=== PATIENT | female | born 1935 | race Caucasian/White ===

== ENCOUNTER 2016-10-30 06:51 | Inpatient (IN) | payer OTHER ==
[~2016-10-30] VITALS: Ht 154.9 cm; Wt 85.0 kg
[~2016-10-30 06:51] MED LIST: ALBU1AER9 INH; ASPCH81X PO; CPR250 PO; FLNIN NAE; LSN/10125 PO; TPM25 PO; ULT50X PO
[2016-10-30] MEDS ORDERED: SODIUM CHLORIDE 0.9% 1000ML 1,000 ML IV STA (07:01)
[2016-10-30] MEDS ORDERED: SODIUM CHLORIDE 0.9% 1000ML 500 ML IV STA (07:01)
--- NOTE | 2016-10-30 07:27 | EMERGENCY ROOM VISIT NOTE ---
History Report prepared by Sultana: Digna Corrales Under the Supervision of: Dr. Almas Dubon M.D. First contact with patient: 06:54 Stated Complaint: ABD PAIN History of Present Illness The patient is an 81 year old female who presents to the Emergency Room with complaints of intermittent lower abdominal pain that started yesterday afternoon. The patient came to the ED via ambulance from home where she resides with her who has Alzheimer's. The pain is worst right before she has a bowel movement. She rates her discomfort as a 10/10 in severity when the pain is at its worst. She states that the pain started yesterday afternoon after she ate lunch. The patient states that she ate lunch around 1300 and the pain started around 1400. After the pain started, she experienced an increased frequency in bowel movements. She states that after her first bowel movement she experienced generalized weakness, lightheadedness, and diaphoresis. She denies LOC, chest pain, and nausea. She experienced a few more bowel movements that didn't have any blood associated with them but last night she experienced rectal bleeding with her bowel movements. The patient has been experiencing rectal bleeding with bowel movements since then. She called her daughter this morning and told her about her symptoms which is what prompted the patient come into the ED today. The patient is not on any blood thinners. The patient has chronic kidney disease and follows with Dr. Valdovinos - Nephrology. The patient states that she experiences hyperkalemia but Dr. Valdovinos does not feel that she is close to dialysis yet. Source of History: patient Onset: yesterday afternoon Position: abdomen (lower) Symptom Intensity: 10/10 Quality: other (lower abdominal pain) Timing: intermittent Associated Symptoms: + diaphoresis, + weakness, No LOC, No chest pain, No nausea Note: lightheadedness, rectal bleeding Review of Systems See HPI for pertinent positives & negatives. A total of 10 systems reviewed and were otherwise negative. Past Medical & Surgical Medical Problems: (1) Back pain (2) Breast cancer (3) Chronic renal failure, stage 4 (severe) (4) CKD (chronic kidney disease), stage IV (5) DVT (deep venous thrombosis) (6) Dyslipidemia (7) GERD (gastroesophageal reflux disease) (8) GI bleed (9) History of DVT (deep vein thrombosis) (10) HTN (hypertension) (11) Lumbago (12) Osteoporosis (13) Stroke Surgical Problems: (1) H/O bladder repair surgery (2) H/O colonoscopy (3) H/O mastectomy (4) H/O right knee surgery (5) History of hip surgery (6) History of right-sided carotid endarterectomy (7) History of total hip replacement (8) S/P mastectomy (9) S/P tonsillectomy and adenoidectomy (10) S/P total hysterectomy Family History Patient reports no known family medical history. Social History Smoking Status: Never Smoker Alcohol Use: none Drug Use: none Marital Status: single Housing Status: other Current/Historical Medications Scheduled Ascorbic Acid (Vitamin C), 1,000 MG PO BID Aspirin (Aspirin Chewable), 81 MG PO DAILY Cholecalciferol (Vitamin D), 2,000 UNIT PO DAILY Duloxetine HCl (Duloxetine HCl), 60 MG PO DAILY Gabapentin (Neurontin), 300 MG PO HS Gabapentin (Neurontin), 100 MG PO BID Hctz/Lisinopril (Lisinopril/Hctz 10/12.5 Mg), 1 TAB PO DAILY Mometasone Furoate-Formoterol (Dulera 100/5 Mcg), 2 PUFFS INH BID Omeprazole (Prilosec), 40 MG PO DAILY Scheduled PRN Acetaminophen (Tylenol), 1,000 MG PO Q6 PRN for Pain Miscellaneous Medications Fluticasone Propionate (Nasal) (Flonase Allergy Relief) Allergies Coded Allergies: Codeine (Verified Allergy, Unknown, unknown, 03/28/16) Oxycodone (Verified Allergy, Unknown, 03/28/16) Sulfa Antibiotics (Verified Adverse Reaction, Intermediate, KIDNEY PROBLEMS, 03/29/16) Physical Exam Vital Signs Date Time Temp Pulse Resp B/P (MAP) Pulse Ox O2 Delivery O2 Flow Rate FiO2 10/30/16 08:59 96 Room Air 10/30/16 08:51 85 16 161/63 96 Room Air 10/30/16 08:00 83 16 145/72 98 Room Air 10/30/16 07:03 82 10/30/16 07:02 36.9 87 16 164/80 94 Room Air Physical Exam GENERAL: Patient is in no acute distress. HEENT: No acute trauma, normocephalic atraumatic, mucous membranes moist, no nasal congestion, no scleral icterus. NECK: No stridor, no adenopathy, no meningismus, trachea is midline. LUNGS: Clear to auscultation bilaterally, no wheeze, no rhonchi, breath sounds equal. HEART: Without murmurs gallops or rubs, regular rate and rhythm. ABDOMEN: Soft, nontender, bowel sounds positive, no hernias, no peritonitis. EXTREMITIES: No cyanosis or edema, full range of motion of all the joints without pain or difficulty, no signs for acute trauma. NEUROLOGIC: Oriented x 3, no acute motor or sensory deficits, no focal weakness. SKIN: No rash, no jaundice, no diaphoresis. Medical Decision & Procedures ER Provider Diagnostic Interpretation: Radiology results as stated below per my review and radiologist interpretation: CHEST ONE VIEW PORTABLE FINDINGS: Cardiac silhouette is upper limits of normal and unchanged. Mild pleural parenchymal scarring of left lung apex is redemonstrated. There is a faint retrocardiac opacity again seen which likely correlates with prominence of the epicardial fat pad with small hiatal hernia as seen on comparison CT dated 03/28/2016. There is no pneumothorax, pleural effusion or new focal airspace consolidation. There are surgical clips within the right axilla. IMPRESSION: No acute cardiopulmonary process. Electronically signed by: Leno Cartwright 10/30/2016 8:13 AM Dictated Date/Time: 10/30/2016 8:[address] SCAN OF THE ABDOMEN AND PELVIS WITHOUT CONTRAST FINDINGS: Lower chest: There is a hiatal hernia. There are mild dependent atelectatic changes. Liver: The unenhanced liver is normal in size, contour, and attenuation. There is no intrahepatic biliary ductal dilatation. Gallbladder: Unremarkable. Spleen: Normal in size and attenuation. Pancreas: Unremarkable. Adrenal glands: Unremarkable. Kidneys: No renal, ureteral, or bladder calculi are visualized. Bowel: There are no transition zones to indicate bowel obstruction. There are no findings to indicate acute appendicitis. There is bowel wall thickening involving the transverse and descending colon. There is mild infiltration the pericolonic fat. There are scattered colonic diverticula present. Peritoneum: There is no intraperitoneal free air or abdominal ascites. Vasculature: The abdominal aorta is normal in course and caliber. Adenopathy: None. Pelvic viscera: The uterus appears surgically absent Skeletal structures: There are postsurgical changes of a total right hip arthroplasty. There are multilevel degenerative changes within the spine. There is an old superior endplate L4 compression deformity. There is a moderate T11 compression fracture which is progressive when compared the preceding March 28 study. IMPRESSION: 1. Moderate colonic wall thickening and infiltration of the pericolonic fat involving the transverse and descending colon. The findings are consistent with a colitis (ischemic versus infectious) 2. No evidence of bowel obstruction. No evidence of free air 3. Progressive moderate T11 vertebral body compression fracture Electronically signed by: Fidel Bermeo M.D. 10/30/2016 7:55 AM Dictated Date/Time: 10/30/2016 7:48 AM Laboratory Results 10/30/16 07:35 Test 10/30/16 07:35 10/30/16 09:00 Immature Granulocyte % (Auto) 0.3 % White Blood Count 15.47 K/uL (4.8-10.8) Red Blood Count 3.76 M/uL (4.2-5.4) Hemoglobin 11.4 g/dL (12.0-16.0) Hematocrit 35.2 % (37-47) Mean Corpuscular Volume 93.6 fL (80-100) Mean Corpuscular Hemoglobin 30.3 pg (25-34) Mean Corpuscular Hemoglobin Concent 32.4 g/dl (32-36) Platelet Count 287 K/uL (130-400) Mean Platelet Volume 9.7 fL (7.4-10.4) Neutrophils (%) (Auto) 78.9 % Lymphocytes (%) (Auto) 9.8 % Monocytes (%) (Auto) 9.4 % Eosinophils (%) (Auto) 1.3 % Basophils (%) (Auto) 0.3 % Neutrophils # (Auto) 12.22 K/uL (1.4-6.5) Lymphocytes # (Auto) 1.51 K/uL (1.2-3.4) Monocytes # (Auto) 1.46 K/uL (0.11-0.59) Eosinophils # (Auto) 0.20 K/uL (0-0.5) Basophils # (Auto) 0.04 K/uL (0-0.2) Immature Granulocyte # (Auto) 0.04 K/uL (0.00-0.02) Platelet Estimate NORMAL Prothrombin Time 10.6 SECONDS (9.0-12.0) Prothromb Time International Ratio 1.0 (0.9-1.1) Activated Partial Thromboplast Time 26.4 SECONDS (21.0-31.0) Partial Thromboplastin Ratio 1.0 Anion Gap 9.0 mmol/L (3-11) Est Creatinine Clear Calc Drug Dose 19.2 ml/min Estimated GFR () 23.3 Estimated GFR (Non- 20.1 BUN/Creatinine Ratio 14.2 (10-20) Calcium Level 8.9 mg/dl (8.5-10.1) Total Bilirubin 0.3 mg/dl (0.2-1) Direct Bilirubin < 0.1 mg/dl (0-0.2) Aspartate Amino Transf (AST/SGOT) 17 U/L (15-37) Alanine Aminotransferase (ALT/SGPT) 16 U/L (12-78) Alkaline Phosphatase 103 U/L (45-117) Troponin I < 0.015 ng/ml (0-0.045) Total Protein 6.8 gm/dl (6.4-8.2) Albumin 3.5 gm/dl (3.4-5.0) Lipase 94 U/L (73-393) Lactic Acid Level 1.4 mmol/L (0.4-2.0) Laboratory results reviewed by me. Medications Administered Medications (Trade) Dose Ordered Sig/Dolly Route Start Time Stop Time Status Last Admin Dose Admin Sodium Chloride 500 ml @ 999 mls/hr Q31M STAT IV 10/30/16 07:01 10/30/16 07:31 DC 10/30/16 08:02 999 MLS/HR Sodium Chloride 1,000 ml @ 125 mls/hr Q8H STAT IV 10/30/16 07:01 10/30/16 10:31 DC 10/30/16 08:02 125 MLS/HR Sodium Chloride 1,000 ml @ 100 mls/hr Q10H IV 10/30/16 09:30 11/29/16 09:29 10/30/16 11:26 100 MLS/HR ECG Indication: weakness Rate (beats per minute): 82 Rhythm: sinus rhythm Findings: 1st degree AV block, PAC, RBBB, no acute ischemic change ED Course 0655: The patient was evaluated in room A10. A complete history and physical exam was performed. 0701: Ordered Sodium Chloride 1000 ml @ 125 mls/hr IV, Sodium Chloride 500 ml @ 999 mls/hr IV 0845: Discussed the patient's case with Dr. Wilkerson of the [facility]. The patient will be evaluated for further management. 0846: Upon reexamination the patient is resting comfortably. I discussed results and treatment plan with the patient and her family. She verbalizes agreement and understanding. The patient will be evaluated for further management. Medical Decision Differential diagnoses considered include upper or lower GI bleeding, hemorrhoidal bleeding, anemia, electrolyte imbalance, dehydration, bacterial intestinal infection, C. diff, food borne illness. Medication Reconciliation: I attest that I have personally reviewed the patient' s current medication list. Blood pressure screening: Patient was found to have a slightly elevated blood pressure due to circumstances. I do not believe that the patient requires hypertension monitoring. There is a moderate leukocytosis which could be consistent with infection. No concerning anemia. Renal panel testing shows renal insufficiency which is slightly worse than baseline. No significant electrolyte abnormality requiring correction. There is no hepatitis or pancreatitis. There was no coagulopathy. Abdominal and pelvis CT shows colitis. Lactic acid level is not elevated making bowel ischemia less likely. Stool sample testing is presently pending. EKG shows a sinus rhythm with a first-degree AV block. Cardiac enzyme testing 1 is not elevated making cardiac ischemia less likely. The patient received IV saline, she did not require anything for pain. She has done well. The patient presents with bloody diarrhea. She appears to have colitis by workup, she has a leukocytosis. I do think a hospital stay is warranted. I spoke to the patient and case management. The on-call hospitalist was consulted. The cause for the colitis at this point is still unclear. Consults Time Called: 08 Consulting Physician: Dr. Rock Yanes Returned Call: 0845 Discussed the patient's case with Dr. Wilkerson of the [facility]. The patient will be evaluated for further management. Impression Primary Impression: Rectal bleeding Additional Impressions: Colitis Leukocytosis Scribe Attestation The scribe's documentation has been prepared under my direction and personally reviewed by me in its entirety. I confirm that the note above accurately reflects all work, treatment, procedures, and medical decision making performed by me. Departure Information Dispostion Being Evaluated By Hospitalist Referrals [facility]rest[facility]carlos (PCP) Problem Qualifiers Additional Impressions: Leukocytosis Leukocytosis type: unspecified Qualified Codes: D72.829 - Elevated white blood cell count, unspecified
--- NOTE | 2016-10-30 07:56 | DIAGNOSTIC IMAGING REPORT ---
CT SCAN OF THE ABDOMEN AND PELVIS WITHOUT CONTRAST CLINICAL HISTORY: Lower abdominal pain. GI bleed. COMPARISON STUDY: 03/28/2016 TECHNIQUE: CT scan of the abdomen and pelvis was performed from the lung bases to the proximal femurs. Images are reviewed in the axial, sagittal, and coronal planes. IV contrast was not administered for this examination. CT DOSE: 608.10 mGy.cm FINDINGS: Lower chest: There is a hiatal hernia. There are mild dependent atelectatic changes. Liver: The unenhanced liver is normal in size, contour, and attenuation. There is no intrahepatic biliary ductal dilatation. Gallbladder: Unremarkable. Spleen: Normal in size and attenuation. Pancreas: Unremarkable. Adrenal glands: Unremarkable. Kidneys: No renal, ureteral, or bladder calculi are visualized. Bowel: There are no transition zones to indicate bowel obstruction. There are no findings to indicate acute appendicitis. There is bowel wall thickening involving the transverse and descending colon. There is mild infiltration the pericolonic fat. There are scattered colonic diverticula present. Peritoneum: There is no intraperitoneal free air or abdominal ascites. Vasculature: The abdominal aorta is normal in course and caliber. Adenopathy: None. Pelvic viscera: The uterus appears surgically absent Skeletal structures: There are postsurgical changes of a total right hip arthroplasty. There are multilevel degenerative changes within the spine. There is an old superior endplate L4 compression deformity. There is a moderate T11 compression fracture which is progressive when compared the preceding March 28 study. IMPRESSION: 1. Moderate colonic wall thickening and infiltration of the pericolonic fat involving the transverse and descending colon. The findings are consistent with a colitis (ischemic versus infectious) 2. No evidence of bowel obstruction. No evidence of free air 3. Progressive moderate T11 vertebral body compression fracture Electronically signed by: Fidel Bermeo M.D. 10/30/2016 7:55 AM Dictated Date/Time: 10/30/2016 7:48 AM
[2016-10-30 07:57] LABS: PROTHROMBIN TIME (PATIENT) 10.6 SECONDS (9.0-12.0)
[2016-10-30 08:04] LABS: ALT/SGPT 16 U/L (12-78); BLOOD UREA NITROGEN 31 mg/dl (7-18); BUN/CREATININE RATIO 14.2 (10-20); CALCIUM 8.9 mg/dl (8.5-10.1); CARBON DIOXIDE 24 mmol/L (21-32); CHLORIDE 105 mmol/L (98-107); GLUCOSE 118 mg/dl (70-99); POTASSIUM 4.4 mmol/L (3.5-5.1); SODIUM 138 mmol/L (136-145)
[2016-10-30 08:09] LABS: ALKALINE PHOSPHATASE 103 U/L (45-117); AST/SGOT 17 U/L (15-37)
--- NOTE | 2016-10-30 08:15 | DIAGNOSTIC IMAGING REPORT ---
CHEST ONE VIEW PORTABLE HISTORY: 81-year-old female presents with gastrointestinal bleeding. COMPARISON: Chest CT 03/28/2016, portable chest radiograph 02/16/2016. TECHNIQUE: Portable upright AP view of the chest. FINDINGS: Cardiac silhouette is upper limits of normal and unchanged. Mild pleural parenchymal scarring of left lung apex is redemonstrated. There is a faint retrocardiac opacity again seen which likely correlates with prominence of the epicardial fat pad with small hiatal hernia as seen on comparison CT dated 03/28/2016. There is no pneumothorax, pleural effusion or new focal airspace consolidation. There are surgical clips within the right axilla. IMPRESSION: No acute cardiopulmonary process. Electronically signed by: Leno Cartwright 10/30/2016 8:13 AM Dictated Date/Time: 10/30/2016 8:09 AM
[2016-10-30] MEDS ORDERED: FLUT0.15 (08:31)
[2016-10-30 08:34] LABS: HEMATOCRIT 35.2 % (37-47); MEAN CELL VOLUME 93.6 fL (80-100); MEAN CORPUSCULAR HEMOGLOBIN 30.3 pg (25-34); MEAN CORPUSCULAR HGB CONC 32.4 g/dl (32-36); MEAN PLATELET VOLUME 9.7 fL (7.4-10.4); PLATELET COUNT 287 K/uL (130-400); RED BLOOD COUNT 3.76 M/uL (4.2-5.4); WHITE BLOOD COUNT 15.47 K/uL (4.8-10.8)
[2016-10-30 08:35] LABS: BASO % 0.3 %; BASO ABS # 0.04 K/uL (0-0.2); COMPLETE YES; EOS % 1.3 %; IG% 0.3 %; LYMPH % 9.8 %; LYMPH ABS # 1.51 K/uL (1.2-3.4); MONO % 9.4 %; NEUT % 78.9 %; PLT ESTIMATE NORMAL
[2016-10-30 08:59] VITALS: O2SAT 96; Ht 154.9 cm; Wt 85.0 kg
[2016-10-30] MEDS ORDERED: ONDANSETRON INJ 2 MG/ML 2 ML VIAL IV PRN (09:30)
[2016-10-30] MEDS ORDERED: POLYETHYLENE (MIRALAX) 17 GM PACK PO PRN (09:30)
[2016-10-30] MEDS ORDERED: SODIUM CHLORIDE 0.9% 1000ML 1,000 ML IV SCH (09:30)
--- NOTE | 2016-10-30 09:56 | History and Physical ---
History & Physical Date & Time of Service: Oct 30, 2016 at 09:45 Chief Complaint: Abd Pain Primary Care Physician: Soheila Godfrey M.D. (MEDICAL) History of Present Illness Source: patient, family Patient is an 81 yo female who presented to the ER for complaints of bleeding per rectum that began yesterday around 4-5 PM. The patient reports her symptoms began immediately after eating at a gathering yesterday afternoon; she began to have sharp abdominal pain, went to the bathroom to have a BM and felt very lightheaded and began having excessive diaphoresis. She then had a BM which was bloody and thus left the democrat to go home. En route to her home she had fecal incontinence and stopped at a gas station bathroom to clean up. She reports having bloody bowel movements about every 1 hour from 7 PM last night until she went to bed. Since this morning she has had about 4 additional movements. The pain is partly improved with defecation. The bowel movements are bright red blood with some blood clots and some mucus. She reports having dizziness and lightheadedness yesterday but none so far today. She denies any prior history of bleeding per rectum. She has been on aspirin but no other medication changes. She has not eaten anything unusual or undercooked to her knowledge. She denies any NSAID use. No recent fever/infection. She did have a dental procedure to remove teeth and has been on a soft diet since then. Past Medical/Surgical History Medical Problems: (1) Breast cancer Status: Chronic (2) CKD (chronic kidney disease), stage IV Status: Chronic (3) Dyslipidemia Status: Chronic (4) GERD (gastroesophageal reflux disease) Status: Chronic (5) History of DVT (deep vein thrombosis) Status: Chronic (6) HTN (hypertension) Status: Chronic (7) Lumbago Status: Chronic (8) Osteoporosis Status: Chronic (9) Stroke Status: Resolved Surgical Problems: (1) H/O bladder repair surgery Status: Chronic (2) H/O colonoscopy Status: Chronic (3) H/O right knee surgery Status: Chronic (4) History of right-sided carotid endarterectomy Status: Chronic (5) History of total hip replacement Status: Chronic (6) S/P mastectomy Status: Chronic (7) S/P tonsillectomy and adenoidectomy Status: Chronic (8) S/P total hysterectomy Status: Chronic Family History Patient reports no known family medical history. Social History Smoking Status: Never Smoker Alcohol Use: none Drug Use: none Marital Status: single Multi-Drug Resistant Organisms History of MDRO: No Allergies Coded Allergies: Codeine (Verified Allergy, Unknown, unknown, 03/28/16) Oxycodone (Verified Allergy, Unknown, 03/28/16) Sulfa Antibiotics (Verified Adverse Reaction, Intermediate, KIDNEY PROBLEMS, 03/29/16) Home Medications Scheduled Ascorbic Acid (Vitamin C), 1,000 MG PO BID Aspirin (Aspirin Chewable), 81 MG PO DAILY Cholecalciferol (Vitamin D), 2,000 UNIT PO DAILY Duloxetine HCl (Duloxetine HCl), 60 MG PO DAILY Gabapentin (Neurontin), 300 MG PO HS Gabapentin (Neurontin), 100 MG PO BID Hctz/Lisinopril (Lisinopril/Hctz 10/12.5 Mg), 1 TAB PO DAILY Mometasone Furoate-Formoterol (Dulera 100/5 Mcg), 2 PUFFS INH BID Omeprazole (Prilosec), 40 MG PO DAILY Scheduled PRN Acetaminophen (Tylenol), 1,000 MG PO Q6 PRN for Pain Miscellaneous Medications Fluticasone Propionate (Nasal) (Flonase Allergy Relief) Review of Systems Constitutional: + sweats, + weakness, No fever, No chills Eyes: No worsening of vision, No diplopia, No problem reported ENT: No hearing loss, No nasal symptoms, No sore throat, No problem reported Respiratory: No cough, No wheezing, No shortness of breath, No problem reported Cardiovascular: No chest pain, No edema, No claudication, No palpitations Abdomen: + pain, + GI bleeding Musculoskeletal: + joint pain, No swelling, No calf pain Genitourinary - Female: No problem reported Neurologic: + weakness, + numbness/tingling, No problem reported Psychiatric: No depression symptoms, No anxiety, No substance abuse Endocrine: No problem reported Hematologic / Lymphatic: No problem reported Integumentary: No problem reported Physical Exam Vital Signs Date Time Temp Pulse Resp B/P (MAP) Pulse Ox O2 Delivery O2 Flow Rate FiO2 10/30/16 09:42 84 10/30/16 08:59 96 Room Air 10/30/16 08:51 85 16 161/63 96 Room Air 10/30/16 08:00 83 16 145/72 98 Room Air 10/30/16 07:03 82 10/30/16 07:02 36.9 87 16 164/80 94 Room Air General Appearance: WD/WN, no apparent distress Head: normocephalic, atraumatic Eyes: PERRL, EOMI ENT: hearing grossly normal Neck: supple, no adenopathy, no JVD, no carotid bruits, trachea midline Respiratory/Chest: lungs clear, normal breath sounds, no respiratory distress, no accessory muscle use Cardiovascular: regular rate, rhythm, no edema, no gallop, no JVD Abdomen/GI: normal bowel sounds, soft, no organomegaly, + tenderness (to light palpation, worst on the left side but tender diffusely), + fecal occult blood Extremities/Musculoskelatal: no calf tenderness, normal capillary refill, no pedal edema Neurologic/Psych: no motor/sensory deficits, alert, normal mood/affect, oriented x 3 Skin: normal color, warm/dry, no rash Diagnostics Laboratory Results Results Past 24 Hours Test 10/30/16 07:35 10/30/16 09:00 Range/Units White Blood Count 15.47 4.8-10.8 K/uL Red Blood Count 3.76 4.2-5.4 M/uL Hemoglobin 11.4 12.0-16.0 g/dL Hematocrit 35.2 37-47 % Mean Corpuscular Volume 93.6 80-100 fL Mean Corpuscular Hemoglobin 30.3 25-34 pg Mean Corpuscular Hemoglobin Concent 32.4 32-36 g/dl Platelet Count 287 130-400 K/uL Mean Platelet Volume 9.7 7.4-10.4 fL Neutrophils (%) (Auto) 78.9 % Lymphocytes (%) (Auto) 9.8 % Monocytes (%) (Auto) 9.4 % Eosinophils (%) (Auto) 1.3 % Basophils (%) (Auto) 0.3 % Neutrophils # (Auto) 12.22 1.4-6.5 K/uL Lymphocytes # (Auto) 1.51 1.2-3.4 K/uL Monocytes # (Auto) 1.46 0.11-0.59 K/uL Eosinophils # (Auto) 0.20 0-0.5 K/uL Basophils # (Auto) 0.04 0-0.2 K/uL RDW Standard Deviation 45.3 36.4-46.3 fL RDW Coefficient of Variation 13.1 11.5-14.5 % Immature Granulocyte % (Auto) 0.3 % Immature Granulocyte # (Auto) 0.04 0.00-0.02 K/uL Platelet Estimate NORMAL Prothrombin Time 10.6 9.0-12.0 SECONDS Prothromb Time International Ratio 1.0 0.9-1.1 Activated Partial Thromboplast Time 26.4 21.0-31.0 SECONDS Partial Thromboplastin Ratio 1.0 Sodium Level 138 136-145 mmol/L Potassium Level 4.4 3.5-5.1 mmol/L Chloride Level 105 98-107 mmol/L Carbon Dioxide Level 24 21-32 mmol/L Anion Gap 9.0 3-11 mmol/L Blood Urea Nitrogen 31 7-18 mg/dl Creatinine 2.20 0.60-1.20 mg/dl Est Creatinine Clear Calc Drug Dose 19.2 ml/min Estimated GFR () 23.3 Estimated GFR (Non- 20.1 BUN/Creatinine Ratio 14.2 10-20 Random Glucose 118 70-99 mg/dl Calcium Level 8.9 8.5-10.1 mg/dl Total Bilirubin 0.3 0.2-1 mg/dl Direct Bilirubin < 0.1 0-0.2 mg/dl Aspartate Amino Transf (AST/SGOT) 17 15-37 U/L Alanine Aminotransferase (ALT/SGPT) 16 12-78 U/L Alkaline Phosphatase 103 45-117 U/L Troponin I < 0.015 0-0.045 ng/ml Total Protein 6.8 6.4-8.2 gm/dl Albumin 3.5 3.4-5.0 gm/dl Lipase 94 73-393 U/L Lactic Acid Level 1.4 0.4-2.0 mmol/L Impression Assessment and Plan GI BLEED: -per symptoms and radiographic findings most likely ischemic colitis; however will obtain stool cultures and c diff to rule out other infectious etiology -IV fluids -NPO except meds for now -GI consulted -IV protonix -cipro + flagyl for both uti and GI source coverage -type and screen, blood consent signed in the chart -check H&H q 8 hours -telemetry for now LUZ ELENA ON CKD STAGE IV: -Cr. 2.2, above baseline of 1.6-1.8 -monitor after IV fluids -likely related to above PVD: -continue statin -hold ASA for now due to GI bleed HTN: -hold BP meds for now DEPRESSION: -continue duloxetine CHRONIC PAIN: -PRN analgesia POSSIBLE UTI: -check urine culture -patient was already started on cipro + flagyl for colitis, await culture results for further changes PRIOR BREAST CANCER: -had previous mastectomy and per family negative nodes -was hormone positive and was on SERM but stopped due to DVT and CEA and TIA -has routine mammograms DVT PROPHYLAXIS: -patient had a prior DVT, will place SCD cuffs for now due to acute bleed Advanced Directives Existing Living Will: Yes Existing Power of Company Marker: Yes (ALEXANDRA STARK ) VTE Prophylaxis VTE Risk Assessment Done? Y/N: Yes Risk Level: Moderate
[2016-10-30 10:48] VITALS: BP 149/66; PULSE 89; TEMP 37.3; O2SAT 97
[2016-10-30] MEDS: CIPROFLOXACIN / D5W 200 MG in PREMIXED IN D5W 100 ML IV SCH ×2 (11:26→22:25)
[2016-10-30] MEDS: METRONIDAZOLE / NSS 500 MG in PREMIXED NSS 100 ML IV SCH ×2 (11:27→19:40)
[2016-10-30] MEDS: PANTOprazole INJ 40 MG in SYRINGE 0 ML IV SCH (11:27)
[2016-10-30 12:47] LABS: HEMATOCRIT 34.3 % (37-47); MEAN CORPUSCULAR HEMOGLOBIN 30.9 pg (25-34); MEAN CORPUSCULAR HGB CONC 33.2 g/dl (32-36); MEAN PLATELET VOLUME 8.7 fL (7.4-10.4); PLATELET COUNT 271 K/uL (130-400); RED BLOOD COUNT 3.69 M/uL (4.2-5.4); WHITE BLOOD COUNT 17.07 K/uL (4.8-10.8)
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
[2016-10-30] MEDS: GABAPENTIN 100 MG CAP PO SCH (13:12)
[2016-10-30 15:13] VITALS: BP 140/81; PULSE 84; TEMP 37.4; O2SAT 94
[2016-10-30] MEDS ORDERED: NURSING VERBAL MED ORDER ONE ×2 (15:15→17:00)
[2016-10-30] MEDS: ACETAMINOPHEN 325 MG TAB PO PRN ×2 (15:38→20:15)
[2016-10-30 16:28] LABS: HEMATOCRIT 34.1 % (37-47); MEAN CELL VOLUME 92.2 fL (80-100); MEAN CORPUSCULAR HEMOGLOBIN 30.3 pg (25-34); MEAN CORPUSCULAR HGB CONC 32.8 g/dl (32-36); PLATELET COUNT 284 K/uL (130-400); WHITE BLOOD COUNT 18.29 K/uL (4.8-10.8)
[2016-10-30 19:40] VITALS: BP 148/79; PULSE 81; TEMP 37.1; O2SAT 94
[2016-10-30] MEDS: GABAPENTIN 300 MG CAP PO SCH (20:15)
[2016-10-30] MEDS: ASCORBIC ACID 500 MG TAB PO SCH (20:15)
[2016-10-30 20:38] LABS: MEAN CELL VOLUME 92.3 fL (80-100); MEAN CORPUSCULAR HEMOGLOBIN 29.2 pg (25-34); MEAN CORPUSCULAR HGB CONC 31.7 g/dl (32-36); MEAN PLATELET VOLUME 8.9 fL (7.4-10.4); PLATELET COUNT 292 K/uL (130-400)
[2016-10-30 23:17] VITALS: BP 114/68; PULSE 80; TEMP 37.1; O2SAT 94
[2016-10-31] VITALS (7 sets, daily range): BP systolic 104–126; BP diastolic 62–71; PULSE 77–86; TEMP 37–37.6; O2SAT 90–94
[2016-10-31] MEDS: METRONIDAZOLE / NSS 500 MG in PREMIXED NSS 100 ML IV SCH ×3 (04:18→20:34)
[2016-10-31 06:25] LABS: HEMATOCRIT 32.1 % (37-47); MEAN CELL VOLUME 93.6 fL (80-100); MEAN CORPUSCULAR HGB CONC 32.1 g/dl (32-36); MEAN PLATELET VOLUME 9.4 fL (7.4-10.4); PLATELET COUNT 262 K/uL (130-400); RED BLOOD COUNT 3.43 M/uL (4.2-5.4); WHITE BLOOD COUNT 19.94 K/uL (4.8-10.8)
[2016-10-31 06:43] LABS: BUN/CREATININE RATIO 11.1 (10-20); CALCIUM 8.6 mg/dl (8.5-10.1); CREATININE 1.9 mg/dl (0.60-1.20); POTASSIUM 3.8 mmol/L (3.5-5.1)
[2016-10-31] MEDS: ACETAMINOPHEN 325 MG TAB PO PRN (08:28)
[2016-10-31] MEDS: FLUTICASONE PROPIONATE NA SPR 16 GM BTL NAE SCH (08:29)
[2016-10-31] MEDS: DULOXETINE HCL 60 MG CAP PO SCH (08:30)
[2016-10-31] MEDS: CHOLECALCIFEROL 1000 INTER.UNIT TAB PO SCH (08:30)
[2016-10-31] MEDS: GABAPENTIN 100 MG CAP PO SCH ×2 (08:30→13:10)
[2016-10-31] MEDS: ASCORBIC ACID 500 MG TAB PO SCH ×2 (08:31→20:36)
[2016-10-31] MEDS: CIPROFLOXACIN / D5W 200 MG in PREMIXED IN D5W 100 ML IV SCH ×2 (11:14→21:57)
[2016-10-31] MEDS: PANTOprazole INJ 40 MG in SYRINGE 0 ML IV SCH (11:15)
--- NOTE | 2016-10-31 11:26 | Gastroenterology Progress Note ---
Progress Note Date of Service: Oct 31, 2016 Subjective Pt evaluation today including: conversation w/ patient, conversation w/ family , physical exam, chart review, lab review, review of studies, review of inpatient medication list Pt reports lower abd cramping improving, passing stools but not as much blood. Tolerated CL diet, w/o n/v. Review of Systems Constitutional: No fever, No chills Respiratory: No cough, No shortness of breath Cardiac: No chest pain Abdomen: + pain (improving), + GI bleeding, No nausea, No vomiting Medications Current Inpatient Medications Medications (Trade) Dose Ordered Sig/Dolly Route Start Time Stop Time Status Last Admin Dose Admin Acetaminophen (Tylenol Tab) 650 mg Q4H PRN PO 10/30/16 09:30 11/29/16 09:29 10/31/16 08:28 650 MG Ondansetron HCl (Zofran Inj) 4 mg Q6H PRN IV 10/30/16 09:30 11/29/16 09:29 Polyethylene (Miralax Powder Packet) 17 gm DAILY PRN PO 10/30/16 09:30 11/29/16 09:29 Pantoprazole Sodium 40 mg/ Syringe 10 ml @ 5 mls/min DAILY@11 IV 10/30/16 11:00 11/29/16 10:59 10/31/16 11:15 5 MLS/MIN Ciprofloxacin/ Dextrose 200 mg/ Prmx 100 ml @ 100 mls/hr Q12H IV 10/30/16 11:00 11/09/16 10:59 10/31/16 11:14 100 MLS/HR Metronidazole 500 mg/Prmx 100 ml @ 100 mls/hr Q8H IV 10/30/16 12:00 11/09/16 09:44 10/31/16 04:18 100 MLS/HR Duloxetine HCl (Cymbalta Cap) 60 mg DAILY PO 10/31/16 09:00 11/30/16 08:59 10/31/16 08:30 60 MG Fluticasone Propionate (Flonase Nasal [place]) 2 sprays DAILY VICKI 10/31/16 09:00 11/30/16 08:59 10/31/16 08:29 2 SPRAYS Gabapentin (Neurontin Cap) 100 mg BID@0900,1400 PO 10/30/16 14:00 11/29/16 13:59 10/31/16 08:30 100 MG Gabapentin (Neurontin Cap) 300 mg HS PO 10/30/16 21:00 11/29/16 20:59 10/30/16 20:15 300 MG Ascorbic Acid (Vitamin C Tab) 1,000 mg BID PO 10/30/16 21:00 11/29/16 20:59 10/31/16 08:31 1,000 MG Miscellaneous Information (Order Awaiting Action) 1 ea QS N/A 10/30/16 11:00 11/29/16 10:59 Cholecalciferol (Vitamin D Tab) 2,000 inter.unit QAM PO 10/31/16 09:00 11/30/16 08:59 10/31/16 08:30 2,000 INTER.UNIT Objective Vital Signs Date Time Temp Pulse Resp B/P (MAP) Pulse Ox O2 Delivery O2 Flow Rate FiO2 10/31/16 08:00 93 Room Air 10/31/16 07:48 37.0 86 22 126/69 (88) 93 Room Air 10/31/16 04:00 Room Air 10/31/16 03:57 37.5 86 19 122/69 (86) 92 Room Air 10/30/16 23:59 Room Air 10/30/16 23:17 37.1 80 19 114/68 (83) 94 Room Air 10/30/16 19:40 37.1 81 16 148/79 (102) 94 Room Air 10/30/16 19:30 Room Air 10/30/16 15:13 37.4 84 16 140/81 (100) 94 Room Air Physical Exam General Appearance: WD/WN, no apparent distress Eyes: normal inspection, PERRL, EOMI Neck: supple, no JVD, trachea midline Respiratory/Chest: normal breath sounds, no respiratory distress, no accessory muscle use Cardiovascular: regular rate, rhythm, no gallop, no murmur Abdomen: normal bowel sounds, non tender, soft Extremities: normal inspection, no pedal edema, no calf tenderness Neurologic/Psych: alert, normal mood/affect, oriented x 3 Skin: normal color, no jaundice, no rash Laboratory Results Last 24 Hours Test 10/30/16 12:26 10/30/16 16:18 10/30/16 20:20 10/31/16 05:40 White Blood Count 17.07 K/uL 18.29 K/uL 20.70 K/uL 19.94 K/uL Red Blood Count 3.69 M/uL 3.70 M/uL 3.90 M/uL 3.43 M/uL Hemoglobin 11.4 g/dL 11.2 g/dL 11.4 g/dL 10.3 g/dL Hematocrit 34.3 % 34.1 % 36.0 % 32.1 % Mean Corpuscular Volume 93.0 fL 92.2 fL 92.3 fL 93.6 fL Mean Corpuscular Hemoglobin 30.9 pg 30.3 pg 29.2 pg 30.0 pg Mean Corpuscular Hemoglobin Concent 33.2 g/dl 32.8 g/dl 31.7 g/dl 32.1 g/dl RDW Standard Deviation 43.9 fL 44.0 fL 43.8 fL 45.6 fL RDW Coefficient of Variation 13.0 % 13.0 % 13.0 % 13.2 % Platelet Count 271 K/uL 284 K/uL 292 K/uL 262 K/uL Mean Platelet Volume 8.7 fL 9.0 fL 8.9 fL 9.4 fL Sodium Level 140 mmol/L Potassium Level 3.8 mmol/L Chloride Level 107 mmol/L Carbon Dioxide Level 23 mmol/L Anion Gap 10.0 mmol/L Blood Urea Nitrogen 21 mg/dl Creatinine 1.90 mg/dl Est Creatinine Clear Calc Drug Dose 22.1 ml/min Estimated GFR () 27.8 Estimated GFR (Non- 24.0 BUN/Creatinine Ratio 11.1 Random Glucose 123 mg/dl Calcium Level 8.6 mg/dl Assessment and Plan Impression Patient is a 81 year old female with lower abd cramping and bloody stools. Prior to admission had presyncopal episode w light headedness, diaphoresis. Recent Cipro use fo UTI also. CT abd/pelvis showed colitis (ischemic vs infectious). CBC stable, Cr improving from 2.2 to 1.9. Cdiff negative, stool & urine cx pending. She is having improvement of her abd pain, also less blood in stools. Plan - F/U stool cx - IVF hydration, monitor Cr. - CL diet; advance as tolerated - Cipro/Flagyl antibx coverage - Will discuss when pt is improving about colonoscopy eval in 4-6 week's time. ATTESTATION: I have performed a history and physical examination of this patient and reviewed the electronic record. Specifically, on physical examination there is mild abdominal tenderness. I have discussed the case with MIGUELANGEL Hollins. The above note reflects my findings, conclusions, and recommendations. Steven Johnson MD
[2016-10-31 12:27] LABS: HEMATOCRIT 34.5 % (37-47); MEAN CELL VOLUME 94.3 fL (80-100); MEAN CORPUSCULAR HEMOGLOBIN 31.1 pg (25-34); MEAN PLATELET VOLUME 9.2 fL (7.4-10.4); PLATELET COUNT 273 K/uL (130-400); RED BLOOD COUNT 3.66 M/uL (4.2-5.4); WHITE BLOOD COUNT 22.73 K/uL (4.8-10.8)
[2016-10-31 16:19] LABS: HEMATOCRIT 32.2 % (37-47); MEAN CELL VOLUME 92.5 fL (80-100); MEAN CORPUSCULAR HEMOGLOBIN 29.6 pg (25-34); PLATELET COUNT 255 K/uL (130-400); RED BLOOD COUNT 3.48 M/uL (4.2-5.4); WHITE BLOOD COUNT 20.51 K/uL (4.8-10.8)
--- NOTE | 2016-10-31 18:30 | Progress Note ---
Medicine Progress Note Date & Time of Visit: Oct 31, 2016 at 18:25. Subjective Patient reports ongoing abdominal pain and rectal bleeding, but feels it is overall less frequent today than yesterday. Daughter at the bedside and was updated. Patient denies any symptoms of CP, SOB, palpitations, N/V, dizziness or lightheadedness. No overnight events noted. Objective Last 8 Hrs Date Time Temp Pulse Resp B/P (MAP) Pulse Ox O2 Delivery O2 Flow Rate FiO2 10/31/16 16:00 Room Air 10/31/16 15:18 37.6 84 20 107/65 (79) 93 Room Air 10/31/16 12:07 37.0 77 20 111/71 (84) 94 Room Air 10/31/16 12:00 Room Air Physical Exam: GENERAL: Patient is in no acute distress. HEENT: No acute trauma, normocephalic atraumatic, mucous membranes moist, no nasal congestion, no scleral icterus. NECK: No stridor, trachea is midline. LUNGS: Diminished bases bilaterally, no wheeze, no rhonchi, breath sounds equal. HEART: Without murmurs gallops or rubs, regular rate and rhythm. ABDOMEN: Soft, tenderness on left and slightly diffusely tender, bowel sounds positive, ND EXTREMITIES: No cyanosis or edema NEUROLOGIC: Oriented x 3, no acute motor or sensory deficits, no focal weakness. SKIN: No rash, no jaundice, no diaphoresis. Laboratory Results: Last 24 Hours Test 10/30/16 20:20 10/31/16 05:40 10/31/16 11:56 10/31/16 16:03 White Blood Count 20.70 K/uL 19.94 K/uL 22.73 K/uL 20.51 K/uL Red Blood Count 3.90 M/uL 3.43 M/uL 3.66 M/uL 3.48 M/uL Hemoglobin 11.4 g/dL 10.3 g/dL 11.4 g/dL 10.3 g/dL Hematocrit 36.0 % 32.1 % 34.5 % 32.2 % Mean Corpuscular Volume 92.3 fL 93.6 fL 94.3 fL 92.5 fL Mean Corpuscular Hemoglobin 29.2 pg 30.0 pg 31.1 pg 29.6 pg Mean Corpuscular Hemoglobin Concent 31.7 g/dl 32.1 g/dl 33.0 g/dl 32.0 g/dl RDW Standard Deviation 43.8 fL 45.6 fL 45.7 fL 44.2 fL RDW Coefficient of Variation 13.0 % 13.2 % 13.1 % 13.1 % Platelet Count 292 K/uL 262 K/uL 273 K/uL 255 K/uL Mean Platelet Volume 8.9 fL 9.4 fL 9.2 fL 9.0 fL Sodium Level 140 mmol/L Potassium Level 3.8 mmol/L Chloride Level 107 mmol/L Carbon Dioxide Level 23 mmol/L Anion Gap 10.0 mmol/L Blood Urea Nitrogen 21 mg/dl Creatinine 1.90 mg/dl Est Creatinine Clear Calc Drug Dose 22.1 ml/min Estimated GFR () 27.8 Estimated GFR (Non- 24.0 BUN/Creatinine Ratio 11.1 Random Glucose 123 mg/dl Calcium Level 8.6 mg/dl Test 10/31/16 16:31 Bedside Glucose 111 mg/dl Date/Time Source Procedure Growth Status 10/31/16 00:00 Stool Shiga Toxin Test Pending Received 10/31/16 00:00 Stool Stool Culture Pending Received 10/31/16 00:00 Stool C.difficile Toxin B Gene (PCR) - Final No C. difficile toxin B gene detected Complete Assessment & Plan GI BLEED: -per symptoms and radiographic findings most likely ischemic colitis -stool cultures pending and c diff negative -IV fluids stopped due to worsening edema -on clear liquid diet -GI consulted, appreciate recs; probable endoscopic eval in 4-6 weeks time -IV protonix, can switch to PO -on cipro + flagyl day #2 -type and screen, blood consent signed in the chart -check H&H q 8 hours -telemetry for now LUZ ELENA ON CKD STAGE IV: -Cr. 2.2-->1.9 above baseline of 1.6-1.8 -monitor after IV fluids -likely related to above PVD: -continue statin -hold ASA for now due to GI bleed HTN: -hold BP meds for now DEPRESSION: -continue duloxetine CHRONIC PAIN: -PRN analgesia POSSIBLE UTI: -urine culture growing multiple organisms, suspected contaminants -patient was already started on cipro + flagyl for colitis, await culture results for further changes PRIOR BREAST CANCER: -had previous mastectomy and per family negative nodes -was hormone positive and was on treatment but stopped due to DVT and CEA and TIA -has routine mammograms thru her PCP DVT PROPHYLAXIS: -patient had a prior DVT, will place SCD cuffs for now due to acute bleed Current Inpatient Medications: Current Inpatient Medications Medications (Trade) Dose Ordered Sig/Dolly Route Start Time Stop Time Status Last Admin Dose Admin Acetaminophen (Tylenol Tab) 650 mg Q4H PRN PO 10/30/16 09:30 11/29/16 09:29 10/31/16 08:28 650 MG Ondansetron HCl (Zofran Inj) 4 mg Q6H PRN IV 10/30/16 09:30 11/29/16 09:29 Polyethylene (Miralax Powder Packet) 17 gm DAILY PRN PO 10/30/16 09:30 11/29/16 09:29 Pantoprazole Sodium 40 mg/ Syringe 10 ml @ 5 mls/min DAILY@11 IV 10/30/16 11:00 11/29/16 10:59 10/31/16 11:15 5 MLS/MIN Ciprofloxacin/ Dextrose 200 mg/ Prmx 100 ml @ 100 mls/hr Q12H IV 10/30/16 11:00 11/09/16 10:59 10/31/16 11:14 100 MLS/HR Metronidazole 500 mg/Prmx 100 ml @ 100 mls/hr Q8H IV 10/30/16 12:00 11/09/16 09:44 10/31/16 13:09 100 MLS/HR Duloxetine HCl (Cymbalta Cap) 60 mg DAILY PO 10/31/16 09:00 11/30/16 08:59 10/31/16 08:30 60 MG Fluticasone Propionate (Flonase Nasal [place]) 2 sprays DAILY VICKI 10/31/16 09:00 11/30/16 08:59 10/31/16 08:29 2 SPRAYS Gabapentin (Neurontin Cap) 100 mg BID@0900,1400 PO 10/30/16 14:00 11/29/16 13:59 10/31/16 13:10 100 MG Gabapentin (Neurontin Cap) 300 mg HS PO 10/30/16 21:00 11/29/16 20:59 10/30/16 20:15 300 MG Ascorbic Acid (Vitamin C Tab) 1,000 mg BID PO 10/30/16 21:00 8/4/17 20:59 10/31/16 08:31 1,000 MG Miscellaneous Information (Order Awaiting Action) 1 ea QS N/A 10/30/16 11:00 11/29/16 10:59 Cholecalciferol (Vitamin D Tab) 2,000 inter.unit QAM PO 10/31/16 09:00 11/30/16 08:59 10/31/16 08:30 2,000 INTER.UNIT
[2016-10-31 20:17] LABS: HEMATOCRIT 31.7 % (37-47); MEAN CELL VOLUME 92.2 fL (80-100); MEAN CORPUSCULAR HEMOGLOBIN 30.5 pg (25-34); MEAN CORPUSCULAR HGB CONC 33.1 g/dl (32-36); MEAN PLATELET VOLUME 9.1 fL (7.4-10.4); PLATELET COUNT 264 K/uL (130-400); RED BLOOD COUNT 3.44 M/uL (4.2-5.4); WHITE BLOOD COUNT 18.98 K/uL (4.8-10.8)
[2016-10-31] MEDS: GABAPENTIN 300 MG CAP PO SCH (20:36)
[2016-10-31] MEDS ORDERED: ACETAMINOPHEN/CODEINE 300/30MG TAB PO ONE ×2 (21:45→21:53)
[2016-11-01] VITALS (7 sets, daily range): BP systolic 101–155; BP diastolic 59–75; PULSE 73–80; TEMP 36.4–37; O2SAT 91–94
[2016-11-01] MEDS: METRONIDAZOLE / NSS 500 MG in PREMIXED NSS 100 ML IV SCH ×3 (03:34→20:08)
[2016-11-01 06:11] LABS: MEAN CELL VOLUME 93.1 fL (80-100); MEAN CORPUSCULAR HEMOGLOBIN 29.7 pg (25-34); MEAN CORPUSCULAR HGB CONC 31.9 g/dl (32-36); MEAN PLATELET VOLUME 9.2 fL (7.4-10.4); PLATELET COUNT 261 K/uL (130-400); RED BLOOD COUNT 3.33 M/uL (4.2-5.4)
[2016-11-01 06:41] LABS: BUN/CREATININE RATIO 10.6 (10-20); CALCIUM 8.1 mg/dl (8.5-10.1); CREATININE 1.7 mg/dl (0.60-1.20); POTASSIUM 3.7 mmol/L (3.5-5.1)
[2016-11-01] MEDS ORDERED: NURSING VERBAL MED ORDER ONE (07:30)
[2016-11-01] MEDS: DULOXETINE HCL 60 MG CAP PO SCH (07:43)
[2016-11-01] MEDS: FLUTICASONE PROPIONATE NA SPR 16 GM BTL NAE SCH (07:43)
[2016-11-01] MEDS: GABAPENTIN 100 MG CAP PO SCH ×2 (07:43→12:53)
[2016-11-01] MEDS: ASCORBIC ACID 500 MG TAB PO SCH ×2 (07:44→20:12)
[2016-11-01] MEDS: CHOLECALCIFEROL 1000 INTER.UNIT TAB PO SCH (07:44)
[2016-11-01] MEDS ORDERED: POTASSIUM CHLR 10 MEQ / WTR 10 MEQ in PREMIXED WATER 100 ML IV SCH (08:00)
[2016-11-01] MEDS: ACETAMINOPHEN/CODEINE 300/30MG TAB PO PRN ×2 (08:37→12:59)
[2016-11-01] MEDS: CIPROFLOXACIN / D5W 200 MG in PREMIXED IN D5W 100 ML IV SCH (10:22)
[2016-11-01] MEDS: PANTOprazole SOD 40 MG TAB PO SCH (12:52)
--- NOTE | 2016-11-01 14:04 | Gastroenterology Progress Note ---
Progress Note Date of Service: Nov 01, 2016 Subjective Pt evaluation today including: conversation w/ patient, physical exam, chart review, lab review, review of inpatient medication list Pt had BM last night w/o blood. Having LLQ abd pain after she ate breakfast. Denies n/v. Review of Systems Constitutional: No fever, No chills Respiratory: No cough Cardiac: No chest pain, No edema Abdomen: + see HPI, + pain, No nausea, No vomiting, No GI bleeding Medications Current Inpatient Medications Medications (Trade) Dose Ordered Sig/Dolly Route Start Time Stop Time Status Last Admin Dose Admin Acetaminophen (Tylenol Tab) 650 mg Q4H PRN PO 10/30/16 09:30 11/29/16 09:29 10/31/16 08:28 650 MG Ondansetron HCl (Zofran Inj) 4 mg Q6H PRN IV 10/30/16 09:30 11/29/16 09:29 Polyethylene (Miralax Powder Packet) 17 gm DAILY PRN PO 10/30/16 09:30 11/29/16 09:29 Ciprofloxacin/ Dextrose 200 mg/ Prmx 100 ml @ 100 mls/hr Q12H IV 10/30/16 11:00 11/09/16 10:59 11/01/16 10:22 100 MLS/HR Metronidazole 500 mg/Prmx 100 ml @ 100 mls/hr Q8H IV 10/30/16 12:00 11/09/16 09:44 11/01/16 12:52 100 MLS/HR Duloxetine HCl (Cymbalta Cap) 60 mg DAILY PO 10/31/16 09:00 11/30/16 08:59 11/01/16 07:43 60 MG Fluticasone Propionate (Flonase Nasal [place]) 2 sprays DAILY VICKI 10/31/16 09:00 11/30/16 08:59 11/01/16 07:43 2 SPRAYS Gabapentin (Neurontin Cap) 100 mg BID@0900,1400 PO 10/30/16 14:00 11/29/16 13:59 11/01/16 12:53 100 MG Gabapentin (Neurontin Cap) 300 mg HS PO 10/30/16 21:00 11/29/16 20:59 10/31/16 20:36 300 MG Ascorbic Acid (Vitamin C Tab) 1,000 mg BID PO 10/30/16 21:00 11/29/16 20:59 11/01/16 07:44 1,000 MG Miscellaneous Information (Order Awaiting Action) 1 ea QS N/A 10/30/16 11:00 11/29/16 10:59 Cholecalciferol (Vitamin D Tab) 2,000 inter.unit QAM PO 10/31/16 09:00 11/30/16 08:59 11/01/16 07:44 2,000 INTER.UNIT Acetaminophen/ Codeine Phosphate (Tylenol w/ Codeine #3 Tab) 1 tab Q6 PRN PO 11/01/16 08:00 12/01/16 07:59 11/01/16 12:59 1 TAB Pantoprazole Sodium (Protonix Tab) 40 mg QAM PO 11/01/16 09:00 12/01/16 08:59 11/01/16 12:52 40 MG Objective Vital Signs Date Time Temp Pulse Resp B/P (MAP) Pulse Ox O2 Delivery O2 Flow Rate FiO2 11/01/16 12:00 Room Air 11/01/16 11:37 36.8 73 19 107/59 (75) 92 Room Air 11/01/16 08:00 Room Air 11/01/16 07:30 37.0 74 17 101/62 (75) 92 Room Air 11/01/16 04:00 Room Air 11/01/16 03:35 36.9 78 19 128/74 (92) 91 Room Air 10/31/16 23:59 Room Air 10/31/16 22:54 37.2 83 19 104/62 (76) 90 Room Air 10/31/16 20:00 Room Air 10/31/16 19:35 37.3 85 18 114/69 (84) 93 Room Air 10/31/16 16:00 Room Air 10/31/16 15:18 37.6 84 20 107/65 (79) 93 Room Air Physical Exam General Appearance: WD/WN, no apparent distress Eyes: normal inspection, PERRL, EOMI Neck: supple, no JVD, trachea midline Respiratory/Chest: normal breath sounds, no respiratory distress, no accessory muscle use Cardiovascular: regular rate, rhythm, no gallop, no murmur Abdomen: normal bowel sounds, soft, + tenderness (LLQ) Extremities: normal inspection, no pedal edema, no calf tenderness Neurologic/Psych: alert, normal mood/affect, oriented x 3 Skin: normal color, no jaundice, no rash Laboratory Results Last 24 Hours Test 10/31/16 16:03 10/31/16 16:31 10/31/16 19:44 11/01/16 05:27 White Blood Count 20.51 K/uL 18.98 K/uL 14.00 K/uL Red Blood Count 3.48 M/uL 3.44 M/uL 3.33 M/uL Hemoglobin 10.3 g/dL 10.5 g/dL 9.9 g/dL Hematocrit 32.2 % 31.7 % 31.0 % Mean Corpuscular Volume 92.5 fL 92.2 fL 93.1 fL Mean Corpuscular Hemoglobin 29.6 pg 30.5 pg 29.7 pg Mean Corpuscular Hemoglobin Concent 32.0 g/dl 33.1 g/dl 31.9 g/dl RDW Standard Deviation 44.2 fL 44.2 fL 44.3 fL RDW Coefficient of Variation 13.1 % 12.9 % 13.0 % Platelet Count 255 K/uL 264 K/uL 261 K/uL Mean Platelet Volume 9.0 fL 9.1 fL 9.2 fL Bedside Glucose 111 mg/dl Sodium Level 139 mmol/L Potassium Level 3.7 mmol/L Chloride Level 107 mmol/L Carbon Dioxide Level 25 mmol/L Anion Gap 7.0 mmol/L Blood Urea Nitrogen 18 mg/dl Creatinine 1.70 mg/dl Est Creatinine Clear Calc Drug Dose 24.8 ml/min Estimated GFR () 31.8 Estimated GFR (Non- 27.4 BUN/Creatinine Ratio 10.6 Random Glucose 107 mg/dl Calcium Level 8.1 mg/dl Assessment and Plan Impression Patient is a 81 year old female with lower abd cramping and bloody stools. Prior to admission had presyncopal episode w light headedness, diaphoresis. Recent Cipro use fo UTI also. CT abd/pelvis showed colitis (ischemic vs infectious). CBC stable, Cr improving from 2.2 to 1.9. Cdiff, stool cx negative. She is having improvement of her abd pain, also less blood in stools. Likely has ischemic colitis Plan - IVF hydration, monitor Cr (improving) - [place] diet, may advance if abd not tender after eating - Cipro/Flagyl antibx coverage x 7-10 days total - Will arrange for outpt colonoscopy in 4-6 week's time. - Call if new questions/concerns arise. ATTESTATION: I have performed a history and physical examination of this patient and reviewed the electronic record. Specifically, on physical examination there is mild LLQ tenderness. I have discussed the case with MIGUELANGEL Hollins. The above note reflects my findings, conclusions, and recommendations. Steven Johnson MD
--- NOTE | 2016-11-01 18:09 | Progress Note ---
Medicine Progress Note Date & Time of Visit: Nov 01, 2016 at 18:08. Subjective Patient doing better, noted less blood in her stools. Still has sharp abdominal pain after eating and before defecation. No overnight events noted. Denies any CP, SOB, N/V, SPRINGER, dizziness, or lightheadedness. Objective Last 8 Hrs Date Time Temp Pulse Resp B/P (MAP) Pulse Ox O2 Delivery O2 Flow Rate FiO2 11/01/16 16:00 Room Air 11/01/16 15:31 36.9 76 18 116/69 (85) 94 Room Air 11/01/16 12:00 Room Air 11/01/16 11:37 36.8 73 19 107/59 (75) 92 Room Air Physical Exam: GENERAL: Patient is in no acute distress. HEENT: No acute trauma, normocephalic atraumatic, mucous membranes moist, no nasal congestion, no scleral icterus. NECK: No stridor, trachea is midline. LUNGS: Diminished bases bilaterally, no wheeze, no rhonchi, breath sounds equal. HEART: Without murmurs gallops or rubs, regular rate and rhythm. ABDOMEN: Soft, tenderness on left and slightly diffusely tender, bowel sounds positive, ND EXTREMITIES: No cyanosis or edema NEUROLOGIC: Oriented x 3, no acute motor or sensory deficits, no focal weakness. SKIN: No rash, no jaundice, no diaphoresis. Laboratory Results: Last 24 Hours Test 10/31/16 19:44 11/01/16 05:27 White Blood Count 18.98 K/uL 14.00 K/uL Red Blood Count 3.44 M/uL 3.33 M/uL Hemoglobin 10.5 g/dL 9.9 g/dL Hematocrit 31.7 % 31.0 % Mean Corpuscular Volume 92.2 fL 93.1 fL Mean Corpuscular Hemoglobin 30.5 pg 29.7 pg Mean Corpuscular Hemoglobin Concent 33.1 g/dl 31.9 g/dl RDW Standard Deviation 44.2 fL 44.3 fL RDW Coefficient of Variation 12.9 % 13.0 % Platelet Count 264 K/uL 261 K/uL Mean Platelet Volume 9.1 fL 9.2 fL Sodium Level 139 mmol/L Potassium Level 3.7 mmol/L Chloride Level 107 mmol/L Carbon Dioxide Level 25 mmol/L Anion Gap 7.0 mmol/L Blood Urea Nitrogen 18 mg/dl Creatinine 1.70 mg/dl Est Creatinine Clear Calc Drug Dose 24.8 ml/min Estimated GFR () 31.8 Estimated GFR (Non- 27.4 BUN/Creatinine Ratio 10.6 Random Glucose 107 mg/dl Calcium Level 8.1 mg/dl Assessment & Plan GI BLEED: -per symptoms and radiographic findings most likely ischemic colitis -stool cultures pending and c diff negative -IV fluids stopped due to worsening edema -diet advanced to full liquid diet -GI consulted, appreciate recs; probable endoscopic eval in 4-6 weeks time -IV protonix, can switch to PO -on cipro + flagyl day #3 -type and screen, blood consent signed in the chart in case -check H&H q 8 hours -now off telemetry LUZ ELENA ON CKD STAGE IV: -Cr. 2.2-->1.9-->1.7 above baseline of 1.6-1.8 -monitor after IV fluids -likely related to above PVD: -continue statin -hold ASA for now due to GI bleed HTN: -hold BP meds for now DEPRESSION: -continue duloxetine CHRONIC PAIN: -PRN analgesia POSSIBLE UTI: -urine culture growing multiple organisms, suspected contaminants PRIOR BREAST CANCER: -had previous mastectomy and per family negative nodes -was hormone positive and was on treatment but stopped due to DVT and CEA and TIA -has routine mammograms thru her PCP DVT PROPHYLAXIS: -patient had a prior DVT, SCD cuffs due to bleed Current Inpatient Medications: Current Inpatient Medications Medications (Trade) Dose Ordered Sig/Dolly Route Start Time Stop Time Status Last Admin Dose Admin Acetaminophen (Tylenol Tab) 650 mg Q4H PRN PO 10/30/16 09:30 11/29/16 09:29 10/31/16 08:28 650 MG Ondansetron HCl (Zofran Inj) 4 mg Q6H PRN IV 10/30/16 09:30 11/29/16 09:29 Polyethylene (Miralax Powder Packet) 17 gm DAILY PRN PO 10/30/16 09:30 11/29/16 09:29 Metronidazole 500 mg/Prmx 100 ml @ 100 mls/hr Q8H IV 10/30/16 12:00 11/09/16 09:44 11/01/16 12:52 100 MLS/HR Duloxetine HCl (Cymbalta Cap) 60 mg DAILY PO 10/31/16 09:00 11/30/16 08:59 11/01/16 07:43 60 MG Fluticasone Propionate (Flonase Nasal [place]) 2 sprays DAILY VICKI 10/31/16 09:00 11/30/16 08:59 11/01/16 07:43 2 SPRAYS Gabapentin (Neurontin Cap) 100 mg BID@0900,1400 PO 10/30/16 14:00 11/29/16 13:59 11/01/16 12:53 100 MG Gabapentin (Neurontin Cap) 300 mg HS PO 10/30/16 21:00 11/29/16 20:59 10/31/16 20:36 300 MG Ascorbic Acid (Vitamin C Tab) 1,000 mg BID PO 10/30/16 21:00 11/29/16 20:59 11/01/16 07:44 1,000 MG Miscellaneous Information (Order Awaiting Action) 1 ea QS N/A 10/30/16 11:00 11/29/16 10:59 Cholecalciferol (Vitamin D Tab) 2,000 inter.unit QAM PO 10/31/16 09:00 11/30/16 08:59 11/01/16 07:44 2,000 INTER.UNIT Acetaminophen/ Codeine Phosphate (Tylenol w/ Codeine #3 Tab) 1 tab Q6 PRN PO 11/01/16 08:00 12/01/16 07:59 11/01/16 12:59 1 TAB Pantoprazole Sodium (Protonix Tab) 40 mg QAM PO 11/01/16 09:00 12/01/16 08:59 11/01/16 12:52 40 MG Ciprofloxacin/ Dextrose 400 mg/ Prmx 200 ml @ 100 mls/hr DAILY@1000 IV 11/02/16 10:00 11/12/16 09:59
[2016-11-01] MEDS: GABAPENTIN 300 MG CAP PO SCH ×2 (20:12→22:40)
[2016-11-02 00:34] VITALS: BP 119/68; PULSE 72; TEMP 36.7; O2SAT 91
[2016-11-02] MEDS: METRONIDAZOLE / NSS 500 MG in PREMIXED NSS 100 ML IV SCH ×3 (04:23→20:16)
[2016-11-02 07:41] VITALS: BP 113/69; PULSE 69; TEMP 36.6; O2SAT 93
[2016-11-02 07:52] LABS: BUN/CREATININE RATIO 9.7 (10-20); CALCIUM 8.2 mg/dl (8.5-10.1); CREATININE 1.6 mg/dl (0.60-1.20); POTASSIUM 3.9 mmol/L (3.5-5.1)
[2016-11-02] MEDS: FLUTICASONE PROPIONATE NA SPR 16 GM BTL NAE SCH (08:17)
[2016-11-02] MEDS: DULOXETINE HCL 60 MG CAP PO SCH (08:18)
[2016-11-02] MEDS: CHOLECALCIFEROL 1000 INTER.UNIT TAB PO SCH (08:18)
[2016-11-02] MEDS: PANTOprazole SOD 40 MG TAB PO SCH (08:18)
[2016-11-02] MEDS: ASCORBIC ACID 500 MG TAB PO SCH ×2 (08:18→20:16)
[2016-11-02] MEDS: GABAPENTIN 100 MG CAP PO SCH ×2 (08:19→13:42)
[2016-11-02] MEDS: CIPROFLOXACIN 400MG / D5W IV SCH (09:56)
[2016-11-02 15:02] VITALS: BP 129/73; PULSE 77; TEMP 36.5; O2SAT 92
--- NOTE | 2016-11-02 18:30 | Progress Note ---
Medicine Progress Note Date & Time of Visit: Nov 02, 2016 at 18:30. Subjective Patient is doing better overall, no blood in stools, no symptoms of dizziness/ lightheadedness. She does still have abdominal pain and cramping after eating/ before defecation. No overnight events noted. No other complaints at this time. Tolerating full liquids. Objective Last 8 Hrs Date Time Temp Pulse Resp B/P (MAP) Pulse Ox O2 Delivery O2 Flow Rate FiO2 11/02/16 16:00 Room Air 11/02/16 15:02 36.5 77 20 129/73 (91) 92 Physical Exam: GENERAL: Patient is in no acute distress. HEENT: No acute trauma, normocephalic atraumatic, mucous membranes moist, no nasal congestion, no scleral icterus. NECK: No stridor, trachea is midline. LUNGS: Diminished bases bilaterally, no wheeze, no rhonchi, breath sounds equal. HEART: Without murmurs gallops or rubs, regular rate and rhythm. ABDOMEN: Soft, tender to palpation on left and slightly diffusely tender, bowel sounds positive EXTREMITIES: No cyanosis or edema NEUROLOGIC: Oriented x 3, no acute motor or sensory deficits, no focal weakness. SKIN: No rash, no jaundice, no diaphoresis. Laboratory Results: Last 24 Hours Test 11/02/16 07:03 Sodium Level 135 mmol/L Potassium Level 3.9 mmol/L Chloride Level 103 mmol/L Carbon Dioxide Level 25 mmol/L Anion Gap 7.0 mmol/L Blood Urea Nitrogen 16 mg/dl Creatinine 1.60 mg/dl Est Creatinine Clear Calc Drug Dose 26.4 ml/min Estimated GFR () 34.2 Estimated GFR (Non- 29.5 BUN/Creatinine Ratio 9.7 Random Glucose 127 mg/dl Calcium Level 8.2 mg/dl Assessment & Plan GI BLEED: -per symptoms and radiographic findings most likely ischemic colitis -stool cultures pending and c diff negative -IV fluids stopped due to worsening edema -diet advanced to soft -GI consulted, appreciate recs; probable endoscopic eval in 4-6 weeks time -IV protonix, can switch to PO -on cipro + flagyl day #4 -type and screen, blood consent signed in the chart -check H&H q 8 hours -now off telemetry LUZ ELENA ON CKD STAGE IV: -Cr. 2.2-->1.9-->1.7 above baseline of 1.6-1.8 -monitor after IV fluids -likely related to above PVD: -continue statin -hold ASA for now due to GI bleed HTN: -hold BP meds for now DEPRESSION: -continue duloxetine CHRONIC PAIN: -PRN analgesia POSSIBLE UTI: -urine culture growing multiple organisms, suspected contaminants PRIOR BREAST CANCER: -had previous mastectomy and per family negative nodes -was hormone positive and was on treatment but stopped due to DVT and CEA and TIA -has routine mammograms thru her PCP DVT PROPHYLAXIS: -patient had a prior DVT, SCD cuffs due to bleed Current Inpatient Medications: Current Inpatient Medications Medications (Trade) Dose Ordered Sig/Dolly Route Start Time Stop Time Status Last Admin Dose Admin Acetaminophen (Tylenol Tab) 650 mg Q4H PRN PO 10/30/16 09:30 11/29/16 09:29 10/31/16 08:28 650 MG Ondansetron HCl (Zofran Inj) 4 mg Q6H PRN IV 10/30/16 09:30 11/29/16 09:29 Polyethylene (Miralax Powder Packet) 17 gm DAILY PRN PO 10/30/16 09:30 11/29/16 09:29 11/02/16 10:06 17 GM Metronidazole 500 mg/Prmx 100 ml @ 100 mls/hr Q8H IV 10/30/16 12:00 11/09/16 09:44 11/02/16 12:40 100 MLS/HR Duloxetine HCl (Cymbalta Cap) 60 mg DAILY PO 10/31/16 09:00 11/30/16 08:59 11/02/16 08:18 60 MG Fluticasone Propionate (Flonase Nasal [place]) 2 sprays DAILY VICKI 10/31/16 09:00 11/30/16 08:59 11/02/16 08:17 2 SPRAYS Gabapentin (Neurontin Cap) 100 mg BID@0900,1400 PO 10/30/16 14:00 11/29/16 13:59 11/02/16 13:42 100 MG Gabapentin (Neurontin Cap) 300 mg HS PO 10/30/16 21:00 11/29/16 20:59 11/01/16 22:40 300 MG Ascorbic Acid (Vitamin C Tab) 1,000 mg BID PO 10/30/16 21:00 11/29/16 20:59 11/02/16 08:18 1,000 MG Miscellaneous Information (Order Awaiting Action) 1 ea QS N/A 10/30/16 11:00 11/29/16 10:59 11/02/16 00:31 1 EA Cholecalciferol (Vitamin D Tab) 2,000 inter.unit QAM PO 10/31/16 09:00 11/30/16 08:59 11/02/16 08:18 2,000 INTER.UNIT Acetaminophen/ Codeine Phosphate (Tylenol w/ Codeine #3 Tab) 1 tab Q6 PRN PO 11/01/16 08:00 12/01/16 07:59 11/01/16 12:59 1 TAB Pantoprazole Sodium (Protonix Tab) 40 mg QAM PO 11/01/16 09:00 12/01/16 08:59 11/02/16 08:18 40 MG Ciprofloxacin/ Dextrose 400 mg/ Prmx 200 ml @ 100 mls/hr DAILY@1000 IV 11/02/16 10:00 11/12/16 09:59 11/02/16 09:56 100 MLS/HR
[2016-11-02] MEDS: GABAPENTIN 300 MG CAP PO SCH (21:52)
[2016-11-02 23:37] VITALS: BP 125/74; PULSE 76; TEMP 36.6; O2SAT 94
[2016-11-03] MEDS: METRONIDAZOLE / NSS 500 MG in PREMIXED NSS 100 ML IV SCH (04:18)
[2016-11-03 07:02] LABS: HEMATOCRIT 31.8 % (37-47); MEAN CELL VOLUME 93.5 fL (80-100); MEAN CORPUSCULAR HEMOGLOBIN 30.3 pg (25-34); MEAN CORPUSCULAR HGB CONC 32.4 g/dl (32-36); MEAN PLATELET VOLUME 9.1 fL (7.4-10.4); PLATELET COUNT 297 K/uL (130-400); WHITE BLOOD COUNT 7.63 K/uL (4.8-10.8)
[2016-11-03 07:25] LABS: BUN/CREATININE RATIO 9.8 (10-20); CALCIUM 8.8 mg/dl (8.5-10.1); CREATININE 1.6 mg/dl (0.60-1.20); POTASSIUM 4.4 mmol/L (3.5-5.1)
[2016-11-03 07:35] VITALS: BP 122/65; PULSE 75; TEMP 36.4; O2SAT 92
[2016-11-03] MEDS: ASCORBIC ACID 500 MG TAB PO SCH ×2 (08:21→20:02)
[2016-11-03] MEDS: PANTOprazole SOD 40 MG TAB PO SCH (08:21)
[2016-11-03] MEDS: CHOLECALCIFEROL 1000 INTER.UNIT TAB PO SCH (08:21)
[2016-11-03] MEDS: DULOXETINE HCL 60 MG CAP PO SCH (08:21)
[2016-11-03] MEDS: FLUTICASONE PROPIONATE NA SPR 16 GM BTL NAE SCH (08:22)
[2016-11-03] MEDS: GABAPENTIN 100 MG CAP PO SCH ×2 (08:22→13:37)
[2016-11-03] MEDS: CIPROFLOXACIN 400MG / D5W IV SCH (10:16)
[2016-11-03] MEDS: LACTOBACILLUS ACIDOPHILUS (FLORANEX) TAB PO SCH ×2 (12:00→17:11)
[2016-11-03] MEDS ORDERED: CIPROFLOXACIN 500 MG TAB PO ONE (13:30)
[2016-11-03] MEDS: METRONIDAZOLE 500 MG TAB PO SCH ×2 (13:37→20:01)
[2016-11-03 14:54] VITALS: BP 125/75; PULSE 77; TEMP 36.8; O2SAT 92
--- NOTE | 2016-11-03 18:59 | Progress Note ---
Medicine Progress Note Date & Time of Visit: Nov 03, 2016 at 18:59. Subjective Patient denies any new complaints, she does report having less abdominal pain, however she is still having diarrhea. No overnight events noted. Tolerating mechanical soft diet. No blood in stool. She has been ambulating in the halls without difficulty. Objective Last 8 Hrs Date Time Temp Pulse Resp B/P (MAP) Pulse Ox O2 Delivery O2 Flow Rate FiO2 11/03/16 16:00 Room Air 11/03/16 14:54 36.8 77 20 125/75 (92) 92 Physical Exam: GENERAL: Patient is in no acute distress. HEENT: No acute trauma, normocephalic, mucous membranes moist, no nasal congestion, no scleral icterus. NECK: No stridor, trachea is midline. LUNGS: Expiratory wheezes bilaterally, no rhonchi, breath sounds equal. HEART: Without murmurs gallops or rubs, regular rate and rhythm. ABDOMEN: Soft, mildly tender to palpation on left and slightly diffusely tender , bowel sounds positive EXTREMITIES: No cyanosis or edema NEUROLOGIC: Oriented x 3, no acute motor or sensory deficits, no focal weakness. SKIN: No rash, no jaundice, no diaphoresis. Laboratory Results: Last 24 Hours Test 11/03/16 06:27 White Blood Count 7.63 K/uL Red Blood Count 3.40 M/uL Hemoglobin 10.3 g/dL Hematocrit 31.8 % Mean Corpuscular Volume 93.5 fL Mean Corpuscular Hemoglobin 30.3 pg Mean Corpuscular Hemoglobin Concent 32.4 g/dl RDW Standard Deviation 44.1 fL RDW Coefficient of Variation 12.9 % Platelet Count 297 K/uL Mean Platelet Volume 9.1 fL Sodium Level 137 mmol/L Potassium Level 4.4 mmol/L Chloride Level 102 mmol/L Carbon Dioxide Level 26 mmol/L Anion Gap 9.0 mmol/L Blood Urea Nitrogen 16 mg/dl Creatinine 1.60 mg/dl Est Creatinine Clear Calc Drug Dose 26.4 ml/min Estimated GFR () 34.2 Estimated GFR (Non- 29.5 BUN/Creatinine Ratio 9.8 Random Glucose 109 mg/dl Calcium Level 8.8 mg/dl Assessment & Plan GI BLEED: -per symptoms and radiographic findings most likely ischemic colitis -stool cultures negative and c diff negative; will repeat C diff as diarrhea worse yesterday -IV fluids stopped due to worsening edema -diet advanced to soft -GI consulted, appreciate recs; probable endoscopic eval in 4-6 weeks time -IV protonix, switched to PO -on cipro + flagyl day #5; switched to PO -start lactobacillus -type and screen, blood consent signed in the chart -check H&H q 8 hours -now off telemetry LUZ ELENA ON CKD STAGE IV: -Cr. 2.2-->1.9-->1.7-->1.6 -baseline of 1.6-1.8 -monitor after IV fluids -likely related to above PVD: -continue statin -hold ASA for now due to GI bleed HTN: -hold BP meds for now DEPRESSION: -continue duloxetine CHRONIC PAIN: -PRN analgesia POSSIBLE UTI: -urine culture grew multiple organisms, suspected contaminants PRIOR BREAST CANCER: -had previous mastectomy and per family negative nodes -was hormone positive and was on treatment but stopped due to DVT and CEA and TIA -has routine mammograms thru her PCP DVT PROPHYLAXIS: -patient had a prior DVT, SCD cuffs due to bleed Current Inpatient Medications: Current Inpatient Medications Medications (Trade) Dose Ordered Sig/Dolly Route Start Time Stop Time Status Last Admin Dose Admin Acetaminophen (Tylenol Tab) 650 mg Q4H PRN PO 10/30/16 09:30 11/29/16 09:29 10/31/16 08:28 650 MG Ondansetron HCl (Zofran Inj) 4 mg Q6H PRN IV 10/30/16 09:30 11/29/16 09:29 Polyethylene (Miralax Powder Packet) 17 gm DAILY PRN PO 10/30/16 09:30 11/29/16 09:29 11/02/16 10:06 17 GM Duloxetine HCl (Cymbalta Cap) 60 mg DAILY PO 10/31/16 09:00 11/30/16 08:59 11/03/16 08:21 60 MG Fluticasone Propionate (Flonase Nasal [place]) 2 sprays DAILY VICKI 10/31/16 09:00 11/30/16 08:59 11/03/16 08:22 2 SPRAYS Gabapentin (Neurontin Cap) 100 mg BID@0900,1400 PO 10/30/16 14:00 11/29/16 13:59 11/03/16 13:37 100 MG Gabapentin (Neurontin Cap) 300 mg HS PO 10/30/16 21:00 11/29/16 20:59 11/02/16 21:52 300 MG Ascorbic Acid (Vitamin C Tab) 1,000 mg BID PO 10/30/16 21:00 11/29/16 20:59 11/03/16 08:21 1,000 MG Miscellaneous Information (Order Awaiting Action) 1 ea QS N/A 10/30/16 11:00 11/29/16 10:59 11/02/16 00:31 1 EA Cholecalciferol (Vitamin D Tab) 2,000 inter.unit QAM PO 10/31/16 09:00 11/30/16 08:59 11/03/16 08:21 2,000 INTER.UNIT Acetaminophen/ Codeine Phosphate (Tylenol w/ Codeine #3 Tab) 1 tab Q6 PRN PO 11/01/16 08:00 12/01/16 07:59 11/01/16 12:59 1 TAB Pantoprazole Sodium (Protonix Tab) 40 mg QAM PO 11/01/16 09:00 12/01/16 08:59 11/03/16 08:21 40 MG Lactobacillus Acidophilus (Floranex Tab) 4 tab TIDM PO 11/03/16 12:00 12/03/16 11:59 11/03/16 17:11 4 TAB Ciprofloxacin (Cipro Tab) 500 mg DAILY PO 11/04/16 08:00 11/14/16 07:59 Metronidazole (Flagyl Tab) 500 mg TID PO 11/03/16 14:00 11/13/16 13:59 11/03/16 13:37 500 MG
[2016-11-03] MEDS: ACETAMINOPHEN/CODEINE 300/30MG TAB PO PRN (20:06)
[2016-11-03] MEDS: GABAPENTIN 300 MG CAP PO SCH (21:51)
[2016-11-04 00:29] VITALS: BP 120/54; PULSE 71; TEMP 36.7; O2SAT 91
[2016-11-04 07:20] VITALS: BP 134/79; PULSE 71; TEMP 36.6; O2SAT 93
[2016-11-04 08:00] VITALS: O2SAT 93
[2016-11-04] MEDS ORDERED: CIPROFLOXACIN 500 MG TAB PO SCH (08:00)
[2016-11-04 08:18] LABS: HEMATOCRIT 33.8 % (37-47); MEAN CELL VOLUME 94.2 fL (80-100); MEAN CORPUSCULAR HEMOGLOBIN 29.5 pg (25-34); MEAN CORPUSCULAR HGB CONC 31.4 g/dl (32-36); MEAN PLATELET VOLUME 9.4 fL (7.4-10.4); PLATELET COUNT 346 K/uL (130-400); RED BLOOD COUNT 3.59 M/uL (4.2-5.4); WHITE BLOOD COUNT 6.17 K/uL (4.8-10.8)
[2016-11-04] MEDS: FLUTICASONE PROPIONATE NA SPR 16 GM BTL NAE SCH (08:34)
[2016-11-04] MEDS: ASCORBIC ACID 500 MG TAB PO SCH (08:34)
[2016-11-04] MEDS: GABAPENTIN 100 MG CAP PO SCH ×2 (08:34→14:30)
[2016-11-04] MEDS: LACTOBACILLUS ACIDOPHILUS (FLORANEX) TAB PO SCH ×2 (08:34→12:20)
[2016-11-04] MEDS: PANTOprazole SOD 40 MG TAB PO SCH (08:34)
[2016-11-04] MEDS: DULOXETINE HCL 60 MG CAP PO SCH (08:34)
[2016-11-04] MEDS: METRONIDAZOLE 500 MG TAB PO SCH ×2 (08:34→14:30)
[2016-11-04] MEDS: CHOLECALCIFEROL 1000 INTER.UNIT TAB PO SCH (08:35)
[2016-11-04 08:42] LABS: BUN/CREATININE RATIO 9.5 (10-20); CREATININE 1.7 mg/dl (0.60-1.20); POTASSIUM 4.4 mmol/L (3.5-5.1)
[2016-11-04 12:48] VITALS: BP 134/79; PULSE 71; TEMP 36.6; O2SAT 93
[2016-11-04] MEDS ORDERED: CPR500 PO (12:59)
[2016-11-04] MEDS ORDERED: LCTX PO (12:59)
[2016-11-04] MEDS ORDERED: MTR500 PO (12:59)
--- NOTE | 2016-11-04 13:04 | Discharge Instructions ---
Discharge Instructions Date of Service Nov 04, 2016. Admission Reason for Admission: Gi Bleed Discharge Discharge Diagnosis / Problem: GI bleed, Ischemic colitis Discharge Goals Goal(s): Therapeutic intervention Activity Recommendations Activity Limitations: as noted below Lifting Limitations: gradually increase as tolerated Exercise/Sports Limitations: gradually increase as tolerated Please avoid any strenuous activity for at least 1 week. Please break activities into smaller tasks whenever possible and rest in between. Please make sure you are drinking adequate amounts of water. . Instructions / Follow-Up Instructions / Follow-Up Please follow up with Dr. 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 I would suggest that patient's spouse be evaluated by his physician and have additional resources for his own care. Current Hospital Diet Patient's current hospital diet: Regular Diet Discharge Diet Recommended Diet: Low Fiber Diet, Low Lactose Diet Pending Studies Studies pending at discharge: no Medical Emergencies . Who to Call and When: Medical Emergencies: If at any time you feel your situation is an emergency, please call 911 immediately. . Non-Emergent Contact Non-Emergency issues call your: Primary Care Provider . . "Provider Documentation" section prepared by Bibiana Jones. . VTE Core Measure Inpt VTE Proph given/why not?: SCD's
--- NOTE | 2016-11-04 15:03 | Discharge Summary ---
Discharge Summary Date of Service Nov 04, 2016. Discharge Summary Admission Date: Oct 30, 2016 at 09:35 Discharge Date: Nov 04, 2016 Discharge Disposition: Home with services Principal Diagnosis: Anemia, GI bleed, ischemic colitis Pending Studies/Follow-Up: Please draw labs at follow up appt to check CBC; must be within 1 week of discharge Medication Reconciliation New Medications: Ciprofloxacin (Ciprofloxacin HCl) 500 Mg Tab 500 MG PO DAILY, #9 TAB Lactobacillus Acidophilus (Floranex) 1 Tab Tab 4 TAB PO TIDM for 30 Days, #360 TAB Metronidazole (Metronidazole) 500 Mg Tab 500 MG PO TID for 9 Days, #27 TAB Continued Medications: Acetaminophen (Tylenol) 500 Mg Tab 1000 MG PO Q6 PRN for Pain, TAB Ascorbic Acid (Vitamin C) 1,000 Mg Tab 1000 MG PO BID Cholecalciferol (Vitamin D) 2,000 Unit Cap 2000 UNIT PO DAILY Duloxetine HCl (Duloxetine HCl) 60 Mg Cap 60 MG PO DAILY, #30 Fluticasone Propionate (Nasal) (Flonase Allergy Relief) 50 Mcg/Act Spr Gabapentin (Neurontin) 100 Mg Cap 300 MG PO HS, CAP Gabapentin (Neurontin) 100 Mg Cap 100 MG PO BID, CAP Mometasone Furoate-Formoterol (Dulera 100/5 Mcg) 1 Aer Aer 2 PUFFS INH BID for 30 Days, #13 GM 2 Refills Omeprazole (Prilosec) 40 Mg Cap 40 MG PO DAILY, CAP Discontinued Medications: Aspirin (Aspirin Chewable) 81 Mg Chew 81 MG PO DAILY, TAB Hctz/Lisinopril (Lisinopril/Hctz 10/12.5 Mg) 1 Ea Tab 1 TAB PO DAILY, TAB Admission Information HPI (per Admitting provider): Patient is an 81 yo female who presented to the ER for complaints of bleeding per rectum that began yesterday around 4-5 PM. The patient reports her symptoms began immediately after eating at a gathering yesterday afternoon; she began to have sharp abdominal pain, went to the bathroom to have a BM and felt very lightheaded and began having excessive diaphoresis. She then had a BM which was bloody and thus left the republican to go home. En route to her home she had fecal incontinence and stopped at a gas station bathroom to clean up. She reports having bloody bowel movements about every 1 hour from 7 PM last night until she went to bed. Since this morning she has had about 4 additional movements. The pain is partly improved with defecation. The bowel movements are bright red blood with some blood clots and some mucus. She reports having dizziness and lightheadedness yesterday but none so far today. She denies any prior history of bleeding per rectum. She has been on aspirin but no other medication changes. She has not eaten anything unusual or undercooked to her knowledge. She denies any NSAID use. No recent fever/infection. She did have a dental procedure to remove teeth and has been on a soft diet since then. Physical Exam (per Admitting): General Appearance: WD/WN, no apparent distress Head: normocephalic, atraumatic Eyes: PERRL, EOMI ENT: hearing grossly normal Neck: supple, no adenopathy, no JVD, no carotid bruits, trachea midline Respiratory/Chest: lungs clear, normal breath sounds, no respiratory distress, no accessory muscle use Cardiovascular: regular rate, rhythm, no edema, no gallop, no JVD Abdomen/GI: normal bowel sounds, soft, no organomegaly, + tenderness (to light palpation, worst on the left side but tender diffusely), + fecal occult blood Extremities/Musculoskelatal: no calf tenderness, normal capillary refill, no pedal edema Neurologic/Psych: no motor/sensory deficits, alert, normal mood/affect, oriented x 3 Skin: normal color, warm/dry, no rash Hospital Course GI BLEED: -per symptoms and radiographic findings most likely ischemic colitis -stool cultures negative and c diff negative; will repeat C diff if diarrhea persists; patient notes improvement with lactobacillus -IV fluids stopped due to worsening edema -diet advanced to soft -GI consulted, appreciate recs; probable endoscopic eval in 4-6 weeks time -IV protonix, switched to PO -on cipro + flagyl day #6; switched to PO -started lactobacillus -type and screen, blood consent signed in the chart -now off telemetry LUZ ELENA ON CKD STAGE IV: -Cr. 2.2-->1.9-->1.7-->1.6 -baseline of 1.6-1.8 -monitor after IV fluids -likely related to above PVD: -continue statin -hold ASA for now due to GI bleed HTN: -held BP meds for now DEPRESSION: -continue duloxetine CHRONIC PAIN: -PRN analgesia POSSIBLE UTI: -urine culture grew multiple organisms, suspected contaminants PRIOR BREAST CANCER: -had previous mastectomy and per family negative nodes -was hormone positive and was on treatment but stopped due to DVT and CEA and TIA -has routine mammograms thru her PCP DVT PROPHYLAXIS: -patient had a prior DVT, SCD cuffs due to bleed PHYSICAL EXAM ON DAY OF DISCHARGE: GENERAL: Patient is in no acute distress. HEENT: No acute trauma, mucous membranes moist, no nasal congestion, no scleral icterus. NECK: No stridor, trachea is midline. LUNGS: Clear to auscultation bilaterally, no wheeze, no rhonchi, breath sounds equal. HEART: Without murmurs gallops or rubs, regular rate and rhythm. ABDOMEN: Soft, nontender, bowel sounds positive EXTREMITIES: No cyanosis; trace edema NEUROLOGIC: Oriented x 3, no acute motor or sensory deficits, no focal weakness. SKIN: No rash, no jaundice, no diaphoresis. Total time spent on discharge = 39 This includes examination of the patient, discharge planning, medication reconciliation, and communication with other providers. Discharge Instructions 11/04/16 06:27 11/04/16 06:27 Test 11/04/16 06:27 Red Blood Count 3.59 M/uL (4.2-5.4) Mean Corpuscular Volume 94.2 fL (80-100) Mean Corpuscular Hemoglobin 29.5 pg (25-34) Mean Corpuscular Hemoglobin Concent 31.4 g/dl (32-36) RDW Standard Deviation 44.8 fL (36.4-46.3) RDW Coefficient of Variation 13.0 % (11.5-14.5) Mean Platelet Volume 9.4 fL (7.4-10.4) Anion Gap 6.0 mmol/L (3-11) Est Creatinine Clear Calc Drug Dose 24.8 ml/min Estimated GFR () 31.8 Estimated GFR (Non- 27.4 BUN/Creatinine Ratio 9.5 (10-20) Calcium Level 9.0 mg/dl (8.5-10.1)
[2016-12-05] MEDS ORDERED: MOME100A INH (08:31)
[2016-12-05] MEDS ORDERED: GABA-112 PO (13:57)
[2016-12-05] MEDS ORDERED: GABA1CAP PO (15:59)
[2016-12-05] MEDS ORDERED: OMEP40CA41 PO (15:59)
[2016-12-05] MEDS ORDERED: TYLOTC500 PO (15:59)
== END 2016-11-04 14:41 | disposition home health service (06) | DRG 394 ==
LOC: EDBD 06:51 → C.EDA 06:52 → C.2T 09:35 → ENRESERV 09:38 → C.MS4W 11-01 21:25
PROVIDERS: ADMIT Internal Medicine; ATTEND Internal Medicine
DX: K55.9 Vascular disorder of intestine, unspecified (principal); N17.9 Acute kidney failure, unspecified; N18.4 Chronic kidney disease, stage 4 (severe); N39.0 Urinary tract infection, site not specified; A09 Infectious gastroenteritis and colitis, unspecified; I73.9 Peripheral vascular disease, unspecified; I12.9 Hypertensive chronic kidney disease with stage 1 through stage 4 chronic kidney disease, or unspecified chronic kidney disease; F32.9 Major depressive disorder, single episode, unspecified; G89.29 Other chronic pain; M54.5 Low back pain; E78.5 Hyperlipidemia, unspecified; M81.0 Age-related osteoporosis without current pathological fracture; K21.9 Gastro-esophageal reflux disease without esophagitis; Z96.641 Presence of right artificial hip joint; Z86.73 Personal history of transient ischemic attack (TIA), and cerebral infarction without residual deficits; Z85.3 Personal history of malignant neoplasm of breast; Z86.718 Personal history of other venous thrombosis and embolism; Z79.82 Long term (current) use of aspirin; Z79.899 Other long term (current) drug therapy; Z79.51 Long term (current) use of inhaled steroids

== ENCOUNTER → 2016-12-03 | Day surgery (SDC) | payer OTHER ==
[2016-11-25 08:27] VITALS: Ht 157.5 cm; Wt 84.1 kg
[~2016-12-03] VITALS: Ht 157.5 cm; Wt 84.1 kg
[~2016-12-03] MED LIST changes: -ALBU1AER9 INH; +ASCO10003 PO; -ASPCH81X PO; +CHOL200010 PO; -CPR250 PO; +CYM60 PO; -FLNIN NAE; +FLNIN/ NAE; +FLUT0.15; +GABA-112 PO; +GABA1CAP PO; +LIDOCAINE HCL 2% 2 ML VIAL (20MG/ML) ONE; -LSN/10125 PO; +MOME100A INH; +OMEP40CA41 PO; +PROPOFOL IV EMULSION 10 MG/ML 20 ML VIAL IV ONE; +SODIUM CHLORIDE 0.9% 500ML 500 ML IV ONE; -TPM25 PO; +TYLOTC500 PO; -ULT50X PO; +VNTHFA/IN INH
--- NOTE | 2016-12-03 10:38 | Endo History and Physical ---
History & Physical Date of Service: Dec 03, 2016. Chief Complaint: Colitis Referring Physician: Epifanio History of Present Illness 81 yo presenting for colonoscopy for recent hospitalization of rectal bleeding and CT scan with abnormal wall thickening of the descending and transverse colon. Past Surgical History Hx Cardiac Surgery: No Hx Abdominal Surgery: Yes (MAREN, BLADDER TAC) Hx of Implantable Prosthesis: No Hx Post-Op Nausea and Vomiting: Yes Hx Cancer Surgery: Yes (BREAST CA RIGHT MASTECTOMY) Hx Thoracic Surgery: No Hx Orthopedic: Yes (Right TKA in 2013, HIP, ) Hx Urinary Tract Surgery: No Family History None Social History Smoking Status: Never Smoker Hx Substance Use: No Hx Alcohol Use: No Allergies Coded Allergies: Oxycodone (Verified Allergy, Unknown, 12/03/16) Sulfa Antibiotics (Verified Adverse Reaction, Intermediate, KIDNEY PROBLEMS, 12/03/16) Codeine (Verified Adverse Reaction, Unknown, NAUSEA TOLERATES TYL#3, ) Current Medications Reported Home Medications Medications Dose Route/Sig Max Daily Dose Days Date Category Flonase Allergy Relief (Fluticasone Propionate (Nasal)) 50 Mcg/Act Spr 1 Dose NA DAILY 10/30/16 Reported Dulera 100/5 Mcg (Mometasone Furoate-Formoterol) 1 Aer Aer 2 Puffs INH BID 30 10/30/16 Reported Vitamin D (Cholecalciferol) 2,000 Unit Cap 2,000 Unit PO DAILY 02/16/16 Reported Vitamin C (Ascorbic Acid) 1,000 Mg Tab 1,000 Mg PO BID 02/16/16 Reported Duloxetine HCl 60 Mg Cap 60 Mg PO HS 02/16/16 Reported Neurontin (Gabapentin) 100 Mg Cap 100 Mg PO BID 04/24/15 Reported Tylenol (Acetaminophen) 500 Mg Tab 1,000 Mg PO Q6 PRN 11/10/14 Reported Neurontin (Gabapentin) 100 Mg Cap 300 Mg PO HS 11/10/14 Reported Prilosec (Omeprazole) 40 Mg Cap 40 Mg PO QAM 11/10/14 Reported Vital Signs Weight (Kilograms): 84.09 Height (Feet): 5 Height (Inches): 2 Date Time Temp Pulse Resp B/P (MAP) Pulse Ox O2 Delivery O2 Flow Rate FiO2 12/03/16 10:04 37.1 77 16 171/77 (108) 93 Room Air Physical Exam General Appearance: WD/WN, no apparent distress Respiratory/Chest: Respiratory effort: no dyspnea Auscultation: breath sounds normal, CTA except as noted Cardiovascular: Apical Impulse: not displaced Heart Auscultation: RRR, normal S1, normal S2 Abdomen: Bowel Sounds: normal Inspection & Palpation: soft, non-distended, no tenderness, guarding & rebound Assessment and Plan 81 yo presenting for colonoscopy for abnormal imaging and rectal bleeding
--- NOTE | 2016-12-03 11:21 | GI REPORT ---
Procedure Date: 12/03/2016 10:43 AM Procedure: Colonoscopy Indications: Rectal bleeding, Abnormal CT of the GI tract Medicines: General Anesthesia Complications: No immediate complications. Estimated blood loss: None. Estimated Blood Loss: Estimated blood loss: none. Procedure: Pre-Anesthesia Assessment: - Pre-Anesthesia Assessment: - Prior to the procedure, a History and Physical was performed, and patient medications, allergies and sensitivities were reviewed. The patient's tolerance of previous anesthesia was reviewed. Please see [facility] for complete details. - The risks and benefits of the procedure and the sedation options and risks were discussed with the patient. All questions were answered and informed consent was obtained. - Patient identification and proposed procedure were verified prior to the procedure by the physician and the nurse. The procedure was verified in the pre-procedure area in the procedure room. After obtaining informed consent, the endoscope was passed carefully and meticuously under direct vision and only advanced when the lumen was clearly identified, C02 insuflation was utilized throughout the entirity of the procedure. Throughout the procedure, the patient's blood pressure, pulse, and oxygen saturations were monitored continuously. After I obtained informed consent, the scope was passed under direct vision. Throughout the procedure, the patient's blood pressure, pulse, and oxygen saturations were monitored continuously. The scope was introduced through the anus and advanced to the cecum, identified by appendiceal orifice and ileocecal valve. The colonoscopy was performed without difficulty. The patient tolerated the procedure well. The quality of the bowel preparation was good. Findings: A 3 mm polyp was found in the ascending colon. The polyp was sessile. The polyp was removed with a jumbo cold forceps. Resection and retrieval were complete. Three sessile polyps were found in the ascending colon. The polyps were 4 to 6 mm in size. These polyps were removed with a cold snare. Resection and retrieval were complete. Multiple small-mouthed diverticula were found in the sigmoid colon. The terminal ileum appeared normal. Internal hemorrhoids were found. The exam was otherwise without abnormality. Impression: - One 3 mm polyp in the ascending colon, removed with a jumbo cold forceps. Resected and retrieved. - Three 4 to 6 mm polyps in the ascending colon, removed with a cold snare. Resected and retrieved. - Diverticulosis in the sigmoid colon. - The examined portion of the ileum was normal. - Internal hemorrhoids. - The examination was otherwise normal. Recommendation: - Discharge patient to home (with escort). - Await pathology results. - Past issues with rectal bleeding and colitis either ischemia or infection Ronn Amato MD 12/03/2016 11:21:09 AM This report has been signed electronically. Note Initiated On: 12/03/2016 10:43 AM I attest to the content of the Intraoperative Record and orders documented therein, exceptions below
--- NOTE | 2016-12-03 11:24 | Discharge Instructions ---
Endoscopy Patient Instructions Date / Procedure(s) Performed Dec 03, 2016. Colonoscopy Allergy Information Coded Allergies: Oxycodone (Verified Allergy, Unknown, 12/03/16) Sulfa Antibiotics (Verified Adverse Reaction, Intermediate, KIDNEY PROBLEMS, 12/03/16) Codeine (Verified Adverse Reaction, Unknown, NAUSEA TOLERATES TYL#3, ) Discharge Date / Findings Dec 03, 2016. Normal colonic mucosa A few small polyps removed entirely Diverticuli Hemorrhoids Provider Instructions Activity Restrictions - No exercising or heavy lifting for 24 hours. - Do not drink alcohol the day of the procedure. - Do not drive a car or operate machinery until the day after the procedure. - Do not make any important decisions or sign important papers in 24 hours after the procedure. Following Day: - Return to full activity which may include returning to work/school. Diet Start your diet with liquids and light foods (jello, soup, juice, toast). Then eat your usual diet if not nauseated. Treatment For Common After Affects For mild abdominal pain, bloating, or excessive gas: - Rest - Eat lightly - Lie on right side Follow-Up Information Follow-up with [facility] as scheduled Anesthesia Information What You Should Know You have had a procedure that required some medicine to reduce anxiety and discomfort. This treatment is called moderate sedation. After receiving the treatment, you may be sleepy, but you will be able to breathe on your own. The effects of the treatment may last for several hours. Follow these instructions along with Activity/Diet recommendations noted above: * Do NOT do anything where dizziness or clumsiness would be dangerous. * Rest quietly at home today, then you can be up and about tomorrow. * Have a responsible person stay with you the rest of today. * You may have had an I.V. today. If so, you may take the dressing off later today. Recommendations Call your doctor if: * Trouble breathing * Continuous vomiting for more than 24 hours * Temperature above 101 degrees * Severe abdominal pain or bloating * Pain not relieved by pain medicine ordered * There is increased drainage or redness from any incision * A large amount of rectal bleeding greater than 2-3 tablespoons. (If you had a polyp/s removed or have hemorrhoids, a small amount of blood - from the rectum is to be expected.) * You have any unanswered questions or concerns. IN THE EVENT OF A SERIOUS EMERGENCY, GO TO THE NEAREST EMERGENCY ROOM Your discharge instructions were prepared by provider Ronn Amato. Patient Instructions Signature Page Radhika Arroyo Patient (or Guardian) Signature/Date: I have read and understand the instructions given to me by my caregivers. Caregiver/RN/Doctor Signature/Date: The above-named patient and/or guardian has received patient instructions on this date. + Original Patient Signature Page (only) stays with chart. Please make copy for patient.
[2016-12-03 11:45] VITALS: BP 176/82; PULSE 69; O2SAT 94
--- NOTE | 2016-12-03 11:46 | Anesthesiology Progress Note ---
Anesthesia Post Op Note Date & Time Dec 03, 2016 at 11:46 Vital Signs Pain Intensity: 0 Vital Signs Past 12 Hours Date Time Temp Pulse Resp B/P (MAP) Pulse Ox O2 Delivery O2 Flow Rate FiO2 12/03/16 11:30 77 20 157/61 (93) 96 Room Air 12/03/16 11:16 75 20 168/71 (103) 97 Room Air 12/03/16 10:04 37.1 77 16 171/77 (108) 93 Room Air Notes Mental Status: alert / awake / arousable, participated in evaluation Pt Amnestic to Procedure: Yes Nausea / Vomiting: adequately controlled Pain: adequately controlled Airway Patency, RR, SpO2: stable & adequate BP & HR: stable & adequate Hydration State: stable & adequate Anesthetic Complications: no major complications apparent
== END | disposition home or self-care (01) ==
LOC: C.GI 09:36
PROVIDERS: ATTEND Internal Medicine
DX: K62.5 Hemorrhage of anus and rectum (principal); D12.2 Benign neoplasm of ascending colon; K57.30 Diverticulosis of large intestine without perforation or abscess without bleeding; K64.8 Other hemorrhoids; Z90.710 Acquired absence of both cervix and uterus; Z90.11 Acquired absence of right breast and nipple; Z96.651 Presence of right artificial knee joint

== ENCOUNTER 2016-12-05 18:49 | Emergency (ER) | payer OTHER ==
[~2016-12-05] VITALS: Ht 157.5 cm; Wt 83.5 kg
[~2016-12-05 18:49] MED LIST changes: -ASCO10003 PO; -CHOL200010 PO; -CYM60 PO; -FLNIN/ NAE; -LIDOCAINE HCL 2% 2 ML VIAL (20MG/ML) ONE; -PROPOFOL IV EMULSION 10 MG/ML 20 ML VIAL IV ONE; -SODIUM CHLORIDE 0.9% 500ML 500 ML IV ONE; -VNTHFA/IN INH
[2016-12-05 19:04] VITALS: TEMP 36.9; Ht 157.5 cm; Wt 83.5 kg
[2016-12-05] MEDS ORDERED: CYM60 PO (19:12)
[2016-12-05] MEDS ORDERED: ASCO10003 PO (19:12)
[2016-12-05] MEDS ORDERED: CHOL200010 PO (19:12)
[2016-12-05] MEDS ORDERED: FLNIN/ NAE (19:46)
[2016-12-05] MEDS ORDERED: VNTHFA/IN INH (19:46)
[2016-12-05] MEDS ORDERED: ACETAMINOPHEN 325 MG TAB PO STA (20:02)
--- NOTE | 2016-12-05 20:58 | DIAGNOSTIC IMAGING REPORT ---
HEAD WITHOUT CONTRAST (CT) CT DOSE: HISTORY: Trauma pain TECHNIQUE: Multiaxial CT images of the head were performed without the use of intravenous contrast. A dose lowering technique was utilized adhering to the principles of ALARA. Comparison: 03/28/2016 Findings: The paranasal sinuses and mastoid air cells are clear. The calvarium and skull base are intact. The ventricles and sulci are within normal limits. There is no mass, hematoma, midline shift, or acute infarct. Impression: No acute intracranial abnormality. The above report was generated using voice recognition software. It may contain grammatical, syntax or spelling errors. Electronically signed by: Alec De La Rosa M.D. 12/05/2016 8:57 PM Dictated Date/Time: 12/05/2016 8:55 PM
--- NOTE | 2016-12-05 21:02 | DIAGNOSTIC IMAGING REPORT ---
CERVICAL SPINE W/O CT DOSE: 936.96 mGy.cm HISTORY: Trauma fall neck pain TECHNIQUE: Multiaxial CT images of the cervical spine were performed and reformatted in the sagittal and coronal plane without the use of contrast. A dose lowering technique was utilized adhering to the principles of ALARA. COMPARISON: 03/28/2016 FINDINGS: No fractures. No subluxation. Prevertebral soft tissues and the C1-C2 interval are intact. No pneumothorax. Moderate degenerative disc change throughout. Degenerative change of the C1-C2 complex. This is considered chronic. IMPRESSION: Chronic change. No acute bony abnormality. The above report was generated using voice recognition software. It may contain grammatical, syntax or spelling errors. Electronically signed by: Alec De La Rosa M.D. 12/05/2016 9:00 PM Dictated Date/Time: 12/05/2016 8:58 PM
--- NOTE | 2016-12-05 21:05 | DIAGNOSTIC IMAGING REPORT ---
FACIAL BONES-MXILLOFAC WITHOUT CT DOSE: HISTORY: Trauma ecchymosis around L eye TECHNIQUE: Multiaxial CT images of the maxillofacial region were performed and reformatted in the coronal plane without the use of contrast. A dose lowering technique was utilized adhering to the principles of ALARA. COMPARISON: 02/16/2016 FINDINGS: The visualized cervical spine, skull base, pterygoid plates, nasal bones, lamina papyracea, orbital floors, mandible, and zygomatic arches are intact. No fractures. The orbits are unremarkable. Mild chronic mucosal thickening of the sinuses. IMPRESSION: No fractures within the maxillofacial region. Mild left prefrontal soft tissue edema. The above report was generated using voice recognition software. It may contain grammatical, syntax or spelling errors. Electronically signed by: Alec De La Rosa M.D. 12/05/2016 9:04 PM Dictated Date/Time: 12/05/2016 9:01 PM
--- NOTE | 2016-12-05 21:12 | EMERGENCY ROOM VISIT NOTE ---
History First contact with patient: 19:48 Chief Complaint: FACIAL PAIN/INJURY Stated Complaint: EYE PAIN, HEADACHE, DROOPING OF EYE History of Present Illness The patient is a 81 year old female who presents to the Emergency Room with complaints of a head injury that occurred walking out of her doctor's office 2 weeks ago. The follows mechanical. The patient reports hitting her head. She does not take any blood thinners. She has had intermittent headaches in the frontal region since. She has taken Tylenol with good pain relief. She also complains of swelling and pain around the left eye, which is also bruised. She denies any changes in vision in the eye. She is also experiencing mild neck pain. She saw her orthopedic doctor today, who advised her to come the emergency department for evaluation and CT scan. Review of Systems 6 system review negative. Please see pertinent positives in the history of present illness section. Past Medical/Surgical History Medical Problems: (1) Back pain (2) Breast cancer (3) Chronic renal failure, stage 4 (severe) (4) CKD (chronic kidney disease), stage IV (5) DVT (deep venous thrombosis) (6) Dyslipidemia (7) GERD (gastroesophageal reflux disease) (8) GI bleed (9) History of DVT (deep vein thrombosis) (10) HTN (hypertension) (11) Lumbago (12) Osteoporosis (13) Stroke Surgical Problems: (1) H/O bladder repair surgery (2) H/O colonoscopy (3) H/O mastectomy (4) H/O right knee surgery (5) History of hip surgery (6) History of right-sided carotid endarterectomy (7) History of total hip replacement (8) S/P mastectomy (9) S/P tonsillectomy and adenoidectomy (10) S/P total hysterectomy Family History Patient reports no known family medical history. Social History Smoking Status: Never Smoker Alcohol Use: none Drug Use: none Marital Status: single Housing Status: other Current/Historical Medications Scheduled Ascorbic Acid (Vitamin C), 1,000 MG PO BID Cholecalciferol (Vitamin D), 2,000 UNIT PO DAILY Duloxetine HCl (Duloxetine HCl), 60 MG PO HS Fluticasone Propionate (Fluticasone Propionate), 2 SPRAYS VICKI DAILY Gabapentin (Neurontin), 300 MG PO HS Gabapentin (Neurontin), 100 MG PO BID Mometasone Furoate-Formoterol (Dulera 100/5 Mcg), 2 PUFFS INH BID Omeprazole (Prilosec), 40 MG PO QAM Scheduled PRN Acetaminophen (Tylenol), 1,000 MG PO Q6 PRN for Pain Albuterol Hfa (Ventolin Hfa), 2 PUFF INH Q4 PRN for Wheezing Physical Exam Vital Signs Date Time Temp Pulse Resp B/P (MAP) Pulse Ox O2 Delivery O2 Flow Rate FiO2 12/05/16 21:53 76 16 145/78 98 12/05/16 19:04 36.9 77 16 177/76 94 Room Air Physical Exam GENERAL: 81-year-old female, in no acute distress, nondiaphoretic, well- developed well-nourished. SKIN: The skin was intact HEAD: Old ecchymosis noted in the periorbital region of the left side of the face. Mild tenderness to palpation over the left zygomatic bone and frontal bone. Tenderness over an area of old ecchymosis/hematoma over the left frontal region. No tenderness over the right side of the face. EARS: External auditory canals clear, tympanic membranes pearly jennings without erythema or effusion bilaterally. EYES: Pupils equal round and reactive to light and accommodation. Conjunctivae without injection, sclerae without icterus. Extraocular movements intact. MOUTH: Mucous membranes moist. NECK: Cervical spine nontender. Full range of motion of the neck. MUSCULOSKELETAL: Strength 5/5 throughout. NEURO: Patient was alert and oriented to person place and time. Cerebellar function intact. Negative pronator drift. Normal sensation to touch. No focal neurological deficits. Medical Decision & Procedures ER Provider Diagnostic Interpretation: FACIAL BONES-MXILLOFAC WITHOUT CT DOSE: HISTORY: Trauma ecchymosis around L eye TECHNIQUE: Multiaxial CT images of the maxillofacial region were performed and reformatted in the coronal plane without the use of contrast. A dose lowering technique was utilized adhering to the principles of ALARA. COMPARISON: 02/16/2016 FINDINGS: The visualized cervical spine, skull base, pterygoid plates, nasal bones, lamina papyracea, orbital floors, mandible, and zygomatic arches are intact. No fractures. The orbits are unremarkable. Mild chronic mucosal thickening of the sinuses. IMPRESSION: No fractures within the maxillofacial region. Mild left prefrontal soft tissue edema. HEAD WITHOUT CONTRAST (CT) CT DOSE: HISTORY: Trauma pain TECHNIQUE: Multiaxial CT images of the head were performed without the use of intravenous contrast. A dose lowering technique was utilized adhering to the principles of ALARA. Comparison: 03/28/2016 Findings: The paranasal sinuses and mastoid air cells are clear. The calvarium and skull base are intact. The ventricles and sulci are within normal limits. There is no mass, hematoma, midline shift, or acute infarct. Impression: No acute intracranial abnormality. The above report was generated using voice recognition software. It may contain grammatical, syntax or spelling errors. Electronically signed by: Alec De La Rosa M.D. 12/05/2016 8:57 PM Dictated Date/Time: 12/05/2016 8:55 PM The status of this report is Signed. Draft = Not yet reviewed or approved by Radiologist. Signed = Reviewed and approved by Radiologist. CERVICAL SPINE W/O CT DOSE: 936.96 mGy.cm HISTORY: Trauma fall neck pain TECHNIQUE: Multiaxial CT images of the cervical spine were performed and reformatted in the sagittal and coronal plane without the use of contrast. A dose lowering technique was utilized adhering to the principles of ALARA. COMPARISON: 03/28/2016 FINDINGS: No fractures. No subluxation. Prevertebral soft tissues and the C1-C2 interval are intact. No pneumothorax. Moderate degenerative disc change throughout. Degenerative change of the C1-C2 complex. This is considered chronic. IMPRESSION: Chronic change. No acute bony abnormality. The above report was generated using voice recognition software. It may contain grammatical, syntax or spelling errors. Electronically signed by: Alec De La Rosa M.D. 12/05/2016 9:00 PM Dictated Date/Time: 12/05/2016 8:58 PM The status of this report is Signed. Draft = Not yet reviewed or approved by Radiologist. Signed = Reviewed and approved by Radiologist. <AttendingPhy></AttendingPhy> <FamilyPhy>Soheila Godfrey M.D. (MEDICAL)</ FamilyPhy> <PrimaryPhy>Soheila Godfrey M.D. (MEDICAL)</PrimaryPhy> <UnitNumber> [id number]</UnitNumber> <VisitNumber>[id number] Medications Administered Medications (Trade) Dose Ordered Sig/Dolly Route Start Time Stop Time Status Last Admin Dose Admin Acetaminophen (Tylenol Tab) 650 mg NOW STAT PO 12/05/16 20:02 12/05/16 20:04 DC 12/05/16 20:14 650 MG ED Course The patient was seen and examined She was given Tylenol 650 mg po Imaging was performed and reviewed The patient was also seen by my supervising physician The imaging was discussed with the patient and the patient's daughter. They voiced understanding. Discharge instructions were reviewed, and the patient was discharged in good condition Medical Decision Differential diagnosis: Skull fracture, facial bone fracture, subdural hematoma , other intracranial bleed, CVA, cervical fracture, cervical strain This patient is an 81-year-old female that had a fall 2 weeks ago. She did still have an area of ecchymosis and swelling especially to the frontal region of the head. Imaging was negative for any acute findings.. She was instructed to continue to take Tylenol as prescribed for pain. She will follow-up with her primary care physician. She agrees to return to the emergency department with any new or worsening symptoms. Medication Reconcilliation Current Medication List: was personally reviewed by me Blood Pressure Screening Patient's blood pressure: Elevated blood pressure Blood pressure disposition: Referred to PCP Impression Primary Impression: Facial injury Additional Impression: Closed head injury Departure Information Dispostion Home / Self-Care Condition GOOD Referrals Soheila Godfrey M.D. (MEDICAL) (PCP) Patient Instructions My [facility] Additional Instructions You were evaluated in the emergency department for a fall and injuries to your face and head. No broken bones were noted area there is no bleeding in the brain. Please continue to take Tylenol 500 mg every 6 hours as needed for pain Please follow-up with your primary care physician to have your blood pressure rechecked within a week Return to the emergency department if you have any of the following symptoms: -Sudden onset of weakness -Slurred speech -Severe pain -Lethargy -Confusion Problem Qualifiers
[2016-12-05 21:53] VITALS: BP 145/78; PULSE 76; O2SAT 98
== END 2016-12-05 21:53 | disposition home or self-care (01) ==
LOC: C.EDB 18:51 → C.EDD 21:53
DX: S09.93XA Unspecified injury of face, initial encounter (principal); S09.90XA Unspecified injury of head, initial encounter; W19.XXXA Unspecified fall, initial encounter; Y92.89 Other specified places as the place of occurrence of the external cause; Z85.3 Personal history of malignant neoplasm of breast; N18.4 Chronic kidney disease, stage 4 (severe); Z86.718 Personal history of other venous thrombosis and embolism; K21.9 Gastro-esophageal reflux disease without esophagitis; E78.5 Hyperlipidemia, unspecified; I12.9 Hypertensive chronic kidney disease with stage 1 through stage 4 chronic kidney disease, or unspecified chronic kidney disease; M81.0 Age-related osteoporosis without current pathological fracture; Z86.73 Personal history of transient ischemic attack (TIA), and cerebral infarction without residual deficits; Z79.899 Other long term (current) drug therapy

== ENCOUNTER 2017-07-25 17:35 | Emergency (ER) | payer OTHER ==
[~2017-07-25] VITALS: Ht 157.5 cm; Wt 83.3 kg
[~2017-07-25 17:35] MED LIST changes: +ASCO10003 PO; +CHOL200010 PO; +CYM60 PO; +FLNIN/ NAE; -FLUT0.15; +GABA100C13 PO; -GABA1CAP PO; +VNTHFA/IN INH
[2017-07-25 17:40] VITALS: TEMP 36.9; Ht 157.5 cm; Wt 83.3 kg
--- NOTE | 2017-07-25 17:58 | EMERGENCY ROOM VISIT NOTE ---
History Report prepared by Sultana: Rosa Perez Under the Supervision of: Dr. Nishant Dong M.D. 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 She was walking to her bedroom after getting out of the shower and tripped over her dog. She hit her head on the back. She uses a walker, but 3 days ago when she fell she was not using her walker. Patient reports her pain is in her right hip and travels down to her right knee. Patient is not on any blood thinners. She also states she hit the back of her head 3 days ago. She denies any LOC 3 days ago, headache currently, or nausea or vomiting. Patient denies any chest pain, shortness of breath, difficulty breathing, abdominal pain. She is accompanied by her friends who note that she has been getting worse over the past couple of days. She and her friends are also concerned she has a UTI because it bailon when she urinates and she is urinating constantly. 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 A total of ten systems were reviewed and were otherwise negative. Past Medical & Surgical Medical Problems: (1) Back pain (2) Breast cancer (3) Chronic renal failure, stage 4 (severe) (4) CKD (chronic kidney disease), stage IV (5) DVT (deep venous thrombosis) (6) Dyslipidemia (7) GERD (gastroesophageal reflux disease) (8) GI bleed (9) History of DVT (deep vein thrombosis) (10) HTN (hypertension) (11) Lumbago (12) Osteoporosis (13) Stroke Surgical Problems: (1) H/O bladder repair surgery (2) H/O colonoscopy (3) H/O mastectomy (4) H/O right knee surgery (5) History of hip surgery (6) History of right-sided carotid endarterectomy (7) History of total hip replacement (8) S/P mastectomy (9) S/P tonsillectomy and adenoidectomy (10) S/P total hysterectomy Family History Patient reports no known family medical history. Social History Smoking Status: Never Smoker Alcohol Use: none Drug Use: none Marital Status: single Housing Status: other Current/Historical Medications Scheduled Ascorbic Acid (Vitamin C), 1,000 MG PO BID Cholecalciferol (Vitamin D), 2,000 UNIT PO DAILY Ciprofloxacin Hcl (Cipro), 500 MG PO BID Duloxetine HCl (Duloxetine HCl), 60 MG PO HS Fluticasone Propionate (Fluticasone Propionate), 2 SPRAYS VICKI DAILY Gabapentin (Neurontin), 300 MG PO HS Gabapentin (Neurontin), 100 MG PO BID Mometasone Furoate-Formoterol (Dulera 100/5 Mcg), 2 PUFFS INH BID Omeprazole (Prilosec), 40 MG PO QAM Scheduled PRN Acetaminophen (Tylenol), 1,000 MG PO Q6 PRN for Pain Albuterol Hfa (Ventolin Hfa), 2 PUFF INH Q4 PRN for Wheezing Allergies Coded Allergies: Oxycodone (Verified Allergy, Unknown, 12/03/16) Sulfa Antibiotics (Verified Adverse Reaction, Intermediate, KIDNEY PROBLEMS, 12/03/16) Codeine (Verified Adverse Reaction, Unknown, NAUSEA TOLERATES TYL#3, ) Physical Exam Vital Signs Date Time Temp Pulse Resp B/P (MAP) Pulse Ox O2 Delivery O2 Flow Rate FiO2 07/25/17 20:39 62 16 170/78 94 07/25/17 19:27 67 16 171/72 95 Room Air 07/25/17 17:40 36.9 78 18 160/106 93 Room Air Physical Exam Physical Exam GENERAL: She is oriented to person, place, and time. She appears well- developed and well-nourished. She does not appear distressed. ____ HENT: Exam performed. Head: Normocephalic and atraumatic. Right Ear: External ear normal. No mastoid tenderness. Left Ear: External ear normal. No mastoid tenderness. Mouth/Throat: The oropharynx is clear and moist. No trismus in the jaw. No dental abscesses or uvula swelling. No oropharyngeal exudate or tonsillar abscesses. ____ EYES: Conjunctivae and EOM are normal. Pupils are equal, round, and reactive to light. Right eye exhibits no discharge. Left eye exhibits no discharge. No scleral icterus. ____ NECK: Normal range of motion. Neck supple. No JVD present. No spinous process tenderness present. No carotid bruit present. No rigidity. No tracheal deviation and normal range of motion present. No Brudzinski's sign and no Kernig 's sign noted. ____ CV: Normal rate, regular rhythm, normal heart sounds and intact distal pulses. There is no peripheral edema. Palpable radial pulses bue. ____ PULM/CHEST: Effort normal and breath sounds normal. No respiratory distress. No stridor. She has no wheezes. She has no rales. Chest Wall: She exhibits no tenderness. ____ ABD: The abdomen is soft. Bowel sounds are normal. She has no distension. No mass is present. There is no tenderness. There is no rebound, no guarding, no Cash's sign and no tenderness at McBurney's point. Rovsig negative MUSC/SKEL: Pain on palpation of the lumbar spine, pain on palpation of the epigastric region, and pain on palpation of the right pelvis. No other areas of tenderness. No obvious extremity deformity. LYMPH: No cervical adenopathy. ____ NEURO: She is alert and oriented to person, place, and time. She has normal strength. No cranial nerve deficit or sensory deficit. Coordination and gait normal. GCS eye subscore is 4. GCS verbal subscore is 5. GCS motor subscore is 6. Cerebellar tests wnl. ____ SKIN: Skin is warm and dry. She is not diaphoretic. ____ PSYCH: She has a normal mood and affect. Her behavior is normal. Judgment and thought content normal. ____ Medical Decision & Procedures ER Provider Diagnostic Interpretation: Radiology results as stated below per my review and radiologist interpretation: RIGHT SHOULDER 3 VIEWS CLINICAL HISTORY: Fall several days ago. FINDINGS: 3 views of the right shoulder are compared to study dated 03/30/2016. The skeletal structures are osteopenic. No fracture or dislocation is seen. Mild productive degenerative change is noted at the acromioclavicular joint. Mild arthritic change is seen in the greater tuberosity of the humeral head. The glenohumeral articulation is preserved. The overlying soft tissues are normal in appearance noting surgical clips in the right axilla. Surgical clips are also present in the right neck. The visualized right apical lung parenchyma appears clear. IMPRESSION: Osteopenia and degenerative change as above. No right shoulder fracture or dislocation is identified. Electronically signed by: Almas Ruggiero M.D. 07/25/2017 7:41 PM Dictated Date/Time: 07/25/2017 7:40 PM SINGLE VIEW PELVIS CLINICAL HISTORY: Fall several days ago. FINDINGS: An AP pelvic radiograph is compared to study dated 02/16/2016. The skeletal structures are osteopenic. There is no radiographic evidence of fracture involving the hips or bony pelvis. A right hip arthroplasty is in near anatomic alignment. Mild to moderate arthritic change and joint space narrowing is noted in the left hip. Sclerotic change is seen in the sacroiliac joints. Lumbosacral spondylosis is partially imaged. Surgical clips project over the right groin. A small phlebolith is noted in the pelvis. No bowel obstruction is seen. IMPRESSION: There is no radiographic evidence of fracture involving the hips or bony pelvis. Electronically signed by: Almas Ruggiero M.D. 07/25/2017 7:42 PM Dictated Date/Time: 07/25/2017 7:41 PM LUMBAR SPINE 5 VIEWS CLINICAL HISTORY: Fall several days ago. Low back pain. FINDINGS: 5 views of the lumbar spine are correlated with CT scans of the thoracic and lumbar spine dated 03/28/2016. The skeletal structures are osteopenic. There is no radiographic evidence of acute fracture or malalignment. A mild chronic compression deformity of L4 is unchanged. There is a moderate compression deformity of T11. The degree of collapse has increased from the 2016 examination. Vertebral body height is otherwise maintained throughout the lumbar spine. Alignment is preserved. Anterior and lateral marginal osteophytes are seen throughout. The transverse and spinous processes appear intact. There is no evidence of spondylolysis. There is moderate multilevel degenerative disc space narrowing. Advanced endplate sclerosis is seen at L3-L4. Facet arthropathy is seen in the lower lumbar region. The bony pelvis is intact as visualized. Sclerotic change is noted in the sacroiliac joints. A right hip arthroplasty is partially visualized. No bowel obstruction is identified. There is atherosclerotic calcification of the abdominal aorta. IMPRESSION: 1. There is no radiographic evidence of acute fracture or malalignment involving the lumbar spine. 2. Osteopenia and spondylotic change as above. 3. Chronic compression deformities are again seen involving T11 and L4. There has been increased collapse of the T11 vertebral body as compared to 2016. Dictated: 07/25/2017 7:45 PM Transcribed: 07/25/2017 7:53 PM [email or web address] Electronically signed by: Almas Ruggiero M.D. 07/25/2017 7:56 PM Dictated Date/Time: 07/25/2017 7:45 PM LEFT KNEE 4 VIEWS CLINICAL HISTORY: Fall several days ago. Left knee pain. FINDINGS: AP, crosstable lateral, tunnel, and sunrise views of left knee are correlated with radiographs of the left tibia and fibula dated 03/28/2016. The skeletal structures are osteopenic. There is no radiographic evidence of left knee fracture. There is mild to moderate tricompartmental degenerative joint space narrowing, greatest in the medial compartment. There is no evidence of osteochondral defect on the tunnel view. There are small patellar enthesophytes. No joint effusion is identified. A calcified fabella is incidentally noted. The overlying soft tissues are within normal limits. Venous varicosities are noted. IMPRESSION: Osteopenia with no radiographic evidence of left knee fracture. Electronically signed by: Almas Ruggiero M.D. 07/25/2017 7:44 PM Dictated Date/Time: 07/25/2017 7:[address] SCAN OF THE BRAIN WITHOUT IV CONTRAST CLINICAL HISTORY: Fall several days ago. COMPARISON STUDY: CT of the brain dated 12/05/2016. TECHNIQUE: Unenhanced axial CT scan of the brain is performed from the vertex to the skull base. A dose lowering technique was utilized adhering to the principles of ALARA. CT DOSE: 1014.19 mGy.cm FINDINGS: Brain parenchyma: There are age-related involutional changes noting moderate subcortical and periventricular microangiopathic change. There is no hemorrhage, mass effect, or evidence of acute territorial ischemia by CT criteria. Carrasco-white matter is preserved. No extra-axial fluid collection is seen. Ventricles, sulci, cisterns: Prominent secondary to involutional change. Intracranial vasculature: There is atherosclerotic calcification of the cavernous carotid and vertebral arteries. Calvarium: The skeletal structures are osteopenic. No depressed calvarial fracture is seen. Sinuses and mastoids: There is moderate mucosal thickening in the maxillary antra. Moderate mucosal thickening is also seen within the frontal and ethmoid sinuses. Trace mucosal thickening is seen in the sphenoid sinuses. There are small mastoid effusions. Orbits: The bony orbits are grossly intact. There are bilateral ocular lens implants. IMPRESSION: 1. There is no hemorrhage, mass effect, or evidence of acute territorial ischemia by CT criteria. 2. Paranasal sinus disease as above. Electronically signed by: Almas Ruggiero M.D. 07/25/2017 6:28 PM Dictated Date/Time: 07/25/2017 6:25 PM TWO VIEW CHEST CLINICAL HISTORY: Fall several days ago. FINDINGS: AP and lateral chest radiographs are compared to study dated 10/30/2016 and correlated with chest CT dated 03/28/2016. The AP view is degraded by patient rotation. The heart is enlarged and there is atherosclerotic calcification of the thoracic aorta. The pulmonary vasculature is noncongested. Chronic interstitial thickening is similar to previous no airspace consolidation or pleural effusion is identified. There is no pneumothorax. The skeletal structures are osteopenic. A mild compression deformity is again seen in the lower thoracic region. The degree of collapse has modestly increased from the 2016 CT scan. Surgical clips are noted in the right axilla. IMPRESSION: Cardiomegaly with no active disease in the chest. Electronically signed by: Almas Ruggiero M.D. 07/25/2017 7:39 PM Dictated Date/Time: 07/25/2017 7:[address] SCAN OF THE CERVICAL SPINE CLINICAL HISTORY: Fall several days ago. COMPARISON STUDY: CT scan of the cervical spine dated 12/05/2016. TECHNIQUE: CT scan of the cervical spine is performed from the skull base to the upper thoracic spine. Images are reviewed in the axial, sagittal, and coronal planes. IV contrast was not administered for this examination. A dose lowering technique was utilized adhering to the principles of ALARA. CT DOSE: Reported separately under the concurrently performed CT scan of the brain. FINDINGS: Skeletal structures: The skeletal structures are osteopenic. There is no evidence of fracture or subluxation involving the cervical spine. Vertebral body height and alignment are maintained. Anterior osteophytes are noted in the lower cervical region. The odontoid process and lateral masses are intact. The atlantoaxial articulation is preserved noting advanced productive degenerative change. The spinous processes appear intact. There is moderate multilevel cervical spondylosis. Uncovertebral and facet arthropathy contribute sterile foraminal narrowing at several levels. Intervertebral discs: Mild to moderate disc space narrowing is seen at C5-C6 and C6-C7. Central canal: Posterior disc osteophyte complexes at C5-C6 and C6-C7 likely contribute to mild acquired compromise of the central canal. Soft tissues: The prevertebral and paraspinous soft tissues are within normal limits. There is atherosclerotic calcification of the carotid bulbs. Surgical clips are noted in the right neck. Calvarium: The visualized calvarium at the skull base appears intact. Brain parenchyma: Partially visualized brain parenchyma the skull base is within normal limits. Sinuses and mastoids: Small mastoid effusions are identified. Trace mucosal thickening is noted in the sphenoid sinuses. Lung apices: Presumed nodular scarring at the left apex is similar to previous. Imaged apical lung parenchyma is otherwise clear. IMPRESSION: 1. There is no evidence of fracture or subluxation involving the cervical spine. 2. Osteopenia and spondylotic change as above. Electronically signed by: Almas Ruggiero M.D. 07/25/2017 6:32 PM Dictated Date/Time: 07/25/2017 6:28 PM RIGHT KNEE 2 VIEWS CLINICAL HISTORY: Fall several days ago. Right knee pain. FINDINGS: AP and crosstable lateral views of the right knee are correlated with radiograph of the right tibia and fibula dated 04/24/2015. The skeletal structures are osteopenic. No fracture is seen. There is mild to moderate tricompartmental degenerative joint space narrowing, greatest at the patellofemoral articulation. There are lateral marginal osteophytes as well as patellar enthesophytes. A calcified fabella is incidentally noted. No joint effusion is identified. The overlying soft tissues are normal in appearance noting subcutaneous venous varicosities. IMPRESSION: Osteopenia and degenerative change as above. No acute bony abnormality is identified. Electronically signed by: Almas Ruggiero M.D. 07/25/2017 7:32 PM Dictated Date/Time: 07/25/2017 7:31 PM Laboratory Results 07/25/17 18:07 Red Blood Count 3.90, Mean Corpuscular Volume 92.6, Mean Corpuscular Hemoglobin 30.3, Mean Corpuscular Hemoglobin Concent 32.7, Mean Platelet Volume 9.3, Neutrophils (%) (Auto) 57.8, Lymphocytes (%) (Auto) 27.0, Monocytes (%) (Auto) 9.8, Eosinophils (%) (Auto) 4.7, Basophils (%) (Auto) 0.5, Neutrophils # (Auto) 5.81, Lymphocytes # (Auto) 2.71, Monocytes # (Auto) 0.98, Eosinophils # (Auto) 0.47, Basophils # (Auto) 0.05 07/25/17 18:07 Test 07/25/17 18:07 07/25/17 19:22 07/25/17 20:03 White Blood Count 10.04 K/uL (4.8-10.8) Red Blood Count 3.90 M/uL (4.2-5.4) Hemoglobin 11.8 g/dL (12.0-16.0) Hematocrit 36.1 % (37-47) Mean Corpuscular Volume 92.6 fL (80-100) Mean Corpuscular Hemoglobin 30.3 pg (25-34) Mean Corpuscular Hemoglobin Concent 32.7 g/dl (32-36) Platelet Count 295 K/uL (130-400) Mean Platelet Volume 9.3 fL (7.4-10.4) Neutrophils (%) (Auto) 57.8 % Lymphocytes (%) (Auto) 27.0 % Monocytes (%) (Auto) 9.8 % Eosinophils (%) (Auto) 4.7 % Basophils (%) (Auto) 0.5 % Neutrophils # (Auto) 5.81 K/uL (1.4-6.5) Lymphocytes # (Auto) 2.71 K/uL (1.2-3.4) Monocytes # (Auto) 0.98 K/uL (0.11-0.59) Eosinophils # (Auto) 0.47 K/uL (0-0.5) Basophils # (Auto) 0.05 K/uL (0-0.2) RDW Standard Deviation 44.9 fL (36.4-46.3) RDW Coefficient of Variation 13.4 % (11.5-14.5) Immature Granulocyte % (Auto) 0.2 % Immature Granulocyte # (Auto) 0.02 K/uL (0.00-0.02) Anion Gap 6.0 mmol/L (3-11) Est Creatinine Clear Calc Drug Dose 27.7 ml/min Estimated GFR () 35.8 Estimated GFR (Non- 30.9 BUN/Creatinine Ratio 17.5 (10-20) Calcium Level 8.8 mg/dl (8.5-10.1) Total Bilirubin 0.5 mg/dl (0.2-1) Alanine Aminotransferase (ALT/SGPT) 18 U/L (12-78) Alkaline Phosphatase 90 U/L (45-117) Total Protein 7.0 gm/dl (6.4-8.2) Albumin 3.4 gm/dl (3.4-5.0) Lipase 87 U/L (73-393) Urine Color YELLOW Urine Appearance TURBID (CLEAR) Urine pH 5.5 (4.5-7.5) Urine Specific [place] 1.020 (1.000-1.030) Urine Protein 1+ (NEG) Urine Glucose (UA) NEG (NEG) Urine Ketones NEG (NEG) Urine Occult Blood 1+ (NEG) Urine Nitrite POS (NEG) Urine Bilirubin NEG (NEG) Urine Urobilinogen NEG (NEG) Urine Leukocyte Esterase LARGE (NEG) Urine WBC (Auto) >30 /hpf (0-5) Urine RBC (Auto) 10-30 /hpf (0-4) Urine Hyaline Casts (Auto) 1-5 /lpf (0-5) Urine Epithelial Cells (Auto) >30 /lpf (0-5) Urine Bacteria (Auto) 4+ (NEG) Direct Bilirubin 0.1 mg/dl (0-0.2) Aspartate Amino Transf (AST/SGOT) 17 U/L (15-37) Total Creatine Kinase 148 U/L (26-192) Laboratory results reviewed by mo ED Course 1746: The patient was evaluated in room C10. A complete history and physical exam was performed. 2015: Vital signs are stable, labs within normal limits, creatinine at baseline. imaging shows no acute injury. Lumbar spine x-ray shows no acute fracture, however there are chronic compression fractures of T11 and L4, increased collapse of T11. Patient states she fell in 2016 and suffered the lumbar compression fractures then. Urine is a contaminated sample but given patients history of UTIs, she will be started on antibiotics and discharged. DISCHARGE - Plan of care discussed with patient and questions answered. The patient was given both verbal and printed discharge instructions. The patient verbalized understanding and ability to comply. The patient is to seek outpatient follow up as noted in the discharge instructions. The patient verbalized understanding and ability to comply. The patient is discharged in stable condition. The patient was instructed to return for worsening symptoms. Medical Decision Vital signs are stable, labs within normal limits, creatinine at baseline. imaging shows no acute injury. Lumbar spine x-ray shows no acute fracture, however there are chronic compression fractures of T11 and L4, increased collapse of T11. Patient states she fell in 2016 and suffered the lumbar compression fractures then. Urine is a contaminated sample but given patients history of UTIs, she will be started on antibiotics and discharged. DISCHARGE - Plan of care discussed with patient and questions answered. The patient was given both verbal and printed discharge instructions. The patient verbalized understanding and ability to comply. The patient is to seek outpatient follow up as noted in the discharge instructions. The patient verbalized understanding and ability to comply. The patient is discharged in stable condition. The patient was instructed to return for worsening symptoms. Medication Reconcilliation Current Medication List: was personally reviewed by me Blood Pressure Screening Patient's blood pressure: Elevated blood pressure Blood pressure disposition: Elevated BP felt to be situational Impression Primary Impression: Fall Additional Impressions: UTI (urinary tract infection) Compression fracture Scribe Attestation The scribe's documentation has been prepared under my direction and personally reviewed by me in its entirety. I confirm that the note above accurately reflects all work, treatment, procedures, and medical decision making performed by me. The chart was completed utilizing [employer] Speech voice recognition software. Grammatical errors, random word insertions, pronoun errors, and incomplete sentences are an occasional consequence of this system due to software limitations, ambient noise, and hardware issues. Any formal questions or concerns about the content, text, or information contained within the body of this dictation should be directly addressed to the physician for clarification. Departure Information Dispostion Home / Self-Care Prescriptions Ciprofloxacin Hcl (CIPRO) 500 Mg Tab 500 MG PO BID for 3 Days, #6 TAB Prov: Nishant Dong M.D. 07/25/17 Referrals Henry Orlando M.D. (PCP) Forms HOME CARE DOCUMENTATION FORM, IMPORTANT VISIT INFORMATION Patient Instructions My [facility] Additional Instructions Follow-up with primary care physician in 1-3 days. Return to the emergency department if you develop fever greater than 100.4, blood in your urine, blood in your stools, severe abdominal pain, vomiting. Problem Qualifiers Primary Impression: Fall Encounter type: initial encounter Qualified Codes: W19.XXXA - Unspecified fall, initial encounter Additional Impressions: UTI (urinary tract infection) Urinary tract infection type: site unspecified Hematuria presence: without hematuria Qualified Codes: N39.0 - Urinary tract infection, site not specified
[2017-07-25 18:17] LABS: BASO % 0.5 %; BASO ABS # 0.05 K/uL (0-0.2); EOS % 4.7 %; EOS ABS # 0.47 K/uL (0-0.5); HEMATOCRIT 36.1 % (37-47); HEMOGLOBIN 11.8 g/dL (12.0-16.0); IG# 0.02 K/uL (0.00-0.02); LYMPH ABS # 2.71 K/uL (1.2-3.4); MEAN CELL VOLUME 92.6 fL (80-100); MEAN CORPUSCULAR HEMOGLOBIN 30.3 pg (25-34); MEAN CORPUSCULAR HGB CONC 32.7 g/dl (32-36); MEAN PLATELET VOLUME 9.3 fL (7.4-10.4); MONO % 9.8 %; MONO ABS # 0.98 K/uL (0.11-0.59); NEUT % 57.8 %; NEUT ABS # 5.81 K/uL (1.4-6.5); PLATELET COUNT 295 K/uL (130-400); RED CELL DISTRIBUTION WIDTH CV 13.4 % (11.5-14.5); RED CELL DISTRIBUTION WIDTH SD 44.9 fL (36.4-46.3); WHITE BLOOD COUNT 10.04 K/uL (4.8-10.8)
--- NOTE | 2017-07-25 18:29 | DIAGNOSTIC IMAGING REPORT ---
CT SCAN OF THE BRAIN WITHOUT IV CONTRAST CLINICAL HISTORY: Fall several days ago. COMPARISON STUDY: CT of the brain dated 12/05/2016. TECHNIQUE: Unenhanced axial CT scan of the brain is performed from the vertex to the skull base. A dose lowering technique was utilized adhering to the principles of ALARA. CT DOSE: 1014.19 mGy.cm FINDINGS: Brain parenchyma: There are age-related involutional changes noting moderate subcortical and periventricular microangiopathic change. There is no hemorrhage, mass effect, or evidence of acute territorial ischemia by CT criteria. Carrasco-white matter is preserved. No extra-axial fluid collection is seen. Ventricles, sulci, cisterns: Prominent secondary to involutional change. Intracranial vasculature: There is atherosclerotic calcification of the cavernous carotid and vertebral arteries. Calvarium: The skeletal structures are osteopenic. No depressed calvarial fracture is seen. Sinuses and mastoids: There is moderate mucosal thickening in the maxillary antra. Moderate mucosal thickening is also seen within the frontal and ethmoid sinuses. Trace mucosal thickening is seen in the sphenoid sinuses. There are small mastoid effusions. Orbits: The bony orbits are grossly intact. There are bilateral ocular lens implants. IMPRESSION: 1. There is no hemorrhage, mass effect, or evidence of acute territorial ischemia by CT criteria. 2. Paranasal sinus disease as above. Electronically signed by: Almas Ruggiero M.D. 07/25/2017 6:28 PM Dictated Date/Time: 07/25/2017 6:25 PM
--- NOTE | 2017-07-25 18:34 | DIAGNOSTIC IMAGING REPORT ---
CT SCAN OF THE CERVICAL SPINE CLINICAL HISTORY: Fall several days ago. COMPARISON STUDY: CT scan of the cervical spine dated 12/05/2016. TECHNIQUE: CT scan of the cervical spine is performed from the skull base to the upper thoracic spine. Images are reviewed in the axial, sagittal, and coronal planes. IV contrast was not administered for this examination. A dose lowering technique was utilized adhering to the principles of ALARA. CT DOSE: Reported separately under the concurrently performed CT scan of the brain. FINDINGS: Skeletal structures: The skeletal structures are osteopenic. There is no evidence of fracture or subluxation involving the cervical spine. Vertebral body height and alignment are maintained. Anterior osteophytes are noted in the lower cervical region. The odontoid process and lateral masses are intact. The atlantoaxial articulation is preserved noting advanced productive degenerative change. The spinous processes appear intact. There is moderate multilevel cervical spondylosis. Uncovertebral and facet arthropathy contribute sterile foraminal narrowing at several levels. Intervertebral discs: Mild to moderate disc space narrowing is seen at C5-C6 and C6-C7. Central canal: Posterior disc osteophyte complexes at C5-C6 and C6-C7 likely contribute to mild acquired compromise of the central canal. Soft tissues: The prevertebral and paraspinous soft tissues are within normal limits. There is atherosclerotic calcification of the carotid bulbs. Surgical clips are noted in the right neck. Calvarium: The visualized calvarium at the skull base appears intact. Brain parenchyma: Partially visualized brain parenchyma the skull base is within normal limits. Sinuses and mastoids: Small mastoid effusions are identified. Trace mucosal thickening is noted in the sphenoid sinuses. Lung apices: Presumed nodular scarring at the left apex is similar to previous. Imaged apical lung parenchyma is otherwise clear. IMPRESSION: 1. There is no evidence of fracture or subluxation involving the cervical spine. 2. Osteopenia and spondylotic change as above. Electronically signed by: Almas Ruggiero M.D. 07/25/2017 6:32 PM Dictated Date/Time: 07/25/2017 6:28 PM
[2017-07-25 18:40] LABS: ALBUMIN 3.4 gm/dl (3.4-5.0); ALKALINE PHOSPHATASE 90 U/L (45-117); ALT/SGPT 18 U/L (12-78); BLOOD UREA NITROGEN 27 mg/dl (7-18); CALCIUM 8.8 mg/dl (8.5-10.1); CARBON DIOXIDE 25 mmol/L (21-32); GLUCOSE 103 mg/dl (70-99); LIPASE 87 U/L (73-393); SODIUM 139 mmol/L (136-145)
[2017-07-25 19:27] LABS: CREATININE 1.54 mg/dl (0.60-1.20)
--- NOTE | 2017-07-25 19:33 | DIAGNOSTIC IMAGING REPORT ---
RIGHT KNEE 2 VIEWS CLINICAL HISTORY: Fall several days ago. Right knee pain. FINDINGS: AP and crosstable lateral views of the right knee are correlated with radiograph of the right tibia and fibula dated 04/24/2015. The skeletal structures are osteopenic. No fracture is seen. There is mild to moderate tricompartmental degenerative joint space narrowing, greatest at the patellofemoral articulation. There are lateral marginal osteophytes as well as patellar enthesophytes. A calcified fabella is incidentally noted. No joint effusion is identified. The overlying soft tissues are normal in appearance noting subcutaneous venous varicosities. IMPRESSION: Osteopenia and degenerative change as above. No acute bony abnormality is identified. Electronically signed by: Almas Ruggiero M.D. 07/25/2017 7:32 PM Dictated Date/Time: 07/25/2017 7:31 PM
--- NOTE | 2017-07-25 19:40 | DIAGNOSTIC IMAGING REPORT ---
TWO VIEW CHEST CLINICAL HISTORY: Fall several days ago. FINDINGS: AP and lateral chest radiographs are compared to study dated 10/30/2016 and correlated with chest CT dated 03/28/2016. The AP view is degraded by patient rotation. The heart is enlarged and there is atherosclerotic calcification of the thoracic aorta. The pulmonary vasculature is noncongested. Chronic interstitial thickening is similar to previous no airspace consolidation or pleural effusion is identified. There is no pneumothorax. The skeletal structures are osteopenic. A mild compression deformity is again seen in the lower thoracic region. The degree of collapse has modestly increased from the 2016 CT scan. Surgical clips are noted in the right axilla. IMPRESSION: Cardiomegaly with no active disease in the chest. Electronically signed by: Almas Ruggiero M.D. 07/25/2017 7:39 PM Dictated Date/Time: 07/25/2017 7:36 PM
--- NOTE | 2017-07-25 19:43 | DIAGNOSTIC IMAGING REPORT ---
RIGHT SHOULDER 3 VIEWS CLINICAL HISTORY: Fall several days ago. FINDINGS: 3 views of the right shoulder are compared to study dated 03/30/2016. The skeletal structures are osteopenic. No fracture or dislocation is seen. Mild productive degenerative change is noted at the acromioclavicular joint. Mild arthritic change is seen in the greater tuberosity of the humeral head. The glenohumeral articulation is preserved. The overlying soft tissues are normal in appearance noting surgical clips in the right axilla. Surgical clips are also present in the right neck. The visualized right apical lung parenchyma appears clear. IMPRESSION: Osteopenia and degenerative change as above. No right shoulder fracture or dislocation is identified. Electronically signed by: lAmas Ruggiero M.D. 07/25/2017 7:41 PM Dictated Date/Time: 07/25/2017 7:40 PM
--- NOTE | 2017-07-25 19:44 | DIAGNOSTIC IMAGING REPORT ---
SINGLE VIEW PELVIS CLINICAL HISTORY: Fall several days ago. FINDINGS: An AP pelvic radiograph is compared to study dated 02/16/2016. The skeletal structures are osteopenic. There is no radiographic evidence of fracture involving the hips or bony pelvis. A right hip arthroplasty is in near anatomic alignment. Mild to moderate arthritic change and joint space narrowing is noted in the left hip. Sclerotic change is seen in the sacroiliac joints. Lumbosacral spondylosis is partially imaged. Surgical clips project over the right groin. A small phlebolith is noted in the pelvis. No bowel obstruction is seen. IMPRESSION: There is no radiographic evidence of fracture involving the hips or bony pelvis. Electronically signed by: Almas Ruggiero M.D. 07/25/2017 7:42 PM Dictated Date/Time: 07/25/2017 7:41 PM
--- NOTE | 2017-07-25 19:46 | DIAGNOSTIC IMAGING REPORT ---
LEFT KNEE 4 VIEWS CLINICAL HISTORY: Fall several days ago. Left knee pain. FINDINGS: AP, crosstable lateral, tunnel, and sunrise views of left knee are correlated with radiographs of the left tibia and fibula dated 03/28/2016. The skeletal structures are osteopenic. There is no radiographic evidence of left knee fracture. There is mild to moderate tricompartmental degenerative joint space narrowing, greatest in the medial compartment. There is no evidence of osteochondral defect on the tunnel view. There are small patellar enthesophytes. No joint effusion is identified. A calcified fabella is incidentally noted. The overlying soft tissues are within normal limits. Venous varicosities are noted. IMPRESSION: Osteopenia with no radiographic evidence of left knee fracture. Electronically signed by: Almas Ruggiero M.D. 07/25/2017 7:44 PM Dictated Date/Time: 07/25/2017 7:43 PM
--- NOTE | 2017-07-25 19:54 | DIAGNOSTIC IMAGING REPORT ---
LUMBAR SPINE 5 VIEWS CLINICAL HISTORY: Fall several days ago. Low back pain. FINDINGS: 5 views of the lumbar spine are correlated with CT scans of the thoracic and lumbar spine dated 03/28/2016. The skeletal structures are osteopenic. There is no radiographic evidence of acute fracture or malalignment. A mild chronic compression deformity of L4 is unchanged. There is a moderate compression deformity of T11. The degree of collapse has increased from the 2016 examination. Vertebral body height is otherwise maintained throughout the lumbar spine. Alignment is preserved. Anterior and lateral marginal osteophytes are seen throughout. The transverse and spinous processes appear intact. There is no evidence of spondylolysis. There is moderate multilevel degenerative disc space narrowing. Advanced endplate sclerosis is seen at L3-L4. Facet arthropathy is seen in the lower lumbar region. The bony pelvis is intact as visualized. Sclerotic change is noted in the sacroiliac joints. A right hip arthroplasty is partially visualized. No bowel obstruction is identified. There is atherosclerotic calcification of the abdominal aorta. IMPRESSION: 1. There is no radiographic evidence of acute fracture or malalignment involving the lumbar spine. 2. Osteopenia and spondylotic change as above. 3. Chronic compression deformities are again seen involving T11 and L4. There has been increased collapse of the T11 vertebral body as compared to 2016. Dictated: 07/25/2017 7:45 PM Transcribed: 07/25/2017 7:53 PM [email or web address] Electronically signed by: Almas Ruggiero M.D. 07/25/2017 7:56 PM Dictated Date/Time: 07/25/2017 7:45 PM
[2017-07-25] MEDS ORDERED: CIPR-255 PO (20:26)
[2017-07-25 20:39] VITALS: BP 170/78; PULSE 62; O2SAT 94
== END 2017-07-25 20:38 | disposition home or self-care (01) ==
LOC: C.EDB 17:38 → C.EDC 20:38
DX: S32.040A Wedge compression fracture of fourth lumbar vertebra, initial encounter for closed fracture (principal); S22.080A Wedge compression fracture of T11-T12 vertebra, initial encounter for closed fracture; W01.0XXA Fall on same level from slipping, tripping and stumbling without subsequent striking against object, initial encounter; N39.0 Urinary tract infection, site not specified; Z85.3 Personal history of malignant neoplasm of breast; N18.4 Chronic kidney disease, stage 4 (severe); Z86.718 Personal history of other venous thrombosis and embolism; E78.5 Hyperlipidemia, unspecified; K21.9 Gastro-esophageal reflux disease without esophagitis; I12.9 Hypertensive chronic kidney disease with stage 1 through stage 4 chronic kidney disease, or unspecified chronic kidney disease; M81.0 Age-related osteoporosis without current pathological fracture; Z86.73 Personal history of transient ischemic attack (TIA), and cerebral infarction without residual deficits; Z90.10 Acquired absence of unspecified breast and nipple; Z96.649 Presence of unspecified artificial hip joint; Z90.710 Acquired absence of both cervix and uterus; Z79.899 Other long term (current) drug therapy; Z88.5 Allergy status to narcotic agent; Z88.2 Allergy status to sulfonamides

== ENCOUNTER 2018-07-31 16:06 | Inpatient (IN) ==
--- NOTE | 2018-07-31 17:44 | XRay Report ---
XR chest 1V portable CLINICAL HISTORY: 82 years-old Female presenting with Dyspnea, wheezing and fluid retention. TECHNIQUE: Portable upright AP view of the chest was obtained. COMPARISON: 10/30/2016. FINDINGS: Atherosclerosis of the aortic arch. Cardiac silhouette enlarged. Heterogeneity of lung parenchyma. Pu lmonary vasculature is only mildly prominent. Lungs are mildly hyperinflated. No focal opacity. No la rge effusion or pneumothorax. Degenerative changes of the thoracic spine. Right axilla surgical clips . IMPRESSION: 1. Mild hyperinflation could suggest underlying emphysema or other chronic lung disease. No focal in filtrate to suggest pneumonia. 2. Cardiomegaly with mild volume overload. No radha pulmonary edema. Electronically signed by: Delio Hernandes M.D. 07/31/2018 5:42 PM
[2018-07-31 17:55] LABS: Appearance Urine Clear (Clear); Bacteria Urine Automated 3+ (Negative); Bilirubin Urine Negative (Negative); Blood Urine Trace (Negative); Cast Urine Automated 0 /lpf (0-5); Color Urine Yellow; Glucose Urine UA Negative (Negative); Ketones Urine Negative (Negative); Leukocyte Esterase Urine 3+ (Negative); Nitrite Urine Positive (Negative); Protein Urine Negative (Negative); Specific Gravity Urine 1.012 (1.000-1.030); Urobilinogen Urine Negative (Negative); WBC Urine Automated >30 /hpf (0-5); pH Urine 6.5 (4.5-7.5)
[2018-07-31 18:14] LABS: Basophils # (auto) 0.04 K/uL (0-0.2); Basophils % (auto) 0.6 %; Eosinophils # (auto) 0.52 K/uL (0-0.5); Eosinophils % (auto) 8.2 %; Hemoglobin 11.3 g/dL (12.0-16.0); Immature Granulocytes # (auto) 0.01 K/uL (0.00-0.02); Immature Granulocytes % (auto) 0.2 %; Lymphocytes # (auto) 2.03 K/uL (1.2-3.4); Lymphocytes % (auto) 31.9 %; Mean Corpuscular Hgb Conc 32.3 g/dL (32-36); Mean Corpuscular Volume 94.3 fL (80-100); Mean Platelet Volume 9.8 fL (7.4-10.4); Monocytes # (auto) 0.45 K/uL (0.11-0.59); Monocytes % (auto) 7.1 %; Neutrophils # (auto) 3.31 K/uL (1.4-6.5); Platelet Count 237 K/uL (130-400); RDW Standard Deviation 44.9 fL (36.4-46.3); Red Blood Count 3.71 M/uL (4.2-5.4); White Blood Count 6.36 K/uL (4.8-10.8)
--- NOTE | 2018-07-31 18:25 | CT Scan Report ---
CT head/brain wo con CLINICAL HISTORY: 82 years-old Female presenting with fall, confusion. TECHNIQUE: Multidetector CT imaging of the head was performed without the use of intravenous contrast . IV contrast: None. One or more dose lowering techniques were used consistent with the principles of ALARA (as low as reasonably achievable), including automatic exposure control, mA or kV adjustment t o individual patient size, and/or use of iterative reconstruction. COMPARISON: 07/25/2017. CT DOSE (mGy.cm): The estimated cumulative dose is 537.48 mGy.cm. FINDINGS: Drafter Landscape topogram: Unremarkable. Ventricles and sulci normal in size. No hemorrhage. Periventricular and subcortical white matter hypo attenuation, nonspecific but likely indicative of chronic small vessel ischemic change. No acute terr itorial infarct. No mass effect or midline shift. No extra-axial fluid collection. Paranasal sinuses and mastoid air cells clear. Calvarium intact. Absent agdaagux lenses. Trace mucosal thickening in the right maxillary sinus. IMPRESSION: 1. Chronic small vessel ischemic change. No acute intracranial abnormality. Electronically signed by: Delio Hernandes M.D. 07/31/2018 6:23 PM
[2018-07-31 18:27] LABS: Partial Thromboplastin Ratio 0.8; Partial Thromboplastin Time 22.8 Seconds (21.0-31.0); Prothrombin Time 10.7 Seconds (9.0-12.0)
[2018-07-31 18:35] LABS: Alanine Aminotransferase 22 U/L (12-78); Albumin Level 3.6 gm/dl (3.4-5.0); Aspartate Aminotransferase 19 U/L (15-37); BUN Creatinine Ratio 15.6 (10-20); Blood Urea Nitrogen 24 mg/dl (7-18); Calcium 9.5 mg/dl (8.5-10.1); Carbon Dioxide 28 mmol/L (21-32); Chloride 108 mmol/L (98-107); Creatinine Clr Calc Pharmacy 27.4 ml/min; Est GFR (African American) 36.1; Est GFR (Non-African American) 31.2; Glucose 82 mg/dl (70-99); Potassium 4.3 mmol/L (3.5-5.1); Sodium 141 mmol/L (136-145)
[2018-07-31 18:40] LABS: Albumin Globulin Ratio 1.1 (0.9-2); Alkaline Phosphatase 93 U/L (45-117); Bilirubin,Total 0.6 mg/dl (0.2-1); Globulin 3.4 gm/dl (2.5-4.0); NT Pro B Type Natriuretic Pept 1116 pg/ml (0-1800); Troponin I < 0.015 ng/ml (0-0.045)
[2018-07-31] MEDS ORDERED: ALBUT/IPRATROP 3MG/0.5MG NEB 3 ML VIAL NEB STA (18:46)
[2018-07-31] MEDS ORDERED: methylPREDNISolone 125 MG/2 ML VIAL IV STA (18:46)
[2018-07-31] MEDS ORDERED: FUROSEMIDE 40 MG/4 ML VIAL IV STA (19:06)
[2018-07-31] MEDS ORDERED: cefTRIAXone SODIUM 1,000 MG/50 ML BAG IV STA (19:06)
--- NOTE | 2018-07-31 20:58 | Emergency Department Note ---
Entered by Ino Bush acting as a scribe for Odilon Osborn MD ED Provider Note CHIEF COMPLAINT: SOB/LE swelling/Weight Gain HISTORY OF PRESENT ILLNESS: The patient is an 82 year old female who presents to the Emergency Room with complaints of shortness of breath and worsening lower extremity swelling. The patient states that she first started noticing increasing swelling to her lower extremities about 2 weeks ago, and notes that she has had an 8+ pound weight gain in the same time frame. The patient notes that her shortness of breath is worsened with laying flat. She has never been placed on Lasix as her "kidneys are weak." The patient does complain of a worsening cough as well, but denies any chest or abdominal pain. The patient's daughters at bedside add that the patient experienced a falling episode a couple of days ago and did hit her head. The family members note worsening "confusion and forgetfulness" since the fall. She did not lose consciousness. Pt denies fevers, chills, diaphoresis, visual changes, neck pain, nausea, vomiting, abdominal pain, back pain, melena, hematochezia, urinary symptoms, numbness, weakness, lymphadenopathy, rash, or other complaints. REVIEW OF SYSTEMS: See HPI for pertinent positives and negatives. A total of ten systems were reviewed and were otherwise negative. PMHx/PSHx: Stroke Chronic Renal Failure (severe) DVT GERD Lumbago HTN HLD Breast Cancer S/p Mastectomy Osteoporosis S/p tonsillectomy and adenoidectomy S/p Hysterectomy Right sided carotid endarterectomy GI bleed SOCIAL HISTORY: Patient lives at home. PHYSICAL EXAM: GENERAL: Awake, alert, tired-appearing, in no distress HENT: Normocephalic, atraumatic. Oropharynx unremarkable. EYES: PERRL. Normal conjunctiva. Sclera non-icteric. NECK: Inspection normal. Non-tender. Supple. No nuchal rigidity. FROM. No masses. RESPIRATORY: Expiratory wheezes present. No rales. Normal respiratory effort. CARDIAC: Normal rate. Normal rhythm. No murmurs. No rubs. Extremities warm and well perfused. Pulses equal. No JVD. GI: Soft, non-distended. No tenderness to palpation. No rebound or guarding. No masses. RECTAL: Deferred. MUSCULOSKELETAL: Atraumatic. Chest examination reveals no tenderness. The back is symmetrical on inspection without obvious abnormality. There is no CVA tenderness to palpation. No joint edema. LOWER EXTREMITIES: Calves are equal size bilaterally and non-tender. 2+ LE bilateral edema. Chronic venous stasis discoloration bilaterally. NEURO: Normal sensorium. No sensory or motor deficits noted. SKIN: No rash or jaundice noted. EMERGENCY DEPARTMENT COURSE: 1742: The patient was evaluated in room A9B, and a complete history and physical examination were performed. 1926: I reviewed the patient's case with Dr. Salcedo - [facility]ist [facility]. He will evaluate the patient for further management. MEDICAL DECISION MAKING: Triage Nursing notes reviewed and agree them. Additional history obtained from the family. The patient's history was concerning for shortness of breath. Differential diagnosis: Etiologies such as pneumonia, COPD, reactive airway disease, CHF, cardiac ischemia, pulmonary embolism, pneumothorax, musculoskeletal, infections, gastrointestinal, as well as others were entertained. Physical examination: As above. The patient was wheezing. ER treatment provided: IV Solu-Medrol DuoNeb IV Rocephin On reassessment the patient felt better. Diagnostic interpretation by me: The electrocardiogram was negative for pathologic change. The labs revealed a mild anemia on CBC. Coags negative. The anemia is stable. Troponin negative. Chemistry otherwise are negative. The patient urinalysis is concerning for infection. Her BNP is within normal limits but on the upper and over 1000. Imaging studies: Chest x-ray performed and revealed emphysematous changes. No pneumonia. Consultation: A consultation was placed with the hospitalist. The case was discussed and diagnostics were reviewed. The patient was evaluated in the ER for further t reatment. IMPRESSION: SOB COPD UTI Peripheral Edema [facility] The scribe's documentation has been prepared under my direction and personally reviewed by me in its entirety. I confirm that the note above accurately reflects all work, treatment, procedures, and medical decision making performed by me. Impression & Plan SOB (shortness of breath), COPD (chronic obstructive pulmonary disease), Acute UTI, Edema, peripheral Past Med/Surg History Medical History Chronic renal failure, stage 4 (severe) DVT (deep venous thrombosis) GERD (gastroesophageal reflux disease) (Chronic) CKD (chronic kidney disease), stage IV (Chronic) Lumbago (Chronic) History of DVT (deep vein thrombosis) (Chronic) HTN (hypertension) (Chronic) Dyslipidemia (Chronic) Breast cancer (Chronic) Osteoporosis (Chronic) GI bleed Surgical History H/O mastectomy History of hip surgery H/O colonoscopy (Chronic) S/P mastectomy (Chronic) S/P tonsillectomy and adenoidectomy (Chronic) History of total hip replacement (Chronic) S/P total hysterectomy (Chronic) H/O bladder repair surgery (Chronic) History of right-sided carotid endarterectomy (Chronic) H/O right knee surgery (Chronic) Social History Feels Safe at Home: Yes Smoking Status: Never smoker Results & Data Vital Signs Vital Signs - 24 hr 07/31/18 16:17 07/31/18 17:02 07/31/18 17:03 Temperature 36.8 C Temperature Source Oral Sepsis Recent Fever Within 48 Hours No Sepsis Action Taken by Nursing No Action Required Pulse Rate 59 L 56 L Pulse Rate [Apical] 58 L Pulse Rate from SpO2 Sensor 55 L Pulse Rhythm Regular Pulse Rhythm [Apical] Pulse Strength Normal Respiratory Rate 22 24 22 Respiratory Effort / Characteristics Short of Breath Respiratory Depth Normal Respiratory Pattern Regular Blood Pressure 155/72 H 190/80 H Blood Pressure [Left Arm] 190/80 H Blood Pressure Mean 99 116 Blood Pressure Mean [Left Arm] 116 Blood Pressure Position Sitting Blood Pressure Position [Left Arm] Pulse Oximetry 92 94 94 Oxygen Delivery Method Room Air Room Air 07/31/18 17:09 07/31/18 17:10 07/31/18 17:20 Temperature Temperature Source Sepsis Recent Fever Within 48 Hours Sepsis Action Taken by Nursing Pulse Rate 56 L 57 L 59 L Pulse Rate [Apical] Pulse Rate from SpO2 Sensor 57 L 58 L 59 L Pulse Rhythm Pulse Rhythm [Apical] Pulse Strength Respiratory Rate 24 24 26 H Respiratory Effort / Characteristics Respiratory Depth Respiratory Pattern Blood Pressure Blood Pressure [Left Arm] Blood Pressure Mean Blood Pressure Mean [Left Arm] Blood Pressure Position Blood Pressure Position [Left Arm] Pulse Oximetry 93 93 92 Oxygen Delivery Method 07/31/18 17:25 07/31/18 17:30 07/31/18 17:40 Temperature Temperature Source Sepsis Recent Fever Within 48 Hours Sepsis Action Taken by Nursing Pulse Rate 56 L 59 L Pulse Rate [Apical] Pulse Rate from SpO2 Sensor 57 L 59 L Pulse Rhythm Pulse Rhythm [Apical] Pulse Strength Respiratory Rate 21 28 H Respiratory Effort / Characteristics Respiratory Depth Respiratory Pattern Blood Pressure Blood Pressure [Left Arm] Blood Pressure Mean Blood Pressure Mean [Left Arm] Blood Pressure Position Blood Pressure Position [Left Arm] Pulse Oximetry 92 92 92 Oxygen Delivery Method Room Air 07/31/18 17:50 07/31/18 18:00 07/31/18 18:01 Temperature Temperature Source Sepsis Recent Fever Within 48 Hours Sepsis Action Taken by Nursing Pulse Rate 57 L 57 L 57 L Pulse Rate [Apical] Pulse Rate from SpO2 Sensor 57 L 57 L 57 L Pulse Rhythm Pulse Rhythm [Apical] Pulse Strength Respiratory Rate 28 H 25 H 25 H Respiratory Effort / Characteristics Respiratory Depth Respiratory Pattern Blood Pressure 178/74 H Blood Pressure [Left Arm] Blood Pressure Mean 108 Blood Pressure Mean [Left Arm] Blood Pressure Position Blood Pressure Position [Left Arm] Pulse Oximetry 92 92 92 Oxygen Delivery Method 07/31/18 18:10 07/31/18 18:22 07/31/18 20:22 Temperature Temperature Source Sepsis Recent Fever Within 48 Hours Sepsis Action Taken by Nursing Pulse Rate 58 L 63 Pulse Rate [Apical] 59 L Pulse Rate from SpO2 Sensor 58 L 58 L Pulse Rhythm Pulse Rhythm [Apical] Regular Pulse Strength Respiratory Rate 27 H 15 20 Respiratory Effort / Characteristics Non-Labored Spontaneous Respiratory Depth Normal Respiratory Pattern Regular Blood Pressure Blood Pressure [Left Arm] 176/67 H Blood Pressure Mean Blood Pressure Mean [Left Arm] 103 Blood Pressure Position Blood Pressure Position [Left Arm] Lying Pulse Oximetry 92 93 91 Oxygen Delivery Method Room Air 07/31/18 20:44 Temperature Temperature Source Sepsis Recent Fever Within 48 Hours Sepsis Action Taken by Nursing Pulse Rate 61 Pulse Rate [Apical] Pulse Rate from SpO2 Sensor Pulse Rhythm Pulse Rhythm [Apical] Pulse Strength Respiratory Rate 19 Respiratory Effort / Characteristics Respiratory Depth Respiratory Pattern Blood Pressure Blood Pressure [Left Arm] Blood Pressure Mean Blood Pressure Mean [Left Arm] Blood Pressure Position Blood Pressure Position [Left Arm] Pulse Oximetry 92 Oxygen Delivery Method Room Air Home Medications Current Medication List: was personally reviewed by me Laboratory Data Attestation: I reviewed the patient's lab results. Result diagrams: 07/31/18 17:59 07/31/18 17:59 Lab Results 04/05/19 04/05/19 04/05/19 Range/Units 17:05 17:59 17:59 WBC 6.36 (4.8-10.8) K/uL RBC 3.71 L (4.2-5.4) M/uL Hgb 11.3 L (12.0-16.0) g/dL Hct 35.0 L (37-47) % MCV 94.3 (80-100) fL MCH 30.5 (25-34) pg MCHC 32.3 (32-36) g/dL RDW Std Deviation 44.9 (36.4-46.3) fL RDW Coeff of Chanel 13.0 (11.5-14.5) % Plt Count 237 (130-400) K/uL MPV 9.8 (7.4-10.4) fL Immature Gran % (Auto) 0.2 % Neut % (Auto) 52.0 % Lymph % (Auto) 31.9 % [place] % (Auto) 7.1 % Eos % (Auto) 8.2 % Baso % (Auto) 0.6 % Immature Gran # (Auto) 0.01 (0.00-0.02) K/uL Neut # (Auto) 3.31 (1.4-6.5) K/uL Lymph # (Auto) 2.03 (1.2-3.4) K/uL [place] # (Auto) 0.45 (0.11-0.59) K/uL Eos # (Auto) 0.52 H (0-0.5) K/uL Baso # (Auto) 0.04 (0-0.2) K/uL PT 10.7 (9.0-12.0) Seconds INR 1.0 (0.9-1.1) APTT 22.8 (21.0-31.0) Seconds PTT Ratio 0.8 Sodium (136-145) mmol/L Potassium (3.5-5.1) mmol/L Chloride (98-107) mmol/L Carbon Dioxide (21-32) mmol/L Anion Gap (3-11) BUN (7-18) mg/dl Creatinine (0.6-1.2) mg/dl Est Cr Clr Drug Dosing ml/min Est GFR ( Amer) Est GFR (Non-Af Amer) BUN/Creatinine Ratio (10-20) Glucose (70-99) mg/dl Calcium (8.5-10.1) mg/dl Total Bilirubin (0.2-1) mg/dl AST (15-37) U/L ALT (12-78) U/L Alkaline Phosphatase (45-117) U/L Troponin I (0-0.045) ng/ml NT-Pro-B Natriuret Pep (0-1800) pg/ml Total Protein (6.4-8.2) gm/dl Albumin (3.4-5.0) gm/dl Globulin (2.5-4.0) gm/dl Albumin/Globulin Ratio (0.9-2) Urine Color Yellow Urine Appearance Clear (Clear) Urine pH 6.5 (4.5-7.5) Ur Specific [place] 1.012 (1.000-1.030) Urine Protein Negative (Negative) Urine Glucose (UA) Negative (Negative) Urine Ketones Negative (Negative) Urine Blood Trace H (Negative) Urine Nitrite Positive H (Negative) Urine Bilirubin Negative (Negative) Urine Urobilinogen Negative (Negative) Ur Leukocyte Esterase 3+ H (Negative) Urine WBC (Auto) >30 H (0-5) /hpf Urine RBC (Auto) 5-10 H (0-4) /hpf U Hyaline Cast (Auto) 0 (0-5) /lpf U Epithel Cells (Auto) 10-20 H (0-5) /lpf Urine Bacteria (Auto) 3+ H (Negative) 07/31/18 Range/Units 17:59 WBC (4.8-10.8) K/uL RBC (4.2-5.4) M/uL Hgb (12.0-16.0) g/dL Hct (37-47) % MCV (80-100) fL MCH (25-34) pg MCHC (32-36) g/dL RDW Std Deviation (36.4-46.3) fL RDW Coeff of Chanel (11.5-14.5) % Plt Count (130-400) K/uL MPV (7.4-10.4) fL Immature Gran % (Auto) % Neut % (Auto) % Lymph % (Auto) % [place] % (Auto) % Eos % (Auto) % Baso % (Auto) % Immature Gran # (Auto) (0.00-0.02) K/uL Neut # (Auto) (1.4-6.5) K/uL Lymph # (Auto) (1.2-3.4) K/uL [place] # (Auto) (0.11-0.59) K/uL Eos # (Auto) (0-0.5) K/uL Baso # (Auto) (0-0.2) K/uL PT (9.0-12.0) Seconds INR (0.9-1.1) APTT (21.0-31.0) Seconds PTT Ratio Sodium 141 (136-145) mmol/L Potassium 4.3 (3.5-5.1) mmol/L Chloride 108 H (98-107) mmol/L Carbon Dioxide 28 (21-32) mmol/L Anion Gap 6.0 (3-11) BUN 24 H (7-18) mg/dl Creatinine 1.52 H (0.6-1.2) mg/dl Est Cr Clr Drug Dosing 27.4 ml/min Est GFR ( Amer) 36.1 Est GFR (Non-Af Amer) 31.2 BUN/Creatinine Ratio 15.6 (10-20) Glucose 82 (70-99) mg/dl Calcium 9.5 (8.5-10.1) mg/dl Total Bilirubin 0.6 (0.2-1) mg/dl AST 19 (15-37) U/L ALT 22 (12-78) U/L Alkaline Phosphatase 93 (45-117) U/L Troponin I < 0.015 (0-0.045) ng/ml NT-Pro-B Natriuret Pep 1116 (0-1800) pg/ml Total Protein 7.0 (6.4-8.2) gm/dl Albumin 3.6 (3.4-5.0) gm/dl Globulin 3.4 (2.5-4.0) gm/dl Albumin/Globulin Ratio 1.1 (0.9-2) Urine Color Urine Appearance (Clear) Urine pH (4.5-7.5) Ur Specific [place] (1.000-1.030) Urine Protein (Negative) Urine Glucose (UA) (Negative) Urine Ketones (Negative) Urine Blood (Negative) Urine Nitrite (Negative) Urine Bilirubin (Negative) Urine Urobilinogen (Negative) Ur Leukocyte Esterase (Negative) Urine WBC (Auto) (0-5) /hpf Urine RBC (Auto) (0-4) /hpf U Hyaline Cast (Auto) (0-5) /lpf U Epithel Cells (Auto) (0-5) /lpf Urine Bacteria (Auto) (Negative) Administered Medications Discontinued Medications Albuterol (Duoneb) 3 ml NEB NOW STA Stop: 07/31/18 18:47 Last Admin: 07/31/18 18:51 Dose: 3 ml Documented by: [id number] Furosemide (Lasix) 40 mg IV NOW STA Stop: 07/31/18 19:07 Last Admin: 07/31/18 19:33 Dose: 40 mg Documented by: [id number] Ceftriaxone Sodium (Rocephin) 1,000 mg in 50 mls @ 100 mls/hr IV NOW STA Stop: 07/31/18 19:35 Last Infusion: 07/31/18 20:11 Dose: 0 mls/hr Documented by: [id number] Admin: 07/31/18 19:33 Dose: 100 mls/hr Documented by: [id number] Methylprednisolone (Solumedrol) 125 mg IV NOW STA Stop: 07/31/18 18:47 Last Admin: 07/31/18 18:51 Dose: 125 mg Documented by: [id number] Imaging Data Attestation: I personally reviewed and interpreted this imaging study as follows: Radiologist's Impression: XR chest 1V portable CLINICAL HISTORY: 82 years-old Female presenting with Dyspnea, wheezing and fluid retention. TECHNIQUE: Portable upright AP view of the chest was obtained. COMPARISON: 10/30/2016. FINDINGS: Atherosclerosis of the aortic arch. Cardiac silhouette enlarged. Heterogeneity of lung parenchyma. Pulmonary vasculature is only mildly prominent. Lungs are mildly hyperinflated. No focal opacity. No large effusion or pneumothorax. Degenerative changes of the thoracic spine. Right axilla surgical clips. IMPRESSION: 1. Mild hyperinflation could suggest underlying emphysema or other chronic lung disease. No focal infiltrate to suggest pneumonia. 2. Cardiomegaly with mild volume overload. No radha pulmonary edema. Electronically signed by: Delio Hernandes M.D. 07/31/2018 5:[address] head/brain wo con CLINICAL HISTORY: 82 years-old Female presenting with fall, confusion. TECHNIQUE: Multidetector CT imaging of the head was performed without the use of intravenous contrast. IV contrast: None. One or more dose lowering techniques were used consistent with the principles of ALARA (as low as reasonably achievable), including automatic exposure control, mA or kV adjustment to individual patient size, and/or use of iterative reconstruction. COMPARISON: 07/25/2017. CT DOSE (mGy.cm): The estimated cumulative dose is 537.48 mGy.cm. FINDINGS: Stripping Shovel Oiler topogram: Unremarkable. Ventricles and sulci normal in size. No hemorrhage. Periventricular and subcortical white matter hypoattenuation, nonspecific but likely indicative of chronic small vessel ischemic change. No acute territorial infarct. No mass effect or midline shift. No extra-axial fluid collection. Paranasal sinuses and mastoid air cells clear. Calvarium intact. Absent chitimacha lenses. Trace mucosal thickening in the right maxillary sinus. IMPRESSION: 1. Chronic small vessel ischemic change. No acute intracranial abnormality. Electronically signed by: Delio Hernandes M.D. 07/31/2018 6:23 PM ECG Data Attestation: I personally reviewed and interpreted this ECG as follows: Rate (beats per minute): 62 Rhythm: sinus with SA Findings: + 1st degree AV block and + RBBB; no ST depression and no ST elevation Discharge Plan Visit Data Chief Complaint: Shortness of Breath/Dyspnea Stated Complaint: FULL OF FLUID, DIFFICULTY BREATHING ED Provider: Odilon Osborn Discharge Problem: SOB (shortness of breath), COPD (chronic obstructive pulmonary disease), Acute UTI, Edema, peripheral Patient Disposition: Being Evaluated by Hospitalist Discharge Instructions Interventions: ED Discharge Assessment Last Done: 07/31/18 20:44 Discharge Problem: COPD (chronic obstructive pulmonary disease) Qualifiers: COPD type: COPD with acute exacerbation Qualified Code(s): J44.1 - Chronic obstructive pulmonary disease with (acute) exacerbation The scribe's documentation has been prepared under my direction and personally reviewed by me in its entirety. I confirm that the note above accurately reflects all work, treatment, procedures, and medical decision making performed by me.
[2018-07-31] MEDS ORDERED: ONDANSETRON INJ 2 MG/ML 2 ML VIAL IV PRN (21:21)
[2018-07-31] MEDS ORDERED: XOPENEX/ATROVENT 1.25mg/0.5MG NEB COMBO NEB PRN (21:21)
[2018-07-31] MEDS ORDERED: IPRATROPIUM BROMIDE NEB SOLN 0.02% 2.5 ML VIAL INH PRN (21:21)
[2018-07-31] MEDS ORDERED: NITROGLYCERIN SL 0.4 MG/TAB TAB SL PRN (21:21)
[2018-07-31] MEDS ORDERED: LEVALBUTEROL 1.25MG/0.5ML NEB INH PRN (21:21)
[2018-07-31] MEDS: ACETAMINOPHEN 325 MG TAB PO PRN (22:01)
[2018-07-31] MEDS: METOPROLOL TARTRATE 25 MG TAB PO SCH (22:30)
[2018-07-31] MEDS: GABAPENTIN 300 MG CAP PO SCH (22:30)
[2018-07-31] MEDS: DULOXETINE HCL 60 MG CAP PO SCH (22:30)
[2018-07-31] MEDS: GABAPENTIN 100 MG CAP PO SCH (22:31)
[2018-07-31] MEDS: DOXYCYCLINE HYCLATE 100 MG CAP PO SCH (22:31)
--- NOTE | 2018-07-31 22:53 | History and Physical Report ---
DATE OF ADMISSION: 07/31/2018 CHIEF COMPLAINT: Shortness of breath. HISTORY OF PRESENT ILLNESS: This is an 82-year-old female with past medical history significant for hyperlipidemia, hypertension, carotid stenosis, venous insufficiency, GERD and chronic kidney disease stage IV, osteoarthritis involving multiple joints, history of a compression fracture of the spine, chronic neck pain, chronic posttraumatic headache, anemia of chronic kidney disease, history of DVT, history of seizures, history of migraines. The patient lives with her exhusband, ambulates sometimes with cane and sometimes with walker, comes because of shortness of breath. The patient says since last couple of weeks she has noticed increase in lower extremity swelling. She gained several pounds in last 1 week, having some dry cough and shortness of breath on minimal exertion, which prompted her to come to the ER. Recently, she was also seen by cardiology for angina kind of symptoms and she was placed on Lopressor and that helped her symptoms. Denies any fever, chills. Has some headaches. She has history of seizures in the past and she was on Dilantin at one point of time and then she was on Topamax. She was taken off of Topamax because of renal disease and she has followup appointment with neurology next Friday for EEG because she is getting these headaches. She has some issues with the left eye but vision is okay. No sore throat, no difficulty swallowing. Appetite is okay. Currently no chest pain, no nausea, no vomiting, no abdominal pain. She says she has incontinence of stool all the time for a long time. No black stools or blood in the stools. Normal bladder movements. No burning micturition, no rash. She says whenever she bumps, she bruises easily. ALLERGIES: CODEINE, SULFA ANTIBIOTICS, TRAMADOL. PAST MEDICAL HISTORY: As mentioned above. PAST SURGICAL HISTORY: Colonoscopy, mastectomy, right knee surgery, right carotid endarterectomy, tonsillectomy, adenoidectomy, revision of bladder, total abdominal hysterectomy with removal of tubes, right total hip replacement. MEDICATIONS: The patient is on metoprolol 25 mg p.o. b.i.d., omeprazole 40 mg p.o. daily, Lipitor 20 mg p.o. daily, Cymbalta 60 mg p.o. daily, gabapentin 100 mg b.i.d.,300mg mg p.o. at bedtime, lisinopril 5 mg p.o. daily, Dulera 100/5 mcg 2 puffs b.i.d., lidocaine 1 patch topically daily, albuterol 2 puffs every 4 hours p.r.n., aspirin 81 mg p.o. daily, Flonase 2 sprays to each nostrils daily, ascorbic acid 300 mg p.o. daily, Tylenol 1000 mg p.o. q. 6 hours p.r.n., vitamin D 5000 units p.o. daily. FAMILY HISTORY: Significant for sister has some arthritis. Mother has polyps, history of rheumatoid arthritis. SOCIAL HISTORY: . Currently lives with ex-. 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 No drug use. REVIEW OF SYMPTOMS: As per HPI. Rest of review of systems negative. PHYSICAL EXAMINATION: GENERAL: The patient is of moderate built, not in acute distress. VITAL SIGNS: Temperature is 36.8, pulse 63, respiratory rate 15, blood pressure 178/74, oxygen 95% room air. HEENT: No pallor, no icterus. Pupils equal, round, and react to light. NECK: No JVD, no neck masses, no carotid bruits. CARDIOVASCULAR: S1, S2 heard, regular rate and rhythm, no murmur, no gallop. RESPIRATORY SYSTEM: Normal AP diameter. No accessory muscle use, bilateral wheezing heard. Mild bibasilar crackles. ABDOMEN: Soft, bowel sounds present. Nontender. No distention. CENTRAL NERVOUS SYSTEM: Cranial nerves II-XII grossly intact. Nonfocal. EXTREMITIES: Bilateral lower extremity gross pedal edema present, no erythema seen. LABORATORIES: WBC 6.3, hemoglobin 11.3, hematocrit 35, platelets 237. PT 10.7, INR 1, APTT 22.8. Sodium 141, potassium 4.3, chloride 108, bicarbonate 28, BUN 24, creatinine 1.5, serum glucose 82, calcium 9.5, total bilirubin 0.6, AST 19, ALT 22, alkaline phosphatase 93. Troponin I less than 0.015. BNP 1116. Urinalysis trace positive for nitrite and leukocyte esterase. CT of the head, chronic small vessel ischemic change, no acute intracranial abnormality seen. Chest x-ray, mild hyperinflation could suggest underlying emphysema or other chronic lung disease. No focal infiltrates to suggest pneumonia. Cardiomegaly with mild volume overload. No radha pulmonary edema. EKG shows sinus rhythm with sinus arrhythmia with first degree AV block with questionable PVCs with ventricular escape complexes. ASSESSMENT AND PLAN: This is an 82-year-old female who presents with shortness of breath, wheezing on exam and lower extremity edema and weight gain. 1. 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 2. Acute congestive heart failure. No history of congestive heart failure in the past. We will place her on IV Lasix 40 b.i.d. We will get an echocardiogram, daily weights and inputs and output. Closely monitor in tele floor. Consult cardiology in morning for further recommendation. 3. Chronic obstructive pulmonary disease exacerbation. The patient is exposed to passive smoking, wheezing on exam. Chest x-ray also shows hyperinflation and emphysema like picture. We will place her on IV Solu-Medrol 40 t.i.d., nebs around the clock and p.r.n., Rocephin and doxycycline and follow the response. 4. Urinary tract infection. Urinalysis was positive. Follow the urine cultures, on Rocephin as above. 5. Chronic kidney disease stage IV, baseline creatinine of 2, today creatinine of 1.5. Now getting Lasix. Follow labs on Lasix. 6. Hypertension. Continue her Lopressor, lisinopril. Monitor the blood pressure. 7. Hyperlipidemia. Continue statin. 8. Depression, on Cymbalta. 9. Osteoarthritis and chronic neck pain. Recently seen by pain management on Neurontin, Lidoderm patches. 10. Anemia of chronic kidney disease stage . We will follow the labs. 11. History of seizures, used to be on Dilantin and Topamax in the past but no longer on any medications. Supposed to get EEG next Friday. We will monitor. Having headache, CT of the head is okay. 12. History of bilateral carotid artery stenosis, status post right carotid endarterectomy. 13. Gastroesophageal reflux disease. On Prilosec. 14. Deep vein thrombosis prophylaxis. We will place on sequential compression devices for now. DISPOSITION: Close monitoring in the tele floor. Level 1 full code. PT and OT prior to discharge. Social Service to help with discharge planning. ROSE
[2018-07-31] MEDS: DULERA~ORDER AWAITING ACTION SCH (23:03)
[2018-07-31] MEDS: methylPREDNISolone 40 MG in SYRINGE 0 ML IV SCH (23:33)
[2018-08-01] MEDS ORDERED: XOPENEX/ATROVENT 1.25mg/0.5MG NEB COMBO NEB SCH (02:00)
[2018-08-01] MEDS: IPRATROPIUM BROMIDE NEB SOLN 0.02% 2.5 ML VIAL INH SCH ×4 (02:11→19:32)
[2018-08-01] MEDS: LEVALBUTEROL 1.25MG/0.5ML NEB INH SCH ×4 (02:11→19:32)
[2018-08-01 03:41] LABS: Basophils # (auto) 0.01 K/uL (0-0.2); Basophils % (auto) 0.2 %; Hematocrit (blood only) 36.4 % (37-47); Hemoglobin 11.9 g/dL (12.0-16.0); Immature Granulocytes # (auto) 0.01 K/uL (0.00-0.02); Immature Granulocytes % (auto) 0.2 %; Lymphocytes # (auto) 0.98 K/uL (1.2-3.4); Lymphocytes % (auto) 15.7 %; Mean Corpuscular Hgb Conc 32.7 g/dL (32-36); Mean Corpuscular Volume 93.6 fL (80-100); Mean Platelet Volume 9.7 fL (7.4-10.4); Monocytes # (auto) 0.03 K/uL (0.11-0.59); Monocytes % (auto) 0.5 %; Neutrophils # (auto) 5.23 K/uL (1.4-6.5); Neutrophils % (auto) 83.4 %; Platelet Count 252 K/uL (130-400); RDW Coefficient of Variation 12.9 % (11.5-14.5); RDW Standard Deviation 44.1 fL (36.4-46.3); Red Blood Count 3.89 M/uL (4.2-5.4); White Blood Count 6.26 K/uL (4.8-10.8)
[2018-08-01 04:00] LABS: BUN Creatinine Ratio 15.9 (10-20); Calcium 9.1 mg/dl (8.5-10.1); Creatinine Clr Calc Pharmacy 21.7 ml/min; Est GFR (African American) 27.6; Est GFR (Non-African American) 23.8; Magnesium 1.8 mg/dl (1.8-2.4)
[2018-08-01 07:28] LABS: Estimated Average Glucose 123 mg/dl; Hemoglobin A1C 5.9 % (4.5-5.6)
[2018-08-01] MEDS: ACETAMINOPHEN 325 MG TAB PO PRN ×3 (07:35→20:26)
[2018-08-01] MEDS ORDERED: cefTRIAXone SODIUM 1,000 MG in DEXTROSE 5% 50 ML IV SCH ×2 (08:15→20:00)
[2018-08-01] MEDS: DULERA~ORDER AWAITING ACTION SCH ×3 (08:30→23:12)
[2018-08-01] MEDS: methylPREDNISolone 40 MG in SYRINGE 0 ML IV SCH ×2 (08:30→16:28)
[2018-08-01] MEDS: FUROSEMIDE 40 MG in SYRINGE 0 ML IV SCH ×2 (08:30→16:28)
[2018-08-01] MEDS: ATORVASTATIN 20 MG TAB PO SCH (08:31)
[2018-08-01] MEDS: METOPROLOL TARTRATE 25 MG TAB PO SCH ×2 (08:31→20:26)
[2018-08-01] MEDS: GABAPENTIN 100 MG CAP PO SCH ×2 (08:33→20:27)
[2018-08-01] MEDS: PANTOprazole 40 MG TAB PO SCH (08:34)
[2018-08-01] MEDS: LISINOPRIL 5 MG TAB PO SCH (08:34)
[2018-08-01] MEDS: DOXYCYCLINE HYCLATE 100 MG CAP PO SCH ×2 (08:34→20:27)
--- NOTE | 2018-08-01 11:16 | Hospitalist Progress Note ---
Date of Service August 01, 2018 Assessment & Plan (1) COPD (chronic obstructive pulmonary disease): Admitted with the shortness of breath and wheezing History of passive smoking and possible COPD/asthma Has been getting intravenous Solu-Medrol and nebulized bronchodilator and antibiotics Clinically a lot better We will continue current medications Present on Admission?: Yes (2) Edema, peripheral: Complains to have bilateral leg edema and weight gain for the last 2 weeks Has not been taking any fluid pills The chart does not have any history of congestive heart failure Echo that was done in 2018 and that report cannot be seen in [facility] Serial cardiac enzymes and EKG are unremarkable for ACS Awaiting cardiology evaluation Received intravenous Lasix and has been feeling a lot better (3) CKD (chronic kidney disease), stage IV: Little worse this We will monitor PRP (4) HTN (hypertension): Continue current medications DVT prophylaxis We will put her on subcu heparin Subjective 08/01 She is an 82-year-old female with significant past medical history of chronic kidney disease stage IV, hypertension, hyperlipidemia, possible COPD and history of GERD was admitted with increasing leg swelling and weight gain for the last 2 weeks associated with increasing shortness of breath. She has been feeling a lot better today Denies any cough, any shortness of breath at rest, any abdominal pain nausea and/or vomiting Physical Exam Vital Signs (Past 24 Hours): Last Vital Signs Temp 37.1 C 08/01/18 10:42 Pulse 54 L 08/01/18 10:42 Resp 22 08/01/18 10:42 BP 125/54 L 08/01/18 10:42 Pulse Ox 94 08/01/18 10:42 Physical Exam: Lying in bed comfortably Constitutional: WD/WN, vitals as above well developed; no acute distress Eyes: PERRL, conjunctivae normal, anicteric sclerae ENMT: external ear and nose normal, oropharynx normal Neck: trachea midline, no thyromegaly Respiratory: normal respiratory effort; no respiratory distress Auscultation: + diminished lung sounds and + crackles (Minimal bibasilar crackles); no wheezes Cardiovascular: Rate/Rhythm: regular rate and regular rhythm Heart Sounds: normal S1 and normal S2 Extremities: + edema (1+ bilateral) Gastrointestinal (Abdomen): Inspection/Auscultation: abdomen normal to inspection and normal bowel sounds Percussion/Palpation: abdomen soft; abdomen nontender Neurologic: Alert, awake and oriented x3 Results & Data Laboratory Results Short CBC 07/31/18 08/01/18 Range/Units 17:59 03:10 WBC 6.36 6.26 (4.8-10.8) K/uL Hgb 11.3 L 11.9 L (12.0-16.0) g/dL Hct 35.0 L 36.4 L (37-47) % Plt Count 237 252 (130-400) K/uL BMP 07/31/18 08/01/18 17:59 03:10 Sodium 141 141 Potassium 4.3 4.0 Chloride 108 H 105 Carbon Dioxide 28 28 BUN 24 H 30 H Creatinine 1.52 H 1.90 H D Glucose 82 161 H Calcium 9.5 9.1 Cardiac Enzymes 07/31/18 07/31/18 08/01/18 Range/Units 17:59 21:33 03:10 Troponin I < 0.015 < 0.015 < 0.015 (0-0.045) ng/ml 08/01/18 Range/Units 09:15 Troponin I < 0.015 (0-0.045) ng/ml Liver Function 07/31/18 Range/Units 17:59 Total Bilirubin 0.6 (0.2-1) mg/dl AST 19 (15-37) U/L ALT 22 (12-78) U/L Alkaline Phosphatase 93 (45-117) U/L Albumin 3.6 (3.4-5.0) gm/dl Urine 07/31/18 Range/Units 17:05 Urine Color Yellow Urine Appearance Clear (Clear) Urine pH 6.5 (4.5-7.5) Ur Specific [place] 1.012 (1.000-1.030) Urine Protein Negative (Negative) Urine Glucose (UA) Negative (Negative) Medications Administered Current Inpatient Medications Acetaminophen (Tylenol) 650 mg PO Q4H PRN PRN Reason: Pain or Fever Stop: 08/30/18 21:20 Last Admin: 08/01/18 07:35 Dose: 650 mg Documented by: Atorvastatin Calcium (Lipitor) 20 mg PO DAILY [facility] Stop: 08/31/18 08:59 Last Admin: 08/01/18 08:31 Dose: 20 mg Documented by: Doxycycline Hyclate (Vibramycin) 100 mg PO BID [facility] Stop: 08/07/18 21:20 Last Admin: 08/01/18 08:34 Dose: 100 mg Documented by: Duloxetine HCl (Cymbalta) 60 mg PO HS [facility] Stop: 08/30/18 21:20 Last Admin: 07/31/18 22:30 Dose: 60 mg Documented by: Gabapentin (Neurontin) 300 mg PO HS [facility] Stop: 08/30/18 21:20 Last Admin: 07/31/18 22:30 Dose: 300 mg Documented by: Gabapentin (Neurontin) 100 mg PO BID [facility] Stop: 08/30/18 21:20 Last Admin: 08/01/18 08:33 Dose: 100 mg Documented by: Furosemide 40 mg/ Syringe 4 mls @ 4 mls/min IV BID17 [facility] Stop: 08/31/18 08:59 Last Admin: 08/01/18 08:30 Dose: 4 mls/min Documented by: Methylprednisolone 40 mg/ (Syringe) 0.64 mls @ 1.5 mls/min IV Q8H [facility] Stop: 08/31/18 00:00 Last Admin: 08/01/18 08:30 Dose: 1.5 mls/min Documented by: Ceftriaxone Sodium 1,000 mg/ (Dextrose) 50 mls @ 100 mls/hr IV Q24H CARLYLE; Prot ocol Stop: 08/09/18 20:29 Ipratropium [place] (Atrovent 0.02% 0.5mg/2.5ml) 0.5 mg INH Q4H PRN PRN Reason: SOB/WHEEZEING Stop: 08/30/18 21:20 Ipratropium [place] (Atrovent 0.02% 0.5mg/2.5ml) 0.5 mg INH Q6R CARLYLE Stop: 08/31/18 01:59 Last Admin: 08/01/18 07:10 Dose: 0.5 mg Documented by: Levalbuterol HCl (Xopenex 1.25mg/0.5ml Neb) 1.25 mg INH Q4H PRN PRN Reason: SOB/WHEEZING Stop: 08/30/18 21:20 Levalbuterol HCl (Xopenex 1.25mg/0.5ml Neb) 1.25 mg INH Q6R CARLYLE Stop: 08/31/18 01:59 Last Admin: 08/01/18 07:10 Dose: 1.25 mg Documented by: Lisinopril (Zestril) 5 mg PO DAILY [facility] Stop: 08/31/18 08:59 Last Admin: 08/01/18 08:34 Dose: 5 mg Documented by: Metoprolol Tartrate (Lopressor) 25 mg PO BID [facility] Stop: 08/30/18 21:20 Last Admin: 08/01/18 08:31 Dose: 25 mg Documented by: Miscellaneous (Order Awaiting Action) 1 ea N/A QS [facility] Stop: 08/31/18 00:00 Last Admin: 08/01/18 08:30 Dose: Not Given Documented by: Nitroglycerin (Nitrostat) 0.4 mg SL UD PRN PRN Reason: Chest Pain Stop: 08/30/18 21:20 Ondansetron HCl (Zofran) 4 mg IV Q6H PRN PRN Reason: Nausea Stop: 08/30/18 21:20 Pantoprazole Sodium (Protonix) 40 mg PO DAILY [facility] Stop: 08/31/18 08:59 Last Admin: 08/01/18 08:34 Dose: 40 mg Documented by: (1) COPD (chronic obstructive pulmonary disease) COPD type: COPD with acute exacerbation Qualified Code(s): J44.1 - Chronic obstructive pulmonary disease with (acute) exacerbation
--- NOTE | 2018-08-01 11:49 | Cardiology Consultation ---
Date of Consultation August 01, 2018 Assessment & Plan (1) Acute diastolic heart failure: Multifactorial shortness of breath including acute diastolic heart failure and possible COPD exacerbation. Continue IV Lasix 40 mg twice daily cautiously in the setting of CKD stage IV. Continue low-dose lisinopril and monitor renal function/electrolytes. Repeat resting 2D transthoracic echocardiogram. Patient will likely require oral diuretic therapy as outpatient. Dose to be determined at this time. (2) HTN (hypertension): Controlled (3) CKD (chronic kidney disease), stage IV: Creatinine at baseline. (4) COPD (chronic obstructive pulmonary disease): Management per internal medicine. History of Present Illness Reason for Consultation: Congestive heart failure Requesting Physician: Dr. Isiah Salcedo Attending Physician: Nasim Fox MD History of Present Illness 82-year-old female presented to the emergency department from her primary care physician's office due to worsening edema and dyspnea on exertion. Patient reports progressive dyspnea and edema over the past 2 weeks. Denies dietary indiscretions or excessive sodium intake. Recently evaluated in the cardiology office due to chest discomfort. Patient was prescribed low-dose beta-laura therapy. Dobutamine stress echo performed summer- for inducible ischemi a. Normal LV systolic function without significant valvular pathology noted. Patient treated with intravenous Lasix in the ER. Her edema has improved. 2 daughters are present at bedside. They voiced concern over recent falls. Patient is scheduled to see neurology on Friday for EEG concerning potential seizures. No personal history of coronary disease or congestive heart failure. Carries a history of CKD stage IV. Previously not on diuretic therapy. Weight is up approximately 4 pounds over the past 2 weeks. Renal function stable on presentation. No fever, chills, sick contacts, cough, orthopnea, or paroxysmal nocturnal dyspnea. Patient denies chest pain or heaviness. No palpitations, lightheadedness, dizziness, syncope or near syncope. Telemetry reveals sinus rhythm. No dysrhythmias. Allergies Allergy/AdvReac Type Severity Reaction Status Date / Time oxycodone Allergy Unknown Verified 07/31/18 17:34 Sulfa (Sulfonamide AdvReac Intermediate KIDNEY Verified 07/31/18 17:34 Antibiotics) PROBLEMS codeine AdvReac Unknown NAUSEA Verified 07/31/18 17:34 TOLERATES TYL#3 Home Medications Home Medications Medication Instructions Recorded Confirmed Type atorvastatin 20 mg PO DAILY 07/31/18 07/31/18 History duloxetine 60 mg PO HS 07/31/18 07/31/18 History gabapentin 100 mg PO BID 07/31/18 07/31/18 History gabapentin 300 mg PO HS 07/31/18 07/31/18 History lisinopril 5 mg PO DAILY 07/31/18 07/31/18 History metoprolol tartrate 25 mg PO BID 07/31/18 07/31/18 History mometasone-formoterol [Dulera] 2 puff INHALATION BID 07/31/18 07/31/18 History omeprazole 40 mg PO DAILY 07/31/18 07/31/18 History Patient History Medical History Chronic renal failure, stage 4 (severe) DVT (deep venous thrombosis) GERD (gastroesophageal reflux disease) (Chronic) CKD (chronic kidney disease), stage IV (Chronic) Lumbago (Chronic) History of DVT (deep vein thrombosis) (Chronic) HTN (hypertension) (Chronic) Dyslipidemia (Chronic) Breast cancer (Chronic) Osteoporosis (Chronic) GI bleed Surgical History H/O mastectomy History of hip surgery H/O colonoscopy (Chronic) S/P mastectomy (Chronic) S/P tonsillectomy and adenoidectomy (Chronic) History of total hip replacement (Chronic) S/P total hysterectomy (Chronic) H/O bladder repair surgery (Chronic) History of right-sided carotid endarterectomy (Chronic) H/O right knee surgery (Chronic) Social History Preferred Language: Urugu[place] Communication Ability: Effective 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 Physical Exam Vital Signs (Past 24 Hours): Last Vital Signs Temp 37.1 C 08/01/18 10:42 Pulse 54 L 08/01/18 10:42 Resp 22 08/01/18 10:42 BP 125/54 L 08/01/18 10:42 Pulse Ox 94 08/01/18 10:42 Physical Exam: General: NAD, AAO x3, well nourished. Overweight. HEENT: Normocephalic. Atraumatic. Conjunctiva pink, no scleral icterus. Neck: No carotid bruits, the carotid upstrokes are brisk. No JVD. No HJR Heart: Regular normal S-1 and S-2 no S-3 or S-4 gallop. No murmurs or rub appreciated. PMI is not displaced. No RV heave. Lungs: Clear bilateral without rales , rhonchi, or wheeze. Abdomen: Normal bowel sounds. Soft. Nontender. No masses or organomegaly. No abdominal bruits. Extremities: 1+ bilateral pedal and pretibial edema. No clubbing, or cyanosis Pulses: radial=2/4, + SCD's. Neuro: Cranial nerves grossly intact. No focal motor deficit. (1) HTN (hypertension) Hypertension type: essential hypertension Qualified Code(s): I10 - Essential (primary) hypertension (2) COPD (chronic obstructive pulmonary disease) COPD type: COPD with acute exacerbation Qualified Code(s): J44.1 - Chronic obstructive pulmonary disease with (acute) exacerbation
[2018-08-01] MEDS: DULOXETINE HCL 60 MG CAP PO SCH (20:26)
[2018-08-01] MEDS: GABAPENTIN 300 MG CAP PO SCH (20:26)
[2018-08-01] MEDS: HEPARIN SOD 5,000 UNIT/0.5 ML VIAL SQ SCH (20:27)
[2018-08-02] MEDS: methylPREDNISolone 40 MG in SYRINGE 0 ML IV SCH ×2 (00:31→07:48)
[2018-08-02] MEDS: IPRATROPIUM BROMIDE NEB SOLN 0.02% 2.5 ML VIAL INH SCH ×4 (02:08→19:36)
[2018-08-02] MEDS: LEVALBUTEROL 1.25MG/0.5ML NEB INH SCH ×4 (02:08→19:36)
[2018-08-02 06:15] LABS: Hematocrit (blood only) 33.7 % (37-47); Hemoglobin 11.1 g/dL (12.0-16.0); Immature Granulocytes # (auto) 0.01 K/uL (0.00-0.02); Immature Granulocytes % (auto) 0.1 %; Lymphocytes # (auto) 1.18 K/uL (1.2-3.4); Mean Corpuscular Hgb Conc 32.9 g/dL (32-36); Mean Corpuscular Volume 93.1 fL (80-100); Mean Platelet Volume 10.1 fL (7.4-10.4); Monocytes # (auto) 0.23 K/uL (0.11-0.59); Monocytes % (auto) 1.9 %; Neutrophils # (auto) 10.41 K/uL (1.4-6.5); Platelet Count 260 K/uL (130-400); RDW Standard Deviation 44.3 fL (36.4-46.3); Red Blood Count 3.62 M/uL (4.2-5.4); White Blood Count 11.83 K/uL (4.8-10.8)
[2018-08-02 06:30] LABS: BUN Creatinine Ratio 22.7 (10-20); Calcium 8.5 mg/dl (8.5-10.1); Creatinine Clr Calc Pharmacy 17.6 ml/min; Est GFR (African American) 21.5; Est GFR (Non-African American) 18.6; Magnesium 1.8 mg/dl (1.8-2.4); Potassium 4.3 mmol/L (3.5-5.1)
[2018-08-02] MEDS: DULERA~ORDER AWAITING ACTION SCH ×3 (07:48→22:37)
[2018-08-02] MEDS: HEPARIN SOD 5,000 UNIT/0.5 ML VIAL SQ SCH ×2 (07:49→21:04)
[2018-08-02] MEDS: ATORVASTATIN 20 MG TAB PO SCH (07:50)
[2018-08-02] MEDS: METOPROLOL TARTRATE 25 MG TAB PO SCH ×2 (07:50→21:03)
[2018-08-02] MEDS: PANTOprazole 40 MG TAB PO SCH (07:51)
[2018-08-02] MEDS: DOXYCYCLINE HYCLATE 100 MG CAP PO SCH ×2 (07:51→21:03)
[2018-08-02] MEDS: GABAPENTIN 100 MG CAP PO SCH ×2 (07:51→21:03)
[2018-08-02] MEDS: ACETAMINOPHEN 325 MG TAB PO PRN ×3 (07:56→21:02)
[2018-08-02] MEDS: LISINOPRIL 5 MG TAB PO SCH (08:40)
[2018-08-02] MEDS: FUROSEMIDE 40 MG in SYRINGE 0 ML IV SCH (09:00)
--- NOTE | 2018-08-02 09:18 | Nephrology Consultation ---
Date of Consultation August 02, 2018 Assessment & Plan (1) Chronic renal failure, stage 4 (severe): Her baseline creatinine is 1.7-2.1 as OP, last OP level 2.1 in 02/2018. Would not consider this LUZ ELENA at this point but she is certainly at risk for it w/ swings in SBP (ranges 91-190 since admission and 91-128 past 24 hrs); and w/ addition of diuretics and already rapid upward trend>> expect her to meet LUZ ELENA criteria quite possibly tomorrow ->>>>if BP late morning not > 110 systolic, consider 250 mL NS -stopped lisinopril -agree w/ holding lasix for now Present on Admission?: Yes (2) Edema, peripheral: ordered low Na diet, 1.5L fluid limit, daily STANDING wt -- do note that while swelling LE more prominent recently, her wt in [facility] has some lability to it historically though wider swings more recently. [facility] wts show 179-181 from September - February 2018; on 07/15/18 she had one time 176 wt; then 07/22 179, 07/31 183. -trial of compression hose >> pt strongly prefers thigh highs, not to knees alone d/t varicose veins -hold diuretics for today -asked for only standing wts, no bedscales Present on Admission?: Yes (3) Recurrent UTI: literally every single urine specimen checked in [facility] is inflamed and potentially c/w infection and every single urine cx checked in [facility] is +, usually for E coli. She reported urine incontinence at recent OV on 07/31 (a chronic issue) but not or systemic sx of malaise/f/ N-V. She states that on arrival to hospital she had worse chronic issues emptying bladder/ slow void; some urgency -reasonble to treat empirically in inpatient setting -needs focus/ f/u as outpt to minimize unnecessary exposure to abtx since it does not seem that these cxs are being cleared routinely -renal u/s (note none on file in [facility]) ordered -bladder scan prn -consider estrogen cream intravaginal 2X weekly after d/c -encourage cranberry juice (does not count to FR) while here Present on Admission?: Yes (4) Labile blood pressure: SBP ranges 91-190 since admission and 91-128 past 24 hrs as of am 7. As OP she is steadily 120-130s systolic -held ACEI -held diuretic > look to resume tomorrow if creat ok ->>>defer to cardiology but would consider halving BB dose given her HR, age, preexisting ambulatory dysfunction -see above re ? NS bolus 250 mL later today Present on Admission?: No History of Present Illness Reason for Consultation: LUZ ELENA on CKD Requesting Physician: Dr Fox Attending Physician: Nasim Fox MD History of Present Illness 82 y/o F whom I'm asked to see for LUZ ELENA on CKD after she was admitted here on 07/31 for acute diastolic HF +/- COPD exacerbation. She saw her PCP on 07/31 for routine clinic visit w/ c/o LE edema x 2 wks, ? related to recently added metoprolol. Pt's daughter is bedside for c/s today and also states pt fell 2 x past 2 wks, unusual for her. PMH includes CKD4, HTN, carotid stenosis, COPD, seizures, migraines, DVT, OA and past vertebral compression fracture; chronically inflamed urine w/ persistently + urine cultures as OP. She follows w/ my partner Dr Naranjo in CKD clinic last seen 02/2018. her baseline creatinine is 1.7-2.1 from in 2018, most recently 02/2018 was 2.1 as OP; CKD attributed to HTN, age; not proteinuric. Cardiology is following inpt as well. Currently the pt is receiving ceftriaxone, methylprednisolone, lasix 40 mg IV bid17, lisinopril 5 mg daily. 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 she was started on metoprolol at that time. on arrival on 07/31, her creatinine was 1.5; has trended up to 1.9 yesterday and 2.3 today. There were some concerns about wt gain prior to admission; I note that [facility] wts show 178-181 from September - February 2018; on 07/15/18 she had one time 176 wt; then 07/22 179, 07/31 183. Per [facility] note (which is a draft) pt does not weigh herself at home; has had no recent dietary changes. Pt and daughter do endorse she had puffy feet, proximal thighs, and hands SAND DRIER, which have improved w/ diuretics Allergies Allergy/AdvReac Type Severity Reaction Status Date / Time oxycodone Allergy Unknown Verified 07/31/18 17:34 Sulfa (Sulfonamide AdvReac Intermediate KIDNEY Verified 07/31/18 17:34 Antibiotics) PROBLEMS codeine AdvReac Unknown NAUSEA Verified 07/31/18 17:34 TOLERATES TYL#3 Home Medications Home Medications Medication Instructions Recorded Confirmed Type atorvastatin 20 mg PO DAILY 07/31/18 07/31/18 History duloxetine 60 mg PO HS 07/31/18 07/31/18 History gabapentin 100 mg PO BID 07/31/18 07/31/18 History gabapentin 300 mg PO HS 07/31/18 07/31/18 History lisinopril 5 mg PO DAILY 07/31/18 07/31/18 History metoprolol tartrate 25 mg PO BID 07/31/18 07/31/18 History mometasone-formoterol [Dulera] 2 puff INHALATION BID 07/31/18 07/31/18 History omeprazole 40 mg PO DAILY 07/31/18 07/31/18 History Patient History Medical History Chronic renal failure, stage 4 (severe) DVT (deep venous thrombosis) GERD (gastroesophageal reflux disease) (Chronic) CKD (chronic kidney disease), stage IV (Chronic) Lumbago (Chronic) History of DVT (deep vein thrombosis) (Chronic) HTN (hypertension) (Chronic) Dyslipidemia (Chronic) Breast cancer (Chronic) Osteoporosis (Chronic) GI bleed Surgical History H/O mastectomy History of hip surgery H/O colonoscopy (Chronic) S/P mastectomy (Chronic) S/P tonsillectomy and adenoidectomy (Chronic) History of total hip replacement (Chronic) S/P total hysterectomy (Chronic) H/O bladder repair surgery (Chronic) History of right-sided carotid endarterectomy (Chronic) H/O right knee surgery (Chronic) Social History Communication Ability: Effective Beliefs That Will Affect Care: [employer] Current Living Situation Comment: Lives with Ex- Other Information That Helps Us Care for You: No Feels Safe at Home: No Safety Concerns: Feels Safe At This Time Smoking Status: Never smoker Hx Alcohol Use: No Hx Substance Use: No Review of Systems Constitutional: + fatigue, + weakness and + weight gain; no anorexia Eyes: no worsening vision Ear, Nose, Mouth, Throat: no dry mouth Respiratory: + dyspnea on exertion (worse than baseline - had to rest walking from curb into clinic on 07/31) Cardiovascular: + dyspnea on exertion, + lightheadedness and + edema; no chest pain Gastrointestinal: no abdominal pain, no bloating, no nausea and no vomiting Genitourinary (Female): + difficulty urinating, + urinary frequency (improving since admission) and + urinary hesitancy Musculoskeletal: + swelling and + stiffness Integumentary: no rash and no non-healing lesions Neurologic: + unsteadiness, + seizure-like activity, + dizziness and + headache(s) Psychiatric: no behavioral changes Endocrine: + fatigue Hematologic / Lymphatic: no easy bleeding Physical Exam Vital Signs (Past 24 Hours): Last Vital Signs Temp 37.1 C 08/02/18 07:20 Pulse 55 L 08/02/18 07:24 Resp 18 08/02/18 07:24 BP 107/74 08/02/18 07:20 Pulse Ox 92 08/02/18 07:24 Constitutional: well developed and well nourished ambulatory w/ walker; sittign in chair on RA; doing own toilet Eyes: EOM intact bilaterally ENMT: Ears: no external ear abnormality Nose: no external nose abnormality Mouth: + dry oral mucous membranes Neck: no nuchal rigidity Respiratory: normal respiratory effort Auscultation: + diminished lung sounds Cardiovascular: Rate/Rhythm: regular rate and regular rhythm Extremities: + edema (at most trace ankle BL) Gastrointestinal (Abdomen): Inspection/Auscultation: normal bowel sounds Percussion/Palpation: abdomen soft; abdomen nontender Musculoskeletal: Extremities: strength 5/5 throughout Skin: no rashes, warm and dry Neurologic: mason, fluent speech, no tremor Psychiatric: A+Ox3, euthymic affect Eye Contact: good eye contact Motor Behavior: no abnormal motor movements Speech: normal rate/rhythm/volume of speech some perseverant hx at times Genitourinary: no huitron Results & Data Laboratory Results Abnormal lab results 08/02/18 08/02/18 Range/Units 05:42 05:42 WBC 11.83 H (4.8-10.8) K/uL RBC 3.62 L (4.2-5.4) M/uL Hgb 11.1 L (12.0-16.0) g/dL Hct 33.7 L (37-47) % Neut # (Auto) 10.41 H (1.4-6.5) K/uL Lymph # (Auto) 1.18 L (1.2-3.4) K/uL BUN 53 H D (7-18) mg/dl Creatinine 2.33 H D (0.6-1.2) mg/dl BUN/Creatinine Ratio 22.7 H (10-20) Glucose 159 H (70-99) mg/dl
--- NOTE | 2018-08-02 10:18 | Cardiology Progress Note ---
Date of Service August 02, 2018 Assessment & Plan (1) Acute diastolic heart failure: Edema has resolved. Lasix will be placed on hold due to elevated creatinine. Reassess basic metabolic panel in a.m. Consider prescription for oral furosemide, as needed in the outpatient setting. Lisinopril be placed on hold as well. (2) HTN (hypertension): Controlled (3) CKD (chronic kidney disease), stage IV: Acute kidney injury noted secondary to intravenous diuretic therapy. (4) COPD (chronic obstructive pulmonary disease): Management per internal medicine. Subjective Patient seen and examined at the bedside. Edema has resolved. Feeling well from a cardiovascular perspective. Creatinine up to 2.2 this morning. Maricarmen present at bedside. Patient denies chest pain or palpitations. No dysrhythmias on telemetry. No orthopnea overnight. Voices concern regarding her renal function. Offers no other concerns/complaints at this time Review of Systems All systems reviewed & are unremarkable except as noted in HPI & below Physical Exam Vital Signs (Past 24 Hours): Last Vital Signs Temp 37.1 C 08/02/18 07:20 Pulse 55 L 08/02/18 07:24 Resp 18 08/02/18 07:24 BP 107/74 08/02/18 07:20 Pulse Ox 92 08/02/18 07:24 Physical Exam: General: NAD, overweight, chronically ill. HEENT: Normocephalic. Atraumatic. Conjunctiva pink, no scleral icterus. Neck: No carotid bruits, the carotid upstrokes are brisk. No JVD. No HJR Heart: Regular normal S-1 and S-2 no S-3 or S-4 gallop. No murmurs or rub appreciated. PMI is not displaced. No RV heave. Lungs: Clear bilateral without rales , rhonchi, or wheeze. Abdomen: Normal bowel sounds. Soft. Nontender. No masses or organom egaly. No abdominal bruits. Extremities: No clubbing, cyanosis, or edema. Pulses: radial=2/4, posterior tibial=2/4. Neuro: Cranial nerves grossly intact. No focal motor deficit. (1) HTN (hypertension) Hypertension type: essential hypertension Qualified Code(s): I10 - Essential (primary) hypertension (2) COPD (chronic obstructive pulmonary disease) COPD type: COPD with acute exacerbation Qualified Code(s): J44.1 - Chronic obstructive pulmonary disease with (acute) exacerbation
--- NOTE | 2018-08-02 11:46 | Hospitalist Progress Note ---
Date of Service August 02, 2018 Assessment & Plan (1) COPD (chronic obstructive pulmonary disease): Admitted with the shortness of breath and wheezing History of passive smoking and possible COPD/asthma Has been getting intravenous Solu-Medrol and nebulized bronchodilator and antibiotics We will continue current medications No shortness of breath reported and clinically a lot better Will change Solu-Medrol to oral prednisone and a short tapering course will be done on discharge (2) Edema, peripheral: Complains to have bilateral leg edema and weight gain for the last 2 weeks Has not been taking any fluid pills The chart does not have any history of congestive heart failure Echo that was done in 2018 and that report cannot be seen in [facility] Serial cardiac enzymes and EKG are unremarkable for ACS Awaiting cardiology evaluation Received intravenous Lasix and has been feeling a lot better No more edema and no more signs and/or symptoms of fluid overload (3) CKD (chronic kidney disease), stage IV: Little worse this We will monitor PRP Creatinine is worse today at 2.33 Will hold lisinopril and Lasix We will get a nephrology consult tomorrow for further guidance of use of Lasix and lisinopril (4) HTN (hypertension): Continue current medications DVT prophylaxis We will put her on subcu heparin Likely to be discharged tomorrow after nephrology evaluation Subjective 08/01 She is an 82-year-old female with significant past medical history of chronic kidney disease stage IV, hypertension, hyperlipidemia, possible COPD and history of GERD was admitted with increasing leg swelling and weight gain for the last 2 weeks associated with increasing shortness of breath. She has been feeling a lot better today Denies any cough, any shortness of breath at rest, any abdominal pain nausea and/or vomiting 08/02 She complains to have some shakiness while ambulating Denies any more bloating the leg swelling is down No chest pain, shortness of breath and/or palpitation Physical Exam Vital Signs (Past 24 Hours): Last Vital Signs Temp 36.6 C 08/02/18 11:24 Pulse 58 L 08/02/18 11:24 Resp 22 08/02/18 11:24 BP 116/72 08/02/18 11:24 Pulse Ox 93 08/02/18 11:24 Physical Exam: Lying on a chair without any distress but anxious Constitutional: WD/WN, vitals as above well developed; no acute distress Eyes: PERRL, conjunctivae normal, anicteric sclerae ENMT: external ear and nose normal, oropharynx normal Neck: trachea midline, no thyromegaly Respiratory: normal respiratory effort Auscultation: lungs clear to auscultation bilaterally Cardiovascular: Rate/Rhythm: regular rate and regular rhythm Heart Sounds: normal S1 and normal S2 Gastrointestinal (Abdomen): Inspection/Auscultation: abdomen normal to inspection and normal bowel sounds Percussion/Palpation: abdomen soft; abdomen nontender Neurologic: Alert, awake and oriented x3. Has minimal tremor involving both upper extremities. Denies any focal neuro deficit Results & Data Laboratory Results Short CBC 08/02/18 Range/Units 05:42 WBC 11.83 H (4.8-10.8) K/uL Hgb 11.1 L (12.0-16.0) g/dL Hct 33.7 L (37-47) % Plt Count 260 (130-400) K/uL BMP 08/02/18 05:42 Sodium 138 Potassium 4.3 Chloride 101 Carbon Dioxide 28 BUN 53 H D Creatinine 2.33 H D Glucose 159 H Calcium 8.5 Medications Administered Current Inpatient Medications Acetaminophen (Tylenol) 650 mg PO Q4H PRN PRN Reason: Pain or Fever Stop: 08/30/18 21:20 Last Admin: 08/02/18 07:56 Dose: 650 mg Documented by: Atorvastatin Calcium (Lipitor) 20 mg PO DAILY [facility] Stop: 08/31/18 08:59 Last Admin: 08/02/18 07:50 Dose: 20 mg Documented by: Doxycycline Hyclate (Vibramycin) 100 mg PO BID [facility] Stop: 08/07/18 21:20 Last Admin: 08/02/18 07:51 Dose: 100 mg Documented by: Duloxetine HCl (Cymbalta) 60 mg PO HS [facility] Stop: 08/30/18 21:20 Last Admin: 08/01/18 20:26 Dose: 60 mg Documented by: Gabapentin (Neurontin) 300 mg PO HS [facility] Stop: 08/30/18 21:20 Last Admin: 08/01/18 20:26 Dose: 300 mg Documented by: Gabapentin (Neurontin) 100 mg PO BID [facility] Stop: 08/30/18 21:20 Last Admin: 08/02/18 07:51 Dose: 100 mg Documented by: Heparin Sodium (Porcine) (Heparin Sodium (Porcine)) 5,000 units SQ Q12 [facility] Stop: 08/31/18 20:59 Last Admin: 08/02/18 07:49 Dose: 5,000 units Documented by: Furosemide 40 mg/ Syringe 4 mls @ 4 mls/min IV [id number] [facility] Stop: 08/31/18 08:59 Last Admin: 08/02/18 09:00 Dose: Not Given Documented by: Methylprednisolone 40 mg/ (Syringe) 0.64 mls @ 1.5 mls/min IV Q8H [facility] Stop: 08/31/18 00:00 Last Admin: 08/02/18 07:48 Dose: 1.5 mls/min Documented by: Ceftriaxone Sodium 1,000 mg/ (Dextrose) 50 mls @ 100 mls/hr IV Q24H [facility]; Protocol Stop: 08/09/18 20:29 Last Infusion: 08/01/18 21:16 Dose: Infused Documented by: Ipratropium [place] (Atrovent 0.02% 0.5mg/2.5ml) 0.5 mg INH Q4H PRN PRN Reason: SOB/WHEEZEING Stop: 08/30/18 21:20 Ipratropium [place] (Atrovent 0.02% 0.5mg/2.5ml) 0.5 mg INH Q6R [facility] Stop: 08/31/18 01:59 Last Admin: 08/02/18 07:22 Dose: 0.5 mg Documented by: Levalbuterol HCl (Xopenex 1.25mg/0.5ml Neb) 1.25 mg INH Q4H PRN PRN Reason: SOB/WHEEZING Stop: 08/30/18 21:20 Levalbuterol HCl (Xopenex 1.25mg/0.5ml Neb) 1.25 mg INH Q6R [facility] Stop: 08/31/18 01:59 Last Admin: 08/02/18 07:21 Dose: 1.25 mg Documented by: Metoprolol Tartrate (Lopressor) 25 mg PO BID [facility] Stop: 08/30/18 21:20 Last Admin: 08/02/18 07:50 Dose: 25 mg Documented by: Miscellaneous (Order Awaiting Action) 1 ea N/A QS [facility] Stop: 08/31/18 00:00 Last Admin: 08/02/18 07:48 Dose: Not Given Documented by: Nitroglycerin (Nitrostat) 0.4 mg SL UD PRN PRN Reason: Chest Pain Stop: 08/30/18 21:20 Ondansetron HCl (Zofran) 4 mg IV Q6H PRN PRN Reason: Nausea Stop: 08/30/18 21:20 Pantoprazole Sodium (Protonix) 40 mg PO DAILY [facility] Stop: 08/31/18 08:59 Last Admin: 08/02/18 07:51 Dose: 40 mg Documented by: (1) COPD (chronic obstructive pulmonary disease) COPD type: COPD with acute exacerbation Qualified Code(s): J44.1 - Chronic obstructive pulmonary disease with (acute) exacerbation (2) HTN (hypertension) Hypertension type: essential hypertension Qualified Code(s): I10 - Essential (primary) hypertension
[2018-08-02] MEDS ORDERED: predniSONE 20 MG TAB PO ONE (12:15)
[2018-08-02] MEDS: DULOXETINE HCL 60 MG CAP PO SCH (21:02)
[2018-08-02] MEDS: GABAPENTIN 300 MG CAP PO SCH (21:03)
[2018-08-02] MEDS ORDERED: POLYETHYLENE (MIRALAX) 17 GM PACK PO PRN (21:06)
[2018-08-03] MEDS: IPRATROPIUM BROMIDE NEB SOLN 0.02% 2.5 ML VIAL INH SCH ×4 (02:27→19:25)
[2018-08-03] MEDS: LEVALBUTEROL 1.25MG/0.5ML NEB INH SCH ×4 (02:27→19:25)
[2018-08-03 07:23] LABS: BUN Creatinine Ratio 27.8 (10-20); Creatinine Clr Calc Pharmacy 19.3 ml/min; Est GFR (African American) 24.4; Est GFR (Non-African American) 21.1; Magnesium 1.7 mg/dl (1.8-2.4)
[2018-08-03] MEDS: HEPARIN SOD 5,000 UNIT/0.5 ML VIAL SQ SCH ×2 (08:53→20:47)
[2018-08-03] MEDS: DULERA~ORDER AWAITING ACTION SCH ×3 (08:54→22:11)
[2018-08-03] MEDS: GABAPENTIN 100 MG CAP PO SCH ×2 (08:55→20:47)
[2018-08-03] MEDS: DOXYCYCLINE HYCLATE 100 MG CAP PO SCH ×2 (08:55→20:47)
[2018-08-03] MEDS: ATORVASTATIN 20 MG TAB PO SCH (08:55)
[2018-08-03] MEDS: PANTOprazole 40 MG TAB PO SCH (08:55)
[2018-08-03] MEDS ORDERED: METOPROLOL TARTRATE 25 MG TAB PO SCH (09:00)
--- NOTE | 2018-08-03 12:24 | Cardiology Progress Note ---
Date of Service August 03, 2018 Assessment & Plan (1) Acute diastolic heart failure: Edema has resolved. Recommend Lasix 20 mg on Mondays and Fridays as well as as needed in the outpatient setting. Metoprolol tartrate 25 mg twice daily will be transitioned / reduced to Toprol-XL 25 mg daily due to intermittent hypotension. Restart lisinopril per discretion of nephrology. (2) HTN (hypertension): Controlled with intermittent hypotension. There are concerns regarding labile BP in relation to renal perfusion. Will reduce beta-laura as noted above. (3) CKD (chronic kidney disease), stage IV: Creatinine trending downward. Further recommendations per nephrology. Avoid nephrotoxins/NSAIDs. (4) COPD (chronic obstructive pulmonary disease): Management per internal medicine. Subjective Patient seen and examined at the bedside. Creatinine trending downward. Nephrology input appreciated. Edema controlled. Patient denies chest pain, shortness of breath, palpitations, orthopnea, or PND. Daughters present at bedside. They offer no additional concerns/complaints at this time. Review of Systems All systems reviewed & are unremarkable except as noted in HPI & below Physical Exam Vital Signs (Past 24 Hours): Last Vital Signs Temp 37.5 C 08/03/18 11:49 Pulse 59 L 08/03/18 11:49 Resp 20 08/03/18 11:49 BP 134/58 L 08/03/18 11:49 Pulse Ox 96 08/03/18 11:49 Physical Exam: General: NAD, overweight, chronically ill. HEENT: Normocephalic. Atraumatic. Conjunctiva pink, no scleral icterus. Neck: No carotid bruits, the carotid upstrokes are brisk. No JVD. No HJR Heart: Regular normal S-1 and S-2 no S-3 or S-4 gallop. No murmurs or rub appreciated. PMI is not displaced. No RV heave. Lungs: Clear bilateral without rales , rhonchi, or wheeze. Abdomen: Normal bowel sounds. Soft. Nontender. No masses or organomegaly. No abdominal bruits. Extremities: No clubbing, cyanosis, or edema. Pulses: radial=2/4, posterior tibial=2/4. Neuro: Cranial nerves grossly intact. No focal motor deficit. (1) HTN (hypertension) Hypertension type: essential hypertension Qualified Code(s): I10 - Essential (primary) hypertension (2) COPD (chronic obstructive pulmonary disease) COPD type: COPD with acute exacerbation Qualified Code(s): J44.1 - Chronic obstructive pulmonary disease with (acute) exacerbation
--- NOTE | 2018-08-03 13:54 | Hospitalist Progress Note ---
Date of Service August 03, 2018 Assessment & Plan (1) COPD (chronic obstructive pulmonary disease): Admitted with the shortness of breath and wheezing History of passive smoking and possible COPD/asthma continue Prednisone taper, Nebs, Doxycycline improving wean off O2 (2) Edema, peripheral: secondary to Acute on Chronic Diastolic CHF Received intravenous Lasix and has been feeling a lot better No more edema and no more signs and/or symptoms of fluid overload IV Lasix on hold in light of elevated crea Cardiology recommends Lasix 20mg po Mon and Fri and PRN upon discharge will need to monitor crea closely (3) CKD (chronic kidney disease), stage IV: crea increased to 2.3, now at 2.0 Will hold lisinopril and Lasix awaiting recommendations from Nephrology [facility] (4) HTN (hypertension): BP on the lower side Metoprolol decreased to once a day monitor DVT prophylaxis subcu heparin anticipate d/c when cleared by Nephro Subjective ff up for shortness of breath seen resting in chair, comfortable states she feels improved overall less dyspnea, has minimal dry cough at night no chest pain denies other symptoms Physical Exam Vital Signs (Past 24 Hours): Last Vital Signs Temp 37.5 C 08/03/18 11:49 Pulse 59 L 08/03/18 11:49 Resp 20 08/03/18 11:49 BP 134/58 L 08/03/18 11:49 Pulse Ox 96 08/03/18 11:49 Physical Exam: General- oriented x 3, not in distress, speaks in sentences with no effort or accessory muscle use Eyes- anicteric Neck- no JVD Lungs- mild rhonchi b/l, no wheezing Heart- normal rate, regular rhythm; no murmurs Abdomen- normal bowel sounds, nondistended, soft, nontender Extremities- no pretibial edema, no calf tenderness Neuro- alert, oriented x 3; no gross focal neurologic deficits Skin- warm & dry Results & Data Laboratory Results Laboratory Results - last 24 hr 08/03/18 06:52 Sodium 140 Potassium 4.0 Chloride 104 Carbon Dioxide 28 Anion Gap 7.0 BUN 58 H Creatinine 2.09 H Est Cr Clr Drug Dosing 19.3 Est GFR ( Amer) 24.4 Est GFR (Non-Af Amer) 21.1 BUN/Creatinine Ratio 27.8 H Glucose 150 H Calcium 8.0 L Magnesium 1.7 L (1) COPD (chronic obstructive pulmonary disease) COPD type: COPD with acute exacerbation Qualified Code(s): J44.1 - Chronic obstructive pulmonary disease with (acute) exacerbation (2) HTN (hypertension) Hypertension type: essential hypertension Qualified Code(s): I10 - Essential (primary) hypertension
[2018-08-03] MEDS ORDERED: predniSONE 20 MG TAB PO ONE (14:05)
--- NOTE | 2018-08-03 17:51 | Nephrology Progress Note ---
Date of Service August 03, 2018 Assessment & Plan (1) Chronic renal failure, stage 4 (severe): Patient with LUZ ELENA due to hemodynamically mediated renal injury in setting of hypotension. Her baseline creatinine is 1.7-2.1 as OP, last OP level 2.1 in 02/2018. Cr is better at 2.09 today. Off lisinopril and lasix. Recommend reducing metoprolol to 25mg daily. -Monitor with daily BMP and i/0 (2) Edema, peripheral: Continue low Na diet, 1.5L fluid limit, daily STANDING wt -trial of compression hose >> pt strongly prefers thigh highs, not to knees alone d/t varicose veins -Will resume diuretics as hemodynamics stabilise -asked for only standing wts, no bedscales (3) Recurrent UTI: literally every single urine specimen checked in [facility] is inflamed and potentially c/w infection and every single urine cx checked in [facility] is +, usually for E coli. She reported urine incontinence at recent OV on 07/31 (a chronic issue) but not or systemic sx of malaise/f/ N-V. She states that on arrival to hospital she had worse chronic issues emptying bladder/ slow void; some urgency -reasonble to treat empirically in inpatient setting -needs focus/ f/u as outpt to minimize unnecessary exposure to abtx since it does not seem that these cxs are being cleared routinely -renal u/s (note none on file in [facility]) ordered -bladder scan prn -consider estrogen cream intravaginal 2X weekly after d/c -encourage cranberry juice (does not count to FR) while here (4) Labile blood pressure: SBP ranges 91-190 since admission and 91-128 past 24 hrs as of am 4/7. As OP she is steadily 120-130s systolic BP still low. Recommend reducing toprolol to 25mg daily if cardiology agreeable. Subjective Patient with LUZ ELENA on CKD seen in follow up. She feels much better. Reports improvement in her breathing. Cr is down to 2.09. No leg edema. Seen with daughter at bedside. Constitutional: + weakness; no fever Eyes: no problem reported Respiratory: + dyspnea on exertion Cardiovascular: no paroxysmal nocturnal dyspnea, no palpitations and no edema Gastrointestinal: no vomiting Neurologic: no headache(s) and no confusion Endocrine: + fatigue; no polydipsia Physical Exam Vital Signs (Past 24 Hours): Last Vital Signs Temp 36.9 C 08/03/18 15:31 Pulse 59 L 08/03/18 15:31 Resp 16 08/03/18 15:31 BP 119/70 08/03/18 15:31 Pulse Ox 97 08/03/18 15:31 Physical Exam: General exam: Appears comfortable, no acute distress HEENT: Pupils are equal and reactive to light Neck: No JVD, neck is supple trachea is midline Respiratory system: Clear breath sounds bilaterally. Gastrointestinal: Abdomen is soft, non distended, non tender, bowel sounds are present CVS: Regular rate and rhythm. No murmurs, rubs or gallops Musculoskeletal: No joint or muscle tenderness Extremities: Non tender, no edema, peripheral pulses are present Neuro: Oriented, no tremors, no focal neurological deficits Skin: No rashes Results & Data Laboratory Results cr 2.09, k 4
[2018-08-03] MEDS: GABAPENTIN 300 MG CAP PO SCH (20:47)
[2018-08-03] MEDS: DULOXETINE HCL 60 MG CAP PO SCH (20:47)
[2018-08-03] MEDS: ACETAMINOPHEN 325 MG TAB PO PRN (20:52)
[2018-08-04] MEDS: LEVALBUTEROL 1.25MG/0.5ML NEB INH SCH ×2 (02:05→06:59)
[2018-08-04] MEDS: IPRATROPIUM BROMIDE NEB SOLN 0.02% 2.5 ML VIAL INH SCH ×2 (02:05→06:59)
[2018-08-04] MEDS: ACETAMINOPHEN 325 MG TAB PO PRN (02:44)
[2018-08-04] MEDS ORDERED: cefTRIAXone SODIUM 1,000 MG in DEXTROSE 5% 50 ML IV SCH (04:00)
[2018-08-04] MEDS ORDERED: predniSONE 10 MG TABLET PO SCH (09:00)
[2018-08-04] MEDS ORDERED: METOPROLOL SUCC 25MG EXT REL TAB PO SCH (09:00)
[2018-08-04] MEDS: GABAPENTIN 100 MG CAP PO SCH (09:01)
[2018-08-04] MEDS: DOXYCYCLINE HYCLATE 100 MG CAP PO SCH (09:01)
[2018-08-04] MEDS: HEPARIN SOD 5,000 UNIT/0.5 ML VIAL SQ SCH (09:02)
[2018-08-04] MEDS: ATORVASTATIN 20 MG TAB PO SCH (09:03)
[2018-08-04] MEDS: PANTOprazole 40 MG TAB PO SCH (09:03)
--- NOTE | 2018-08-04 09:58 | Nephrology Progress Note ---
Date of Service August 04, 2018 Assessment & Plan (1) Chronic renal failure, stage 4 (severe): Patient with LUZ ELENA due to hemodynamically mediated renal injury in setting of hypotension. Her baseline creatinine is 1.7-2.1 as OP, last OP level 2.1 in 02/2018. Cr is better at 2.09 today. Off lisinopril and lasix. Recommend reducing metoprolol to 25mg daily. -Monitor with daily BMP and i/0 -Patient can be discharged from the renal standpoint. No need to restart lisinopril. I will see the patient in the office in 1-2 weeks. She will need to repeat a BMP towards the end of the week. (2) Edema, peripheral: Edema has largely resolved. Recommend starting Lasix 20 mg p.o. daily. Patient can be discharged on the same dose. Continue low Na diet, 1.5L fluid limit, daily STANDING wt -trial of compression hose >> pt strongly prefers thigh highs, not to knees alone d/t varicose veins -asked for only standing wts, no bedscales -Monitor daily weight at home if discharged. (3) Recurrent UTI: literally every single urine specimen checked in epic is inflamed and potentially c/w infection and every single urine cx checked in epic is +, usually for E coli. She reported urine incontinence at recent OV on 07/31 (a chronic issue) but not or systemic sx of malaise/f/ N-V. She states that on arrival to hospital she had worse chronic issues emptying bladder/ slow void; some urgency -reasonble to treat empirically in inpatient setting -needs focus/ f/u as outpt to minimize unnecessary exposure to abtx since it does not seem that these cxs are being cleared routinely -bladder scan prn -consider estrogen cream intravaginal 2X weekly after d/c -encourage cranberry juice (does not count to FR) while here (4) Labile blood pressure: Blood pressure has improved. Continue metoprolol 25 mg daily. She is also starting low-dose diuretic. She will continue to monitor blood pressure at home. Subjective Patient with LUZ ELENA on CKD seen in follow up. She feels much better. Reports improvement in her breathing. She is ambulating in the corridor without shortness of breath. She is eager to be discharged home. No leg edema. Seen with daughter at bedside. Constitutional: + weakness; no fever Respiratory: + dyspnea on exertion Genitourinary (Female): + difficulty urinating, + urinary frequency (improving since admission) and + urinary hesitancy Musculoskeletal: + swelling and + stiffness Endocrine: + fatigue; no polydipsia Physical Exam Vital Signs (Past 24 Hours): Last Vital Signs Temp 36.7 C 08/04/18 07:03 Pulse 55 L 08/04/18 07:03 Resp 18 08/04/18 07:03 BP 142/75 H 08/04/18 07:03 Pulse Ox 99 08/04/18 07:03 Physical Exam: General exam: Appears comfortable, no acute distress. Sitting up in the chair HEENT: Pupils are equal and reactive to light Neck: No JVD, neck is supple trachea is midline Respiratory system: Clear breath sounds bilaterally. Gastrointestinal: Abdomen is soft, non distended, non tender, bowel sounds are present CVS: Regular rate and rhythm. No murmurs, rubs or gallops Musculoskeletal: No joint or muscle tenderness Extremities: Non tender, no edema, peripheral pulses are present Neuro: Oriented, no tremors, no focal neurological deficits Skin: No rashes Results & Data Laboratory Results Reviewed
[2018-08-04 10:15] LABS: BUN Creatinine Ratio 26.6 (10-20); Calcium 8.1 mg/dl (8.5-10.1); Creatinine Clr Calc Pharmacy 21.1 ml/min; Est GFR (Non-African American) 23.3
--- NOTE | 2018-08-04 11:19 | Hospitalist Progress Note ---
Date of Service August 04, 2018 Assessment & Plan (1) COPD (chronic obstructive pulmonary disease): Admitted with the shortness of breath and wheezing History of passive smoking and possible COPD/asthma improved with Solumedrol, Nebs, Doxy continue Prednisone taper and, Doxycycline x 2 more days to complete 7 day course PRN Albuterol (2) Edema, peripheral: secondary to Acute on Chronic Diastolic CHF Received intravenous Lasix and has been feeling a lot better No more edema and no more signs and/or symptoms of fluid overload IV Lasix on hold in light of elevated crea crea increased from 1.9 to 2.3 after 1 dose of IV Lasix Lasix held crea improved to 1.[address] Naranjo consulted recommend Lasix 20mg po daily repeat Basic Metabolic Profile on Friday08/07/18 monitor renal function closely while on Lasix (3) CKD (chronic kidney disease), stage IV: management of Lasix as noted above Lisinopril discontinued [employer] Dr. Naranjo consulted, ff up with him in 2-3 weeks (4) Recurrent UTI: Urine culture: (+) E coli received Ceftriaxone IV x 2 days, Cefuroxome 250mg x 1 dose ordered to complete 3 day antibiotic course Premarin 2/x day also started advised to drink Cranberry Juice (5) HTN (hypertension): BP on the lower side Metoprolol decreased to once a day monitor d/c home with home health services ff up with PCP 08/07/18 ff up with Nephro in 2-3 weeks Subjective ff up for shortness of breath resting in chair, comfortable states she feels better overall breathing is much better, no cough no chest pain, dizziness ambulating with no problems no problems voiding denies other symptoms states she is ready and would like to be discharged today family agrees Physical Exam Vital Signs (Past 24 Hours): Last Vital Signs Temp 36.7 C 08/04/18 10:36 Pulse 55 L 08/04/18 10:36 Resp 18 08/04/18 10:36 BP 142/75 H 08/04/18 10:36 Pulse Ox 99 08/04/18 10:36 Physical Exam: General- oriented x 3, not in distress, speaks in sentences with no effort or accessory muscle use Eyes- anicteric Neck- no JVD Lungs- clear breath sounds bilaterally, no rhonchi, no wheezing/rales Heart- normal rate, regular rhythm; no murmurs Abdomen- normal bowel sounds, nondistended, soft, nontender Extremities- trace pretibial edema, no calf tenderness Neuro- alert, oriented x 3; no gross focal neurologic deficits Skin- warm & dry Results & Data Laboratory Results Laboratory Results - last 24 hr 08/04/18 09:19 Sodium 138 Potassium 4.0 Chloride 104 Carbon Dioxide 24 Anion Gap 10.0 BUN 51 H Creatinine 1.92 H Est Cr Clr Drug Dosing 21.1 Est GFR ( Amer) 27.0 Est GFR (Non-Af Amer) 23.3 BUN/Creatinine Ratio 26.6 H Glucose 160 H Calcium 8.1 L (1) COPD (chronic obstructive pulmonary disease) COPD type: COPD with acute exacerbation Qualified Code(s): J44.1 - Chronic ob structive pulmonary disease with (acute) exacerbation (2) HTN (hypertension) Hypertension type: essential hypertension Qualified Code(s): I10 - Essential (primary) hypertension
--- NOTE | 2018-08-04 11:38 | Discharge Summary ---
Date of Service August 04, 2018 Admission HPI Per Admitting Provider DATE OF ADMISSION: 07/31/2018 CHIEF COMPLAINT: Shortness of breath. HISTORY OF PRESENT ILLNESS: This is an 82-year-old female with past medical history significant for hyperlipidemia, hypertension, carotid stenosis, venous insufficiency, GERD and chronic kidney disease stage IV, osteoarthritis involving multiple joints, history of a compression fracture of the spine, chronic neck pain, chronic posttraumatic headache, anemia of chronic kidney disease, history of DVT, history of seizures, history of migraines. The patient lives with her exhusband, ambulates sometimes with cane and sometimes with walker, comes because of shortness of breath. The patient says since last couple of weeks she has noticed increase in lower extremity swelling. She gained several pounds in last 1 week, having some dry cough and shortness of breath on minimal exertion, which prompted her to come to the ER. Recently, she was also seen by cardiology for angina kind of symptoms and she was placed on Lopressor and that helped her symptoms. Denies any fever, chills. Has some headaches. She has history of seizures in the past and she was on Dilantin at one point of time and then she was on Topamax. She was taken off of Topamax because of renal disease and she has followup appointment with neurology next Friday for EEG because she is getting these headaches. She has some issues with the left eye but vision is okay. No sore throat, no difficulty swallowing. Appetite is okay. Currently no chest pain, no nausea, no vomiting, no abdominal pain. She says she has incontinence of stool all the time for a long time. No black stools or blood in the stools. Normal bladder movements. No burning micturition, no rash. She says whenever she bumps, she bruises easily. Admission Exam Per Admitting Provider PHYSICAL EXAMINATION: GENERAL: The patient is of moderate built, not in acute distress. VITAL SIGNS: Temperature is 36.8, pulse 63, respiratory rate 15, blood pressure 178/74, oxygen 95% room air. HEENT: No pallor, no icterus. Pupils equal, round, and react to light. NECK: No JVD, no neck masses, no carotid bruits. CARDIOVASCULAR: S1, S2 heard, regular rate and rhythm, no murmur, no gallop. RESPIRATORY SYSTEM: Normal AP diameter. No accessory muscle use, bilateral wheezing heard. Mild bibasilar crackles. ABDOMEN: Soft, bowel sounds present. Nontender. No distention. CENTRAL NERVOUS SYSTEM: Cranial nerves II-XII grossly intact. Nonfocal. EXTREMITIES: Bilateral lower extremity gross pedal edema present, no erythema seen. Principal Diagnosis Acute diastolic CHF exacerbation Discharge Exam Vital Signs (Past 24 Hours): Last Vital Signs Temp 36.7 C 08/04/18 10:36 Pulse 55 L 08/04/18 10:36 Resp 18 08/04/18 10:36 BP 142/75 H 08/04/18 10:36 Pulse Ox 99 08/04/18 10:36 Physical Exam: General- oriented x 3, not in distress, speaks in sentences with no effort or accessory muscle use Eyes- anicteric Neck- no JVD Lungs- clear breath sounds bilaterally, no rhonchi, no wheezing/rales Heart- normal rate, regular rhythm; no murmurs Abdomen- normal bowel sounds, nondistended, soft, nontender Extremities- trace pretibial edema, no calf tenderness Neuro- alert, oriented x 3; no gross focal neurologic deficits Skin- warm & dry Discharge Data Allergies Allergy/AdvReac Type Severity Reaction Status Date / Time oxycodone Allergy Unknown Verified 07/31/18 17:34 Sulfa (Sulfonamide AdvReac Intermediate KIDNEY Verified 07/31/18 17:34 Antibiotics) PROBLEMS codeine AdvReac Unknown NAUSEA Verified 07/31/18 17:34 TOLERATES TYL#3 Consultations 07/31/18 19:28 ED Decision to Admit Stat 07/31/18 21:21 Consult Case Management - Discharge Planning Routine 08/01/18 08:00 Consult Cardiology Routine 08/03/18 09:08 Consult Nephrology Routine Ordered Studies 07/31/18 17:46 CT head/brain wo con Stat IMPRESSION: 1. Chronic small vessel ischemic change. No acute intracranial abnormality. Hospital Course (1) COPD (chronic obstructive pulmonary disease): Admitted with the shortness of breath and wheezing History of passive smoking and possible COPD/asthma improved with Solumedrol, Nebs, Doxy continue Prednisone taper and, Doxycycline x 2 more days to complete 7 day course PRN Albuterol (2) Edema, peripheral: secondary to Acute on Chronic Diastolic CHF Received intravenous Lasix and has been feeling a lot better No more edema and no more signs and/or symptoms of fluid overload IV Lasix on hold in light of elevated crea crea increased from 1.9 to 2.3 after 1 dose of IV Lasix Lasix held crea improved to 1.[address] Naranjo consulted recommend Lasix 20mg po daily repeat Basic Metabolic Profile on Friday08/07/18 monitor renal function closely while on Lasix (3) CKD (chronic kidney disease), stage IV: management of Lasix as noted above Lisinopril discontinued Kil[employer] Dr. Naranjo consulted, ff up with him in 2-3 weeks (4) Recurrent UTI: Urine culture: (+) E coli received Ceftriaxone IV x 2 days, Cefuroxome 250mg x 1 dose ordered to complete 3 day antibiotic course Premarin 2/x day also started advised to drink Cranberry Juice (5) HTN (hypertension): BP on the lower side Metoprolol decreased to once a day monitor d/c home with home health services ff up with PCP 08/07/18 ff up with Nephro in 2-3 weeks Total Time Total Time Spent Total Time Spent (In Minutes): 40 mins Discharge Plan Discharge Items Patient Disposition: Home - Home Health Services Reason For Visit: SOB Discharge Diagnosis: ACUTE DIASTOLIC CONGESTIVE HEART FAILURE EXACERBATION Discharge Goals: Decrease discomfort, Diagnostic testing and Therapeutic intervention Activity: As commented below Activity Comment: NO HEAVY EXERTION Lifting: Wait until after follow-up appointment Exercise/Sports: Wait until after follow-up appointment Driving/Machine Use Comment: NO DRIVING Non-emergency contact: Primary Care Provider Call non-emergency contact if: you have any medication questions, your symptoms worsen, your pain is not controlled, your pain is worsening, your pain is unusua l for you, your pain is concerning for you and you have a fever Follow-up/Referrals: Samantha Hernandez DO [Primary Care Provider] - Diet: Heart Healthy Fluids: 2000ml (8 cups) Diet Comment: SLIPPERY DIET Addtl Provider Instructions: FOLLOW UP WITH PRIMARY CARE PHYSICIAN DR. FREEMAN ([facility]) ON TUESDAY AUGUST 07, 2018 AT 12:45PM. (DR. HERNANDEZ IS NOT AVAILABLE THIS FRIDAY). FOLLOW UP WITH KIDNEY SPECIALIST DR. NARANJO IN 2-3 WEEKS. CALL PRIMARY CARE PHYSICIAN OR RETURN TO ER IMMEDIATELY IF WITH RECURRENCE/WORSENING OF SYMPTOMS. TAKE A PROBIOTIC DAILY AND INCLUDE YOGURT IN YOUR DAILY DIET WHILE TAKING ANTIBIOTICS AND AT LEAST 1 WEEK AFTER COMPLETING ANTIBIOTIC COURSE. DRINK CRANBERRY JUICE DAILY. Prescriptions: New metoprolol succinate 25 mg Tablet Extended Release 24 Hr 25 mg PO QAM 30 Days Qty: 30 RF: 2 prednisone 10 mg tablet 10 mg PO Q OTHER DAY 6 Days Qty: 3 RF: 0 furosemide 20 mg tablet 20 mg PO DAILY Qty: 30 RF: 2 Premarin 0.625 mg/gram Cream 0.5 mg vaginal 2XWK 30 Days Qty: 24 RF: 0 Continued atorvastatin 20 mg tablet 20 mg PO DAILY RF: 0 omeprazole 40 mg capsule,delayed release(DR/EC) 40 mg PO DAILY RF: 0 gabapentin 300 mg capsule 300 mg PO HS RF: 0 gabapentin 100 mg capsule 100 mg PO BID RF: 0 duloxetine 60 mg capsule,delayed release(DR/EC) 60 mg PO HS RF: 0 Dulera 100-5 mcg/actuation HFA aerosol inhaler 2 puff inhalation BID RF: 0 Discontinued lisinopril 5 mg tablet 5 mg PO DAILY RF: 0 metoprolol tartrate 25 mg tablet 25 mg PO BID RF: 0 Stand-Alone Forms: [facility] Discharge Orders: Discharge Order (Routine); Ordered 08/04/18 Ordered By: Tan Love Admission Data Admit Date/Time: 07/31/18 20:11 Attending Provider: Tan Love Admit Provider: Isiah Salcedo Primary Care Provider: Samantha Hernandez Other Providers: Isiah Salcedo ; Cehnte Cohen ; Cruz Gibbs ; Minh Hamlin ; Dariusz Cross ; Kevyn Martinez ; Alec Vazquez ; Joanne Molina ; Latrice Ledesma ; Lida Hadley ; Christoph Tracey ; Jose Valdovinos I ; Valorie Coughlin ; Marci Fregoso ; Ed Naranjo ; Nasim Fox ; Home,Nursing Agency Service: Telemetry Other Interventions: Discharge Summary Assessment (RN) Last Done: 08/04/18 10:36 DC Date/Time DO NOT enter until pt leaves facility: 08/04/18 11:49
[2018-08-05] MEDS ORDERED: PREMARIN VAG CRM 14 APPLN/30 GM TUBE PV SCH (09:00)
== END 2018-08-04 11:49 | disposition home health service (06) | DRG 291 ==
LOC: ED 16:06 → 2E 20:11 → SUATTDRO 20:11 → 2E 20:44

== ENCOUNTER 2018-09-26 15:02 | Inpatient (IN) ==
--- OUTSIDE RECORDS SUMMARY | 2018-09-26 15:05 | External Medical Summary | Continuity of Care Document ---
:1935 Author Name Dixie Hunt Address Unavailable Unavailable , Care Team Providers Name Role Phone Non[facility]PG M.D. Unavailable [email or web address] [email or web address], UNKNOWN Unavailable Unavailable Problems Active medical history not documented Allergies and Adverse Reactions Allergy history not documented Medications Medications not documented Procedures Procedures not documented Immunizations Immunizations not documented Plan of Treatment Planned Observations Planned Goals not documented Results No Known Results Results not documented
[2018-09-26 15:38] LABS: Basophils # (auto) 0.06 K/uL (0-0.2); Basophils % (auto) 0.4 %; Eosinophils # (auto) 0.04 K/uL (0-0.5); Eosinophils % (auto) 0.3 %; Hematocrit (blood only) 34.8 % (37-47); Hemoglobin 11.8 g/dL (12.0-16.0); Immature Granulocytes # (auto) 0.15 K/uL (0.00-0.02); Lymphocytes % (auto) 14.3 %; Mean Corpuscular Hgb Conc 33.9 g/dL (32-36); Mean Corpuscular Volume 91.8 fL (80-100); Mean Platelet Volume 9.8 fL (7.4-10.4); Monocytes # (auto) 1.83 K/uL (0.11-0.59); Monocytes % (auto) 12.5 %; Neutrophils # (auto) 10.47 K/uL (1.4-6.5); Neutrophils % (auto) 71.5 %; Nucleated RBC # (auto) 0.02 K/uL (0-0); Nucleated RBC % (auto) 0.2 %; Platelet Count 339 K/uL (130-400); RDW Coefficient of Variation 13.2 % (11.5-14.5); RDW Standard Deviation 44.2 fL (36.4-46.3); Red Blood Count 3.79 M/uL (4.2-5.4); White Blood Count 14.65 K/uL (4.8-10.8)
[2018-09-26 15:39] LABS: Base Excess VBG 0.6 mEq/L; Oxygen Saturation VBG 90.4 %; pH VBG 7.44 (7.36-7.41)
--- NOTE | 2018-09-26 15:47 | XRay Report ---
XR chest 1V portable CLINICAL HISTORY: sob COMPARISON STUDY: 07/31/2018 FINDINGS: The cardiac and mediastinal contours remain stable. There are subtle right upper lung zone airspace opacities. A focal pneumonitis is suspected. Clinical and radiographic follow-up is recommen ded. There is generalized elevation of the interstitium similar to the prior study, finding suggestin g mild pulmonary vascular congestion/fluid overload. There is a suspected hiatal hernia. There are deutsch rgical clips in the right axillary region.[ IMPRESSION: 1. Radiographic evidence of mild pulmonary vascular congestion/fluid overload 2. Subtle right upper lung zone airspace opacity suspicious for a focal pneumonitis. Clinical and rad iographic follow-up is recommended. Electronically signed by: Fidel Bermeo M.D. 09/26/2018 3:46 PM
[2018-09-26] MEDS ORDERED: VANCOMYCIN CONSULT ACTIVE PRN (15:49)
[2018-09-26] MEDS ORDERED: VANCOMYCIN HCL 1,000 MG/270 ML BAG IV STA (15:49)
[2018-09-26] MEDS ORDERED: CEFEPIME 2,000 MG in SYRINGE 0 ML IV STA (15:51)
[2018-09-26 15:58] LABS: Alanine Aminotransferase 17 U/L (12-78); Albumin Level 2.8 gm/dl (3.4-5.0); Aspartate Aminotransferase 18 U/L (15-37); BUN Creatinine Ratio 13.3 (10-20); Bilirubin Direct 0.3 mg/dl (0-0.2); Blood Urea Nitrogen 30 mg/dl (7-18); Calcium 9.2 mg/dl (8.5-10.1); Carbon Dioxide 26 mmol/L (21-32); Chloride 103 mmol/L (98-107); Est GFR (African American) 22.8; Est GFR (Non-African American) 19.7; Glucose 164 mg/dl (70-99); Magnesium 1.7 mg/dl (1.8-2.4); Potassium 3.5 mmol/L (3.5-5.1); Sodium 138 mmol/L (136-145)
[2018-09-26 16:07] LABS: Alkaline Phosphatase 91 U/L (45-117); Bilirubin,Total 0.5 mg/dl (0.2-1); NT Pro B Type Natriuretic Pept 2240 pg/ml (0-1800); Total Protein 7.3 gm/dl (6.4-8.2); Troponin I 0.022 ng/ml (0-0.045)
--- NOTE | 2018-09-26 16:32 | History & Physical Report ---
Date of Service September 26, 2018 Assessment & Plan (1) Acute respiratory failure with hypoxia: (2) HCAP (healthcare-associated pneumonia): (3) COPD (chronic obstructive pulmonary disease): This is an 83yo F with a PMH of COPD, HTN, CKD IV, anemia, carotid stenosis s/p R endarterectomy and other medical problems listed below who presents with progressively worsening cough and SOB x 1 week and was found to have pneumonia and acute respiratory failure with hypoxia. -Initially hypoxic at 89% on room air, now 97% on 2 L nasal cannula, non-toxic appearance -Leukocytosis of 14.65k. CXR with mild pulmonary vascular congestion/fluid overload and subtle right upper lung zone airspace opacity suspicious for a focal pneumonitis -Given cefepime and vanco in the ED. Will continue antibiotic coverage with Rocephin and Azithromycin. Follow blood cultures -Considered giving IV Lasix but has developed worsening kidney function in the past after administration. Will continue oral Lasix and limit sodium/fluid intake for now -No evidence of DVT on bilateral lower extremity dopplers -Duonebs QIDR, home inhalers, supplemental O2 as needed -Aspiration precautions -Likely to require 2 step near discharge (4) CKD (chronic kidney disease), stage IV: Cr slightly elevated at 2.2 (baseline ~ 1.9) -Monitor closely, avoid nephrotoxic agents when able -Daily BMP (5) HTN (hypertension): Normotensive -Continue Toprol, Lasix (6) Dyslipidemia: Continue statin (7) Carotid stenosis: S/p R endarterectomy in the past -Continue aspirin, statin DVT Ppx: SQ heparin Code status: FULL PCP: Cristiana Dispo: Admitted to [facility]. Discharge planning, PT/OT ordered. Patient seen in collaboration with Dr. Vargas. Please see addendum. History of Present Illness Chief Complaint: cough, SOB Primary Care Provider: Samantha Zendejas DO This is an 83yo F with a PMH of COPD, HTN, CKD IV, anemia, carotid stenosis s/p R endarterectomy and other medical problems listed below who presents with progressively worsening cough and SOB x 1 week. Went on a 5 hr car trip to [facility] last week and developed a cough, congestion and SOB. Also endorses subjective fever and chills. Has been experiencing worsening generalized weakness over the past week. Normally ambulates with cane or walker but has been requiring more help lately. Was seen by Farzana at home nurse yesterday for URI/sinus symptoms and was started on amoxicillin (has received 1 dose). Was having trouble ambulating to restroom and getting out of bed today, which is not normal for her and was brought in for further evaluation. Of note, also having more difficulty chewing food lately has been coughing more during meals. Patient found to be hemodynamically stable and afebrile. Initially hypoxic at 89% on room air but now 97% on 2 L nasal cannula. Does not require home O2. Leukocytosis of 14.65k. CXR with radiographic evidence of mild pulmonary vascular congestion/fluid overload and subtle right upper lung zone airspace opacity suspicious for a focal pneumonitis. Bilateral lower extremity dopplers without evidence of DVT. Denies lightheadedness, headache, chest pain, palpitations, wheezing, nausea, vomiting, abdominal pain, dysuria, diarrhea or constipation. Slight lower extremity swelling. Allergies Allergy/AdvReac Type Severity Reaction Status Date / Time oxycodone Allergy Unknown Verified 07/31/18 17:34 Sulfa (Sulfonamide AdvReac Intermediate KIDNEY Verified 07/31/18 17:34 Antibiotics) PROBLEMS codeine AdvReac Unknown NAUSEA Verified 07/31/18 17:34 TOLERATES TYL#3 Home Medications Home Medications Medication Instructions Recorded Confirmed Type Dulera 2 puff INHALATION BID 07/31/18 09/26/18 History atorvastatin 20 mg PO HS 07/31/18 09/26/18 History duloxetine 60 mg PO HS 07/31/18 09/26/18 History gabapentin 100 mg PO BID 07/31/18 09/26/18 History gabapentin 300 mg PO HS 07/31/18 09/26/18 History omeprazole 40 mg PO DAILY 07/31/18 09/26/18 History furosemide 20 mg PO DAILY #30 tab 08/04/18 09/26/18 Rx metoprolol succinate 25 mg PO QAM 30 Days #30 tab 08/04/18 09/26/18 Rx albuterol sulfate 2 puff INHALATION QID PRN 09/26/18 09/26/18 History amoxicillin 500 mg PO BID 09/26/18 09/26/18 History ascorbic acid (vitamin C) [Vitamin 100 mg PO DAILY 09/26/18 09/26/18 History C] aspirin 81 mg PO DAILY 09/26/18 09/26/18 History cholecalciferol (vitamin D3) 1,000 unit PO DAILY 09/26/18 09/26/18 History [Vitamin D3] conjugated estrogens [Premarin] 1 applic VAGINAL .FRIDAY & Friday09/26/18 09/26/18 History Past Med/Surg History Medical History DVT (deep venous thrombosis) (Resolved) GERD (gastroesophageal reflux disease) (Chronic) CKD (chronic kidney disease), stage IV (Chronic) Lumbago (Chronic) History of DVT (deep vein thrombosis) (Chronic) HTN (hypertension) (Chronic) Dyslipidemia (Chronic) Breast cancer (Chronic) Osteoporosis (Chronic) Surgical History H/O mastectomy (Chronic) H/O colonoscopy (Chronic) S/P tonsillectomy and adenoidectomy (Chronic) History of total hip replacement (Chronic) S/P total hysterectomy (Chronic) H/O bladder repair surgery (Chronic) History of right-sided carotid endarterectomy (Chronic) H/O right knee surgery (Chronic) Family History Mother Colonic polyp Social History Preferred Language: Lao Communication Ability: Effective Math And Science Division Chair Required: No Beliefs That Will Affect Care: Jew Jew Beliefs: Religion Current Living Situation: Family and Other Current Living Situation Comment: Lives with ex- and family Feels Safe at Home: Yes Safety Concerns: Feels Safe At This Time Smoking Status: Never smoker 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 Physical Exam Physical Exam: General Appearance: WD/WN, no apparent distress but appears acutely ill. Saturating at 97% on 2L NC O2 Head: normocephalic, atraumatic Eyes: normal inspection, PERRL, EOMI ENT: hearing grossly normal, pharynx normal (moist mucous membranes) Neck: supple, no JVD, no adenopathy Respiratory/Chest: decreased air movement bilaterally but lungs clear to auscultation. No wheezes, rales or rhonci. No respiratory distress or accessory muscle use Cardiovascular: regular rate, rhythm, no murmur, normal peripheral pulses, trace BLE edema Abdomen/GI: normal bowel sounds, soft, non-tender to palpation Extremities/Musculoskelatal: normal inspection, no calf tenderness, normal capillary refill, no pedal edema Neurologic/Psych: alert, normal mood/affect, oriented x 3 Skin: normal color, warm/dry Results & Data Vital Signs (Past 12 Hours) Vital Signs Temp Pulse Pulse Resp BP BP Pulse Ox 09/26/18 15:35 85 24 107/73 97 09/26/18 15:33 84 24 89 L 09/26/18 15:03 36.7 C 92 H 22 132/66 91 Laboratory Results Short CBC 09/26/18 Range/Units 15:25 WBC 14.65 H (4.8-10.8) K/uL Hgb 11.8 L (12.0-16.0) g/dL Hct 34.8 L (37-47) % Plt Count 339 (130-400) K/uL BMP 09/26/18 15:25 Sodium 138 Potassium 3.5 Chloride 103 Carbon Dioxide 26 BUN 30 H Creatinine 2.21 H Glucose 164 H Calcium 9.2 Cardiac Enzymes 09/26/18 Range/Units 15:25 Troponin I 0.022 (0-0.045) ng/ml Liver Function 09/26/18 Range/Units 15:25 Total Bilirubin 0.5 (0.2-1) mg/dl Direct Bilirubin 0.3 H (0-0.2) mg/dl AST 18 (15-37) U/L ALT 17 (12-78) U/L Alkaline Phosphatase 91 (45-117) U/L Albumin 2.8 L (3.4-5.0) gm/dl Diagnostic Findings CXR: IMPRESSION: 1. Radiographic evidence of mild pulmonary vascular congestion/fluid overload 2. Subtle right upper lung zone airspace opacity suspicious for a focal pneumonitis. Clinical and radiographic follow-up is recommended. Venous doppler: IMPRESSION: No evidence of lower extremity DVT. ECG Rhythm: sinus rhythm Findings: + PVC and + RBBB Additional Comments: Possible Inferior infarct , age undetermined Supervising Physician Co-Signing Physician Notes I saw this patient without the physician television production assistant, I did my own history, physical, review of systems, and physical exam. I reviewed the medications with the patient and the physician television production assistant and reviewed the medications. I took a detailed family and social history as well. I formulated the assessment and plan personally with the physician television production assistant and the PA student and went over it with the patient. She will be admitted Inpatient and placed on Rocephin, ZMax, Nebs and monitor daily labs. ROS-No Headache, No Visual Changes, No Nausea, No Vomiting, No Fever, No Chills, No Neck Pain or Stiffness, No Chest Pain, No Palpitations, +SOB, +SIMPSON, +Cough, +Sputum, +Wheezing, No Abdominal Pain, No Diarrhea, No Hematemesis, No Hemoptysis, No Unexpected Weight Loss, No Flank pain, No Melena, No Hematochezia, No Frequency, No Urgency, No Burning, No Hematuria, No Rashes, No Diaphoresis. Appetite is OK, +Gen Weakness. Physical Exam Gen-AAO x 3, NAD, Afebrile, Obese Head-NCAT, EOMI, PERRLA, Anicteric Sclera, No Posterior Pharyngeal Erythema Neck-Supple, No JVD, No Thyromegaly, No Masses, No LAD, No Bruits Lungs-+ L Basilar Rales, No Rhonchi, No Wheezing, No Crepitus Chest-No S4, +S1, +S2, No S3, No Murmurs, No Rubs, No Gallops, No Ectopy Abdomen-Soft, Obese, Bowel Sounds Present, Non Tender, Non Distended, No Hepatomegaly, No Splenomegaly, No Palpable Masses, No Rebound, No Rigidity, No Guarding Musculoskeletal-Full Range of Motion Bilaterally, No CVAT Extremities-No Cyanosis, No Clubbing, No Edema Nuero-Cranial Nerves II-XII grossly intact, Motor WNL, DTRs WNL, Strength WNL, Non Focal Psych-Normal Mood (1) COPD (chronic obstructive pulmonary disease) COPD type: COPD with acute exacerbation Qualified Code(s): J44.1 - Chronic obstructive pulmonary disease with (acute) exacerbation (2) HTN (hypertension) Hypertension type: essential hypertension Qualified Code(s): I10 - Essential (primary) hypertension
--- NOTE | 2018-09-26 16:45 | Emergency Department Note ---
Entered by Aminta Lazaro acting as a scribe for Nishant Dong History of Present Illness General Chief complaint: Shortness of Breath/Dyspnea Stated complaint: SOB Time Seen by Provider: 09/26/18 15:08 Source: patient History of Present Illness Provider complaint: shortness of breath Onset (ago): day(s) (past several days) Location: chest Radiation: non-radiation Relieved By: + none Associated symptoms: + cough and + other (+fatigue, +weakness); no syncope The patient is a 83 year old female who presents to the Emergency Room with complaints of shortness of breath. The patient states that she has been having shortness of breath for the past several days. She states that her oxygen level has been as low as 90 yesterday per her home health care nurse. She reports that she has been coughing, experiencing fatigue with exertion, and weakness. Cough is productive, no hemoptysis. The patient denies any fall, head injury, or loss of consciousness. The patient reports that her PCP prescribed her antibiotics, but she has only had one dosage so far. The patient�s daughter reports that the patient has a home nurse who stated that the patient�s oxygen has been low lately. The daughter reports that the patient does not wear oxygen at home. The patient notes that she is going to be on dialysis soon. Home Medications Home Medications Medication Instructions Recorded Confirmed Type Dulera 2 puff INHALATION BID 07/31/18 09/26/18 History atorvastatin 20 mg PO HS 07/31/18 09/26/18 History duloxetine 60 mg PO HS 07/31/18 09/26/18 History gabapentin 100 mg PO BID 07/31/18 09/26/18 History gabapentin 300 mg PO HS 07/31/18 09/26/18 History omeprazole 40 mg PO DAILY 07/31/18 09/26/18 History furosemide 20 mg PO DAILY #30 tab 08/04/18 09/26/18 Rx metoprolol succinate 25 mg PO QAM 30 Days #30 tab 08/04/18 09/26/18 Rx albuterol sulfate 2 puff INHALATION QID PRN 09/26/18 09/26/18 History amoxicillin 500 mg PO BID 09/26/18 09/26/18 History ascorbic acid (vitamin C) [Vitamin 100 mg PO DAILY 09/26/18 09/26/18 History C] aspirin 81 mg PO DAILY 09/26/18 09/26/18 History cholecalciferol (vitamin D3) 1,000 unit PO DAILY 09/26/18 09/26/18 History [Vitamin D3] conjugated estrogens [Premarin] 1 applic VAGINAL .FRIDAY & Friday09/26/18 09/26/18 History Allergies Allergy/AdvReac Type Severity Reaction Status Date / Time oxycodone Allergy Unknown Verified 07/31/18 17:34 Sulfa (Sulfonamide AdvReac Intermediate KIDNEY Verified 07/31/18 17:34 Antibiotics) PROBLEMS codeine AdvReac Unknown NAUSEA Verified 07/31/18 17:34 TOLERATES TYL#3 Past Med/Surg History Medical History Chronic renal failure, stage 4 (severe) DVT (deep venous thrombosis) GERD (gastroesophageal reflux disease) (Chronic) CKD (chronic kidney disease), stage IV (Chronic) Lumbago (Chronic) History of DVT (deep vein thrombosis) (Chronic) HTN (hypertension) (Chronic) Dyslipidemia (Chronic) Breast cancer (Chronic) Osteoporosis (Chronic) GI bleed Surgical History H/O mastectomy History of hip surgery H/O colonoscopy (Chronic) S/P mastectomy (Chronic) S/P tonsillectomy and adenoidectomy (Chronic) History of total hip replacement (Chronic) S/P total hysterectomy (Chronic) H/O bladder repair surgery (Chronic) History of right-sided carotid endarterectomy (Chronic) H/O right knee surgery (Chronic) Family History Mother Colonic polyp Social History Preferred Language: Indonesian Communication Ability: Effective Beliefs That Will Affect Care: Temple Current Living Situation Comment: Lives with Ex- Feels Safe at Home: Yes Smoking Status: Never smoker Second Hand Exposure: Yes Hx Alcohol Use: No Hx Substance Use: No Review of Systems See HPI for pertinent positives & negatives. and A total of 10 systems reviewed and were otherwise negative Physical Exam Vital Signs Vital Signs - 24 hr 09/26/18 15:03 09/26/18 15:33 09/26/18 15:34 Temperature 36.7 C Temperature Source Oral Sepsis Recent Fever Within 48 Hours Yes Sepsis New/Unexplained Change in Mental Status No Sepsis Action Taken by Nursing No Action Required Pulse Rate 92 H 84 Pulse Rate [Right Finger] Pulse Rhythm Regular Pulse Rhythm [Right Finger] Pulse Strength [Right Finger] Respiratory Rate 22 24 Respiratory Effort / Characteristics Non-Labored Spontaneous Respiratory Depth Normal Respiratory Pattern Blood Pressure 132/66 Blood Pressure [Left Arm] Blood Pressure Mean 88 Blood Pressure Mean [Left Arm] Blood Pressure Position Sitting Blood Pressure Position [Left Arm] Pulse Oximetry 91 89 L Oxygen Delivery Method Room Air Room Air Nasal Cannula Oxygen Flow Rate 2 09/26/18 15:35 09/26/18 16:32 Temperature Temperature Source Sepsis Recent Fever Within 48 Hours Sepsis New/Unexplained Change in Mental Status Sepsis Action Taken by Nursing Pulse Rate Pulse Rate [Right Finger] 85 92 H Pulse Rhythm Pulse Rhythm [Right Finger] Regular Pulse Strength [Right Finger] Normal Respiratory Rate 24 20 Respiratory Effort / Characteristics Non-Labored Spontaneous Respiratory Depth Normal Respiratory Pattern Regular Blood Pressure Blood Pressure [Left Arm] 107/73 136/84 Blood Pressure Mean Blood Pressure Mean [Left Arm] 84 101 Blood Pressure Position Blood Pressure Position [Left Arm] Lying Pulse Oximetry 97 97 Oxygen Delivery Method Nasal Cannula Nasal Cannula Oxygen Flow Rate 2 2 GENERAL: She is oriented to person, place, and time. She appears well-developed and well-nourished. She does not appear distressed. HENT: Exam performed. \[id number] Head: Normocephalic and atraumatic. \u00b7 Right Ear: External ear normal. No mastoid tenderness. \[id number] Left Ear: External ear normal. No mastoid tenderness. \[id number] Mouth/Throat: The oropharynx is clear and moist. No trismus in the jaw. No dental abscesses or uvula swelling. No oropharyngeal exudate or tonsillar abscesses. EYES: Conjunctivae and EOM are normal. Pupils are equal, round, and reactive to light. Right eye exhibits no discharge. Left eye exhibits no discharge. No scleral icterus. NECK: Normal range of motion. Neck supple. No JVD present. No spinous process tenderness present. No carotid bruit present. No rigidity. No tracheal deviation and normal range of motion present. No Brudzinski's sign and no Kernig's sign noted. CV: Normal rate, regular rhythm, normal heart sounds and intact distal pulses. There is no peripheral edema. Palpable radial pulses bue. PULM/CHEST: Respiratory rales and rhonchi at the bases. Effort normal and breath sounds normal. No respiratory distress. No stridor. Chest Wall: She exhibits no tenderness. ABD: The abdomen is soft. Bowel sounds are normal. She has no distension. No mass is present. There is no tenderness. There is no rebound, no guarding, no Cash's sign and no tenderness at McBurney's point. Rovsig negative MUSC/SKEL: Normal range of motion. There is no peripheral edema, tenderness or deformity. LYMPH: No cervical adenopathy. NEURO: She is alert and oriented to person, place, and time. She has normal strength. No cranial nerve deficit or sensory deficit. Coordination and gait normal. GCS eye subscore is 4. GCS verbal subscore is 5. GCS motor subscore is 6. cerbellar tests wnl. SKIN: Skin is warm and dry. She is not diaphoretic. PSYCH: She has a normal mood and affect. Her behavior is normal. Judgment and thought content normal. Course 1508: The patient was evaluated in room B3B, and a complete history and physical examination were performed. After the EMR reviewed, the patient has a history of laval hypertension, heart failure, COPD, stroke, CKD stage 4, hypertension, and breast cancer. The patient's creatine baseline is 1.9. She was admitted on August 02 for COPD exacerbation and peripheral edema. The patient was given Lasix in the EMR at this time that worsened her creatine on the last visit. She had an echo done on August 01 that showed an ejection fracture of 65%, grade 2 diastolic function, and pulmonary hypertension. The patient was found 88%-89% on room air and she was placed on 2 liters of oxygen through the nasal cannula. 1610: The patient�s vital signs are stable. The patient is on 2 liters nasal cannula. The patient�s breathing is much better. He labs show leukocytosis of 14.65. Her lactic acid is within normal limits. Her venous blood gas was within normal limits. Her chest X-Ray shows right upper lobs pneumonitis and pulmonary vascular congestion. The patient will be treated for HCAP with cefepime and vancomycin given the clinical presence of hypoxia, lung exam, and leukocytosis. I reviewed the patient's case with Doug Royal who states to admit to Dr. Rodrigo Ruiz. He will evaluate the patient for further manag ement. Reevaluation(s) Reevaluation #1: [facility] Time: 15:50 Medical Decision Making Medical Records Attestation: I reviewed the patient's medical records. Home Medications Current Medication List: was personally reviewed by me Laboratory Data Attestation: I reviewed the patient's lab results. Result diagrams: 09/26/18 15:25 09/26/18 15:25 Lab Results 09/26/18 09/26/18 09/26/18 Range/Units 15:24 15:25 15:25 WBC 14.65 H (4.8-10.8) K/uL RBC 3.79 L (4.2-5.4) M/uL Hgb 11.8 L (12.0-16.0) g/dL Hct 34.8 L (37-47) % MCV 91.8 (80-100) fL MCH 31.1 (25-34) pg MCHC 33.9 (32-36) g/dL RDW Std Deviation 44.2 (36.4-46.3) fL RDW Coeff of Chanel 13.2 (11.5-14.5) % Plt Count 339 (130-400) K/uL MPV 9.8 (7.4-10.4) fL Immature Gran % (Auto) 1.0 % Neut % (Auto) 71.5 % Lymph % (Auto) 14.3 % [place] % (Auto) 12.5 % Eos % (Auto) 0.3 % Baso % (Auto) 0.4 % Immature Gran # (Auto) 0.15 H (0.00-0.02) K/uL Neut # (Auto) 10.47 H (1.4-6.5) K/uL Lymph # (Auto) 2.10 (1.2-3.4) K/uL [place] # (Auto) 1.83 H (0.11-0.59) K/uL Eos # (Auto) 0.04 (0-0.5) K/uL Baso # (Auto) 0.06 (0-0.2) K/uL Absolute Nucleated RBC 0.02 H (0-0) K/uL Nucleated RBC % (auto) 0.2 % VBG pH 7.44 H (7.36-7.41) VBG pCO2 37 L (38-50) mmHg VBG pO2 60 mmHg VBG HCO3 25 mmol/L VBG O2 Saturation 90.4 % VBG Base Excess 0.6 mEq/L Barometric Pressure 726.1 mm/Hg Sodium 138 (136-145) mmol/L Potassium 3.5 (3.5-5.1) mmol/L Chloride 103 (98-107) mmol/L Carbon Dioxide 26 (21-32) mmol/L Anion Gap 10.0 (3-11) BUN 30 H (7-18) mg/dl Creatinine 2.21 H (0.6-1.2) mg/dl Est Cr Clr Drug Dosing Not Reportable Est GFR ( Amer) 22.8 Est GFR (Non-Af Amer) 19.7 BUN/Creatinine Ratio 13.3 (10-20) Glucose 164 H (70-99) mg/dl Lactate (0.4-2.0) mmol/L Calcium 9.2 (8.5-10.1) mg/dl Magnesium 1.7 L (1.8-2.4) mg/dl Total Bilirubin 0.5 (0.2-1) mg/dl Direct Bilirubin 0.3 H (0-0.2) mg/dl AST 18 (15-37) U/L ALT 17 (12-78) U/L Alkaline Phosphatase 91 (45-117) U/L Troponin I 0.022 (0-0.045) ng/ml NT-Pro-B Natriuret Pep 2240 H (0-1800) pg/ml Total Protein 7.3 (6.4-8.2) gm/dl Albumin 2.8 L (3.4-5.0) gm/dl 09/26/18 Range/Units 15:25 WBC (4.8-10.8) K/uL RBC (4.2-5.4) M/uL Hgb (12.0-16.0) g/dL Hct (37-47) % MCV (80-100) fL MCH (25-34) pg MCHC (32-36) g/dL RDW Std Deviation (36.4-46.3) fL RDW Coeff of Chanel (11.5-14.5) % Plt Count (130-400) K/uL MPV (7.4-10.4) fL Immature Gran % (Auto) % Neut % (Auto) % Lymph % (Auto) % [place] % (Auto) % Eos % (Auto) % Baso % (Auto) % Immature Gran # (Auto) (0.00-0.02) K/uL Neut # (Auto) (1.4-6.5) K/uL Lymph # (Auto) (1.2-3.4) K/uL [place] # (Auto) (0.11-0.59) K/uL Eos # (Auto) (0-0.5) K/uL Baso # (Auto) (0-0.2) K/uL Absolute Nucleated RBC (0-0) K/uL Nucleated RBC % (auto) % VBG pH (7.36-7.41) VBG pCO2 (38-50) mmHg VBG pO2 mmHg VBG HCO3 mmol/L VBG O2 Saturation % VBG Base Excess mEq/L Barometric Pressure mm/Hg Sodium (136-145) mmol/L Potassium (3.5-5.1) mmol/L Chloride (98-107) mmol/L Carbon Dioxide (21-32) mmol/L Anion Gap (3-11) BUN (7-18) mg/dl Creatinine (0.6-1.2) mg/dl Est Cr Clr Drug Dosing Est GFR ( Amer) Est GFR (Non-Af Amer) BUN/Creatinine Ratio (10-20) Glucose (70-99) mg/dl Lactate 1.5 (0.4-2.0) mmol/L Calcium (8.5-10.1) mg/dl Magnesium (1.8-2.4) mg/dl Total Bilirubin (0.2-1) mg/dl Direct Bilirubin (0-0.2) mg/dl AST (15-37) U/L ALT (12-78) U/L Alkaline Phosphatase (45-117) U/L Troponin I (0-0.045) ng/ml NT-Pro-B Natriuret Pep (0-1800) pg/ml Total Protein (6.4-8.2) gm/dl Albumin (3.4-5.0) gm/dl Imaging Data Radiologist's Impression: Radiology results as stated below per my review and the radiologist's interpretation: XR chest 1V portable CLINICAL HISTORY: sob COMPARISON STUDY: 07/31/2018 FINDINGS: The cardiac and mediastinal contours remain stable. There are subtle right upper lung zone airspace opacities. A focal pneumonitis is suspected. Clinical and radiographic follow-up is recommended. There is generalized elevation of the interstitium similar to the prior study, finding suggesting mild pulmonary vascular congestion/fluid overload. There is a suspected hiatal hernia. There are surgical clips in the right axillary region.[ IMPRESSION: 1. Radiographic evidence of mild pulmonary vascular congestion/fluid overload 2. Subtle right upper lung zone airspace opacity suspicious for a focal pneumonitis. Clinical and radiographic follow-up is recommended. Electronically signed by: Fidel Bermeo M.D. 09/26/2018 3:46 PM ECG Data Indication: SOB/dyspnea Rate (beats per minute): 94 Rhythm: sinus with SA Findings: no ST depression and no ST elevation Blood Pressure Blood Pressure Findings: Normal blood pressure MDM Narrative 1508: The patient was evaluated in room B3B, and a complete history and physical examination were performed. After the EMR reviewed, the patient has a history of laval hypertension, heart failure, COPD, stroke, CKD stage 4, hypertension, and breast cancer. The patient's creatine baseline is 1.9. She was admitted on August 02 for COPD exacerbation and peripheral edema. The patient was given Lasix in the EMR at this time that worsened her creatine on the last visit. She had an echo done on August 01 that showed an ejection fracture of 65%, grade 2 diastolic function, and pulmonary hypertension. The patient was found 88%-89% on room air and she was placed on 2 liters of oxygen through the nasal cannula. 1610: The patient�s vital signs are stable. The patient is on 2 liters nasal cannula. The patient�s breathing is much better. He labs show leukocytosis of 14.65. Her lactic acid is within normal limits. Her venous blood gas was within normal limits. Her chest X-Ray shows right upper lobs pneumonitis and pulmonary vascular congestion. The patient will be treated for HCAP with cefepime and vancomycin given the clinical presence of hypoxia, lung exam, and leukocytosis. I reviewed the patient's case with Doug Royal who states to admit to Dr. Rodrigo Abarca Hospitalist. He will evaluate the patient for further management. Impression & Plan Hypoxia, HCAP (healthcare-associated pneumonia) Discharge Plan Visit Data Chief Complaint: Shortness of Breath/Dyspnea Stated Complaint: SOB ED Provider: Nishant Dong Discharge Problem: Hypoxia, HCAP (healthcare-associated pneumonia) Patient Disposition: Being Evaluated by Hospitalist Forms Stand Alone Forms: My [facility] Prescriptions Prescriptions: No Action atorvastatin 20 mg tablet 20 mg PO HS RF: 0 omeprazole 40 mg capsule,delayed release(DR/EC) 40 mg PO DAILY RF: 0 gabapentin 300 mg capsule 300 mg PO HS RF: 0 gabapentin 100 mg capsule 100 mg PO BID RF: 0 duloxetine 60 mg capsule,delayed release(DR/EC) 60 mg PO HS RF: 0 Dulera 100-5 mcg/actuation HFA aerosol inhaler 2 puff inhalation BID RF: 0 metoprolol succinate 25 mg Tablet Extended Release 24 Hr 25 mg PO QAM 30 Days Qty: 30 RF: 2 furosemide 20 mg tablet 20 mg PO DAILY Qty: 30 RF: 2 amoxicillin 500 mg capsule 500 mg PO BID RF: 0 aspirin 81 mg Tablet,Delayed Release (Dr/Ec) 81 mg PO DAILY RF: 0 Vitamin C 100 mg Tablet 100 mg PO DAILY RF: 0 albuterol sulfate 90 mcg/actuation Hfa Aerosol Inhaler 2 puff INHALATION QID PRN (Reason: Shortness Of Breath Or Wheezing) RF: 0 cholecalciferol (vitamin D3) [Vitamin D3] 1,000 unit Tablet 1,000 unit PO DAILY RF: 0 Referrals Referrals: Samantha Zendejas DO [Primary Care Provider] - The scribe's documentation has been prepared under my direction and personally reviewed by me in its entirety. I confirm that the note above accurately reflects all work, treatment, procedures, and medical decision making performed by me.
[2018-09-26] MEDS ORDERED: POLYETHYLENE (MIRALAX) 17 GM PACK PO PRN (17:28)
[2018-09-26] MEDS ORDERED: ALBUTEROL HFA 8 GM INHALER INH PRN (17:28)
[2018-09-26] MEDS ORDERED: ONDANSETRON INJ 2 MG/ML 2 ML VIAL IV PRN (17:28)
[2018-09-26] MEDS ORDERED: PATIENT'S HEIGHT AND/OR WEIGHT NEEDED SCH (18:00)
--- NOTE | 2018-09-26 18:02 | Ultrasound Report ---
US venous doppler LE BI CLINICAL HISTORY: evaluate for DVT COMPARISON STUDY: March 2015 FINDINGS: Real-time and color flow Doppler imaging were performed. Flow was seen within the femoral, popliteal and calf veins with no intraluminal thrombus demonstrated. The saphenous vein is patent. IMPRESSION: No evidence of lower extremity DVT. Electronically signed by: Fidel Bermeo M.D. 09/26/2018 6:01 PM
[2018-09-26 18:49] LABS: Appearance Urine Cloudy (Clear); Bacteria Urine Automated Negative (Negative); Bilirubin Urine Negative (Negative); Blood Urine Trace (Negative); Color Urine Yellow; Epithelial Cell Urine Auto >30 /lpf (0-5); Glucose Urine UA Negative (Negative); Ketones Urine Negative (Negative); Leukocyte Esterase Urine 1+ (Negative); Nitrite Urine Positive (Negative); Protein Urine Negative (Negative); Urobilinogen Urine Negative (Negative)
[2018-09-26 18:57] LABS: RBC Urine Automated 0-4 /hpf (0-4)
[2018-09-26] MEDS: ALBUT/IPRATROP 3MG/0.5MG NEB 3 ML VIAL NEB SCH (19:05)
[2018-09-26] MEDS: DULOXETINE HCL 60 MG CAP PO SCH (19:54)
[2018-09-26] MEDS: AZITHROMYCIN 500 MG in DEXTROSE 5% 250 ML IV SCH (19:54)
[2018-09-26] MEDS: ATORVASTATIN 20 MG TAB PO SCH (19:55)
[2018-09-26] MEDS: GABAPENTIN 300 MG CAP PO SCH (19:55)
[2018-09-26] MEDS ORDERED: NON-FORMULARY MEDICATION (Mometasone-Formoterol [Dulera] 2 PUFFS) INH SCH (21:00)
[2018-09-26] MEDS: cefTRIAXone SODIUM 2,000 MG in DEXTROSE 5% 50 ML IV SCH (23:25)
[2018-09-26] MEDS: ACETAMINOPHEN 325 MG TAB PO PRN (23:25)
[2018-09-27 07:07] LABS: Hematocrit (blood only) 33.1 % (37-47); Mean Corpuscular Hgb Conc 33.2 g/dL (32-36); Mean Corpuscular Volume 92.7 fL (80-100); Mean Platelet Volume 9.5 fL (7.4-10.4); Platelet Count 329 K/uL (130-400); RDW Coefficient of Variation 13.4 % (11.5-14.5); RDW Standard Deviation 45.7 fL (36.4-46.3); Red Blood Count 3.57 M/uL (4.2-5.4); White Blood Count 12.01 K/uL (4.8-10.8)
[2018-09-27] MEDS: ALBUT/IPRATROP 3MG/0.5MG NEB 3 ML VIAL NEB SCH ×4 (07:34→19:55)
--- NOTE | 2018-09-27 07:42 | Hospitalist Progress Note ---
Date of Service September 27, 2018 Assessment & Plan (1) Acute respiratory failure with hypoxia: (2) HCAP (healthcare-associated pneumonia): (3) Leukocytosis: (4) COPD (chronic obstructive pulmonary disease): This is an 83yo F with a PMH of COPD, HTN, CKD IV, anemia, carotid stenosis s/p R endarterectomy and other medical problems listed below who presents with progressively worsening cough and SOB x 1 week and was found to have pneumonia and acute respiratory failure with hypoxia. -Initially hypoxic at 89% on room air, now 97% on 2 L nasal cannula, non-toxic appearance -Leukocytosis of 14.65k on admit and trending down. CXR with mild pulmonary vascular congestion/fluid overload and subtle right upper lung zone airspace opacity suspicious for a focal pneumonitis -Given cefepime and vanco in the ED. Will continue antibiotic coverage with Rocephin and Azithromycin. Follow blood cultures -Considered giving IV Lasix but has developed worsening kidney function in the past after administration. Will continue oral Lasix and limit sodium/fluid intake for now -No evidence of DVT on bilateral lower extremity dopplers -Duonebs QIDR, home inhalers, supplemental O2 as needed -Add Steroids -Aspiration precautions -2 step near discharge (5) CKD (chronic kidney disease), stage IV: Cr slightly elevated at 2.2 (baseline ~ 1.9) -Monitor closely, avoid nephrotoxic agents when able -Daily BMP (6) HTN (hypertension): Normotensive -Continue Toprol, Lasix (7) Dyslipidemia: Continue statin (8) Carotid stenosis: S/p R endarterectomy in the past -Continue aspirin, statin DVT Ppx: SQ heparin Code status: FULL PCP: Cristiana Dispo: Admitted to [facility]. Discharge planning, PT/OT ordered. ROS-No Headache, No Visual Changes, No Nausea, No Vomiting, No Fever, No Chills, No Neck Pain or Stiffness, No Chest Pain, No Palpitations, +SOB, +SIMPSON, +Cough, +Sputum, +Wheezing, No Abdominal Pain, No Diarrhea, No Hematemesis, No Hemoptysis, No Unexpected Weight Loss, No Flank pain, No Melena, No Hematochezia, No Frequency, No Urgency, No Burning, No Hematuria, No Rashes, No Diaphoresis. Appetite is OK, +Gen Weakness. Physical Exam Gen-AAO x 3, NAD, Afebrile, Obese Head-NCAT, EOMI, PERRLA, Anicteric Sclera, No Posterior Pharyngeal Erythema Neck-Supple, No JVD, No Thyromegaly, No Masses, No LAD, No Bruits Lungs-+ L Basilar Rales, No Rhonchi, No Wheezing, No Crepitus Chest-No S4, +S1, +S2, No S3, No Murmurs, No Rubs, No Gallops, No Ectopy Abdomen-Soft, Obese, Bowel Sounds Present, Non Tender, Non Distended, No Hepatomegaly, No Splenomegaly, No Palpable Masses, No Rebound, No Rigidity, No Guarding Musculoskeletal-Full Range of Motion Bilaterally, No CVAT Extremities-No Cyanosis, No Clubbing, No Edema Nuero-Cranial Nerves II-XII grossly intact, Motor WNL, DTRs WNL, Strength WNL, Non Focal Psych-Normal Mood Supervising Physician Co-Signing Physician Notes I saw this patient without the physician engineer third assistant, I did my own history, physical, review of systems, and physical exam. I reviewed the medications with the patient and the physician engineer third assistant and reviewed the medications. I took a detailed family and social history as well. I formulated the assessment and plan personally with the physician engineer third assistant and the PA student and went over it with the patient. She will be admitted Inpatient and placed on Rocephin, ZMax, Nebs and monitor daily labs. ROS-No Headache, No Visual Changes, No Nausea, No Vomiting, No Fever, No Chills, No Neck Pain or Stiffness, No Chest Pain, No Palpitations, +SOB, +SIMPSON, +Cough, +Sputum, +Wheezing, No Abdominal Pain, No Diarrhea, No Hematemesis, No Hemoptysis, No Unexpected Weight Loss, No Flank pain, No Melena, No Hematochezia, No Frequency, No Urgency, No Burning, No Hematuria, No Rashes, No Diaphoresis. Appetite is OK, +Gen Weakness. Physical Exam Gen-AAO x 3, NAD, Afebrile, Obese Head-NCAT, EOMI, PERRLA, Anicteric Sclera, No Posterior Pharyngeal Erythema Neck-Supple, No JVD, No Thyromegaly, No Masses, No LAD, No Bruits Lungs-+ L Basilar Rales, No Rhonchi, No Wheezing, No Crepitus Chest-No S4, +S1, +S2, No S3, No Murmurs, No Rubs, No Gallops, No Ectopy Abdomen-Soft, Obese, Bowel Sounds Present, Non Tender, Non Distended, No Hepatomegaly, No Splenomegaly, No Palpable Masses, No Rebound, No Rigidity, No Guarding Musculoskeletal-Full Range of Motion Bilaterally, No CVAT Extremities-No Cyanosis, No Clubbing, No Edema Nuero-Cranial Nerves II-XII grossly intact, Motor WNL, DTRs WNL, Strength WNL, Non Focal Psych-Normal Mood Results & Data Vital Signs (Past 12 Hours) Vital Signs Temp Pulse Pulse Resp BP Pulse Ox 09/27/18 07:36 37.1 C 88 16 113/63 94 09/27/18 07:34 93 H 18 09/27/18 04:00 36.9 C 85 18 130/77 94 09/26/18 23:16 38.2 C H 102 H 87 18 114/62 92 Current Diagnoses Hyperlipidemia, unspecified (09/26/18) Essential (primary) hypertension (09/26/18) Occlusion and stenosis of unspecified carotid artery (09/26/18) Pneumonia, unspecified organism (09/26/18) Chronic obstructive pulmonary disease with (acute) exacerbation (09/26/18) Acute respiratory failure with hypoxia (09/26/18) Chronic kidney disease, stage 4 (severe) (09/26/18) Allergies oxycodone Allergy (Unknown, Verified 07/31/18 17:34) Sulfa (Sulfonamide Antibiotics) Adverse Reaction (Intermediate, Verified 07/31/18 17:34) KIDNEY PROBLEMS codeine Adverse Reaction (Unknown, Verified 07/31/18 17:34) NAUSEA TOLERATES TYL#3 Height/Weight/Isolation Height 5 ft 2 in Weight 79.6 kg CBC 09/26/18 09/26/18 09/26/18 15:24 15:25 15:25 WBC 14.65 H RBC 3.79 L Hgb 11.8 L Hct 34.8 L MCV 91.8 MCH 31.1 MCHC 33.9 RDW Std Deviation 44.2 RDW Coeff of Chanel 13.2 Plt Count 339 MPV 9.8 Immature Gran % (Auto) 1.0 Neut % (Auto) 71.5 Lymph % (Auto) 14.3 Hanson % (Auto) 12.5 Eos % (Auto) 0.3 Baso % (Auto) 0.4 Immature Gran # (Auto) 0.15 H Neut # (Auto) 10.47 H Lymph # (Auto) 2.10 Hanson # (Auto) 1.83 H Eos # (Auto) 0.04 Baso # (Auto) 0.06 Absolute Nucleated RBC 0.02 H Nucleated RBC % (auto) 0.2 VBG pH 7.44 H VBG pCO2 37 L VBG pO2 60 VBG HCO3 25 VBG O2 Saturation 90.4 VBG Base Excess 0.6 Barometric Pressure 726.1 Sodium 138 Potassium 3.5 Chloride 103 Carbon Dioxide 26 Anion Gap 10.0 BUN 30 H Creatinine 2.21 H Est Cr Clr Drug Dosing Not Reportable Est GFR ( Amer) 22.8 Est GFR (Non-Af Amer) 19.7 BUN/Creatinine Ratio 13.3 Glucose 164 H Lactate Calcium 9.2 Magnesium 1.7 L Total Bilirubin 0.5 Direct Bilirubin 0.3 H AST 18 ALT 17 Alkaline Phosphatase 91 Troponin I 0.022 NT-Pro-B Natriuret Pep 2240 H Total Protein 7.3 Albumin 2.8 L Procalcitonin Urine Color Urine Appearance Urine pH Ur Specific [place] Urine Protein Urine Glucose (UA) Urine Ketones Urine Blood Urine Nitrite Urine Bilirubin Urine Urobilinogen Ur Leukocyte Esterase Urine WBC (Auto) Urine RBC (Auto) U Hyaline Cast (Auto) U Epithel Cells (Auto) Urine Bacteria (Auto) Nasal Screen MRSA (PCR) 09/26/18 09/26/18 09/26/18 15:25 15:29 18:35 WBC RBC Hgb Hct MCV MCH MCHC RDW Std Deviation RDW Coeff of Chanel Plt Count MPV Immature Gran % (Auto) Neut % (Auto) Lymph % (Auto) Hanson % (Auto) Eos % (Auto) Baso % (Auto) Immature Gran # (Auto) Neut # (Auto) Lymph # (Auto) Hanson # (Auto) Eos # (Auto) Baso # (Auto) Absolute Nucleated RBC Nucleated RBC % (auto) VBG pH VBG pCO2 VBG pO2 VBG HCO3 VBG O2 Saturation VBG Base Excess Barometric Pressure Sodium Potassium Chloride Carbon Dioxide Anion Gap BUN Creatinine Est Cr Clr Drug Dosing Est GFR ( Amer) Est GFR (Non-Af Amer) BUN/Creatinine Ratio Glucose Lactate 1.5 Calcium Magnesium Total Bilirubin Direct Bilirubin AST ALT Alkaline Phosphatase Troponin I NT-Pro-B Natriuret Pep Total Protein Albumin Procalcitonin 0.80 H Urine Color Yellow Urine Appearance Cloudy A Urine pH 5.0 Ur Specific [place] 1.020 Urine Protein Negative Urine Glucose (UA) Negative Urine Ketones Negative Urine Blood Trace H Urine Nitrite Positive A Urine Bilirubin Negative Urine Urobilinogen Negative Ur Leukocyte Esterase 1+ H Urine WBC (Auto) 5-10 H Urine RBC (Auto) 0-4 U Hyaline Cast (Auto) 5-10 H U Epithel Cells (Auto) >30 H Urine Bacteria (Auto) Negative Nasal Screen MRSA (PCR) 09/26/18 09/27/18 20:10 06:40 WBC 12.01 H RBC 3.57 L Hgb 11.0 L Hct 33.1 L MCV 92.7 MCH 30.8 MCHC 33.2 RDW Std Deviation 45.7 RDW Coeff of Chanel 13.4 Plt Count 329 MPV 9.5 Immature Gran % (Auto) Neut % (Auto) Lymph % (Auto) Hanson % (Auto) Eos % (Auto) Baso % (Auto) Immature Gran # (Auto) Neut # (Auto) Lymph # (Auto) Hanson # (Auto) Eos # (Auto) Baso # (Auto) Absolute Nucleated RBC Nucleated RBC % (auto) VBG pH VBG pCO2 VBG pO2 VBG HCO3 VBG O2 Saturation VBG Base Excess Barometric Pressure Sodium Potassium Chloride Carbon Dioxide Anion Gap BUN Creatinine Est Cr Clr Drug Dosing Est GFR ( Amer) Est GFR (Non-Af Amer) BUN/Creatinine Ratio Glucose Lactate Calcium Magnesium Total Bilirubin Direct Bilirubin AST ALT Alkaline Phosphatase Troponin I NT-Pro-B Natriuret Pep Total Protein Albumin Procalcitonin Urine Color Urine Appearance Urine pH Ur Specific [place] Urine Protein Urine Glucose (UA) Urine Ketones Urine Blood Urine Nitrite Urine Bilirubin Urine Urobilinogen Ur Leukocyte Esterase Urine WBC (Auto) Urine RBC (Auto) U Hyaline Cast (Auto) U Epithel Cells (Auto) Urine Bacteria (Auto) Nasal Screen MRSA (PCR) Negative Chemistry 09/26/18 15:25 Sodium 138 Potassium 3.5 Chloride 103 Carbon Dioxide 26 Anion Gap 10.0 BUN 30 H Creatinine 2.21 H Glucose 164 H Urinalysis 09/26/18 18:35 Urine Color Yellow Urine Appearance Cloudy A Urine pH 5.0 Ur Specific [place] 1.020 Urine Protein Negative Urine Glucose (UA) Negative Urine Ketones Negative Urine Blood Trace H Urine Nitrite Positive A Urine Bilirubin Negative Microbiology 09/26/18 16:20 Blood Aerobic Blood Culture - Pending 09/26/18 16:20 Blood Anaerobic Blood Culture - Pending 09/26/18 16:01 Blood Aerobic Blood Culture - Pending 09/26/18 16:01 Blood Anaerobic Blood Culture - Pending (1) COPD (chronic obstructive pulmonary disease) COPD type: COPD with acute exacerbation Qualified Code(s): J44.1 - Chronic obstructive pulmonary disease with (acute) exacerbation (2) HTN (hypertension) Hypertension type: essential hypertension Qualified Code(s): I10 - Essential (primary) hypertension
[2018-09-27 07:51] LABS: BUN Creatinine Ratio 14.2 (10-20); Calcium 8.6 mg/dl (8.5-10.1); Creatinine Clr Calc Pharmacy 21.4 ml/min; Est GFR (African American) 27.7; Est GFR (Non-African American) 23.9; Potassium 3.4 mmol/L (3.5-5.1)
[2018-09-27] MEDS: GABAPENTIN 100 MG CAP PO SCH ×2 (08:17→16:23)
[2018-09-27] MEDS: ASPIRIN 81 MG ECTAB PO SCH (08:18)
[2018-09-27] MEDS: FUROSEMIDE 20 MG TAB PO SCH (08:18)
[2018-09-27] MEDS: ASCORBIC ACID 500 MG TAB PO SCH (08:18)
[2018-09-27] MEDS: PANTOprazole 40 MG TAB PO SCH (08:18)
[2018-09-27] MEDS: CHOLECALCIFEROL 1,000 UNITS TAB PO SCH (08:20)
[2018-09-27] MEDS: METOPROLOL SUCC 25MG EXT REL TAB PO SCH (08:20)
[2018-09-27] MEDS: methylPREDNISolone 40 MG in SYRINGE 0 ML IV SCH ×4 (10:10→21:38)
[2018-09-27] MEDS: AZITHROMYCIN 500 MG in DEXTROSE 5% 250 ML IV SCH ×2 (21:01→21:38)
[2018-09-27] MEDS: ACETAMINOPHEN 325 MG TAB PO PRN (21:02)
[2018-09-27] MEDS: DULOXETINE HCL 60 MG CAP PO SCH (21:03)
[2018-09-27] MEDS: GABAPENTIN 300 MG CAP PO SCH (21:03)
[2018-09-27] MEDS: ATORVASTATIN 20 MG TAB PO SCH (21:03)
[2018-09-27] MEDS: cefTRIAXone SODIUM 2,000 MG in DEXTROSE 5% 50 ML IV SCH (23:47)
[2018-09-28] MEDS: methylPREDNISolone 40 MG in SYRINGE 0 ML IV SCH ×4 (04:15→21:04)
[2018-09-28] MEDS: ALBUT/IPRATROP 3MG/0.5MG NEB 3 ML VIAL NEB SCH ×4 (07:27→19:30)
--- NOTE | 2018-09-28 07:47 | Hospitalist Progress Note ---
Date of Service September 28, 2018 Assessment & Plan (1) Acute respiratory failure with hypoxia: (2) HCAP (healthcare-associated pneumonia): (3) Leukocytosis: (4) COPD (chronic obstructive pulmonary disease): This is an 83yo F with a PMH of COPD, HTN, CKD IV, anemia, carotid stenosis s/p R endarterectomy and other medical problems listed below who presents with progressively worsening cough and SOB x 1 week and was found to have pneumonia and acute respiratory failure with hypoxia. -Initially hypoxic at 89% on room air, now 97% on 2 L nasal cannula, non-toxic appearance -Leukocytosis of 14.65k on admit and trending down. CXR with mild pulmonary vascular congestion/fluid overload and subtle right upper lung zone airspace opacity suspicious for a focal pneumonitis -Given cefepime and vanco in the ED. Will continue antibiotic coverage with Rocephin and Azithromycin. Follow blood cultures -Considered giving IV Lasix but has developed worsening kidney function in the past after administration. Will continue oral Lasix and limit sodium/fluid intake for now -No evidence of DVT on bilateral lower extremity dopplers -Duonebs QIDR, home inhalers, supplemental O2 as needed -Steroids -Aspiration precautions -2 step near discharge (5) CKD (chronic kidney disease), stage IV: Cr slightly elevated at 2.2 (baseline ~ 1.9) -Monitor closely, avoid nephrotoxic agents when able -Daily BMP (6) HTN (hypertension): Normotensive -Continue Toprol, Lasix (7) Dyslipidemia: Continue statin (8) Carotid stenosis: S/p R endarterectomy in the past -Continue aspirin, statin DVT Ppx: SQ heparin Code status: FULL PCP: Cristiana Dispo: Discharge planning home on Omnicef and ZMax, PT rec DC to home, 2 step today, too wheezy for DC, CXR, steroids, nebs ROS-No Headache, No Visual Changes, No Nausea, No Vomiting, No Fever, No Chills, No Neck Pain or Stiffness, No Chest Pain, No Palpitations, +SOB, +SIMPSON, +Cough, +Sputum, +Wheezing, No Abdominal Pain, No Diarrhea, No Hematemesis, No Hemoptysis, No Unexpected Weight Loss, No Flank pain, No Melena, No Hematochezia, No Frequency, No Urgency, No Burning, No Hematuria, No Rashes, No Diaphoresis. Appetite is OK, +Gen Weakness. Physical Exam Gen-AAO x 3, NAD, Afebrile, Obese Head-NCAT, EOMI, PERRLA, Anicteric Sclera, No Posterior Pharyngeal Erythema Neck-Supple, No JVD, No Thyromegaly, No Masses, No LAD, No Bruits Lungs-+ L Basilar Rales, No Rhonchi, No Wheezing, No Crepitus Chest-No S4, +S1, +S2, No S3, No Murmurs, No Rubs, No Gallops, No Ectopy Abdomen-Soft, Obese, Bowel Sounds Present, Non Tender, Non Distended, No Hepatomegaly, No Splenomegaly, No Palpable Masses, No Rebound, No Rigidity, No Guarding Musculoskeletal-Full Range of Motion Bilaterally, No CVAT Extremities-No Cyanosis, No Clubbing, No Edema Nuero-Cranial Nerves II-XII grossly intact, Motor WNL, DTRs WNL, Strength WNL, Non Focal Psych-Normal Mood Results & Data Vital Signs (Past 12 Hours) Vital Signs Temp Pulse Resp BP Pulse Ox 09/28/18 07:27 71 16 94 09/28/18 03:40 36.6 C 67 18 119/66 95 09/27/18 22:49 36.8 C 76 18 106/68 93 09/27/18 19:55 82 16 91 Current Diagnoses Elevated white blood cell count, unspecified (09/26/18) Hyperlipidemia, unspecified (09/26/18) Essential (primary) hypertension (09/26/18) Occlusion and stenosis of unspecified carotid artery (09/26/18) Pneumonia, unspecified organism (09/26/18) Chronic obstructive pulmonary disease with (acute) exacerbation (09/26/18) Acute respiratory failure with hypoxia (09/26/18) Chronic kidney disease, stage 4 (severe) (09/26/18) Allergies oxycodone Allergy (Unknown, Verified 07/31/18 17:34) Sulfa (Sulfonamide Antibiotics) Adverse Reaction (Intermediate, Verified 07/31/18 17:34) KIDNEY PROBLEMS codeine Adverse Reaction (Unknown, Verified 07/31/18 17:34) NAUSEA TOLERATES TYL#3 Height/Weight/Isolation Height 5 ft 2 in Weight 80 kg Chemistry 09/26/18 09/27/18 15:25 06:40 Sodium 138 137 Potassium 3.5 3.4 L Chloride 103 103 Carbon Dioxide 26 26 Anion Gap 10.0 8.0 BUN 30 H 27 H Creatinine 2.21 H 1.88 H D Glucose 164 H 115 H Urinalysis 09/26/18 18:35 Urine Color Yellow Urine Appearance Cloudy A Urine pH 5.0 Ur Specific [place] 1.020 Urine Protein Negative Urine Glucose (UA) Negative Urine Ketones Negative Urine Blood Trace H Urine Nitrite Positive A Urine Bilirubin Negative Microbiology 09/26/18 16:20 Blood Aerobic Blood Culture - Preliminary No growth in Aerobic bottle after 24 hours. 09/26/18 16:20 Blood Anaerobic Blood Culture - Preliminary No growth in Anaerobic bottle after 24 hours. 09/26/18 16:01 Blood Aerobic Blood Culture - Preliminary No growth in Aerobic bottle after 24 hours. 09/26/18 16:01 Blood Anaerobic Blood Culture - Preliminary No growth in Anaerobic bottle after 24 hours. (1) COPD (chronic obstructive pulmonary disease) COPD type: COPD with acute exacerbation Qualified Code(s): J44.1 - Chronic obstructive pulmonary disease with (acute) exacerbation (2) HTN (hypertension) Hypertension type: essential hypertension Qualified Code(s): I10 - Essential (primary) hypertension
[2018-09-28 07:51] LABS: Hematocrit (blood only) 31.7 % (37-47); Hemoglobin 10.8 g/dL (12.0-16.0); Mean Corpuscular Hgb Conc 34.1 g/dL (32-36); Mean Corpuscular Volume 91.1 fL (80-100); Mean Platelet Volume 9.5 fL (7.4-10.4); Platelet Count 378 K/uL (130-400); RDW Coefficient of Variation 13.3 % (11.5-14.5); RDW Standard Deviation 44.4 fL (36.4-46.3); Red Blood Count 3.48 M/uL (4.2-5.4); White Blood Count 10.49 K/uL (4.8-10.8)
[2018-09-28 08:15] LABS: BUN Creatinine Ratio 18.1 (10-20); Creatinine Clr Calc Pharmacy 21.4 ml/min; Est GFR (African American) 27.7; Est GFR (Non-African American) 23.9; Potassium 3.7 mmol/L (3.5-5.1)
[2018-09-28] MEDS: ACETAMINOPHEN 325 MG TAB PO PRN ×2 (08:38→15:22)
[2018-09-28] MEDS: FUROSEMIDE 20 MG TAB PO SCH (08:40)
[2018-09-28] MEDS: ASPIRIN 81 MG ECTAB PO SCH (08:40)
[2018-09-28] MEDS: METOPROLOL SUCC 25MG EXT REL TAB PO SCH (08:40)
[2018-09-28] MEDS: ASCORBIC ACID 500 MG TAB PO SCH (08:41)
[2018-09-28] MEDS: PANTOprazole 40 MG TAB PO SCH (08:41)
[2018-09-28] MEDS: GABAPENTIN 100 MG CAP PO SCH ×2 (08:42→15:20)
[2018-09-28] MEDS: CHOLECALCIFEROL 1,000 UNITS TAB PO SCH (08:42)
[2018-09-28] MEDS ORDERED: FUROSEMIDE 80 MG in SYRINGE 0 ML IV ONE (13:10)
[2018-09-28] MEDS ORDERED: IBUPROFEN 600 MG TAB PO PRN (16:31)
[2018-09-28] MEDS ORDERED: IBUPROFEN 600 MG TAB PO ONE (16:42)
[2018-09-28] MEDS: FUROSEMIDE 80 MG in SYRINGE 0 ML IV SCH (16:43)
[2018-09-28] MEDS ORDERED: FUROSEMIDE 80 MG in SYRINGE 0 ML IV SCH (17:00)
[2018-09-28] MEDS: AZITHROMYCIN 500 MG in DEXTROSE 5% 250 ML IV SCH (21:01)
[2018-09-28] MEDS: GABAPENTIN 300 MG CAP PO SCH (21:04)
[2018-09-28] MEDS: DULOXETINE HCL 60 MG CAP PO SCH (21:04)
[2018-09-28] MEDS: ATORVASTATIN 20 MG TAB PO SCH (21:04)
[2018-09-28] MEDS: cefTRIAXone SODIUM 2,000 MG in DEXTROSE 5% 50 ML IV SCH (23:27)
[2018-09-29] MEDS: methylPREDNISolone 40 MG in SYRINGE 0 ML IV SCH ×4 (03:53→21:00)
[2018-09-29] MEDS: ALBUT/IPRATROP 3MG/0.5MG NEB 3 ML VIAL NEB SCH ×4 (07:17→19:35)
[2018-09-29] MEDS: PANTOprazole 40 MG TAB PO SCH (08:11)
[2018-09-29] MEDS: CHOLECALCIFEROL 1,000 UNITS TAB PO SCH (08:12)
[2018-09-29] MEDS: METOPROLOL SUCC 25MG EXT REL TAB PO SCH (08:12)
--- NOTE | 2018-09-29 08:12 | Hospitalist Progress Note ---
Date of Service September 29, 2018 Assessment & Plan (1) Acute respiratory failure with hypoxia: (2) HCAP (healthcare-associated pneumonia): (3) Leukocytosis: (4) COPD (chronic obstructive pulmonary disease): This is an 83yo F with a PMH of COPD, HTN, CKD IV, anemia, carotid stenosis s/p R endarterectomy and other medical problems listed below who presents with progressively worsening cough and SOB x 1 week and was found to have pneumonia and acute respiratory failure with hypoxia. -Initially hypoxic at 89% on room air, now 97% on 2 L nasal cannula, non-toxic appearance -Leukocytosis of 14.65k on admit and trending down. CXR with mild pulmonary vascular congestion/fluid overload and subtle right upper lung zone airspace opacity suspicious for a focal pneumonitis -Given cefepime and vanco in the ED. Will continue antibiotic coverage with Rocephin and Azithromycin. Follow blood cultures -IV Lasix -No evidence of DVT on bilateral lower extremity dopplers -Duonebs QIDR, home inhalers, supplemental O2 as needed -Steroids -Aspiration precautions -2 step (5) CKD (chronic kidney disease), stage IV: Cr slightly elevated at 2.2 (baseline ~ 1.9) -Monitor closely, avoid nephrotoxic agents when able -Daily BMP (6) HTN (hypertension): Normotensive -Continue Toprol, Lasix (7) Dyslipidemia: Continue statin (8) Carotid stenosis: S/p R endarterectomy in the past -Continue aspirin, statin DVT Ppx: SQ heparin Code status: FULL PCP: Cristiana Dispo: Discharge planning home on Omnicef and ZMax, PT rec DC to home, 2 step on dc, feeling better, Continue Lasix, CXR, steroids, nebs ROS-No Headache, No Visual Changes, No Nausea, No Vomiting, No Fever, No Chills, No Neck Pain or Stiffness, No Chest Pain, No Palpitations, +SOB, +SIMPSON, +Cough, +Sputum, +Wheezing, No Abdominal Pain, No Diarrhea, No Hematemesis, No Hemoptysis, No Unexpected Weight Loss, No Flank pain, No Melena, No Hematochezia, No Frequency, No Urgency, No Burning, No Hematuria, No Rashes, No Diaphoresis. Appetite is OK, +Gen Weakness. Physical Exam Gen-AAO x 3, NAD, Afebrile, Obese Head-NCAT, EOMI, PERRLA, Anicteric Sclera, No Posterior Pharyngeal Erythema Neck-Supple, No JVD, No Thyromegaly, No Masses, No LAD, No Bruits Lungs-+ L Basilar Rales, No Rhonchi, No Wheezing, No Crepitus Chest-No S4, +S1, +S2, No S3, No Murmurs, No Rubs, No Gallops, No Ectopy Abdomen-Soft, Obese, Bowel Sounds Present, Non Tender, Non Distended, No Hepatomegaly, No Splenomegaly, No Palpable Masses, No Rebound, No Rigidity, No Guarding Musculoskeletal-Full Range of Motion Bilaterally, No CVAT Extremities-No Cyanosis, No Clubbing, No Edema Nuero-Cranial Nerves II-XII grossly intact, Motor WNL, DTRs WNL, Strength WNL, Non Focal Psych-Normal Mood Results & Data Vital Signs (Past 12 Hours) Vital Signs Temp Pulse Pulse Resp BP BP Pulse Ox 09/29/18 07:17 81 16 92 09/29/18 07:00 36.4 C L 75 18 126/76 91 09/29/18 03:29 36.7 C 79 22 127/75 90 09/28/18 23:38 90 09/28/18 23:34 36.7 C 91 H 22 176/89 H 172/85 H 91 Labs checked (1) COPD (chronic obstructive pulmonary disease) COPD type: COPD with acute exacerbation Qualified Code(s): J44.1 - Chronic obstructive pulmonary disease with (acute) exacerbation (2) HTN (hypertension) Hypertension type: essential hypertension Qualified Code(s): I10 - Essential (primary) hypertension
[2018-09-29] MEDS: ASCORBIC ACID 500 MG TAB PO SCH (08:13)
[2018-09-29] MEDS: ASPIRIN 81 MG ECTAB PO SCH (08:13)
[2018-09-29] MEDS: GABAPENTIN 100 MG CAP PO SCH ×2 (08:14→13:24)
[2018-09-29] MEDS: FUROSEMIDE 80 MG in SYRINGE 0 ML IV SCH ×2 (08:15→17:12)
[2018-09-29 09:20] LABS: BUN Creatinine Ratio 22.8 (10-20); Calcium 8.8 mg/dl (8.5-10.1); Creatinine Clr Calc Pharmacy 18.4 ml/min; Est GFR (African American) 23.1; Est GFR (Non-African American) 19.9; Potassium 3.4 mmol/L (3.5-5.1)
[2018-09-29] MEDS: AZITHROMYCIN 250 MG TAB PO SCH (21:01)
[2018-09-29] MEDS: GABAPENTIN 300 MG CAP PO SCH (21:02)
[2018-09-29] MEDS: ATORVASTATIN 20 MG TAB PO SCH (21:02)
[2018-09-29] MEDS: DULOXETINE HCL 60 MG CAP PO SCH (21:02)
[2018-09-30] MEDS: cefTRIAXone SODIUM 2,000 MG in DEXTROSE 5% 50 ML IV SCH ×2 (01:26→23:55)
[2018-09-30] MEDS: methylPREDNISolone 40 MG in SYRINGE 0 ML IV SCH ×3 (03:56→20:25)
[2018-09-30] MEDS: ALBUT/IPRATROP 3MG/0.5MG NEB 3 ML VIAL NEB SCH ×4 (07:15→19:03)
[2018-09-30] MEDS: FUROSEMIDE 80 MG in SYRINGE 0 ML IV SCH ×2 (07:51→10:39)
[2018-09-30] MEDS: PANTOprazole 40 MG TAB PO SCH (07:52)
[2018-09-30] MEDS: METOPROLOL SUCC 25MG EXT REL TAB PO SCH (07:52)
[2018-09-30] MEDS: CHOLECALCIFEROL 1,000 UNITS TAB PO SCH (07:53)
[2018-09-30] MEDS: ASCORBIC ACID 500 MG TAB PO SCH (07:53)
[2018-09-30] MEDS: ASPIRIN 81 MG ECTAB PO SCH (07:54)
[2018-09-30] MEDS: GABAPENTIN 100 MG CAP PO SCH ×2 (07:54→13:26)
[2018-09-30 09:55] LABS: BUN Creatinine Ratio 24.1 (10-20); Calcium 8.9 mg/dl (8.5-10.1); Est GFR (African American) 19.6; Potassium 3.5 mmol/L (3.5-5.1)
[2018-09-30] MEDS ORDERED: Nursing to Pharmacy Communication ONE (10:21)
[2018-09-30] MEDS: ACETAMINOPHEN 325 MG TAB PO PRN (10:38)
--- NOTE | 2018-09-30 12:47 | Hospitalist Progress Note ---
Date of Service September 30, 2018 Assessment & Plan (1) Acute respiratory failure with hypoxia: (2) HCAP (healthcare-associated pneumonia): (3) Leukocytosis: (4) COPD (chronic obstructive pulmonary disease): Preent on admission with worsening SOB x 1 week associated with cough CXR on admission showed mild pulmonary vascular congestion/fluid overload and subtle right upper lung zone airspace opacity suspicious for a focal pneumonitis WBC on admission 14.6 that trending down to normal Received cefepime and vanco in the ED. On IV Rocephin and Azithromycin. Blood cx no growth Received IV placed on hold due to worsening kidney function Continue Duonebs QIDR, home inhalers, supplemental O2 as needed Will taper IV solumedrol to to BID Guaifenesin and flutter valve adding Will get a 2 step exercise on discharge (5) CKD (chronic kidney disease), stage IV: Creatinine worsening to 2.5 today (baseline ~ 1.9) Received IV lasix 80mg BID, that discontinued today (last dose was given last night) Avoid nephrotoxic agents when able Nephrology consult Monitor BMP closely (6) HTN (hypertension): Normotensive Continue Toprol Lasix on Hold (7) Dyslipidemia: Continue statin (8) Carotid stenosis: S/p R endarterectomy in the past Continue aspirin, statin DVT Ppx: SQ heparin Code status: FULL PCP: Cristiana Dispo: Discharge planning home on Omnicef and ZMax, 2 step on discharge Subjective Pt was seen and examined Lying in bed with no distress with 2 daughters at bedside Pt said that her breathing feels much better She said that she continues to cough She has a hard time to bring the phlegm up Denies any chest pain, palpitation, dizziness and fever Physical Exam Physical Exam: General- No acute distress Head- atraumatic Eyes- PERRL, EOMI, ENT- oropharynx clear Neck- supple, no JVD Lungs- +coarse BS Heart- regular rhythm; no murmur Abdomen- normal bowel sounds, soft, nontender Extremities- no calf tenderness Neuro- alert, oriented, PERRL, EOMI; no facial palsy; no dysarthria Skin- warm & dry Results & Data Vital Signs (Past 12 Hours) Vital Signs Temp Pulse Pulse Resp BP Pulse Ox 09/30/18 11:36 71 14 91 09/30/18 11:06 91 09/30/18 11:00 36.4 C L 71 20 123/76 90 09/30/18 07:23 71 09/30/18 07:16 70 16 90 09/30/18 07:00 36.8 C 70 23 114/65 90 09/30/18 04:00 36.5 C 82 24 161/66 H 94 (1) COPD (chronic obstructive pulmonary disease) COPD type: COPD with acute exacerbation Qualified Code(s): J44.1 - Chronic obstructive pulmonary disease with (acute) exacerbation (2) HTN (hypertension) Hypertension type: essential hypertension Qualified Code(s): I10 - Essential (primary) hypertension
[2018-09-30] MEDS: guaiFENesin SUGAR FREE 100 MG/5 ML UDC PO SCH ×2 (14:31→20:25)
[2018-09-30] MEDS: DULOXETINE HCL 60 MG CAP PO SCH (20:25)
[2018-09-30] MEDS: AZITHROMYCIN 250 MG TAB PO SCH (20:25)
[2018-09-30] MEDS: GABAPENTIN 300 MG CAP PO SCH (20:25)
[2018-09-30] MEDS: ATORVASTATIN 20 MG TAB PO SCH (20:25)
[2018-10-01] MEDS: guaiFENesin SUGAR FREE 100 MG/5 ML UDC PO SCH ×4 (02:00→20:14)
[2018-10-01] MEDS: ALBUT/IPRATROP 3MG/0.5MG NEB 3 ML VIAL NEB SCH ×4 (07:29→19:48)
[2018-10-01 08:17] LABS: Creatinine Clr Calc Pharmacy 18.4 ml/min; Est GFR (African American) 23.2; Potassium 3.9 mmol/L (3.5-5.1)
[2018-10-01] MEDS: PANTOprazole 40 MG TAB PO SCH (08:31)
[2018-10-01] MEDS: GABAPENTIN 100 MG CAP PO SCH ×2 (08:32→15:17)
[2018-10-01] MEDS: ASCORBIC ACID 500 MG TAB PO SCH (08:32)
[2018-10-01] MEDS: ASPIRIN 81 MG ECTAB PO SCH (08:32)
[2018-10-01] MEDS: CHOLECALCIFEROL 1,000 UNITS TAB PO SCH (08:32)
[2018-10-01] MEDS: METOPROLOL SUCC 25MG EXT REL TAB PO SCH (08:34)
[2018-10-01] MEDS: methylPREDNISolone 40 MG in SYRINGE 0 ML IV SCH ×2 (08:37→20:14)
[2018-10-01] MEDS: ACETAMINOPHEN 325 MG TAB PO PRN (15:21)
--- NOTE | 2018-10-01 16:57 | Nephrology Consultation ---
Date of Consultation October 01, 2018 Assessment & Plan (1) Acute kidney injury superimposed on CKD: Patient with LUZ ELENA on CKD. LUZ ELENA in setting of Pneumonia. She is non oliguric. Her baseline cr is 1.9. She peaked at 2.5 yesterday. Cr is better today at 2.1 with treatment of PNA. UA showed no signs of infection. Agree with continuing to hold lasix for now. No need for IV fluids. Avoid Ibuprofen or other nephrotoxins. Daily BMP (2) HCAP (healthcare-associated pneumonia): She is getting ceftriaxone and azithromycin per primary team. renally dose antibiotics for current GFR (3) HTN (hypertension): BP is controlled on metoprolol. Avoid hypotension History of Present Illness Reason for Consultation: LUZ ELENA on CKD Requesting Physician: Angel Mercer MD Attending Physician: Ruslan Ortiz MD History of Present Illness This is 83YoF with CKD stage 4 and baseline cr 1.9 who was admitted on 09/26/2018 with HCAP. Her Cr was 2.5 yesterday but down to 2.1 today. On admission cr was at baseline. Other PMH includes HTN, carotid stenosis, COPD, seizures, migraines, DVT, OA and past vertebral compression fracture. She feels better now, denies any SOB or leg swelling. No urinary symptoms. She is still coughing but no chest pain. She is drinking and eating. No vomiting or diarrhoea. She is getting azithromycin and ceftriaxone. Daughter was at the bedside during visit. Allergies Allergy/AdvReac Type Severity Reaction Status Date / Time oxycodone Allergy Unknown Verified 07/31/18 17:34 Sulfa (Sulfonamide AdvReac Intermediate KIDNEY Verified 07/31/18 17:34 Antibiotics) PROBLEMS codeine AdvReac Unknown NAUSEA Verified 07/31/18 17:34 TOLERATES TYL#3 Home Medications Home Medications Medication Instructions Recorded Confirmed Type Dulera 2 puff INHALATION BID 07/31/18 09/26/18 History atorvastatin 20 mg PO HS 07/31/18 09/26/18 History duloxetine 60 mg PO HS 07/31/18 09/26/18 History gabapentin 100 mg PO BID 07/31/18 09/26/18 History gabapentin 300 mg PO HS 07/31/18 09/26/18 History omeprazole 40 mg PO DAILY 07/31/18 09/26/18 History furosemide 20 mg PO DAILY #30 tab 08/04/18 09/26/18 Rx metoprolol succinate 25 mg PO QAM 30 Days #30 tab 08/04/18 09/26/18 Rx albuterol sulfate 2 puff INHALATION QID PRN 09/26/18 09/26/18 History amoxicillin 500 mg PO BID 09/26/18 09/26/18 History ascorbic acid (vitamin C) [Vitamin 100 mg PO DAILY 09/26/18 09/26/18 History C] aspirin 81 mg PO DAILY 09/26/18 09/26/18 History cholecalciferol (vitamin D3) 1,000 unit PO DAILY 09/26/18 09/26/18 History [Vitamin D3] conjugated estrogens [Premarin] 1 applic VAGINAL .FRIDAY & Friday09/26/18 09/26/18 History Patient History Medical History DVT (deep venous thrombosis) (Resolved) GERD (gastroesophageal reflux disease) (Chronic) CKD (chronic kidney disease), stage IV (Chronic) Lumbago (Chronic) History of DVT (deep vein thrombosis) (Chronic) HTN (hypertension) (Chronic) Dyslipidemia (Chronic) Breast cancer (Chronic) Osteoporosis (Chronic) Surgical History H/O mastectomy (Chronic) H/O colonoscopy (Chronic) S/P tonsillectomy and adenoidectomy (Chronic) History of total hip replacement (Chronic) S/P total hysterectomy (Chronic) H/O bladder repair surgery (Chronic) History of right-sided carotid endarterectomy (Chronic) H/O right knee surgery (Chronic) Family History Mother Colonic polyp Social History Preferred Language: Slovak Communication Ability: Effective Securities Teller Required: No Beliefs That Will Affect Care: Hindu Hindu Beliefs: Religion Current Living Situation: Family and Other Current Living Situation Comment: Lives with ex- and family Feels Safe at Home: Yes Safety Concerns: Feels Safe At This Time Smoking Status: Never smoker 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 Gastrointestinal: Abdomen is soft, non distended, non tender, bowel sounds are present CVS: Regular rate and rhythm. No murmurs, rubs or gallops Musculoskeletal: No joint or muscle tenderness Extremities: Non tender, no edema, peripheral pulses are present Neuro: Oriented, no tremors, no focal neurological deficits Skin: No rashes Results & Data Vital Signs (Past 12 Hours) Vital Signs Temp Pulse Pulse Resp BP Pulse Ox 10/01/18 16:30 36.7 C 87 18 132/83 90 10/01/18 15:52 80 10/01/18 15:17 71 16 94 10/01/18 11:41 66 20 147/76 H 95 10/01/18 11:26 69 16 95 10/01/18 07:35 64 10/01/18 07:30 62 16 91 10/01/18 07:15 36.8 C 64 20 130/74 92 (1) HTN (hypertension) Hypertension type: essential hypertension Qualified Code(s): I10 - Essential (primary) hypertension
[2018-10-01] MEDS: ATORVASTATIN 20 MG TAB PO SCH (20:14)
[2018-10-01] MEDS: DULOXETINE HCL 60 MG CAP PO SCH (20:14)
[2018-10-01] MEDS: GABAPENTIN 300 MG CAP PO SCH (20:14)
--- NOTE | 2018-10-01 20:15 | Hospitalist Progress Note ---
Date of Service October 01, 2018 Assessment & Plan (1) Acute respiratory failure with hypoxia: (2) HCAP (healthcare-associated pneumonia): (3) Leukocytosis: (4) COPD (chronic obstructive pulmonary disease): Preent on admission with worsening SOB x 1 week associated with cough CXR on admission showed mild pulmonary vascular congestion/fluid overload and subtle right upper lung zone airspace opacity suspicious for a focal pneumonitis WBC on admission 14.6 that trending down to normal Received cefepime and vanco in the ED. On IV Rocephin and Azithromycin. Blood cx no growth Received IV placed on hold due to worsening kidney function Continue Duonebs QIDR, home inhalers, supplemental O2 as needed Will taper IV solumedrol to to BID Guaifenesin and flutter valve adding 2 step done on 09/28 and required 2L NC oxygen with ambulation (5) CKD (chronic kidney disease), stage IV: LUZ ELENA on CKD stage 4 Creatinine improved to 2.1 today (baseline ~ 1.9) Received IV lasix 80mg BID, that discontinued today (last dose was given last night) Avoid nephrotoxic agents when able Nephrology con board Monitor BMP closely (6) HTN (hypertension): Normotensive Continue Toprol Lasix on Hold (7) Dyslipidemia: Continue statin (8) Carotid stenosis: S/p R endarterectomy in the past Continue aspirin, statin DVT Ppx: SQ heparin Code status: FULL PCP: Cristiana Dispo: Discharge planning home on Omnicef and ZMax, discharge home in am Subjective Pt was seen and examined Lying in bed with no distress with daughter at bedisde Pt said that her breathing slightly improves Continue to cough Had 2 step done on 09/28 and required 2 L oxygen on discharge Denies any chest pain, palpitation, dizziness and SOB Physical Exam Physical Exam: General- No acute distress Head- atraumatic Eyes- PERRL, EOMI, ENT- oropharynx clear Neck- supple, no JVD Lungs- +coarse BS Heart- regular rhythm; no murmur Abdomen- normal bowel sounds, soft, nontender Extremities- no calf tenderness Neuro- alert, oriented, PERRL, EOMI; no facial palsy; no dysarthria Skin- warm & dry Results & Data Vital Signs (Past 12 Hours) Vital Signs Temp Pulse Pulse Resp BP Pulse Ox 10/01/18 19:48 82 18 97 10/01/18 16:30 36.7 C 87 18 132/83 90 10/01/18 15:52 80 10/01/18 15:17 71 16 94 10/01/18 11:41 66 20 147/76 H 95 10/01/18 11:26 69 16 95 (1) COPD (chronic obstructive pulmonary disease) COPD type: COPD with acute exacerbation Qualified Code(s): J44.1 - Chronic obstructive pulmonary disease with (acute) exacerbation (2) HTN (hypertension) Hypertension type: essential hypertension Qualified Code(s): I10 - Essential (primary) hypertension
[2018-10-02] MEDS: cefTRIAXone SODIUM 2,000 MG in DEXTROSE 5% 50 ML IV SCH (00:28)
[2018-10-02] MEDS: guaiFENesin SUGAR FREE 100 MG/5 ML UDC PO SCH ×2 (01:39→07:54)
[2018-10-02] MEDS: ALBUT/IPRATROP 3MG/0.5MG NEB 3 ML VIAL NEB SCH ×2 (06:56→10:57)
[2018-10-02 07:23] LABS: BUN Creatinine Ratio 31.8 (10-20); Calcium 8.9 mg/dl (8.5-10.1); Creatinine Clr Calc Pharmacy 19.7 ml/min; Est GFR (African American) 25.1; Est GFR (Non-African American) 21.7; Potassium 4.2 mmol/L (3.5-5.1)
[2018-10-02] MEDS: ACETAMINOPHEN 325 MG TAB PO PRN (07:54)
[2018-10-02] MEDS: METOPROLOL SUCC 25MG EXT REL TAB PO SCH (07:54)
[2018-10-02] MEDS: ASPIRIN 81 MG ECTAB PO SCH (07:55)
[2018-10-02] MEDS: PANTOprazole 40 MG TAB PO SCH (07:55)
[2018-10-02] MEDS: ASCORBIC ACID 500 MG TAB PO SCH (07:55)
[2018-10-02] MEDS: CHOLECALCIFEROL 1,000 UNITS TAB PO SCH (07:55)
[2018-10-02] MEDS: GABAPENTIN 100 MG CAP PO SCH (07:55)
[2018-10-02] MEDS: methylPREDNISolone 40 MG in SYRINGE 0 ML IV SCH (07:56)
--- NOTE | 2018-10-02 12:07 | Hospitalist Progress Note ---
Date of Service October 02, 2018 Assessment & Plan (1) Acute respiratory failure with hypoxia: (2) HCAP (healthcare-associated pneumonia): (3) Leukocytosis: (4) COPD (chronic obstructive pulmonary disease): Preent on admission with worsening SOB x 1 week associated with cough CXR on admission showed mild pulmonary vascular congestion/fluid overload and subtle right upper lung zone airspace opacity suspicious for a focal pneumonitis WBC on admission 14.6 that trending down to normal Received cefepime and vanco in the ED. On IV Rocephin and Azithromycin Received 7 days course of Abx, Will not continue abx on discharge Blood cx no growth Received IV placed on hold due to worsening kidney function Continue Duonebs QIDR, home inhalers, supplemental O2 as needed IV solumedrol changed to prednisone short taper course Guaifenesin and flutter valve adding saturated well on RA Repeat 2 step done today and no oxygen require with ambulation Clinically improved significantly (5) CKD (chronic kidney disease), stage IV: LUZ ELENA on CKD stage 4 Creatinine improved to 2.04 today (baseline ~ 1.9) Received IV lasix 80mg BID during this admission Avoid nephrotoxic agents when able Nephrology on board and ok from nephrology standpoint to discharge home Will resume home dose lasix on discharge as per Nephrology Monitor BMP closely (6) HTN (hypertension): Normotensive Continue Toprol Resume lasix on discharge (7) Dyslipidemia: Continue statin (8) Carotid stenosis: S/p R endarterectomy in the past Continue aspirin, statin DVT Ppx: SQ heparin Code status: FULL PCP: Cristiana Dispo: discharge home today Subjective Pt was seen and examined Sitting in chair with no distress Pt said that her breathing feels much better She walked around with therapy today and did well She had repeat 2 step done today and does not require any oxygen with ambulation Denies any chest pain, palpitation, dizziness and SOB Physical Exam Physical Exam: General- No acute distress Head- atraumatic Eyes- PERRL, EOMI, ENT- oropharynx clear Neck- supple, no JVD Lungs- +No wheezing, No crackles Heart- regular rhythm; no murmur Abdomen- normal bowel sounds, soft, nontender Extremities- no calf tenderness Neuro- alert, oriented, PERRL, EOMI; no facial palsy; no dysarthria Skin- warm & dry Results & Data Vital Signs (Past 12 Hours) Vital Signs Temp Pulse Pulse Pulse Pulse Pulse Resp 10/02/18 11:55 36.9 C 78 20 10/02/18 10:57 76 15 10/02/18 10:33 94 H 82 92 H 10/02/18 08:10 69 10/02/18 07:29 36.6 C 85 20 10/02/18 06:56 75 14 10/02/18 03:41 36.6 C 67 17 Resp Resp Resp BP Pulse Ox Pulse Ox Pulse Ox 10/02/18 11:55 146/81 H 92 10/02/18 10:57 94 10/02/18 10:33 20 18 18 94 93 10/02/18 08:10 10/02/18 07:29 128/71 97 10/02/18 06:56 92 10/02/18 03:41 127/66 93 Pulse Ox 10/02/18 11:55 10/02/18 10:57 10/02/18 10:33 94 10/02/18 08:10 10/02/18 07:29 10/02/18 06:56 10/02/18 03:41 (1) COPD (chronic obstructive pulmonary disease) COPD type: COPD with acute exacerbation Qualified Code(s): J44.1 - Chronic obstructive pulmonary disease with (acute) exacerbation (2) HTN (hypertension) Hypertension type: essential hypertension Qualified Code(s): I10 - Essential (primary) hypertension
--- NOTE | 2018-10-04 08:00 | Discharge Summary ---
Date of Service October 02, 2018 Admission HPI Per Admitting Provider This is an 83yo F with a PMH of COPD, HTN, CKD IV, anemia, carotid stenosis s/p R endarterectomy and other medical problems listed below who presents with progressively worsening cough and SOB x 1 week. Went on a 5 hr car trip to [facility] last week and developed a cough, congestion and SOB. Also endorses subjective fever and chills. Has been experiencing worsening generalized weakness over the past week. Normally ambulates with cane or walker but has been requiring more help lately. Was seen by Farzana at home nurse yesterday for URI/sinus symptoms and was started on amoxicillin (has received 1 dose). Was having trouble ambulating to restroom and getting out of bed today, which is not normal for her and was brought in for further evaluation. Of note, also having more difficulty chewing food lately has been coughing more during meals. Patient found to be hemodynamically stable and afebrile. Initially hypoxic at 89% on room air but now 97% on 2 L nasal cannula. Does not require home O2. Leukocytosis of 14.65k. CXR with radiographic evidence of mild pulmonary vascular congestion/fluid overload and subtle right upper lung zone airspace opacity suspicious for a focal pneumonitis. Bilateral lower extremity dopplers without evidence of DVT. Denies lightheadedness, headache, chest pain, palpitations, wheezing, nausea, vomiting, abdominal pain, dysuria, diarrhea or constipation. Slight lower extremity swelling. Admission Exam Per Admitting Provider General Appearance: WD/WN, no apparent distress but appears acutely ill. Saturating at 97% on 2L NC O2 Head: normocephalic, atraumatic Eyes: normal inspection, PERRL, EOMI ENT: hearing grossly normal, pharynx normal (moist mucous membranes) Neck: supple, no JVD, no adenopathy Respiratory/Chest: decreased air movement bilaterally but lungs clear to auscultation. No wheezes, rales or rhonci. No respiratory distress or accessory muscle use Cardiovascular: regular rate, rhythm, no murmur, normal peripheral pulses, trace BLE edema Abdomen/GI: normal bowel sounds, soft, non-tender to palpation Extremities/Musculoskelatal: normal inspection, no calf tenderness, normal capillary refill, no pedal edema Neurologic/Psych: alert, normal mood/affect, oriented x 3 Skin: normal color, warm/dry Principal Diagnosis (1) Acute respiratory failure with hypoxia: (2) HCAP (healthcare-associated pneumonia): (3) Leukocytosis: (4) COPD (chronic obstructive pulmonary disease): (5) LUZ ELENA on CKD stage 4 (6) HTN Discharge Exam General- No acute distress Head- atraumatic Eyes- PERRL, EOMI, ENT- oropharynx clear Neck- supple, no JVD Lungs- +No wheezing, No crackles Heart- regular rhythm; no murmur Abdomen- normal bowel sounds, soft, nontender Extremities- no calf tenderness Neuro- alert, oriented, PERRL, EOMI; no facial palsy; no dysarthria Skin- warm & dry Discharge Data Allergies Allergy/AdvReac Type Severity Reaction Status Date / Time oxycodone Allergy Unknown Verified 07/31/18 17:34 Sulfa (Sulfonamide AdvReac Intermediate KIDNEY Verified 07/31/18 17:34 Antibiotics) PROBLEMS codeine AdvReac Unknown NAUSEA Verified 07/31/18 17:34 TOLERATES TYL#3 Consultations 09/26/18 16:09 ED Decision to Admit Stat 09/26/18 17:28 Consult Case Management - Discharge Planning Routine 09/30/18 12:19 Consult Nephrology Routine Ordered Studies 09/26/18 16:58 US venous doppler LE BI Routine US venous doppler LE BI CLINICAL HISTORY: evaluate for DVT COMPARISON STUDY: March 2015 FINDINGS: Real-time and color flow Doppler imaging were performed. Flow was seen within the femoral, popliteal and calf veins with no intraluminal thrombus demonstrated. The saphenous vein is patent. IMPRESSION: No evidence of lower extremity DVT. Electronically signed by: Fidel Bermeo M.D. 09/26/2018 6:01 PM Dictated: 09/26/18 1801 Transcribed: 09/26/18 1801 XR chest 1V portable CLINICAL HISTORY: sob COMPARISON STUDY: 07/31/2018 FINDINGS: The cardiac and mediastinal contours remain stable. There are subtle right upper lung zone airspace opacities. A focal pneumonitis is suspected. Clinical and radiographic follow-up is recommended. There is generalized elevation of the interstitium similar to the prior study, finding suggesting mild pulmonary vascular congestion/fluid overload. There is a suspected hiatal hernia. There are surgical clips in the right axillary region.[ IMPRESSION: 1. Radiographic evidence of mild pulmonary vascular congestion/fluid overload 2. Subtle right upper lung zone airspace opacity suspicious for a focal pneumonitis. Clinical and radiographic follow-up is recommended. Electronically signed by: Fidel Bermeo M.D. 09/26/2018 3:46 PM Dictated: 09/26/18 1544 Transcribed: 09/26/18 1544 Hospital Course (1) Acute respiratory failure with hypoxia: (2) HCAP (healthcare-associated pneumonia): (3) Leukocytosis: (4) COPD (chronic obstructive pulmonary disease): Preent on admission with worsening SOB x 1 week associated with cough CXR on admission showed mild pulmonary vascular congestion/fluid overload and subtle right upper lung zone airspace opacity suspicious for a focal pneumonitis WBC on admission 14.6 that trending down to normal Received cefepime and vanco in the ED. On IV Rocephin and Azithromycin Received 7 days course of Abx, Will not continue abx on discharge Blood cx no growth Received IV placed on hold due to worsening kidney function Continue Duonebs QIDR, home inhalers, supplemental O2 as needed IV solumedrol changed to prednisone short taper course Guaifenesin and flutter valve adding saturated well on RA Repeat 2 step done today and no oxygen require with ambulation Clinically improved significantly (5) CKD (chronic kidney disease), stage IV: LUZ ELENA on CKD stage 4 Creatinine improved to 2.04 today (baseline ~ 1.9) Received IV lasix 80mg BID during this admission Avoid nephrotoxic agents when able Nephrology on board and ok from nephrology standpoint to discharge home Will resume home dose lasix on discharge as per Nephrology Monitor BMP closely (6) HTN (hypertension): Normotensive Continue Toprol Resume lasix on discharge (7) Dyslipidemia: Continue statin (8) Carotid stenosis: S/p R endarterectomy in the past Continue aspirin, statin DVT Ppx: SQ heparin Code status: FULL PCP: Cristiana Dispo: discharge home today Total Time Total Time Spent Total Time Spent (In Minutes): 35 minutes Total Time Includes: Examination of the Patient, Discharge Planning, Medication Reconciliation, Communication With Other Providers and Other Discharge Plan Discharge Items Patient Disposition: Home - Home Health Services Reason For Visit: HOSP ACQUIRED PNA,HYPOXIA Discharge Diagnosis: (1) Acute respiratory failure with hypoxia: (2) HCAP (healthcare-associated pneumonia): (3) Leukocytosis: (4) COPD (chronic obstructive pulmonary disease): (5) LUZ ELENA on CKD stage 4 (6) HTN Discharge Goals: Decrease discomfort, Improve disease control, Increase independence and Improve nutritional status Activity: Resume your previous activity Non-emergency contact: Primary Care Provider Call non-emergency contact if: you have any medication questions and your temperature is above 101 Follow-up/Referrals: Samantha Zendejas DO [Primary Care Provider] - 10/01/18 2:05 am Diet: Heart Healthy Addtl Provider Instructions: Follow up with your primary care provider Dr. Zendejas on 10/06 @ 12:45 PM Follow up with your nephrology Dr. Marcella Miranda precaution Complete of prednisone taper course Continue physical and occupational therapy Avoid any medication that can damage your kidney such as NSAIDs (Motrin, Aleve, Naproxen, Ibuprofen, Advil, ..) Prescriptions: New ipratropium-albuterol 0.5 mg-3 mg(2.5 mg base)/3 mL Solution For Nebulization 3 ml NEB QIDR PRN (Reason: SOB/Wheezing) Qty: 90 RF: 0 guaifenesin 100 mg/5 mL Liquid 200 mg PO Q6H PRN (Reason: cough) Qty: 240 RF: 0 prednisone 10 mg tablet 10 mg PO UD Qty: 20 RF: 0 Continued atorvastatin 20 mg tablet 20 mg PO HS RF: 0 omeprazole 40 mg capsule,delayed release(DR/EC) 40 mg PO DAILY RF: 0 gabapentin 300 mg capsule 300 mg PO HS RF: 0 gabapentin 100 mg capsule 100 mg PO BID RF: 0 duloxetine 60 mg capsule,delayed release(DR/EC) 60 mg PO HS RF: 0 Dulera 100-5 mcg/actuation HFA aerosol inhaler 2 puff inhalation BID RF: 0 metoprolol succinate 25 mg Tablet Extended Release 24 Hr 25 mg PO QAM 30 Days Qty: 30 RF: 2 furosemide 20 mg tablet 20 mg PO DAILY Qty: 30 RF: 2 aspirin 81 mg Tablet,Delayed Release (Dr/Ec) 81 mg PO DAILY RF: 0 Vitamin C 100 mg Tablet 100 mg PO DAILY RF: 0 albuterol sulfate 90 mcg/actuation Hfa Aerosol Inhaler 2 puff INHALATION QID PRN (Reason: Shortness Of Breath Or Wheezing) RF: 0 cholecalciferol (vitamin D3) [Vitamin D3] 1,000 unit Tablet 1,000 unit PO DAILY RF: 0 Premarin 0.625 mg/gram cream 1 applic vaginal .FRIDAY & FRIDAY RF: 0 Discontinued amoxicillin 500 mg capsule 500 mg PO BID RF: 0 Stand-Alone Forms: [facility] Discharge Orders: Discharge Order (Routine); Ordered 10/02/18 Ordered By: Ruslan Ortiz Admission Data Admit Date/Time: 09/26/18 17:03 Attending Provider: Ruslan Ortiz Admit Provider: Sae Vargas Primary Care Provider: Samantha Zendejas Other Providers: Sae Vargas ; Ed Naranjo Service: Telemetry Other Interventions: Discharge Summary Assessment (RN) Last Done: 10/02/18 12:54 DC Date/Time DO NOT enter until pt leaves facility: 10/02/18 13:14
== END 2018-10-02 13:14 | disposition home health service (06) | DRG 193 ==
LOC: ED 15:02 → 2W 17:03 → SUATTDRO 17:03 → 2W 17:17

== ENCOUNTER 2021-01-17 05:19 | Inpatient (IN) ==
[2021-01-17] MEDS ORDERED: ONDANSETRON INJ 2 MG/ML 2 ML VIAL IV STA (05:49)
[2021-01-17] MEDS ORDERED: SODIUM CHLORIDE 0.9% 1000ML 1,000 ML IV STA (05:49)
[2021-01-17 06:21] LABS: Basophils # (auto) 0.03 K/uL (0-0.2); Basophils % (auto) 0.2 %; Eosinophils # (auto) 0.24 K/uL (0-0.5); Eosinophils % (auto) 1.3 %; Hematocrit (blood only) 33.7 % (37-47); Hemoglobin 10.6 g/dL (12.0-16.0); Immature Granulocytes # (auto) 0.05 K/uL (0.00-0.02); Immature Granulocytes % (auto) 0.3 %; Lymphocytes # (auto) 1.96 K/uL (1.2-3.4); Lymphocytes % (auto) 10.9 %; Mean Corpuscular Hgb Conc 31.5 g/dL (32-36); Mean Corpuscular Volume 95.5 fL (80-100); Mean Platelet Volume 9.8 fL (7.4-10.4); Monocytes # (auto) 1.73 K/uL (0.11-0.59); Monocytes % (auto) 9.6 %; Neutrophils # (auto) 13.94 K/uL (1.4-6.5); Neutrophils % (auto) 77.7 %; Platelet Count 403 K/uL (130-400); RDW Coefficient of Variation 13.6 % (11.5-14.5); RDW Standard Deviation 47.1 fL (36.4-46.3); Red Blood Count 3.53 M/uL (4.2-5.4); White Blood Count 17.95 K/uL (4.8-10.8)
[2021-01-17] MEDS ORDERED: diphenhydrAMINE 50 MG/ML VIAL ONE (06:25)
[2021-01-17 06:50] LABS: Alanine Aminotransferase 16 U/L (12-78); Albumin Globulin Ratio 0.6 (0.9-2); Albumin Level 2.9 gm/dl (3.4-5.0); Alkaline Phosphatase 132 U/L (45-117); Aspartate Aminotransferase 15 U/L (15-37); BUN Creatinine Ratio 31.8 (10-20); Bilirubin,Total 0.2 mg/dl (0.2-1); Blood Urea Nitrogen 64 mg/dl (7-18); Calcium 8.9 mg/dl (8.5-10.1); Carbon Dioxide 31 mmol/L (21-32); Chloride 101 mmol/L (98-107); Creatinine Clr Calc Pharmacy 20.3 ml/min; Est GFR (African American) 25.4 ml/min; Est GFR (Non-African American) 21.9 ml/min; Globulin 4.7 gm/dl (2.5-4.0); Glucose 198 mg/dl (70-99); Lipase 68 U/L (73-393); Potassium 4.1 mmol/L (3.5-5.1); Sodium 138 mmol/L (136-145); Total Protein 7.6 gm/dl (6.4-8.2)
[2021-01-17 06:55] LABS: Troponin I < 0.015 ng/ml (0-0.045)
[2021-01-17] MEDS ORDERED: PIPERACILLIN/TAZOBACTAM 4.5 GM/120 ML BAG IV ONE (06:58)
[2021-01-17] MEDS ORDERED: PIPERACILL/TAZOBAC CONSULT ACTIVE PRN ×2 (06:58→11:07)
[2021-01-17] MEDS ORDERED: ACETAMINOPHEN 1,000 MG/100 ML VIAL IV STA (07:12)
[2021-01-17 07:42] LABS: Appearance Urine Clear (Clear); Bilirubin Urine Negative (Negative); Blood Urine Negative (Negative); Color Urine Yellow; Glucose Urine UA Negative (Negative); Ketones Urine Negative (Negative); Leukocyte Esterase Urine Negative (Negative); Nitrite Urine Negative (Negative); Protein Urine Negative (Negative); Specific Gravity Urine 1.017 (1.000-1.030); Urobilinogen Urine Negative (Negative)
--- NOTE | 2021-01-17 08:00 | CT Scan Report ---
ABDOMEN AND PELVIS CT WITHOUT CONTRAST CT DOSE: 934.66 mGycm HISTORY: Acute pain of the right inguinal tissues with vomiting R inguinal pain, vomiting TECHNIQUE: Multiaxial CT images of the abdomen and pelvis were performed without contrast. A dose lo wering technique was utilized adhering to the principles of ALARA. COMPARISON STUDY: CT abdomen and pelvis 10/07/2020 FINDINGS: Trace pleural effusions with mild dependent bibasilar densities suggestive of probable atel ectasis. No pneumatosis or pneumoperitoneum. Small pericardial effusion has increased in size from co mparison. Limited evaluation of the solid abdominal organs without the use of IV contrast. Suggested mild hepat ic steatosis. No evidence of cirrhosis or hepatic mass lesion. Unremarkable spleen, gallbladder and a drenal glands. Mildly atrophic pancreas. The kidneys are again noted to be mildly atrophic. No renal calculi, or hydronephrosis. Limited evaluation of the pelvic structures secondary to streak artifact from right hip total joint arthroplasty. All the floor relaxation with small cystocele suggested. Hys terectomy. No adnexal mass lesion. Atherosclerosis of the aorta without aneurysm. No adenopathy. A gastrojejunostomy tube is noted with distal tip within the proximal duodenum. Duodenal diverticulos is. Severe colonic diverticulosis with chronic sigmoid wall thickening. No definitive evidence of acu te diverticulitis. No bowel obstruction. The appendix is not identified. Diastases recti. Degenerativ e changes of the spine, pelvis and left hip. Surgical clips of the inferior right hemipelvis are rede monstrated. Chronic appearing compression deformities of the T11 and L4 vertebral bodies. IMPRESSION: 1. No bowel obstruction. 2. Colonic diverticulosis without definite evidence of acute diverticulitis. There is chronic wall th ickening of the sigmoid colon which is likely secondary to muscular hypertrophy from chronic divertic ular disease. 3. Satisfactory positioning of the gastrojejunostomy tube. 4. Trace pleural and pericardial effusions. 5. Additional findings as above. ACT 112: Negative or not required by law. The above report was generated using voice recognition software. It may contain grammatical, syntax o r spelling errors. Electronically signed by: Ronnie Cartwright M.D. 01/17/2021 7:59 AM
--- NOTE | 2021-01-17 08:42 | Emergency Department Note ---
History of Present Illness General Chief complaint: Illness Stated complaint: ABD PAIN Source: patient, family (Daughter at the bedside), EMS and RN notes reviewed Mode of arrival: EMS Limitations: no limitations History of Present Illness Provider complaint: Abdominal pain, right groin pain, vomiting Maximum Pain Intensity: 3 This patient is an 85-year-old female who presents to the emergency department with complaints of abdominal pain, right inguinal pain, vomiting and a fever. Patient states her pain began late last evening in the right inguinal region. She states she has been spitting up or vomiting a frothy clear emesis. Patient does have a GJ tube which she uses for feeds. She is able to take food by mouth. Daughter states this was placed due to "GI bleeds." Patient denies any difficulty with urination or bowel movements lately. Home Medications Medication Instructions Recorded Confirmed Type gabapentin 100 mg capsule 200 mg PO [facility] 07/31/18 01/17/21 History gabapentin 300 mg capsule 300 mg PO 07/31/18 01/17/21 History albuterol sulfate 90 mcg/actuation 2 puff INHALATION QID PRN 09/26/18 01/17/21 History aerosol inhaler ascorbic acid (vitamin C) 100 mg 100 mg PO [facility] 09/26/18 01/17/21 History tablet (Vitamin C) aspirin 81 mg tablet,delayed 81 mg PO [facility] 09/26/18 01/17/21 History release cholecalciferol (vitamin D3) 25 1,000 unit PO [facility] 09/26/18 01/17/21 History mcg (1,000 unit) tablet (Vitamin D3) ipratropium 0.5 mg-albuterol 3 mg 3 ml NEB QID PRN 04/23/19 01/17/21 History (2.5 mg base)/3 mL nebulization soln torsemide 20 mg tablet 10 mg PO QA 04/23/19 01/17/21 History umeclidinium 62.5 mcg/actuation 1 inh INHALATION 04/23/19 01/17/21 History blister powder for inhalation (Incruse Ellipta) ascorbic acid (vitamin C) 500 mg 1,000 mg PO [facility] 09/12/20 01/17/21 History chewable tablet tamsulosin 0.4 mg capsule 0.4 mg PO 09/12/20 01/17/21 History carboxymethylcellulose sodium 0.5 2 drp OPB BID 10/07/20 01/17/21 History % eye drops (Refresh Tears) famotidine 20 mg tablet 20 mg PO HS 10/07/20 01/17/21 History fluticasone furoate 200 1 inh INHALATION QAM 10/07/20 01/17/21 History mcg-vilanterol 25 mcg/dose inhalation powder (Breo Ellipta) fluticasone propionate 50 2 spray INTRANASAL DAILY 10/07/20 01/17/21 History mcg/actuation nasal spray,suspension lidocaine 5 % topical patch 1 patch TOPICAL ONAMOFFPM 10/07/20 01/17/21 History (Lidoderm) melatonin 3 mg tablet 3 mg PO HS 10/07/20 01/17/21 History metoprolol succinate 25 mg 12.5 mg PO DAILY 10/07/20 01/17/21 History tablet,extended release 24 hr ondansetron HCl 4 mg tablet 4 mg PO Q6H PRN 10/07/20 01/17/21 History oxycodone 5 mg/5 mL oral solution 5 mg PO Q6H PRN 10/07/20 01/17/21 History polyethylene glycol 3350 17 gram 17 g PO DAILY PRN 10/07/20 01/17/21 History oral powder packet (Miralax) sennosides 8.6 mg tablet (senna) 8.6 mg PO DAILY PRN 10/07/20 01/17/21 History sertraline 25 mg tablet 25 mg PO DAILY 10/07/20 01/17/21 History acetaminophen 325 mg tablet 325 mg PO QID PRN 01/17/21 01/17/21 History amino ac-protein hydro-whey 1 ea FEEDING TUBE HS 01/17/21 01/17/21 History protein 10 gram-100 kcal/30 mL oral liquid (ProSource) esomeprazole magnesium 20 mg 20 mg PO DAILY 01/17/21 01/17/21 History capsule,delayed release metoclopramide HCl 5 mg tablet 5 mg PO QID 01/17/21 01/17/21 History zoster vaccine live (PF) 19,400 0.5 ml SUBCUT DIRECTED 01/17/21 01/17/21 History unit/0.65 mL subcutaneous suspension (Zostavax (PF)) amoxicillin 500 mg-potassium 1 tab PO BID #4 tab 01/22/21 Rx clavulanate 125 mg tablet doxycycline hyclate 100 mg capsule 100 mg PO BID #7 cap 01/22/21 Rx Allergies Allergy/AdvReac Type Severity Reaction Status Date / Time Macrolide Antibiotics Allergy Unknown Unknown Unverified 01/17/21 09:02 oxycodone Allergy Unknown Unknown Verified 01/17/21 09:02 tramadol Allergy Unknown Unknown Unverified 01/17/21 09:02 Sulfa (Sulfonamide AdvReac Intermediate KIDNEY Verified 01/17/21 09:02 Antibiotics) PROBLEMS codeine AdvReac Unknown Nausea Verified 01/17/21 09:02 Past Med/Surg History Medical History Breast cancer Chronic diastolic CHF (congestive heart failure) CKD (chronic kidney disease), stage IV COPD (chronic obstructive pulmonary disease) Dyslipidemia GERD (gastroesophageal reflux disease) History of DVT (deep vein thrombosis) HTN (hypertension) Lumbago Osteoporosis Surgical History H/O bladder repair surgery H/O colonoscopy H/O mastectomy H/O right knee surgery History of right-sided carotid endarterectomy History of total hip replacement S/P tonsillectomy and adenoidectomy S/P total hysterectomy Family History Mother Colonic polyp Hypertension Heart disease Cancer Breast Father Hypertension Heart disease Social History Smoking Status: Never smoker 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 and A total of 10 systems reviewed and were otherwise negative History obtained per patient and daughter at the bedside. Physical Exam Vital Signs Vital Signs - 24 hr 01/17/21 05:19 01/17/21 05:37 01/17/21 05:54 Temperature 37.9 C H Temperature Source Oral Pulse Rate 71 84 Respiratory Rate 26 H 20 Respiratory Effort / Characteristics Non-Labored Respiratory Depth Normal Respiratory Pattern Regular Blood Pressure 145/65 H 145/65 H Blood Pressure Mean 91 91 Blood Pressure Position Sitting Pulse Oximetry 98 98 96 Oxygen Delivery Method Nasal Cannula Nasal Cannula Oxygen Flow Rate 2 2 Sepsis Recent Fever Within 48 Hours Yes Sepsis New/Unexplained Change in Mental Status No Sepsis Action Taken by Nursing No Action Required Vital signs reviewed. General: Chronically ill-appearing 85-year-old female, in no significant distress. HEENT: No scleral icterus, PERRLA, neck supple. Cardiovascular: Regular rate and rhythm, no extra sounds. Pulmonary: Clear to auscultation bilaterally, normal work of breathing. On nasal cannula oxygen Abdomen: Soft, obese, tender to palpation in the right inguinal region, positive tympany to percussion to the upper abdomen, positive bowel sounds. GJ tube in place. Musculoskeletal: Atraumatic, no peripheral edema. Neurologic: Patient awake alert and oriented x 3 Skin: Warm, dry, no rash Course Administered Medications Discontinued Medications Acetaminophen (Acetaminophen 325 Mg Tab) 325 mg PO QID PRN PRN Reason: Pain Stop: 02/16/21 11:06 Last Admin: 01/20/21 06:01 Dose: 325 mg Documented by: [id number] Admin: 01/19/21 15:10 Dose: 325 mg Documented by: [id number] Admin: 01/17/21 21:23 Dose: 325 mg Documented by: [id number] Albuterol (Albut/Ipratrop 3mg/0.5mg Neb 3 Ml Vial) 3 ml NEB QIDR [facility] Stop: 02/18/21 16:14 Last Admin: 01/20/21 15:06 Dose: 3 ml Documented by: [id number] Admin: 01/20/21 11:12 Dose: 3 ml Documented by: [id number] Admin: 01/20/21 07:24 Dose: 3 ml Documented by: [id number] Admin: 01/19/21 19:47 Dose: 3 ml Documented by: [id number] Admin: 01/19/21 17:27 Dose: 3 ml Documented by: [id number] Albuterol (Albut/Ipratrop 3mg/0.5mg Neb 3 Ml Vial) 3 ml NEB QIDR [facility] Stop: 02/20/21 18:59 Last Admin: 01/22/21 11:03 Dose: Not Given Documented by: [id number] Admin: 01/22/21 07:22 Dose: 3 ml Documented by: [id number] Admin: 01/21/21 19:29 Dose: 3 ml Documented by: [id number] Amoxicillin/Clavulanate Potassium (Amoxicillin/Clavulanate 500 Mg Tab) 1 tab PO BID [facility] Stop: 01/26/21 20:59 Last Admin: 01/22/21 08:46 Dose: 1 tab Documented by: [id number] Admin: 01/21/21 21:29 Dose: 1 tab Documented by: [id number] Admin: 01/21/21 08:33 Dose: 1 tab Documented by: [id number] Admin: 01/20/21 21:15 Dose: 1 tab Documented by: [id number] Admin: 01/20/21 08:40 Dose: 1 tab Documented by: [id number] Admin: 01/19/21 20:48 Dose: 1 tab Documented by: [id number] Artificial Tears (Artificial Tears) 2 drops OPB BID [facility] Stop: 02/16/21 20:59 Last Admin: 01/22/21 08:48 Dose: 2 drops Documented by: [id number] Admin: 01/21/21 21:29 Dose: 2 drops Documented by: [id number] Admin: 01/21/21 08:28 Dose: 2 drops Documented by: [id number] Admin: 01/20/21 21:16 Dose: 2 drops Documented by: [id number] Admin: 01/20/21 09:28 Dose: 2 drops Documented by: [id number] Admin: 01/19/21 20:49 Dose: 2 drops Documented by: [id number] Admin: 01/19/21 08:12 Dose: 2 drops Documented by: [id number] Admin: 01/18/21 19:54 Dose: 2 drops Documented by: [id number] Admin: 01/18/21 08:24 Dose: 2 drops Documented by: [id number] Admin: 01/17/21 21:35 Dose: 2 drops Documented by: [id number] Ascorbic Acid (Ascorbic Acid 500 Mg Tab) 1,000 mg PO QAM [facility] Stop: 02/17/21 08:59 Last Admin: 01/22/21 08:45 Dose: 1,000 mg Documented by: [id number] Admin: 01/21/21 08:36 Dose: 1,000 mg Documented by: [id number] Admin: 01/20/21 08:41 Dose: 1,000 mg Documented by: [id number] Admin: 01/19/21 08:10 Dose: 1,000 mg Documented by: [id number] Admin: 01/18/21 08:23 Dose: 1,000 mg Documented by: [id number] Aspirin (Aspirin 81 Mg Ectab) 81 mg PO QAM [facility] Stop: 02/17/21 08:59 Last Admin: 01/22/21 08:47 Dose: 81 mg Documented by: [id number] Admin: 01/21/21 08:36 Dose: 81 mg Documented by: [id number] Admin: 01/20/21 08:41 Dose: 81 mg Documented by: [id number] Admin: 01/19/21 08:10 Dose: 81 mg Documented by: [id number] Admin: 01/18/21 08:23 Dose: 81 mg Documented by: [id number] Diphenhydramine HCl (Diphenhydramine 50 Mg/Ml Vial) Confirm Administered Dose 50 mg .ROUTE .[facility] Stop: 01/17/21 06:26 Last Admin: 01/17/21 06:32 Dose: Not Given Documented by: [id number] Doxycycline Hyclate (Doxycycline Hyclate 100 Mg Cap) 100 mg PO BID [facility] Stop: 01/28/21 20:59 Last Admin: 01/22/21 08:46 Dose: 100 mg Documented by: [id number] Admin: 01/21/21 21:29 Dose: 100 mg Documented by: [id number] Famotidine (Famotidine 20 Mg Tab) 20 mg PO HS [facility] Stop: 02/16/21 20:59 Last Admin: 01/21/21 21:29 Dose: 20 mg Documented by: [id number] Admin: 01/20/21 21:15 Dose: 20 mg Documented by: [id number] Admin: 01/19/21 20:48 Dose: 20 mg Documented by: [id number] Admin: 01/18/21 20:00 Dose: 20 mg Documented by: [id number] Admin: 01/17/21 21:15 Dose: 20 mg Documented by: [id number] Fluticasone Propionate (Fluticasone Propionate Na Spr 16 Gm Btl) 2 sprays NA DAILY [facility] Stop: 02/17/21 08:59 Last Admin: 01/22/21 08:47 Dose: 2 sprays Documented by: [id number] Admin: 01/21/21 08:28 Dose: 2 sprays Documented by: [id number] Admin: 01/20/21 08:43 Dose: 2 sprays Documented by: [id number] Admin: 01/19/21 08:10 Dose: 2 sprays Documented by: [id number] Admin: 01/18/21 08:24 Dose: 2 sprays Documented by: [id number] Fluticasone/Vilanterol (Fluticasone/Vilanterol 200/25mcg 14 Puffs/Inhaler) 1 puffs INH QAM [facility] Stop: 02/17/21 08:59 Last Admin: 01/22/21 08:47 Dose: 1 puffs Documented by: [id number] Admin: 01/21/21 08:28 Dose: 1 puffs Documented by: [id number] Admin: 01/20/21 08:44 Dose: 1 puffs Documented by: [id number] Admin: 01/19/21 08:10 Dose: 1 puffs Documented by: [id number] Admin: 01/18/21 08:24 Dose: 1 puffs Documented by: [id number] Gabapentin (Gabapentin 100 Mg Cap) 200 mg PO QAM [facility] Stop: 02/17/21 08:59 Last Admin: 01/22/21 08:45 Dose: 200 mg Documented by: [id number] Admin: 01/21/21 08:36 Dose: 200 mg Documented by: [id number] Admin: 01/20/21 08:40 Dose: 200 mg Documented by: [id number] Admin: 01/19/21 08:11 Dose: 200 mg Documented by: [id number] Admin: 01/18/21 08:23 Dose: 200 mg Documented by: [id number] Gabapentin (Gabapentin 300 Mg Cap) 300 mg PO HS [facility] Stop: 02/16/21 20:59 Last Admin: 01/21/21 21:29 Dose: 300 mg Documented by: [id number] Admin: 01/20/21 21:15 Dose: 300 mg Documented by: [id number] Admin: 01/19/21 20:47 Dose: 300 mg Documented by: [id number] Admin: 01/18/21 20:00 Dose: 300 mg Documented by: [id number] Admin: 01/17/21 21:16 Dose: 300 mg Documented by: [id number] Guaifenesin (Guaifenesin 600 Mg Tabcr) 1,200 mg PO Q12 [facility] Stop: 02/16/21 20:59 Last Admin: 01/22/21 08:46 Dose: 1,200 mg Documented by: [id number] Admin: 01/21/21 21:29 Dose: 1,200 mg Documented by: [id number] Admin: 01/21/21 08:36 Dose: 1,200 mg Documented by: [id number] Admin: 01/20/21 21:15 Dose: 1,200 mg Documented by: [id number] Admin: 01/20/21 08:39 Dose: 1,200 mg Documented by: [id number] Admin: 01/19/21 20:48 Dose: 1,200 mg Documented by: [id number] Admin: 01/19/21 08:11 Dose: 1,200 mg Documented by: [id number] Admin: 01/18/21 20:00 Dose: 1,200 mg Documented by: [id number] Admin: 01/18/21 08:25 Dose: 1,200 mg Documented by: [id number] Admin: 01/17/21 21:17 Dose: 1,200 mg Documented by: [id number] Heparin Sodium (Porcine) (Heparin Sod 5,000 Unit/0.5 Ml Vial) 5,000 units SQ Q8 [facility] Stop: 02/19/21 13:59 Last Admin: 01/22/21 06:16 Dose: 5,000 units Documented by: [id number] Admin: 01/21/21 21:27 Dose: 5,000 units Documented by: [id number] Admin: 01/21/21 14:39 Dose: 5,000 units Documented by: [id number] Admin: 01/21/21 06:27 Dose: 5,000 units Documented by: [id number] Admin: 01/20/21 21:15 Dose: 5,000 units Documented by: [id number] Admin: 01/20/21 14:12 Dose: 5,000 units Documented by: [id number] Sodium Chloride (Nss 1000ml) 1,000 mls @ 125 mls/hr IV .Q8H STA Stop: 01/17/21 13:48 Last Infusion: 01/17/21 11:09 Dose: 0 mls/hr Documented by: [id number] Admin: 01/17/21 06:00 Dose: 125 mls/hr Documented by: [id number] Piperacillin Sod/Tazobactam Sod (Zosyn) 4.5 gm in 120 mls @ 240 mls/hr IV NOW ONE Stop: 01/17/21 07:27 Last Infusion: 01/17/21 08:27 Dose: 0 mls/hr Documented by: [id number] Admin: 01/17/21 07:44 Dose: 240 mls/hr Documented by: [id number] Acetaminophen (Ofirmev) 1,000 mg in 100 mls @ 400 mls/hr IV NOW STA Stop: 01/17/21 07:26 Last Infusion: 01/17/21 08:07 Dose: 0 mls/hr Documented by: [id number] Admin: 01/17/21 07:44 Dose: 400 mls/hr Documented by: [id number] Sodium Chloride (Nss 1000ml) 1,000 mls @ 100 mls/hr IV .Q10H [facility] Stop: 02/16/21 11:06 Last Infusion: 01/18/21 09:42 Dose: 0 mls/hr Documented by: [id number] Admin: 01/18/21 08:21 Dose: 100 mls/hr Documented by: [id number] Infusion: 01/18/21 08:20 Dose: 100 mls/hr Documented by: [id number] Admin: 01/17/21 22:20 Dose: 100 mls/hr Documented by: [id number] Infusion: 01/17/21 21:30 Dose: 100 mls/hr Documented by: [id number] Admin: 01/17/21 11:30 Dose: 100 mls/hr Documented by: [id number] Piperacillin Sod/Tazobactam (Sod 4.5 gm/ Dextrose) 120 mls @ 30 mls/hr IV Q12H [facility]; Protocol Stop: 01/24/21 14:59 Last Infusion: 01/19/21 16:50 Dose: 0 mls/hr Documented by: [id number] Admin: 01/19/21 15:07 Dose: 30 mls/hr Documented by: [id number] Infusion: 01/19/21 06:53 Dose: 0 mls/hr Documented by: [id number] Admin: 01/19/21 02:50 Dose: 30 mls/hr Documented by: [id number] Infusion: 01/18/21 19:59 Dose: 0 mls/hr Documented by: [id number] Admin: 01/18/21 14:46 Dose: 30 mls/hr Documented by: [id number] Infusion: 01/18/21 06:18 Dose: 0 mls/hr Documented by: [id number] Admin: 01/18/21 02:03 Dose: 30 mls/hr Documented by: [id number] Infusion: 01/17/21 18:22 Dose: 0 mls/hr Documented by: [id number] Admin: 01/17/21 14:15 Dose: 30 mls/hr Documented by: [id number] Doxycycline Hyclate 100 mg/ (Dextrose) 110 mls @ 50 mls/hr IV NOW STA Stop: 01/21/21 03:33 Last Infusion: 01/21/21 04:06 Dose: 0 mls/hr Documented by: [id number] Admin: 01/21/21 01:50 Dose: 50 mls/hr Documented by: [id number] Levalbuterol HCl (Levalbuterol 1.25mg/0.5ml Neb) 1.25 mg NEB Q6R [facility] Stop: 02/16/21 12:59 Last Admin: 01/18/21 07:19 Dose: 1.25 mg Documented by: [id number] Admin: 01/18/21 02:08 Dose: Not Given Documented by: [id number] Admin: 01/17/21 19:04 Dose: 1.25 mg Documented by: [id number] Admin: 01/17/21 13:01 Dose: 1.25 mg Documented by: [id number] Lidocaine (Lidocaine 5% 1 Patch) 1 patch TD DAILY [facility] Stop: 02/16/21 11:29 Last Admin: 01/22/21 08:51 Dose: 1 patch Documented by: [id number] Admin: 01/21/21 08:30 Dose: 1 patch Documented by: [id number] Admin: 01/20/21 08:42 Dose: 1 patch Documented by: [id number] Admin: 01/19/21 08:12 Dose: 1 patch Documented by: [id number] Admin: 01/18/21 08:21 Dose: 1 patch Documented by: [id number] Admin: 01/17/21 12:40 Dose: 1 patch Documented by: [id number] Melatonin (Melatonin 3 Mg Tab) 3 mg PO HS [facility] Stop: 02/16/21 20:59 Last Admin: 01/21/21 21:26 Dose: 3 mg Documented by: [id number] Admin: 01/20/21 21:15 Dose: 3 mg Documented by: [id number] Admin: 01/19/21 20:48 Dose: 3 mg Documented by: [id number] Admin: 01/18/21 20:00 Dose: 3 mg Documented by: [id number] Admin: 01/17/21 21:18 Dose: 3 mg Documented by: [id number] Metoclopramide HCl (Metoclopramide Hcl 5 Mg Tablet) 5 mg PO QID [facility] Stop: 02/16/21 12:59 Last Admin: 01/22/21 08:46 Dose: 5 mg Documented by: [id number] Admin: 01/21/21 21:26 Dose: 5 mg Documented by: [id number] Admin: 01/21/21 17:14 Dose: 5 mg Documented by: [id number] Admin: 01/21/21 12:50 Dose: 5 mg Documented by: [id number] Admin: 01/21/21 08:36 Dose: 5 mg Documented by: [id number] Admin: 01/20/21 21:15 Dose: 5 mg Documented by: [id number] Admin: 01/20/21 17:24 Dose: 5 mg Documented by: [id number] Admin: 01/20/21 13:11 Dose: 5 mg Documented by: [id number] Admin: 01/20/21 08:40 Dose: 5 mg Documented by: [id number] Admin: 01/19/21 20:47 Dose: 5 mg Documented by: [id number] Admin: 01/19/21 17:24 Dose: 5 mg Documented by: [id number] Admin: 01/19/21 12:34 Dose: 5 mg Documented by: [id number] Admin: 01/19/21 08:11 Dose: 5 mg Documented by: [id number] Admin: 01/18/21 20:00 Dose: 5 mg Documented by: [id number] Admin: 01/18/21 18:04 Dose: 5 mg Documented by: [id number] Admin: 01/18/21 13:26 Dose: 5 mg Documented by: [id number] Admin: 01/18/21 08:22 Dose: 5 mg Documented by: [id number] Admin: 01/17/21 21:19 Dose: 5 mg Documented by: [id number] Admin: 01/17/21 17:40 Dose: Not Given Documented by: [id number] Admin: 01/17/21 12:31 Dose: Not Given Documented by: [id number] Metoprolol Succinate (Metoprolol Succ 25mg Ext Rel Tab) 12.5 mg PO QAM [facility] Stop: 02/17/21 08:59 Last Admin: 01/19/21 08:11 Dose: 12.5 mg Documented by: [id number] Admin: 01/18/21 09:41 Dose: 12.5 mg Documented by: [id number] Metoprolol Succinate (Metoprolol Succ 25mg Ext Rel Tab) 25 mg PO [facility] Stop: 02/19/21 06:14 Last Admin: 01/20/21 08:41 Dose: 25 mg Documented by: [id number] Admin: 01/20/21 06:39 Dose: 25 mg Documented by: [id number] Metoprolol Succinate (Metoprolol Succ 25mg Ext Rel Tab) 12.5 mg PO [facility] Stop: 02/21/21 08:59 Last Admin: 01/22/21 08:45 Dose: 12.5 mg Documented by: [id number] Miscellaneous (Remove Lidoderm Patch) 1 ea N/A DAILY@2100 [facility] Stop: 02/16/21 20:59 Last Admin: 01/21/21 21:29 Dose: 1 ea Documented by: [id number] Admin: 01/20/21 21:16 Dose: 1 ea Documented by: [id number] Admin: 01/19/21 20:49 Dose: 1 ea Documented by: [id number] Admin: 01/18/21 20:06 Dose: 1 ea Documented by: [id number] Admin: 01/17/21 21:19 Dose: 1 ea Documented by: [id number] Miscellaneous (Nutren~Stop Order) 1 ea N/A DAILY [facility] Stop: 02/17/21 08:59 Last Admin: 01/22/21 08:47 Dose: 1 ea Documented by: [id number] Admin: 01/21/21 09:00 Dose: 1 ea Documented by: [id number] Admin: 01/20/21 10:05 Dose: 1 ea Documented by: [id number] Admin: 01/19/21 08:12 Dose: 1 ea Documented by: [id number] Admin: 01/18/21 08:28 Dose: 1 ea Documented by: [id number] Non-Formulary Medication (Nutren 65 Ml) 65 ml GT HS [facility] Stop: 02/16/21 22:29 Last Admin: 01/21/21 21:29 Dose: 65 ml Documented by: [id number] Admin: 01/20/21 21:15 Dose: 65 ml Documented by: [id number] Admin: 01/19/21 20:50 Dose: 65 ml Documented by: [id number] Admin: 01/18/21 19:53 Dose: 780 ml Documented by: [id number] Admin: 01/17/21 23:29 Dose: 780 ml Documented by: [id number] Nutritional Formula (Prosource No Carb 30 Ml/Pkt) 30 ml GJT HS [facility] Stop: 02/16/21 20:59 Last Admin: 01/21/21 21:29 Dose: 30 ml Documented by: [id number] Admin: 01/20/21 21:15 Dose: 30 ml Documented by: [id number] Admin: 01/19/21 20:48 Dose: 30 ml Documented by: [id number] Admin: 01/18/21 20:00 Dose: 30 ml Documented by: [id number] Admin: 01/17/21 21:19 Dose: 30 ml Documented by: [id number] Ondansetron HCl (Ondansetron Inj 2 Mg/Ml 2 Ml Vial) 4 mg IV NOW STA Stop: 01/17/21 05:50 Last Admin: 01/17/21 06:18 Dose: 4 mg Documented by: [id number] Pantoprazole Sodium (Pantoprazole 40 Mg Tab) 40 mg PO DAILY [facility]; Protocol Stop: 02/17/21 08:59 Last Admin: 01/22/21 08:46 Dose: 40 mg Documented by: [id number] Admin: 01/21/21 08:36 Dose: 40 mg Documented by: [id number] Admin: 01/20/21 08:40 Dose: 40 mg Documented by: [id number] Admin: 01/19/21 08:10 Dose: 40 mg Documented by: [id number] Admin: 01/18/21 08:23 Dose: 40 mg Documented by: [id number] Sertraline HCl (Sertraline Hcl 50 Mg Tablet) 25 mg PO DAILY [facility] Stop: 02/16/21 11:29 Last Admin: 01/22/21 08:44 Dose: 25 mg Documented by: [id number] Admin: 01/21/21 08:36 Dose: 25 mg Documented by: [id number] Admin: 01/20/21 08:42 Dose: 25 mg Documented by: [id number] Admin: 01/19/21 08:11 Dose: 25 mg Documented by: [id number] Admin: 01/18/21 08:22 Dose: 25 mg Documented by: [id number] Admin: 01/17/21 12:31 Dose: Not Given Documented by: [id number] Sterile Water (Tube Feeding Water Flush) 100 ml GT Q6H [facility] Stop: 02/16/21 15:44 Last Admin: 01/22/21 08:47 Dose: 100 ml Documented by: [id number] Admin: 01/22/21 03:33 Dose: 100 ml Documented by: [id number] Admin: 01/21/21 21:29 Dose: 100 ml Documented by: [id number] Admin: 01/21/21 15:49 Dose: Not Given Documented by: [id number] Admin: 01/21/21 11:18 Dose: 20 ml Documented by: [id number] Admin: 01/21/21 03:30 Dose: 100 ml Documented by: [id number] Admin: 01/20/21 21:17 Dose: 100 ml Documented by: [id number] Admin: 01/20/21 16:22 Dose: 100 ml Documented by: [id number] Admin: 01/20/21 10:06 Dose: 100 ml Documented by: [id number] Admin: 01/20/21 04:22 Dose: 100 ml Documented by: [id number] Admin: 01/19/21 21:43 Dose: 100 ml Documented by: [id number] Admin: 01/19/21 15:07 Dose: 100 ml Documented by: [id number] Admin: 01/19/21 10:37 Dose: 100 ml Documented by: [id number] Admin: 01/19/21 04:22 Dose: 100 ml Documented by: [id number] Admin: 01/18/21 19:53 Dose: 100 ml Documented by: [id number] Admin: 01/18/21 15:19 Dose: 100 ml Documented by: [id number] Admin: 01/18/21 09:41 Dose: 100 ml Documented by: [id number] Admin: 01/18/21 04:49 Dose: 100 ml Documented by: [id number] Admin: 01/17/21 21:35 Dose: 100 ml Documented by: [id number] Admin: 01/17/21 18:44 Dose: Not Given Documented by: [id number] Tamsulosin HCl (Tamsulosin Hcl 0.4 Mg Cap) 0.4 mg PO HS [facility] Stop: 02/16/21 20:59 Last Admin: 01/21/21 21:29 Dose: 0.4 mg Documented by: [id number] Admin: 01/20/21 21:15 Dose: 0.4 mg Documented by: [id number] Admin: 01/19/21 20:47 Dose: 0.4 mg Documented by: [id number] Admin: 01/18/21 20:00 Dose: 0.4 mg Documented by: [id number] Admin: 01/17/21 21:19 Dose: 0.4 mg Documented by: [id number] Torsemide (Torsemide 10 Mg Tab) 10 mg PO QAM [facility] Stop: 02/19/21 11:14 Last Admin: 01/22/21 08:45 Dose: 10 mg Documented by: [id number] Admin: 01/21/21 08:37 Dose: 10 mg Documented by: [id number] Admin: 01/20/21 13:11 Dose: 10 mg Documented by: [id number] Umeclidinium [place] (Umeclidinium [place] 62.5mcg/Blister 7 Puffs/Inhaler) 1 puffs INH HS CARLYLE Stop: 02/16/21 20:59 Last Admin: 01/21/21 21:26 Dose: 1 puffs Documented by: [id number] Admin: 01/20/21 21:10 Dose: 1 puffs Documented by: [id number] Admin: 01/19/21 20:47 Dose: 1 puffs Documented by: [id number] Admin: 01/18/21 20:06 Dose: Not Given Documented by: [id number] Admin: 01/17/21 21:20 Dose: Not Given Documented by: [id number] Vitamin D (Cholecalciferol 1,000 Units 25 Mcg Tab) 1,000 units PO QAM CARLYLE Stop: 02/17/21 08:59 Last Admin: 01/22/21 08:45 Dose: 1,000 units Documented by: [id number] Admin: 01/21/21 08:36 Dose: 1,000 units Documented by: [id number] Admin: 01/20/21 08:41 Dose: 1,000 units Documented by: [id number] Admin: 01/19/21 08:12 Dose: 1,000 units Documented by: [id number] Admin: 01/18/21 08:23 Dose: 1,000 units Documented by: [id number] Medical Decision Making Differential Diagnosis UTI, pneumonia, Covid, dehydration, metabolic abnormality, hypo/hyperglycemia, electrolyte disturbance, anemia, hypoxia, cardiac sources, intracerebral event, toxicologic, neurologic, as well as other pathologies. Medical Records Attestation: I reviewed the patient's medical records. Home Medications Current Medication List: was personally reviewed by me Laboratory Data Attestation: I reviewed the patient's lab results. Result diagrams: 01/22/21 06:57 01/22/21 06:57 Lab Results 01/17/21 01/17/21 01/17/21 Range/Units 07:33 08:17 08:17 Urine Color Yellow Urine Appearance Clear (Clear) Urine pH 6.0 (4.5-7.5) Ur Specific [place] 1.017 (1.000-1.030) Urine Protein Negative (Negative) Urine Glucose (UA) Negative (Negative) Urine Ketones Negative (Negative) Urine Blood Negative (Negative) Urine Nitrite Negative (Negative) Urine Bilirubin Negative (Negative) Urine Urobilinogen Negative (Negative) Ur Leukocyte Esterase Negative (Negative) COVID-19 Eval Order Covid19 at [facility] SARS-CoV-2 (PCR) NEGATIVE (Negative) Imaging Data Radiologist's Impression: Abdomen/Pelvis CT 01/17/21 06:[address] WITHOUT CONTRAST CT DOSE: 934.66 mGycm HISTORY: Acute pain of the right inguinal tissues with vomiting R inguinal pain, vomiting TECHNIQUE: Multiaxial CT images of the abdomen and pelvis were performed without contrast. A dose lowering technique was utilized adhering to the principles of ALARA. COMPARISON STUDY: CT abdomen and pelvis 10/07/2020 FINDINGS: Trace pleural effusions with mild dependent bibasilar densities sug gestive of probable atelectasis. No pneumatosis or pneumoperitoneum. Small pericardial effusion has increased in size from comparison. Limited evaluation of the solid abdominal organs without the use of IV contrast. Suggested mild hepatic steatosis. No evidence of cirrhosis or hepatic mass lesion. Unremarkable spleen, gallbladder and adrenal glands. Mildly atrophic pancreas. The kidneys are again noted to be mildly atrophic. No renal calculi, or hydronephrosis. Limited evaluation of the pelvic structures secondary to streak artifact from right hip total joint arthroplasty. All the floor relaxation with small cystocele suggested. Hysterectomy. No adnexal mass lesion. Atherosclerosis of the aorta without aneurysm. No adenopathy. A gastrojejunostomy tube is noted with distal tip within the proximal duodenum. Duodenal diverticulosis. Severe colonic diverticulosis with chronic sigmoid wall thickening. No definitive evidence of acute diverticulitis. No bowel obstruction. The appendix is not identified. Diastases recti. Degenerative changes of the spine, pelvis and left hip. Surgical clips of the inferior right hemipelvis are redemonstrated. Chronic appearing compression deformities of the T11 and L4 vertebral bodies. IMPRESSION: 1. No bowel obstruction. 2. Colonic diverticulosis without definite evidence of acute diverticulitis. There is chronic wall thickening of the sigmoid colon which is likely secondary to muscular hypertrophy from chronic diverticular disease. 3. Satisfactory positioning of the gastrojejunostomy tube. 4. Trace pleural and pericardial effusions. 5. Additional findings as above. ACT 112: Negative or not required by law. The above report was generated using voice recognition software. It may contain grammatical, syntax or spelling errors. Electronically signed by: Ronnie Cartwright M.D. 01/17/2021 7:59 AM XR chest 1V portable HISTORY: 85 years-old Female fever, cough acute cough with fever COMPARISON: CT abdomen and pelvis of same day, chest radiograph 10/07/2020 TECHNIQUE: Portable AP view of the chest FINDINGS: Cardiac silhouette is enlarged. Unchanged interstitial coarsening with mild bibasilar opacities. Trace pleural effusions suggested. No pneumothorax. Degenerative changes of the shoulders and spine. Surgical clips of the right axilla. IMPRESSION: 1. Cardiomegaly with unchanged interstitial coarsening. 2. Trace pleural effusions with persistent bibasilar densities suggestive of probable atelectasis. Pneumonitis considered less likely. ACT 112: Negative or not required by law. The above report was generated using voice recognition software. It may contain grammatical, syntax or spelling errors. Electronically signed by: Ronnie Cartwright M.D. 01/17/2021 8:46 AM Dictated: 01/17/2145Transcribed: 01/17/21844 ECG Data Attestation: I personally reviewed and interpreted this ECG as follows: Indication: + abdominal pain Rate (beats per minute): 87 Rhythm: + normal sinus ECG Intervals/blocks: + Right Bundle branch block and + Prolonged QT (483) ECG Ronda: + Left axis deviation ECG ST segments: + Normal ST segments ECG Findings: no PACs or no PVCs Blood Pressure Blood Pressure Findings: Elevated blood pressure Blood Pressure Disposition: further management by hospitalist CYNTHIA Castillo This patient was evaluated and appeared to be in no significant distress. IV access was obtained and laboratory work was drawn. Patient was hydrated with normal saline solution. CT imaging of the abdomen and pelvis was ordered and reveals no evidence of bowel obstruction or incarcerated inguinal hernia. Patient's WBC is elevated, this does appear to be somewhat chronic issue. She does have a low-grade temperature. Patient is complaining of a headache. Daughter states she was placed on amoxicillin for pneumonia approximately 3 weeks ago but she stopped taking it early. Patient restarted the amoxicillin last evening.. Chest x-ray was ordered and follow-up and reveals perhaps a left basilar infiltrate to my interpretation. Patient was medicated with Zosyn init ially when intra-abdominal process was thought to be likely. UA was obtained and is negative. COVID is pending. At this time due to the leukocytosis and fever, the patient will be evaluated by the hospitalist service for further management. Impression & Plan Fever, Pneumonia, Abdominal pain Discharge Plan Visit Data Chief Complaint: Illness Stated Complaint: ABD PAIN ED Provider: Bianca Bajwa Discharge Problem: Fever, Pneumonia, Abdominal pain Patient Disposition: Admitted As Inpatient Discharge Instructions Interventions: ED Discharge Assessment Last Done: 01/17/21 10:46 Discharge Problem: Fever Qualifiers: Fever type: unspecified Qualified Code(s): R50.9 - Fever, unspecified Pneumonia Qualifiers: Pneumonia type: due to unspecified organism Laterality: left Lung location: lower lobe of lung Qualified Code(s): J18.9 - Pneumonia, unspecified organism Abdominal pain Qualifiers: Abdominal location: generalized Qualified Code(s): R10.84 - Generalized abdominal pain
--- NOTE | 2021-01-17 08:47 | XRay Report ---
XR chest 1V portable HISTORY: 85 years-old Female fever, cough acute cough with fever COMPARISON: CT abdomen and pelvis of same day, chest radiograph 10/07/2020 TECHNIQUE: Portable AP view of the chest FINDINGS: Cardiac silhouette is enlarged. Unchanged interstitial coarsening with mild bibasilar opacities. Trac e pleural effusions suggested. No pneumothorax. Degenerative changes of the shoulders and spine. Surg ical clips of the right axilla. IMPRESSION: 1. Cardiomegaly with unchanged interstitial coarsening. 2. Trace pleural effusions with persistent bibasilar densities suggestive of probable atelectasis. Pn eumonitis considered less likely. ACT 112: Negative or not required by law. The above report was generated using voice recognition software. It may contain grammatical, syntax o r spelling errors. Electronically signed by: Ronnie Cartwright M.D. 01/17/2021 8:46 AM
--- NOTE | 2021-01-17 09:26 | History & Physical Report ---
Date of Service January 17, 2021 Assessment & Plan (1) Aspiration pneumonia: Plan: - Admit to med surg with tele - Sputum culture, mucinex, duonebs QID and Q2H prn, tessalon pearls - Wean O2, Wears 3L at all times - COVID-19 swab neg - WBC at time of admission = 17.94 - BCx x 2, follow - Tmax =39.7 - Check Lactic acid and Procalcitonin - CXR reviewed as above - Continue antibiotic therapy with zosyn IV -NSS at 100 mL/h while n.p.o. -History of aspiration pneumonia, patient is on a soft/slippery diet, speech therapy to evaluate -Continue tube feeds Nutren 2.0 oral liquid at 65 ml/hr for 12 hours daily through the feeding tube. ( 3.5 cartons ~ 780 ml per night 7p - 7a) with 20 ml flush before and after. - Consult nutrition. Consider changing feed type after A1C results, hx of A1C was 5.9. Glucose noted to be elevated. No hx of diabetes. (2) Right inguinal hernia: Plan: -History of such, chronic, not strangulated or incarcerated on CT of the abdomen which was reviewed -Pain control (3) Chronic diastolic CHF (congestive heart failure): Plan: -Appears to be euvolemic, holding torsemide with borderline blood pressure of 113/50, holding metoprolol, monitor volume status closely -Continue IV fluids at low rate while n.p.o. until speech therapy evaluates (4) CKD (chronic kidney disease), stage IV: Plan: - Hx of such, baseline of 1.7-2.0, currently at 2.0 - IVFs as above, holding torsemide for now (5) HTN (hypertension): Plan: - Holding metoprolol, resume as able (6) Dyslipidemia: Plan: - Cont statin (7) COPD (chronic obstructive pulmonary disease): Plan: - Wears 3 L O2 at all times, noncompliant with cpap (8) GERD (gastroesophageal reflux disease): Plan: - Hx of GI bleed in September 2020, continue PPI and H2 laura (9) Anemia: Plan: - Hx of recieveing IV iron infusions, planned to resume as outpatient next week. - Hgb 10.6 currently and appears to be around her baseline - No recent bleeds, no melana or BRBPR s/p gi bleed earlier this year. - Monitor with am labs DVT ppx -teds, scds CODE: Full Dispo: From home, likely to remain in the hospital x 2 days History of Present Illness Primary Care Provider: Samantha Zendejas DO This is an 85 yo F with PMHx of chronic diastolic CHF, HTN, HLD, morbid obesity with a BMI of 40.3, CKD stage IV, baseline 1.7-2.1, GERD, GJ tube in place since September 2020 s/p GI bleed and 2 surgeries, PABLO noncompliant with CPAP, major depression disorder who presents to the ER with not feeling well the last day. She reports having fever, abdominal pain, nausea and vomiting and a slight cough which started yesterday. She reports having yellow sputum production. She denies any other acute complaints including chest heaviness, chest pain, shortness of breath, difficulty breathing. She has been doing tube feeds as instructed. Patient is eating p.o., but sticks to a soft/slippery diet. She follows with [facility] at home care, uses Nutren 2.0 oral liquid at 65 ml/hr for 12 hours daily through the feeding tube. ( 3.5 cartons ~ 780 ml per night 7p - 7a) with 20 ml flush before and after. Her daughter is present at bedside and supports the history. Her Covid swab is negative here on admission. She was vaccinated in May 2019. She has been started on IV Zosyn for aspiration pneumonia. Allergies Allergy/AdvReac Type Severity Reaction Status Date / Time Macrolide Antibiotics Allergy Unknown Unknown Unverified 01/17/21 09:02 oxycodone Allergy Unknown Unknown Verified 01/17/21 09:02 tramadol Allergy Unknown Unknown Unverified 01/17/21 09:02 Sulfa (Sulfonamide AdvReac Intermediate KIDNEY Verified 01/17/21 09:02 Antibiotics) PROBLEMS codeine AdvReac Unknown Nausea Verified 01/17/21 09:02 Home Medications Medication Instructions Recorded Confirmed Type gabapentin 100 mg capsule 200 mg PO QAM 07/31/18 01/17/21 History gabapentin 300 mg capsule 300 mg PO HS 07/31/18 01/17/21 History albuterol sulfate 90 mcg/actuation 2 puff INHALATION QID PRN 09/26/18 01/17/21 History aerosol inhaler ascorbic acid (vitamin C) 100 mg 100 mg PO QAM 09/26/18 01/17/21 History tablet (Vitamin C) aspirin 81 mg tablet,delayed 81 mg PO QAM 09/26/18 01/17/21 History release cholecalciferol (vitamin D3) 25 1,000 unit PO QAM 09/26/18 01/17/21 History mcg (1,000 unit) tablet (Vitamin D3) ipratropium 0.5 mg-albuterol 3 mg 3 ml NEB QID PRN 04/23/19 01/17/21 History (2.5 mg base)/3 mL nebulization soln torsemide 20 mg tablet 10 mg PO QAM 04/23/19 01/17/21 History umeclidinium 62.5 mcg/actuation 1 inh INHALATION HS 04/23/19 01/17/21 History blister powder for inhalation (Incruse Ellipta) ascorbic acid (vitamin C) 500 mg 1,000 mg PO QAM 09/12/20 01/17/21 History chewable tablet tamsulosin 0.4 mg capsule 0.4 mg PO HS 09/12/20 01/17/21 History carboxymethylcellulose sodium 0.5 2 drp OPB BID 10/07/20 01/17/21 History % eye drops (Refresh Tears) famotidine 20 mg tablet 20 mg PO HS 10/07/20 01/17/21 History fluticasone furoate 200 1 inh INHALATION QAM 10/07/20 01/17/21 History mcg-vilanterol 25 mcg/dose inhalation powder (Breo Ellipta) fluticasone propionate 50 2 spray INTRANASAL DAILY 10/07/20 01/17/21 History mcg/actuation nasal spray,suspension lidocaine 5 % topical patch 1 patch TOPICAL ONAMOFFPM 10/07/20 01/17/21 History (Lidoderm) melatonin 3 mg tablet 3 mg PO HS 10/07/20 01/17/21 History metoprolol succinate 25 mg 12.5 mg PO DAILY 10/07/20 01/17/21 History tablet,extended release 24 hr ondansetron HCl 4 mg tablet 4 mg PO Q6H PRN 10/07/20 01/17/21 History oxycodone 5 mg/5 mL oral solution 5 mg PO Q6H PRN 10/07/20 01/17/21 History polyethylene glycol 3350 17 gram 17 g PO DAILY PRN 10/07/20 01/17/21 History oral powder packet (Miralax) sennosides 8.6 mg tablet (senna) 8.6 mg PO DAILY PRN 10/07/20 01/17/21 History sertraline 25 mg tablet 25 mg PO DAILY 10/07/20 01/17/21 History acetaminophen 325 mg tablet 325 mg PO QID PRN 01/17/21 01/17/21 History amino ac-protein hydro-whey 1 ea FEEDING TUBE HS 01/17/21 01/17/21 History protein 10 gram-100 kcal/30 mL oral liquid (ProSource) esomeprazole magnesium 20 mg 20 mg PO DAILY 01/17/21 01/17/21 History capsule,delayed release metoclopramide HCl 5 mg tablet 5 mg PO QID 01/17/21 01/17/21 History zoster vaccine live (PF) 19,400 0.5 ml SUBCUT DIRECTED 01/17/21 01/17/21 History unit/0.65 mL subcutaneous suspension (Zostavax (PF)) Past Med/Surg History Medical History (Updated 01/17/21 @ 10:24 by Beverley Walton PA-C) Breast cancer Chronic diastolic CHF (congestive heart failure) CKD (chronic kidney disease), stage IV COPD (chronic obstructive pulmonary disease) Dyslipidemia GERD (gastroesophageal reflux disease) History of DVT (deep vein thrombosis) HTN (hypertension) Lumbago Osteoporosis Surgical History H/O bladder repair surgery H/O colonoscopy H/O mastectomy H/O right knee surgery History of right-sided carotid endarterectomy History of total hip replacement S/P tonsillectomy and adenoidectomy S/P total hysterectomy Family History Mother Colonic polyp Hypertension Heart disease Cancer Breast Father Hypertension Heart disease Social History Smoking Status: Never smoker 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); Do You Dip or Chew Tobacco: No; Hx Alcohol Use: No Hx Substance Use: No Preferred Language: Andorran Communication Ability: Effective Airline Mechanic Required: No Beliefs That Will Affect Care: None marital status: / Current Living Situation: Family Current Living Situation Comment: lives with daughter Kristen Gibbs current occupational status: retired Other Information That Helps Us Care for You: No Feels Safe at Home: Yes Safety Concerns: Feels Safe At This Time Assistive Devices: Denture - Upper, Denture - Lower, Oxygen - Continuous and Walker Review of Systems Review of Systems: Constitutional: + fever, no sweats or chills Eyes: No diplopia, no worsening or blurred vision ENT: normal hearing, no trouble swallowing Respiratory: +cough, sputum, wears 3 L O2 at baseline. No dyspnea at rest or on exertion Cardiovascular: No chest pain, tightness or palpitations Abdomen: Ase per HPI. Lower right sided pain near existing right inguinal hernia, otherwise no pain, +nausea, +vomiting, loose BM 3-4 times daily in mornings regularly. No constipation Musculoskeletal: No joint pain, calf pain, swelling Neurologic: No weakness, numbness/tingling, or balance problems, uses a walker with ambulation. No recent falls. Psychiatric: No anxiety. + depression on medication Skin: No rash or itch Physical Exam Physical Exam: General: awake, alert, no apparent distress, morbidly obese with BMI of 40.3 Head: Normocephalic, atraumatic ENT: PERRL, EOMI, no pharyngeal exudate, mucous membranes moist Chest: + Diminished breath sounds R base with crackles, on 2 L via NC with sats in high 90s, no adventitious breath sounds Cardiac: Regular rate and rhythm, no murmur, no JVD, normal peripheral pulses, good capillary refill Abdominal: NABS x 4 quadrants, soft, nondistended, + JG tube in place in LUQ, no surrounding erythema, nontender to palpation except is tender in RLQ near inguinal hernia, no rebound or guarding Extremities: Normal inspection, no peripheral edema or erythema, calfs nontender to palpation Psych: Normal mood and affect Neuro: AAO x 3, strength intact bilaterally and rated 5/5, no motor deficits, speech is clear, no peripheral sensory deficits Results & Data Results & Data ([facility]) Vital Signs (Past 12 Hours) Vital Signs Temp Pulse Resp BP Pulse Ox 09/22/21 08:41 37.2 C 01/17/21 08:31 77 23 113/50 L 98 01/17/21 08:01 77 136/52 L 98 01/17/21 07:33 89 19 01/17/21 05:54 96 01/17/21 05:37 37.9 C H 84 20 145/65 H 98 01/17/21 05:19 71 26 H 145/65 H 98 Diagnostic Findings Abdomen/Pelvis CT 01/17/21 06:[address] WITHOUT CONTRAST CT DOSE: 934.66 mGycm HISTORY: Acute pain of the right inguinal tissues with vomiting R inguinal pain, vomiting TECHNIQUE: Multiaxial CT images of the abdomen and pelvis were performed without contrast. A dose lowering technique was utilized adhering to the principles of ALARA. COMPARISON STUDY: CT abdomen and pelvis 10/07/2020 FINDINGS: Trace pleural effusions with mild dependent bibasilar densities suggestive of probable atelectasis. No pneumatosis or pneumoperitoneum. Small pericardial effusion has increased in size from comparison. Limited evaluation of the solid abdominal organs without the use of IV contrast. Suggested mild hepatic steatosis. No evidence of cirrhosis or hepatic mass lesion. Unremarkable spleen, gallbladder and adrenal glands. Mildly atrophic pancreas. The kidneys are again noted to be mildly atrophic. No renal calculi, or hydronephrosis. Limited evaluation of the pelvic structures secondary to streak artifact from right hip total joint arthroplasty. All the floor relaxation with small cystocele suggested. Hysterectomy. No adnexal mass lesion. Atherosclerosis of the aorta without aneurysm. No adenopathy. A gastrojejunostomy tube is noted with distal tip within the proximal duodenum. Duodenal diverticulosis. Severe colonic diverticulosis with chronic sigmoid wall thickening. No definitive evidence of acute diverticulitis. No bowel obstruction. The appendix is not identified. Diastases recti. Degenerative changes of the spine, pelvis and left hip. Surgical clips of the inferior right hemipelvis are redemonstrated. Chronic appearing compression deformities of the T11 and L4 vertebral bodies. IMPRESSION: 1. No bowel obstruction. 2. Colonic diverticulosis without definite evidence of acute diverticulitis. There is chronic wall thickening of the sigmoid colon which is likely secondary to muscular hypertrophy from chronic diverticular disease. 3. Satisfactory positioning of the gastrojejunostomy tube. 4. Trace pleural and pericardial effusions. 5. Additional findings as above. ACT 112: Negative or not required by law. The above report was generated using voice recognition software. It may contain grammatical, syntax or spelling errors. Electronically signed by: Ronnie Cartwright M.D. 01/17/2021 7:59 AM Chest X-Ray 01/17/21 08:33 XR chest 1V portable HISTORY: 85 years-old Female fever, cough acute cough with fever COMPARISON: CT abdomen and pelvis of same day, chest radiograph 10/07/2020 TECHNIQUE: Portable AP view of the chest FINDINGS: Cardiac silhouette is enlarged. Unchanged interstitial coarsening with mild bibasilar opacities. Trace pleural effusions suggested. No pneumothorax. Degenerative changes of the shoulders and spine. Surgical clips of the right axilla. IMPRESSION: 1. Cardiomegaly with unchanged interstitial coarsening. 2. Trace pleural effusions with persistent bibasilar densities suggestive of probable atelectasis. Pneumonitis considered less likely. ACT 112: Negative or not required by law. The above report was generated using voice recognition software. It may contain grammatical, syntax or spelling errors. Electronically signed by: Ronnie Cartwright M.D. 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 rate 81 BPM MI interval 238 ms QRS duration 122 ms QT/QTc 412/478 ms Code Status & VTE Plan Code Status Full code Supervising Physician Co-Signing Physician Notes During my evaluation patient was awake, alert and oriented x3. Reports that she presented with nausea/vomiting and right-sided groin pain patient reports that she has also been experiencing fever. Patient reports she have had intermittent episodes of choking with p.o. intake. She does use 3 L of oxygen at baseline. Currently on 2 L of nasal cannula shortness of breath, chest pain or any palpitations. On admission patient was found to have leukocytosis along with fever. Chest x- ray without any concerns however concern for aspiration given her recurrent episodes of vomiting with choking. Keep patient NPO. Speech therapy has been consulted. Start on maintenance IV fluids. We will continue with Zosyn for now. Cultures were obtained in the ED. I performed a history and physical examination of the patient on 01/17/21, including specifically H&P. I have discussed the patient's management with the advanced practitioner. Please refer to the Beverley Walton note for the documented findings and plan of care. (1) COPD (chronic obstructive pulmonary disease) COPD type: COPD with acute exacerbation Qualified Code(s): J44.1 - Chronic obstructive pulmonary disease with (acute) exacerbation (2) HTN (hypertension) Hypertension type: essential hypertension Qualified Code(s): I10 - Essential (primary) hypertension
--- NOTE | 2021-01-17 10:47 | Electrocardiogram Report ---
Test Reason : Blood Pressure : / mmHG Vent. 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
[2021-01-17] MEDS ORDERED: ONDANSETRON INJ 2 MG/ML 2 ML VIAL IV PRN (11:07)
[2021-01-17] MEDS ORDERED: ALBUTEROL HFA 8 GM INHALER INH PRN (11:07)
[2021-01-17] MEDS ORDERED: SENNA 8.6 MG TAB PO PRN (11:07)
[2021-01-17] MEDS ORDERED: POLYETHYLENE (MIRALAX) 17 GM PACK PO PRN (11:07)
[2021-01-17] MEDS ORDERED: [UNRECOGNIZED DRUG - OTHER] SQ SCH (11:07)
[2021-01-17] MEDS ORDERED: ALBUT/IPRATROP 3MG/0.5MG NEB 3 ML VIAL NEB PRN (11:07)
[2021-01-17] MEDS: SODIUM CHLORIDE 0.9% 1000ML 1,000 ML IV SCH ×2 (11:30→22:20)
[2021-01-17] MEDS: METOCLOPRAMIDE HCL 5 MG TABLET PO SCH ×3 (12:31→21:19)
[2021-01-17] MEDS: SERTRALINE HCL 50 MG TABLET PO SCH (12:31)
[2021-01-17] MEDS: LIDOCAINE 5% 1 PATCH TD SCH (12:40)
[2021-01-17] MEDS: LEVALBUTEROL 1.25MG/0.5ML NEB NEB SCH ×2 (13:01→19:04)
--- NOTE | 2021-01-17 14:02 | Fluoroscopy Report ---
FL video swallow INDICATION: MN ^h/o aspiration TECHNIQUE: Video fluoroscopy of the pharyngeal region was performed as barium mixtures of varying con sistencies were administered to the patient by the speech pathologist. A formal esophagram was not pe rformed. COMPARISON: Prior barium swallow 04/26/2019 FINDINGS: The patient swallowed the different barium consistencies without difficulty. No aspiration is seen. There was possible penetration in one swallow of thin consistency barium. No pharyngeal resi due or esophageal dysmotility seen. Total fluoroscopy time: 2.2 minutes. IMPRESSION: No evidence of aspiration. Possible penetration with thin liquids. Please see the speech pathology report for further details. ACT 112: Negative or not required by law. Electronically signed by: Keith Otero M.D. 01/17/2021 2:00 PM
[2021-01-17] MEDS: PIPERACILLIN/TAZOBACTAM 4.5 GM in DEXTROSE 5% 100 ML IV SCH (14:15)
[2021-01-17] MEDS: TUBE FEEDING WATER FLUSH GT SCH ×2 (18:44→21:35)
[2021-01-17] MEDS ORDERED: NOVASOURCE RENAL 2.0 CAL 1000ML BAG GJT SCH (19:00)
[2021-01-17] MEDS ORDERED: HYDROCODONE/ACETAMOPHEN 5/325MG TAB PO PRN (20:20)
[2021-01-17] MEDS ORDERED: HYDROmorphone INJ 0.5 MG/0.5 ML SYR IV PRN (20:20)
[2021-01-17] MEDS: FAMOTIDINE 20 MG TAB PO SCH (21:15)
[2021-01-17] MEDS: GABAPENTIN 300 MG CAP PO SCH (21:16)
[2021-01-17] MEDS: guaiFENesin 600 MG TABCR PO SCH (21:17)
[2021-01-17] MEDS: MELATONIN 3 MG TAB PO SCH (21:18)
[2021-01-17] MEDS: PROSOURCE NO CARB 30 ML/PKT GJT SCH (21:19)
[2021-01-17] MEDS: TAMSULOSIN HCL 0.4 MG CAP PO SCH (21:19)
[2021-01-17] MEDS: UMECLIDINIUM BROMIDE 62.5MCG/BLISTER 7 PUFFS/INHALER INH SCH (21:20)
[2021-01-17] MEDS: ACETAMINOPHEN 325 MG TAB PO PRN (21:23)
[2021-01-17] MEDS: ARTIFICIAL TEARS OPB SCH (21:35)
[2021-01-17] MEDS: NUTREN GT SCH (23:29)
[2021-01-18] MEDS: PIPERACILLIN/TAZOBACTAM 4.5 GM in DEXTROSE 5% 100 ML IV SCH ×2 (02:03→14:46)
[2021-01-18] MEDS: LEVALBUTEROL 1.25MG/0.5ML NEB NEB SCH ×2 (02:08→07:19)
[2021-01-18] MEDS: TUBE FEEDING WATER FLUSH GT SCH ×4 (04:49→19:53)
[2021-01-18 07:20] LABS: Albumin Level 2.6 gm/dl (3.4-5.0); BUN Creatinine Ratio 26.3 (10-20); Calcium 8.7 mg/dl (8.5-10.1); Creatinine Clr Calc Pharmacy 20.3 ml/min; Est GFR (African American) 25.7 ml/min; Est GFR (Non-African American) 22.2 ml/min; Magnesium 2.4 mg/dl (1.8-2.4); Potassium 4.2 mmol/L (3.5-5.1)
[2021-01-18 07:23] LABS: Albumin Globulin Ratio 0.6 (0.9-2); Bilirubin,Total 0.4 mg/dl (0.2-1); Globulin 4.7 gm/dl (2.5-4.0); Total Protein 7.3 gm/dl (6.4-8.2)
[2021-01-18 07:47] LABS: Hematocrit (blood only) 32.9 % (37-47); Mean Corpuscular Hemoglobin 29.7 pg (25-34); Mean Corpuscular Hgb Conc 30.4 g/dL (32-36); Mean Corpuscular Volume 97.6 fL (80-100); Mean Platelet Volume 9.8 fL (7.4-10.4); Platelet Count 354 K/uL (130-400); RDW Coefficient of Variation 13.8 % (11.5-14.5); RDW Standard Deviation 49.7 fL (36.4-46.3); Red Blood Count 3.37 M/uL (4.2-5.4); White Blood Count 13.72 K/uL (4.8-10.8)
[2021-01-18 08:17] LABS: Estimated Average Glucose 123 mg/dl; Hemoglobin A1C 5.9 % (4.5-5.6)
[2021-01-18] MEDS: SODIUM CHLORIDE 0.9% 1000ML 1,000 ML IV SCH (08:21)
[2021-01-18] MEDS: LIDOCAINE 5% 1 PATCH TD SCH (08:21)
[2021-01-18] MEDS: SERTRALINE HCL 50 MG TABLET PO SCH (08:22)
[2021-01-18] MEDS: METOCLOPRAMIDE HCL 5 MG TABLET PO SCH ×4 (08:22→20:00)
[2021-01-18] MEDS: CHOLECALCIFEROL 1,000 UNITS 25 MCG TAB PO SCH (08:23)
[2021-01-18] MEDS: PANTOprazole 40 MG TAB PO SCH (08:23)
[2021-01-18] MEDS: ASPIRIN 81 MG ECTAB PO SCH (08:23)
[2021-01-18] MEDS: ASCORBIC ACID 500 MG TAB PO SCH (08:23)
[2021-01-18] MEDS: GABAPENTIN 100 MG CAP PO SCH (08:23)
[2021-01-18] MEDS: FLUTICASONE PROPIONATE NA SPR 16 GM BTL SCH (08:24)
[2021-01-18] MEDS: FLUTICASONE/VILANTEROL 200/25MCG 14 PUFFS/INHALER INH SCH (08:24)
[2021-01-18] MEDS: ARTIFICIAL TEARS OPB SCH ×2 (08:24→19:54)
[2021-01-18] MEDS: guaiFENesin 600 MG TABCR PO SCH ×2 (08:25→20:00)
[2021-01-18] MEDS: [UNRECOGNIZED DRUG - REMARK] SCH (08:28)
[2021-01-18] MEDS ORDERED: NON-FORMULARY MEDICATION (Ascorbic Acid (Vitamin C) [Vitamin C] 100 mg Tablet) PO SCH (09:00)
--- NOTE | 2021-01-18 09:00 | Hospitalist Progress Note ---
Date of Service January 18, 2021 Assessment & Plan (1) Aspiration pneumonia: Plan: Sepsis on admission: febrile/leukocytosis Patient is doing okay this morning. Currently on 2 L of nasal cannula; just 3 L at home. Leukocytosis is improved to 13.72. Patient is afebrile. Hemodynamically doing fine. She is tolerating p.o. intake. Blood cultures are pending. Negative thus far. U/A is negative. Procalcitonin of only 0.10. Lactate of 1.5. Sputum culture, mucinex, duonebs QID and Q2H prn, tessalon pearls COVID-19 swab neg Will continue with Zosyn for now. Discontinue IV fluids. History of aspiration pneumonia, patient is on a soft/slippery diet [employer]. Appreciate speech therapy input. Started on dysphagia diet. 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 ( 3.5 cartons ~ 780 ml per night 7p - 7a) with 20 ml flush before and after. -Nutrition is on board. (2) Right inguinal hernia: Plan: -History of such, chronic, not strangulated or incarcerated on CT of the abdomen which was reviewed -Pain control (3) Chronic diastolic CHF (congestive heart failure): Plan: -Appears to be euvolemic, hold torsemide for now and restart metoprolol, monitor volume status closely D/C IVF today. (4) CKD (chronic kidney disease), stage IV: Plan: - Hx of such, baseline of 1.7-2.0, currently at 2.0 (5) HTN (hypertension): Plan: - Resume metoprolol, resume as able (6) Dyslipidemia: Plan: - Cont statin (7) COPD (chronic obstructive pulmonary disease): Plan: - Wears 3 L O2 at all times, noncompliant with cpap (8) GERD (gastroesophageal reflux disease): Plan: - Hx of GI bleed in September 2020, continue PPI and H2 laura (9) Anemia: Plan: - Hx of recieveing IV iron infusions, planned to resume as outpatient next week. - Hgb 10.6 currently and appears to be around her baseline - No recent bleeds, no melana or BRBPR s/p gi bleed earlier this year. - Monitor with am labs DVT ppx -teds, scds CODE: Full Dispo: From home, likely to remain in the hospital x 2 days Admission and Anticipated Discharge Date Admission Date: January 17, 2021 Subjective Patient is awake, alert and oriented x3. Tolerated breakfast this morning. Does have intermittent cough. Denies any chest pain, shortness of breath, palpitations, dizziness, diarrhea, dysuria or increased urinary frequency. Does report some suprapubic discomfort. Other review of system is negative. Review of Systems Review of Systems: All systems reviewed & are unremarkable except as noted in HPI & below Physical Exam Physical Exam: General: A&Ox3, on NC HENT: NCAT, MMM, EOMI Eyes: PERRLA Neck: Supple, normal range of motion CVS: normal rate and rhythm Resp: b/l crackles apprciated Abdomen: Soft, ND/NT Extremities: absence of any edema Neuro: face symmetric, no focal deficit appreciated Skin: warm and dry, no rashes/lesions/errythema MSK: normal ROM, no joint swelling/erythema Results & Data Results & Data ([facility]) Vital Signs (Past 12 Hours) Vital Signs Temp Pulse Pulse Resp BP Pulse Ox 01/18/21 07:35 36.6 C 84 20 131/75 96 01/18/21 07:20 58 L 16 96 01/18/21 04:00 37 C 81 20 126/69 95 01/18/21 03:03 84 01/17/21 23:00 37.4 C 83 20 142/74 H 93 (1) HTN (hypertension) Hypertension type: essential hypertension Qualified Code(s): I10 - Essential (primary) hypertension (2) COPD (chronic obstructive pulmonary disease) COPD type: COPD with acute exacerbation Qualified Code(s): J44.1 - Chronic obstructive pulmonary disease with (acute) exacerbation
[2021-01-18] MEDS: METOPROLOL SUCC 25MG EXT REL TAB PO SCH (09:41)
[2021-01-18] MEDS: NUTREN GT SCH (19:53)
[2021-01-18] MEDS: MELATONIN 3 MG TAB PO SCH (20:00)
[2021-01-18] MEDS: FAMOTIDINE 20 MG TAB PO SCH (20:00)
[2021-01-18] MEDS: PROSOURCE NO CARB 30 ML/PKT GJT SCH (20:00)
[2021-01-18] MEDS: GABAPENTIN 300 MG CAP PO SCH (20:00)
[2021-01-18] MEDS: TAMSULOSIN HCL 0.4 MG CAP PO SCH (20:00)
[2021-01-18] MEDS: UMECLIDINIUM BROMIDE 62.5MCG/BLISTER 7 PUFFS/INHALER INH SCH (20:06)
[2021-01-19] MEDS: PIPERACILLIN/TAZOBACTAM 4.5 GM in DEXTROSE 5% 100 ML IV SCH ×2 (02:50→15:07)
[2021-01-19] MEDS: TUBE FEEDING WATER FLUSH GT SCH ×4 (04:22→21:43)
[2021-01-19 08:01] LABS: Hematocrit (blood only) 32.5 % (37-47); Mean Corpuscular Hemoglobin 30.6 pg (25-34); Mean Corpuscular Hgb Conc 30.8 g/dL (32-36); Mean Corpuscular Volume 99.4 fL (80-100); Platelet Count 363 K/uL (130-400); RDW Coefficient of Variation 13.6 % (11.5-14.5); RDW Standard Deviation 49.5 fL (36.4-46.3); Red Blood Count 3.27 M/uL (4.2-5.4); White Blood Count 14.03 K/uL (4.8-10.8)
[2021-01-19] MEDS: FLUTICASONE/VILANTEROL 200/25MCG 14 PUFFS/INHALER INH SCH (08:10)
[2021-01-19] MEDS: ASCORBIC ACID 500 MG TAB PO SCH (08:10)
[2021-01-19] MEDS: FLUTICASONE PROPIONATE NA SPR 16 GM BTL SCH (08:10)
[2021-01-19] MEDS: ASPIRIN 81 MG ECTAB PO SCH (08:10)
[2021-01-19] MEDS: PANTOprazole 40 MG TAB PO SCH (08:10)
[2021-01-19] MEDS: guaiFENesin 600 MG TABCR PO SCH ×2 (08:11→20:48)
[2021-01-19] MEDS: METOCLOPRAMIDE HCL 5 MG TABLET PO SCH ×4 (08:11→20:47)
[2021-01-19] MEDS: SERTRALINE HCL 50 MG TABLET PO SCH (08:11)
[2021-01-19] MEDS: METOPROLOL SUCC 25MG EXT REL TAB PO SCH (08:11)
[2021-01-19] MEDS: GABAPENTIN 100 MG CAP PO SCH (08:11)
[2021-01-19] MEDS: LIDOCAINE 5% 1 PATCH TD SCH (08:12)
[2021-01-19] MEDS: [UNRECOGNIZED DRUG - REMARK] SCH (08:12)
[2021-01-19] MEDS: CHOLECALCIFEROL 1,000 UNITS 25 MCG TAB PO SCH (08:12)
[2021-01-19] MEDS: ARTIFICIAL TEARS OPB SCH ×2 (08:12→20:49)
[2021-01-19 08:20] LABS: Albumin Level 2.5 gm/dl (3.4-5.0); BUN Creatinine Ratio 25.2 (10-20); Calcium 9.1 mg/dl (8.5-10.1); Creatinine Clr Calc Pharmacy 20.5 ml/min; Est GFR (Non-African American) 22.4 ml/min; Potassium 4.6 mmol/L (3.5-5.1)
[2021-01-19 08:22] LABS: Albumin Globulin Ratio 0.5 (0.9-2); Bilirubin,Total 0.3 mg/dl (0.2-1); Globulin 4.9 gm/dl (2.5-4.0); Total Protein 7.4 gm/dl (6.4-8.2)
--- NOTE | 2021-01-19 14:43 | Hospitalist Progress Note ---
Date of Service January 19, 2021 Assessment & Plan (1) Sepsis: Plan: Sepsis on admission secondary to presumed aspiration pneumonia. Resuscitated. Cont per plan below. (2) Aspiration pneumonia: Plan: Evidence of atelectasis without radha pneumonia on chest x-ray a and abdominal CT, however in light of fever, leukocytosis and productive sputum, she was placed on Zosyn out of concern for aspiration pneumonia. She was improved after a couple of days and and is now oxygenating at her baseline. Leukocytosis continues to improve. Based on video swallow study speech therapy started dysphagia diet with soft slippery foods. She continues on tube feeds with Nutren and flushes per home regimen. She remains afebrile. Zosyn will be deescalated to Augmentin. (3) COPD exacerbation: Plan: Wheezing present throughout all lung mills, without worsening hypoxia. Some cough present. No increased work of breathing. Possible COPD exacerbation vs fluid overload from IVF. Favoring the former. Scheduled bronchodilators started and stopped IVF. Prefer to avoid steroids in setting of infection. Cont Breo and Incruse Ellipta inhalers per home regimen. (4) Right inguinal pain: Plan: CT hip with reading pending. (5) Chronic diastolic CHF (congestive heart failure): Plan: -Appears to be euvolemic, DC IVF today and restart torsemide in am. (6) CKD (chronic kidney disease), stage IV: Plan: creatinine at her baseline. (7) HTN (hypertension): Plan: Resumed Metoprolol succinate on 01/18, currently around goal. (8) GERD (gastroesophageal reflux disease): Plan: - Hx of GI bleed in September 2020, continue PPI and H2 laura (9) Anemia: Plan: - Hx of recieveing IV iron infusions, planned to resume as outpatient next week. - Hgb currently at her baseline - No recent bleeds, no melana or BRBPR s/p gi bleed earlier this year. (10) DVT prophylaxis: Plan: SCDs/ add heparin Full Dispo-cont telemetry monitoring. DO [facility] Hospitalist Admission and Anticipated Discharge Date Admission Date: January 17, 2021 Subjective Patient is an 85-year-old female with a GJ tube in place since September 2020 status post GI bleed with 2 subsequent surgeries who presented to the hospital with fever, abdominal pain, nausea vomiting and a slight cough. She had a cough productive of yellow sputum and there was concern for aspiration pneumonia. She did report intermittent episodes of choking with p.o. intake. She was found to have a leukocytosis along with fever. Chest imaging revealed evidence of unchanged interstitial coarsening and trace pleural effusions with persistent bilateral densities at the bases suggestive of probable atelectasis. An abdominal CT revealed no evidence of bowel obstruction or acute diverticulitis. There was chronic wall thickening the sigmoid colon likely secondary to muscular hypertrophy from chronic diverticular disease. Gastrojejunostomy tube was in a satisfactory position and trace pleural and pericardial effusions were seen. Again bibasilar densities were suggestive of probable atelectasis. She was initially placed on Zosyn. She has been doing well with an improvement in her oxygen needs back to baseline which is 2 L nasal cannula and her leukocytosis continues to improve. She is remained afebrile. Recent video swallow study on 01/17 reveals no evidence of aspiration with possible penetration with thin liquids. She has wheezing in her lungs today and despite a history of COPD reports no issues with wheezing in the past. We discussed her inhaler therapy which she says she is taking. Ordered DuoNeb therapies. She is otherwise tolerating p.o. well and is being fed through her G-tube per home regimen. Denies nausea or other issues today aside from persistent right inguinal pain. She reports feeling this is from a hernia however did have a right total hip replacement. We discussed further investigation of this with a CT scan. She was agreeable to this. Review of Systems Review of Systems: At least ten systems were reviewed and negative except as i ndicated in HPI above. Physical Exam Physical Exam: CONSTITUTIONAL: obese, vitals as above, generally well- appearing EYES: normal conjunctivae, no scleral icterus ENT: external ear and nose normal, MMM RESPIRATORY: wheezing throughout all lung mills, no crackles or rales, normal respiratory effort CARDIOVASCULAR: regular rate and rhythm, S1 and 2 heard without murmurs, gallops or rubs, no JVD, no peripheral edema GASTROINTESTINAL: soft, nontender, nondistended. Umbilical hernia present and reducible. GJ tube in place without surrounding erythema or drainage MUSCULOSKELETAL: strength 5/5 throughout, head is normocephalic and atraumatic, There is some TTP in the right inguinal area closer to the midline. No TTP of the lateral GTB or other hip or buttock musculature. SKIN: warm and dry NEUROLOGIC: CN 2-12 grossly intact, normal cognition, normal speech, no tremor PSYCHIATRIC: alert cooperative and oriented to person, place and time. Results & Data Results & Data ([facility]) Vital Signs (Past 12 Hours) Vital Signs Temp Pulse Pulse Resp BP Pulse Ox 01/19/21 12:08 37.0 C 83 20 144/86 H 97 01/19/21 09:50 96 01/19/21 08:01 37.6 C H 93 H 18 129/76 94 01/19/21 07:35 91 H 01/19/21 05:37 91 H 01/19/21 04:40 36.9 C 88 20 137/79 95 Laboratory Results Short CBC 01/19/21 Range/Units 07:13 WBC 14.03 H (4.8-10.8) K/uL Hgb 10.0 L (12.0-16.0) g/dL Hct 32.5 L (37-47) % Plt Count 363 (130-400) K/uL BMP 01/19/21 07:13 Sodium 135 L Potassium 4.6 Chloride 101 Carbon Dioxide 28 BUN 49 H Creatinine 1.96 H Glucose 144 H Calcium 9.1 Liver Function 01/19/21 Range/Units 07:13 Total Bilirubin 0.3 (0.2-1) mg/dl AST 26 (15-37) U/L ALT 34 (12-78) U/L Alkaline Phosphatase 119 H (45-117) U/L Albumin 2.5 L (3.4-5.0) gm/dl Medications Administered Current Inpatient Medications Acetaminophen (Acetaminophen 325 Mg Tab) 325 mg PO QID PRN PRN Reason: Pain Stop: 02/16/21 11:06 Last Admin: 01/17/21 21:23 Dose: 325 mg Documented by: Hydrocodone Bitart/Acetaminophen (Hydrocodone/Acetamophen 5/325mg Tab) 1 tab PO QID PRN PRN Reason: Pain Stop: 01/31/21 20:19 Albuterol (Albuterol Hfa 8 Gm Inhaler) 2 puffs INH QIDR PRN PRN Reason: Shortness Of Breath Or Wheezing Stop: 02/16/21 11:06 Albuterol (Albut/Ipratrop 3mg/0.5mg Neb 3 Ml Vial) 3 ml NEB QIDR PRN PRN Reason: SOB/Wheezing Stop: 02/16/21 11:06 Artificial Tears (Artificial Tears) 2 drops OPB BID [facility] Stop: 02/16/21 20:59 Last Admin: 01/19/21 08:12 Dose: 2 drops Documented by: Ascorbic Acid (Ascorbic Acid 500 Mg Tab) 1,000 mg PO QAM [facility] Stop: 02/17/21 08:59 Last Admin: 01/19/21 08:10 Dose: 1,000 mg Documented by: Aspirin (Aspirin 81 Mg Ectab) 81 mg PO QAM [facility] Stop: 02/17/21 08:59 Last Admin: 01/19/21 08:10 Dose: 81 mg Documented by: Famotidine (Famotidine 20 Mg Tab) 20 mg PO [facility] Stop: 02/16/21 20:59 Last Admin: 01/18/21 20:00 Dose: 20 mg Documented by: Fluticasone Propionate (Fluticasone Propionate Na Spr 16 Gm Btl) 2 sprays NA DAILY [facility] Stop: 02/17/21 08:59 Last Admin: 01/19/21 08:10 Dose: 2 sprays Documented by: Fluticasone/Vilanterol (Fluticasone/Vilanterol 200/25mcg 14 Puffs/Inhaler) [facility] Stop: 02/17/21 08:59 Last Admin: 01/19/21 08:10 Dose: 1 puffs Documented by: Gabapentin (Gabapentin 100 Mg Cap) 200 mg PO QAM [facility] Stop: 02/17/21 08:59 Last Admin: 01/19/21 08:11 Dose: 200 mg Documented by: Gabapentin (Gabapentin 300 Mg Cap) 300 mg PO [facility] Stop: 02/16/21 20:59 Last Admin: 01/18/21 20:00 Dose: 300 mg Documented by: Guaifenesin (Guaifenesin 600 Mg Tabcr) 1,200 mg PO Q12 [facility] Stop: 02/16/21 20:59 Last Admin: 01/19/21 08:11 Dose: 1,200 mg Documented by: Hydromorphone HCl (Hydromorphone Inj 0.5 Mg/0.5 Ml Syr) 0.25 mg IV Q3H PRN PRN Reason: Pain Stop: 01/31/21 20:19 Piperacillin Sod/Tazobactam (Sod 4.5 gm/ Dextrose) 120 mls @ 30 mls/hr IV Q12H [facility]; Protocol Stop: 01/24/21 14:59 Last Infusion: 01/19/21 06:53 Dose: Infused Documented by: Lidocaine (Lidocaine 5% 1 Patch) 1 patch TD DAILY [facility] Stop: 02/16/21 11:29 Last Admin: 01/19/21 08:12 Dose: 1 patch Documented by: Melatonin (Melatonin 3 Mg Tab) 3 mg PO HS [facility] Stop: 02/16/21 20:59 Last Admin: 01/18/21 20:00 Dose: 3 mg Documented by: Metoclopramide HCl (Metoclopramide Hcl 5 Mg Tablet) 5 mg PO QID [facility] Stop: 02/16/21 12:59 Last Admin: 01/19/21 12:34 Dose: 5 mg Documented by: Metoprolol Succinate (Metoprolol Succ 25mg Ext Rel Tab) 12.5 mg PO QAM [facility] Stop: 02/17/21 08:59 Last Admin: 01/19/21 08:11 Dose: 12.5 mg Documented by: Miscellaneous (Remove Lidoderm Patch) 1 ea N/A DAILY@2100 [facility] Stop: 02/16/21 20:59 Last Admin: 01/18/21 20:06 Dose: 1 ea Documented by: Miscellaneous (Nutren~Stop Order) 1 ea N/A DAILY [facility] Stop: 02/17/21 08:59 Last Admin: 01/19/21 08:12 Dose: 1 ea Documented by: Miscellaneous Information (Piperacill/Tazobac Consult Active) 1 ea N/A UD PRN PRN Reason: Consult Stop: 02/16/21 11:06 Non-Formulary Medication (Nutren 65 Ml) 65 ml GT [facility] Stop: 02/16/21 22:29 Last Admin: 01/18/21 19:53 Dose: 780 ml Documented by: Nutritional Formula (Prosource No Carb 30 Ml/Pkt) 30 ml GJT [facility] Stop: 02/16/21 20:59 Last Admin: 01/18/21 20:00 Dose: 30 ml Documented by: Ondansetron HCl (Ondansetron Inj 2 Mg/Ml 2 Ml Vial) 4 mg IV Q4H PRN PRN Reason: Nausea And Vomiting Stop: 02/16/21 11:06 Pantoprazole Sodium (Pantoprazole 40 Mg Tab) 40 mg PO DAILY [facility]; Protocol Stop: 02/17/21 08:59 Last Admin: 01/19/21 08:10 Dose: 40 mg Documented by: Polyethylene Glycol (Polyethylene (Miralax) 17 Gm Pack) 17 gm PO DAILY PRN PRN Reason: Constipation Stop: 02/16/21 11:06 Sennosides (Senna 8.6 Mg Tab) 8.6 mg PO DAILY PRN PRN Reason: Constipation Stop: 02/16/21 11:06 Sertraline HCl (Sertraline Hcl 50 Mg Tablet) 25 mg PO DAILY [facility] Stop: 02/16/21 11:29 Last Admin: 01/19/21 08:11 Dose: 25 mg Documented by: Sterile Water (Tube Feeding Water Flush) 100 ml GT Q6H [facility] Stop: 02/16/21 15:44 Last Admin: 01/19/21 10:37 Dose: 100 ml Documented by: Tamsulosin HCl (Tamsulosin Hcl 0.4 Mg Cap) 0.4 mg PO [facility] Stop: 02/16/21 20:59 Last Admin: 01/18/21 20:00 Dose: 0.4 mg Documented by: Umeclidinium [place] (Umeclidinium [place] 62.5mcg/Blister 7 Puffs/Inhaler) 1 puffs INH [facility] Stop: 02/16/21 20:59 Last Admin: 01/18/21 20:06 Dose: Not Given Documented by: Vitamin D (Cholecalciferol 1,000 Units 25 Mcg Tab) 1,000 units [facility] Stop: 02/17/21 08:59 Last Admin: 01/19/21 08:12 Dose: 1,000 units Documented by: (1) HTN (hypertension) Hypertension type: essential hypertension Qualified Code(s): I10 - Essential (primary) hypertension
[2021-01-19] MEDS: ACETAMINOPHEN 325 MG TAB PO PRN (15:10)
[2021-01-19] MEDS ORDERED: AMOXICILLIN/CLAVULANATE 500 MG TAB PO SCH (17:00)
[2021-01-19] MEDS: ALBUT/IPRATROP 3MG/0.5MG NEB 3 ML VIAL NEB SCH ×2 (17:27→19:47)
--- NOTE | 2021-01-19 20:01 | CT Scan Report ---
CT SCAN OF THE RIGHT HIP WITHOUT IV CONTRAST CLINICAL HISTORY: Right hip pain. COMPARISON STUDY: Pelvic CT dated 01/17/2021. TECHNIQUE: CT scan of the right hip is performed from the bony pelvis to the femoral shaft. Images ar e reviewed in the axial, sagittal, coronal planes. IV contrast was not administered for this examinat ion. Note that interpretation is suboptimal without plain film correlate. There is also streak artifa ct from a right hip arthroplasty. A dose lowering technique was utilized adhering to the principles o f ALARA. FINDINGS: The skeletal structures are osteopenic. 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 No fr acture is identified involving the right hip or the visualized right hemipelvis. No periprosthetic james cency is seen. No joint effusion is identified. There is mild generalized atrophy of the regional mus culature. No intramuscular hematoma is identified. Soft tissue contusion is suggested overlying the r ight hip. Postoperative change is seen within the right ventral pelvis. The bladder is normal as visu alized. The uterus is surgically absent. Enteric contrast is noted within the sigmoid colon. There is diverticulosis of the visualized sigmoid colon without CT evidence of acute diverticulitis. There is no right pelvic sidewall or inguinal adenopathy. Atherosclerotic calcification is noted in the right femoral artery. IMPRESSION: 1. No fracture is seen involving the right hip or the visualized right hemipelvis. 2. Soft tissue contusion is suggested overlying the right hip. Clinical correlation will be required. ACT 112: Negative or not required by law. Dictated: 01/19/2021 7:12 PM Transcribed: 01/19/2021 7:52 PM Marily [id number] [email or web address] Electronically signed by: Almas Ruggiero M.D. 01/19/2021 7:59 PM
[2021-01-19] MEDS: UMECLIDINIUM BROMIDE 62.5MCG/BLISTER 7 PUFFS/INHALER INH SCH (20:47)
[2021-01-19] MEDS: GABAPENTIN 300 MG CAP PO SCH (20:47)
[2021-01-19] MEDS: TAMSULOSIN HCL 0.4 MG CAP PO SCH (20:47)
[2021-01-19] MEDS: PROSOURCE NO CARB 30 ML/PKT GJT SCH (20:48)
[2021-01-19] MEDS: FAMOTIDINE 20 MG TAB PO SCH (20:48)
[2021-01-19] MEDS: MELATONIN 3 MG TAB PO SCH (20:48)
[2021-01-19] MEDS: AMOXICILLIN/CLAVULANATE 500 MG TAB PO SCH (20:48)
[2021-01-19] MEDS: NUTREN GT SCH (20:50)
[2021-01-20] MEDS: TUBE FEEDING WATER FLUSH GT SCH ×4 (04:22→21:17)
[2021-01-20] MEDS: ACETAMINOPHEN 325 MG TAB PO PRN (06:01)
[2021-01-20 06:32] LABS: Basophils # (auto) 0.03 K/uL (0-0.2); Basophils % (auto) 0.2 %; Eosinophils % (auto) 3.3 %; Hemoglobin 9.5 g/dL (12.0-16.0); Immature Granulocytes # (auto) 0.09 K/uL (0.00-0.02); Immature Granulocytes % (auto) 0.7 %; Lymphocytes # (auto) 1.92 K/uL (1.2-3.4); Lymphocytes % (auto) 15.6 %; Mean Corpuscular Hemoglobin 29.4 pg (25-34); Mean Corpuscular Hgb Conc 30.6 g/dL (32-36); Mean Platelet Volume 9.6 fL (7.4-10.4); Monocytes # (auto) 1.38 K/uL (0.11-0.59); Monocytes % (auto) 11.2 %; Neutrophils # (auto) 8.46 K/uL (1.4-6.5); Platelet Count 356 K/uL (130-400); RDW Coefficient of Variation 13.6 % (11.5-14.5); RDW Standard Deviation 48.4 fL (36.4-46.3); Red Blood Count 3.23 M/uL (4.2-5.4); White Blood Count 12.28 K/uL (4.8-10.8)
[2021-01-20] MEDS: METOPROLOL SUCC 25MG EXT REL TAB PO SCH ×2 (06:39→08:41)
[2021-01-20 06:48] LABS: Partial Thromboplastin Ratio 1.1; Partial Thromboplastin Time 27.9 Seconds (21.0-31.0)
[2021-01-20 06:57] LABS: BUN Creatinine Ratio 26.1 (10-20); Calcium 8.8 mg/dl (8.5-10.1); Creatinine Clr Calc Pharmacy 19.8 ml/min; Est GFR (African American) 24.8 ml/min; Est GFR (Non-African American) 21.4 ml/min; Magnesium 2.3 mg/dl (1.8-2.4); Potassium 4.4 mmol/L (3.5-5.1)
--- NOTE | 2021-01-20 07:18 | Communication Note ---
Date of Service: January 20, 2021 Made aware by RN of runs of atrial flutter. No chest pain, S OB, dizziness, palpitations during episodes as per RN. AP Paroxysmal atrial flutter hx transient A. fib as per outpatient cardiology records Increase maintenance beta-laura dose Check a.m. electrolytes now TTE, Cardiology consult Re: Atrial flutter Will relay to AM provider.
[2021-01-20] MEDS: ALBUT/IPRATROP 3MG/0.5MG NEB 3 ML VIAL NEB SCH ×3 (07:24→15:06)
[2021-01-20] MEDS: guaiFENesin 600 MG TABCR PO SCH ×2 (08:39→21:15)
[2021-01-20] MEDS: METOCLOPRAMIDE HCL 5 MG TABLET PO SCH ×4 (08:40→21:15)
[2021-01-20] MEDS: GABAPENTIN 100 MG CAP PO SCH (08:40)
[2021-01-20] MEDS: PANTOprazole 40 MG TAB PO SCH (08:40)
[2021-01-20] MEDS: AMOXICILLIN/CLAVULANATE 500 MG TAB PO SCH ×2 (08:40→21:15)
[2021-01-20] MEDS: CHOLECALCIFEROL 1,000 UNITS 25 MCG TAB PO SCH (08:41)
[2021-01-20] MEDS: ASCORBIC ACID 500 MG TAB PO SCH (08:41)
[2021-01-20] MEDS: ASPIRIN 81 MG ECTAB PO SCH (08:41)
[2021-01-20] MEDS: SERTRALINE HCL 50 MG TABLET PO SCH (08:42)
[2021-01-20] MEDS: LIDOCAINE 5% 1 PATCH TD SCH (08:42)
[2021-01-20] MEDS: FLUTICASONE PROPIONATE NA SPR 16 GM BTL SCH (08:43)
[2021-01-20] MEDS: FLUTICASONE/VILANTEROL 200/25MCG 14 PUFFS/INHALER INH SCH (08:44)
[2021-01-20] MEDS: ARTIFICIAL TEARS OPB SCH ×2 (09:28→21:16)
[2021-01-20] MEDS: [UNRECOGNIZED DRUG - REMARK] SCH (10:05)
--- NOTE | 2021-01-20 10:31 | Cardiology Consultation ---
Date of Consultation January 20, 2021 Assessment & Plan (1) First degree AV block: (2) Premature atrial complexes: (3) Chronic diastolic CHF (congestive heart failure): Based on her review of the patient's repeat EKG and her telemetry, I am not convinced that she is having episodes of atrial fibrillation or atrial flutter. She has longstanding history of a long first-degree AV block, and supraventricular ectopy noted. Agree with increasing her metoprolol succinate dose from 12.5 mg to 25 mg with caution. I think this is reasonable since we are monitoring on telemetry. She is of course however at risk for developing bradycardia given her history of long first-degree AV block, right bundle branch block, and intermittent left anterior fascicular block. I do not see an indication for systemic anticoagulation, and would tend to avoid systemic anticoagulation given her recent issues with gastrointestinal bleeding, complex intra-abdominal surgery back in August, and issues with recent iron deficiency anemia for which she has been receiving IV iron infusions. Her echocardiogram reveals a small circumferential pericardial effusion without hemodynamic compromise. She does not have any clinical symptoms to suggest pericarditis. At present, her chronic diastolic heart failure is relatively well compensated. But she will likely need to go back on diuretic therapy at some point. History of Present Illness Attending Physician: Sadia Buck, DO History of Present Illness Radhika Arroyo is an 85 year old female seen in cardiology consultation per the request of Dr. Giraldo for the evaluation of cardiac arrhythmia, suspected atrial flutter. The patient is well-known to the undersigned as I have followed her as an outpatient. She has a longstanding history of chronic diastolic heart failure, and first-degree AV block, bifascicular block pattern with right bundle branch block left anterior fascicular block. She underwent hiatal hernia repair in Aug, 2020 with a complicated hospital/rehabcourse including, GI bleed,insertion of a PEG tubefollowed by GJ tube which is in place, being used for night time continuous feeds. She is currently admitted and being treated for suspected aspiration pneumonia. CT of the abdomen and pelvis performed 01/17/2021 revealed no bowel obstruction, satisfactory positioning of the GJ tube, and trace pleural effusions, trace pericardial effusion. Cardiology was consulted because in the customer care agent hours of this morning at approximately 2 AM, episodes of arrhythmia were noted on telemetry. There was concern for atrial flutter. The patient denies any current cardiac complaint. Allergies Allergy/AdvReac Type Severity Reaction Status Date / Time Macrolide Antibiotics Allergy Unknown Unknown Unverified 01/17/21 09:02 oxycodone Allergy Unknown Unknown Verified 01/17/21 09:02 tramadol Allergy Unknown Unknown Unverified 01/17/21 09:02 Sulfa (Sulfonamide AdvReac Intermediate KIDNEY Verified 01/17/21 09:02 Antibiotics) PROBLEMS codeine AdvReac Unknown Nausea Verified 01/17/21 09:02 Home Medications Medication Instructions Recorded Confirmed Type gabapentin 100 mg capsule 200 mg PO QA 07/31/18 01/17/21 History gabapentin 300 mg capsule 300 mg PO 07/31/18 01/17/21 History albuterol sulfate 90 mcg/actuation 2 puff INHALATION QID PRN 09/26/18 01/17/21 History aerosol inhaler ascorbic acid (vitamin C) 100 mg 100 mg PO QA 09/26/18 01/17/21 History tablet (Vitamin C) aspirin 81 mg tablet,delayed 81 mg PO [facility] 09/26/18 01/17/21 History release cholecalciferol (vitamin D3) 25 1,000 unit PO QA 09/26/18 01/17/21 History mcg (1,000 unit) tablet (Vitamin D3) ipratropium 0.5 mg-albuterol 3 mg 3 ml NEB QID PRN 04/23/19 01/17/21 History (2.5 mg base)/3 mL nebulization soln torsemide 20 mg tablet 10 mg PO QA 04/23/19 01/17/21 History umeclidinium 62.5 mcg/actuation 1 inh INHALATION 04/23/19 01/17/21 History blister powder for inhalation (Incruse Ellipta) ascorbic acid (vitamin C) 500 mg 1,000 mg PO QA 09/12/20 01/17/21 History chewable tablet tamsulosin 0.4 mg capsule 0.4 mg PO 09/12/20 01/17/21 History carboxymethylcellulose sodium 0.5 2 drp OPB BID 10/07/20 01/17/21 History % eye drops (Refresh Tears) famotidine 20 mg tablet 20 mg PO 10/07/20 01/17/21 History fluticasone furoate 200 1 inh INHALATION QAM 10/07/20 01/17/21 History mcg-vilanterol 25 mcg/dose inhalation powder (Breo Ellipta) fluticasone propionate 50 2 spray INTRANASAL DAILY 10/07/20 01/17/21 History mcg/actuation nasal spray,suspension lidocaine 5 % topical patch 1 patch TOPICAL ONAMOFFPM 10/07/20 01/17/21 History (Lidoderm) melatonin 3 mg tablet 3 mg PO HS 10/07/20 01/17/21 History metoprolol succinate 25 mg 12.5 mg PO DAILY 10/07/20 01/17/21 History tablet,extended release 24 hr ondansetron HCl 4 mg tablet 4 mg PO Q6H PRN 10/07/20 01/17/21 History oxycodone 5 mg/5 mL oral solution 5 mg PO Q6H PRN 10/07/20 01/17/21 History polyethylene glycol 3350 17 gram 17 g PO DAILY PRN 10/07/20 01/17/21 History oral powder packet (Miralax) sennosides 8.6 mg tablet (senna) 8.6 mg PO DAILY PRN 10/07/20 01/17/21 History sertraline 25 mg tablet 25 mg PO DAILY 10/07/20 01/17/21 History acetaminophen 325 mg tablet 325 mg PO QID PRN 01/17/21 01/17/21 History amino ac-protein hydro-whey 1 ea FEEDING TUBE HS 01/17/21 01/17/21 History protein 10 gram-100 kcal/30 mL oral liquid (ProSource) esomeprazole magnesium 20 mg 20 mg PO DAILY 01/17/21 01/17/21 History capsule,delayed release metoclopramide HCl 5 mg tablet 5 mg PO QID 01/17/21 01/17/21 History zoster vaccine live (PF) 19,400 0.5 ml SUBCUT DIRECTED 01/17/21 01/17/21 History unit/0.65 mL subcutaneous suspension (Zostavax (PF)) Patient History Medical History (Updated 01/20/21 @ 11:16 by Cruz Gibbs DO) Breast cancer Chronic diastolic CHF (congestive heart failure) CKD (chronic kidney disease), stage IV COPD (chronic obstructive pulmonary disease) Dyslipidemia GERD (gastroesophageal reflux disease) History of DVT (deep vein thrombosis) HTN (hypertension) Lumbago Osteoporosis Surgical History H/O bladder repair surgery H/O colonoscopy H/O mastectomy H/O right knee surgery History of right-sided carotid endarterectomy History of total hip replacement S/P tonsillectomy and adenoidectomy S/P total hysterectomy Family History Mother Colonic polyp Hypertension Heart disease Cancer Breast Father Hypertension Heart disease Social History Smoking Status: Never smoker 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); Do You Dip or Chew Tobacco: No; Hx Alcohol Use: No Hx Substance Use: No Preferred Language: Greek Communication Ability: Effective Loading Inspector Required: No Beliefs That Will Affect Care: None marital status: / Current Living Situation: Family Current Living Situation Comment: lives with daughter Kristen Gibbs current occupational status: retired How many Children do You have: 4 Other Information That Helps Us Care for You: No Feels Safe at Home: Yes Safety Concerns: Feels Safe At This Time Assistive Devices: Oxygen - Continuous, Walker and Wheelchair Review of Systems Review of Systems: All systems reviewed & are unremarkable except as noted in HPI & below Physical Exam Physical Exam: Temp Pulse Resp BP Pulse Ox 37.1 C 90 18 126/72 98 01/20/21 07:00 01/20/21 07:53 01/20/21 07:25 01/20/21 07:00 01/20/21 07:25 Constitutional: no acute distress Respiratory: Mildly decreased breath sounds the bases, no rales or rhonchi Cardiovascular: Rate/Rhythm: regular rate Heart Sounds: no murmur Extremities: no edema Neurologic: PERRL, EOMI, accommodation nl, no face palsy, no dysarthria Results & Data ([facility]) Vital Signs (Past 12 Hours) Vital Signs Temp Pulse Pulse Resp BP Pulse Ox 01/20/21 07:53 90 01/20/21 07:25 96 H 18 98 01/20/21 07:00 37.1 C 89 18 126/72 95 01/20/21 05:14 90 01/20/21 04:24 37.0 C 86 20 130/68 92 09/25/21 00:26 37.0 C 88 20 124/63 94 01/19/21 22:49 92 H Laboratory Results Coagulation 01/20/21 Range/Units 05:55 APTT 27.9 (21.0-31.0) Seconds CBC 01/20/21 Range/Units 05:55 WBC 12.28 H (4.8-10.8) K/uL RBC 3.23 L (4.2-5.4) M/uL Hgb 9.5 L (12.0-16.0) g/dL Hct 31.0 L (37-47) % Plt Count 356 (130-400) K/uL Neut # (Auto) 8.46 H (1.4-6.5) K/uL Lymph # (Auto) 1.92 (1.2-3.4) K/uL [place] # (Auto) 1.38 H (0.11-0.59) K/uL Eos # (Auto) 0.40 (0-0.5) K/uL Baso # (Auto) 0.03 (0-0.2) K/uL Comprehensive Metabolic Panel 01/20/21 Range/Units 05:55 Sodium 135 L (136-145) mmol/L Potassium 4.4 (3.5-5.1) mmol/L Chloride 101 (98-107) mmol/L Carbon Dioxide 26 (21-32) mmol/L BUN 53 H (7-18) mg/dl Creatinine 2.04 H (0.6-1.2) mg/dl Glucose 179 H (70-99) mg/dl Calcium 8.8 (8.5-10.1) mg/dl Intake and Output 01/19/21 01/20/21 01/20/21 22:59 06:59 14:59 Intake Total 51.5 / 251.5 200 / 251.5 Output Total 400 / 450 50 / 450 Balance -348.5 / -198.5 150 / -198.5 Intake: IV 51.5 / 51.5 Piperacillin/Tazobactam 4.5 gm 51.5 / 51.5 In Dextrose 5% 100 ml @ 30 mls/ hr IV Q12H [facility] Rx#:[id number] Oral 200 / 200 Output: Urine Amount (Catheter) 400 / 450 50 / 450 External 400 / 450 50 / 450 Other: # Unmeasured Voids 3 1 Weight 92.2 kg 92.8 kg Weight Measurement Method Built in [facility] Diagnostic Findings EKG performed this morning 01/20/2021 at 810 and reviewed independently reveals what I feel is a sinus tachycardia 101 bpm with a very long first-degree AV block, the P wave very close to the preceding T wave. Right bundle branch block also noted. Per my review of the telemetry, what I think was being interpreted as a second P wave is actually the R-wave of her right bundle branch block. Patient is noted to have frequent episodes of supraventricular ectopy on telemetry.
[2021-01-20] MEDS: TORSEMIDE 10 MG TAB PO SCH (13:11)
[2021-01-20] MEDS: HEPARIN SOD 5,000 UNIT/0.5 ML VIAL SQ SCH ×2 (14:12→21:15)
--- NOTE | 2021-01-20 15:39 | Hospitalist Progress Note ---
Date of Service January 20, 2021 Assessment & Plan (1) Sepsis: Plan: Sepsis on admission secondary to presumed aspiration pneumonia. Resuscitated. Cont per plan below. (2) Aspiration pneumonia: Plan: Evidence of atelectasis without radha pneumonia on chest x-ray a and abdominal CT, however in light of fever, leukocytosis and productive sputum, she was placed on Zosyn out of concern for aspiration pneumonia. She was improved after a couple of days and and is now oxygenating at her baseline. Leukocytosis continues to improve to 13K today. Based on video swallow study speech therapy started dysphagia diet with soft slippery foods. She continues on tube feeds with Nutren and flushes per home regimen. She remains afebrile. Zosyn will be deescalated to Augmentin. Continues on this now and appears to be doing well. Remains febrile overnight. (3) COPD exacerbation: Plan: No wheezing today with scheduled bronchodilators overnight and after stopping IVF. Cough improved. No increased work of breathing. Possible COPD exacerbation vs fluid overload from IVF. Favoring the former. De-escalate bronchodilator therapy to PRN. Prefer to avoid steroids in setting of infection. Cont Breo and Incruse Ellipta inhalers per home regimen. (4) Right inguinal pain: Plan: No fracture present there is a soft tissue contusion seen overlying the right hip which may be the cause of her pain. She is not identifying any pain here today. We will continue to monitor. Supportive care as needed. (5) Chronic diastolic CHF (congestive heart failure): Plan: Euvolemic on exam, restarted torsemide this morning. (6) CKD (chronic kidney disease), stage IV: Plan: creatinine at her baseline. (7) HTN (hypertension): Plan: Resumed Metoprolol succinate on 01/18, currently around goal. (8) GERD (gastroesophageal reflux disease): Plan: - Hx of GI bleed in September 2020, continue PPI and H2 laura (9) Anemia: Plan: - Hx of recieveing IV iron infusions, planned to resume as outpatient next week. - Hgb currently at her baseline - No recent bleeds, no melana or BRBPR s/p gi bleed earlier this year. (10) DVT prophylaxis: Plan: SCDs/ add heparin Full Dispo-cont telemetry monitoring. Sadia Buck DO [facility] Hospitalist Admission and Anticipated Discharge Date Admission Date: January 17, 2021 Subjective Patient is an 85-year-old female admitted with concerns for aspiration pneumonia. She is concerned about her heart today despite denying any palpitations, chest pain or other issues. Overnight she developed potential transient atrial fibrillation and cardiology was consulted. Per cardiology recommendations this was not convincing for rhythm of atrial fibrillation or atrial flutter. Her metoprolol dose was increased although with caution in the setting of first- degree AV block, right bundle branch block and intermittent left anterior fascicular block. An echocardiogram was performed revealing a small c ircumferential pericardial effusion without hemodynamic compromise and no's clinical symptoms to suggest pericarditis. She denies any other symptoms today and reports not being out of bed because "th ere are no staff or therapist here to walk me" Review of Systems Review of Systems: At least ten systems were reviewed and negative except as indicated in HPI above. Physical Exam Physical Exam: CONSTITUTIONAL: obese, vitals as above, generally well- appearing, NAD EYES: normal conjunctivae, no scleral icterus ENT: external ear and nose normal, MMM RESPIRATORY: clear lungs to auscultation throughout, no crackles or rales, normal respiratory effort CARDIOVASCULAR: regular rate and rhythm, S1 and 2 heard without murmurs, gallops or rubs, no JVD, no peripheral edema GASTROINTESTINAL: soft, nontender, nondistended. Umbilical hernia present and reducible. GJ tube in place without surrounding erythema or drainage MUSCULOSKELETAL: strength 5/5 throughout, head is normocephalic and atraumatic, SKIN: warm and dry NEUROLOGIC: CN 2-12 grossly intact, normal cognition, normal speech, no tremor PSYCHIATRIC: alert cooperative and oriented to person, place and time. Results & Data Results & Data ([facility]) Vital Signs (Past 12 Hours) Vital Signs Temp Pulse Pulse Resp BP Pulse Ox 01/20/21 15:06 88 18 98 01/20/21 11:12 87 16 98 01/20/21 07:53 90 01/20/21 07:25 96 H 18 98 01/20/21 07:00 37.1 C 89 18 126/72 95 01/20/21 05:14 90 01/20/21 04:24 37.0 C 86 20 130/68 92 Laboratory Results Short CBC 01/20/21 Range/Units 05:55 WBC 12.28 H (4.8-10.8) K/uL Hgb 9.5 L (12.0-16.0) g/dL Hct 31.0 L (37-47) % Plt Count 356 (130-400) K/uL [facility] 01/20/21 05:55 Sodium 135 L Potassium 4.4 Chloride 101 Carbon Dioxide 26 BUN 53 H Creatinine 2.04 H Glucose 179 H Calcium 8.8 Medications Administered Current Inpatient Medications Acetaminophen (Acetaminophen 325 Mg Tab) 325 mg PO QID PRN PRN Reason: Pain Stop: 02/16/21 11:06 Last Admin: 01/20/21 06:01 Dose: 325 mg Documented by: Hydrocodone Bitart/Acetaminophen (Hydrocodone/Acetamophen 5/325mg Tab) 1 tab PO QID PRN PRN Reason: Pain Stop: 01/31/21 20:19 Albuterol (Albuterol Hfa 8 Gm Inhaler) 2 puffs INH QIDR PRN PRN Reason: Shortness Of Breath Or Wheezing Stop: 02/16/21 11:06 Albuterol (Albut/Ipratrop 3mg/0.5mg Neb 3 Ml Vial) 3 ml NEB QIDR [facility] Stop: 02/18/21 16:14 Last Admin: 01/20/21 15:06 Dose: 3 ml Documented by: Amoxicillin/Clavulanate Potassium (Amoxicillin/Clavulanate 500 Mg Tab) 1 tab PO BID [facility] Stop: 01/26/21 20:59 Last Admin: 01/20/21 08:40 Dose: 1 tab Documented by: Artificial Tears (Artificial Tears) 2 drops OPB BID [facility] Stop: 02/16/21 20:59 Last Admin: 01/20/21 09:28 Dose: 2 drops Documented by: Ascorbic Acid (Ascorbic Acid 500 Mg Tab) 1,000 mg PO QAM [facility] Stop: 02/17/21 08:59 Last Admin: 01/20/21 08:41 Dose: 1,000 mg Documented by: Aspirin (Aspirin 81 Mg Ectab) 81 mg PO QAM [facility] Stop: 02/17/21 08:59 Last Admin: 01/20/21 08:41 Dose: 81 mg Documented by: Famotidine (Famotidine 20 Mg Tab) 20 mg PO HS [facility] Stop: 02/16/21 20:59 Last Admin: 01/19/21 20:48 Dose: 20 mg Documented by: Fluticasone Propionate (Fluticasone Propionate Na Spr 16 Gm Btl) 2 sprays NA DAILY [facility] Stop: 02/17/21 08:59 Last Admin: 01/20/21 08:43 Dose: 2 sprays Documented by: Fluticasone/Vilanterol (Fluticasone/Vilanterol 200/25mcg 14 Puffs/Inhaler) 1 puffs INH QAM [facility] Stop: 02/17/21 08:59 Last Admin: 01/20/21 08:44 Dose: 1 puffs Documented by: Gabapentin (Gabapentin 100 Mg Cap) 200 mg PO QAM [facility] Stop: 02/17/21 08:59 Last Admin: 01/20/21 08:40 Dose: 200 mg Documented by: Gabapentin (Gabapentin 300 Mg Cap) 300 mg PO HS [facility] Stop: 02/16/21 20:59 Last Admin: 01/19/21 20:47 Dose: 300 mg Documented by: Guaifenesin (Guaifenesin 600 Mg Tabcr) 1,200 mg PO Q12 [facility] Stop: 02/16/21 20:59 Last Admin: 01/20/21 08:39 Dose: 1,200 mg Documented by: Heparin Sodium (Porcine) (Heparin Sod 5,000 Unit/0.5 Ml Vial) 5,000 units SQ Q8 [facility] Stop: 02/19/21 13:59 Last Admin: 01/20/21 14:12 Dose: 5,000 units Documented by: Lidocaine (Lidocaine 5% 1 Patch) 1 patch TD DAILY [facility] Stop: 02/16/21 11:29 Last Admin: 01/20/21 08:42 Dose: 1 patch Documented by: Melatonin (Melatonin 3 Mg Tab) 3 mg PO HS [facility] Stop: 02/16/21 20:59 Last Admin: 01/19/21 20:48 Dose: 3 mg Documented by: Metoclopramide HCl (Metoclopramide Hcl 5 Mg Tablet) 5 mg PO QID [facility] Stop: 02/16/21 12:59 Last Admin: 01/20/21 13:11 Dose: 5 mg Documented by: Metoprolol Succinate (Metoprolol Succ 25mg Ext Rel Tab) 25 mg PO QAM [facility] Stop: 02/19/21 06:14 Last Admin: 01/20/21 08:41 Dose: 25 mg Documented by: Miscellaneous (Remove Lidoderm Patch) 1 ea N/A DAILY@2100 [facility] Stop: 02/16/21 20:59 Last Admin: 01/19/21 20:49 Dose: 1 ea Documented by: Miscellaneous (Nutren~Stop Order) 1 ea N/A DAILY [facility] Stop: 02/17/21 08:59 Last Admin: 01/20/21 10:05 Dose: 1 ea Documented by: Non-Formulary Medication (Nutren 65 Ml) [address] [facility] Stop: 02/16/21 22:29 Last Admin: 01/19/21 20:50 Dose: 65 ml Documented by: Nutritional Formula (Prosource No Carb 30 Ml/Pkt) [address] [facility] Stop: 02/16/21 20:59 Last Admin: 01/19/21 20:48 Dose: 30 ml Documented by: Ondansetron HCl (Ondansetron Inj 2 Mg/Ml 2 Ml Vial) 4 mg IV Q4H PRN PRN Reason: Nausea And Vomiting Stop: 02/16/21 11:06 Pantoprazole Sodium (Pantoprazole 40 Mg Tab) 40 mg PO DAILY [facility]; Protocol Stop: 02/17/21 08:59 Last Admin: 01/20/21 08:40 Dose: 40 mg Documented by: Polyethylene Glycol (Polyethylene (Miralax) 17 Gm Pack) 17 gm PO DAILY PRN PRN Reason: Constipation Stop: 02/16/21 11:06 Sennosides (Senna 8.6 Mg Tab) 8.6 mg PO DAILY PRN PRN Reason: Constipation Stop: 02/16/21 11:06 Sertraline HCl (Sertraline Hcl 50 Mg Tablet) 25 mg PO DAILY [facility] Stop: 02/16/21 11:29 Last Admin: 01/20/21 08:42 Dose: 25 mg Documented by: Sterile Water (Tube Feeding Water Flush) 100 ml GT Q6H [facility] Stop: 02/16/21 15:44 Last Admin: 01/20/21 10:06 Dose: 100 ml Documented by: Tamsulosin HCl (Tamsulosin Hcl 0.4 Mg Cap) 0.4 mg PO HS [facility] Stop: 02/16/21 20:59 Last Admin: 01/19/21 20:47 Dose: 0.4 mg Documented by: Torsemide (Torsemide 10 Mg Tab) [facility] [place] Stop: 02/19/21 11:14 Last Admin: 01/20/21 13:11 Dose: 10 mg Documented by: Umeclidinium [place] (Umeclidinium [place] 62.5mcg/Blister 7 Puffs/Inhaler) 1 puffs INH HS [facility] Stop: 02/16/21 20:59 Last Admin: 01/19/21 20:47 Dose: 1 puffs Documented by: Vitamin D (Cholecalciferol 1,000 Units 25 Mcg Tab) 1,000 units PO QAM [facility] Stop: 02/17/21 08:59 Last Admin: 01/20/21 08:41 Dose: 1,000 units Documented by: (1) HTN (hypertension) Hypertension type: essential hypertension Qualified Code(s): I10 - Essential (primary) hypertension
[2021-01-20] MEDS ORDERED: ALBUT/IPRATROP 3MG/0.5MG NEB 3 ML VIAL NEB PRN (15:43)
[2021-01-20] MEDS: UMECLIDINIUM BROMIDE 62.5MCG/BLISTER 7 PUFFS/INHALER INH SCH (21:10)
[2021-01-20] MEDS: PROSOURCE NO CARB 30 ML/PKT GJT SCH (21:15)
[2021-01-20] MEDS: GABAPENTIN 300 MG CAP PO SCH (21:15)
[2021-01-20] MEDS: MELATONIN 3 MG TAB PO SCH (21:15)
[2021-01-20] MEDS: FAMOTIDINE 20 MG TAB PO SCH (21:15)
[2021-01-20] MEDS: TAMSULOSIN HCL 0.4 MG CAP PO SCH (21:15)
[2021-01-20] MEDS: NUTREN GT SCH (21:15)
--- NOTE | 2021-01-21 01:12 | Communication Note ---
Date of Service: January 21, 2021 Patient skin around J-tube noted to be edematous/erythematous with more purulent drainage around 2300 last night as per RN. Area measuring 0.75 inch as per RN. Patient without abdominal pain complaints as per RN. No temp elevation in the last 48 hours. AP Abdominal wall infection (J-tube insertion site) No sepsis for now Ongoing Augmentin Rx for possible aspiration pneumonia. Wound CS Add Doxycycline to Augmentin for MRSA coverage. Will relay to AM provider.
[2021-01-21] MEDS ORDERED: DOXYCYCLINE HYCLATE 100 MG in DEXTROSE 5% 100 ML IV STA (01:22)
[2021-01-21] MEDS: TUBE FEEDING WATER FLUSH GT SCH ×4 (03:30→21:29)
[2021-01-21] MEDS: HEPARIN SOD 5,000 UNIT/0.5 ML VIAL SQ SCH ×3 (06:27→21:27)
--- NOTE | 2021-01-21 07:13 | Electrocardiogram Report ---
Test Reason : Blood Pressure : / mmHG Vent. Rate : 101 BPM Atrial Rate : 101 BPM P-R Int : 210 ms QRS Dur : 124 ms QT Int : 342 ms P-R-T Axes : 000 -09 054 degrees QTc Int : 443 ms Sinus tachycardia with 1st degree A-V block Low voltage QRS Right bundle branch block Cannot rule out Anterior infarct (cited on or before 07-OCT-2020) Abnormal ECG When compared with ECG of 17-JAN-2021 05:23, Criteria for Inferior infarct is no longer Present Confirmed by Alvaro Orr ([id number]) on 01/21/2021 7:13:04 AM Referred By: REFERRED SELF Confirmed By:Alvaro Orr
[2021-01-21] MEDS: FLUTICASONE/VILANTEROL 200/25MCG 14 PUFFS/INHALER INH SCH (08:28)
[2021-01-21] MEDS: ARTIFICIAL TEARS OPB SCH ×2 (08:28→21:29)
[2021-01-21] MEDS: FLUTICASONE PROPIONATE NA SPR 16 GM BTL SCH (08:28)
[2021-01-21] MEDS: LIDOCAINE 5% 1 PATCH TD SCH (08:30)
[2021-01-21] MEDS: AMOXICILLIN/CLAVULANATE 500 MG TAB PO SCH ×2 (08:33→21:29)
[2021-01-21] MEDS: guaiFENesin 600 MG TABCR PO SCH ×2 (08:36→21:29)
[2021-01-21] MEDS: ASCORBIC ACID 500 MG TAB PO SCH (08:36)
[2021-01-21] MEDS: PANTOprazole 40 MG TAB PO SCH (08:36)
[2021-01-21] MEDS: CHOLECALCIFEROL 1,000 UNITS 25 MCG TAB PO SCH (08:36)
[2021-01-21] MEDS: ASPIRIN 81 MG ECTAB PO SCH (08:36)
[2021-01-21] MEDS: GABAPENTIN 100 MG CAP PO SCH (08:36)
[2021-01-21] MEDS: SERTRALINE HCL 50 MG TABLET PO SCH (08:36)
[2021-01-21] MEDS: METOCLOPRAMIDE HCL 5 MG TABLET PO SCH ×4 (08:36→21:26)
[2021-01-21] MEDS: TORSEMIDE 10 MG TAB PO SCH (08:37)
[2021-01-21] MEDS: [UNRECOGNIZED DRUG - REMARK] SCH (09:00)
[2021-01-21 10:39] LABS: Hematocrit (blood only) 29.8 % (37-47); Hemoglobin 9.2 g/dL (12.0-16.0); Mean Corpuscular Hemoglobin 29.6 pg (25-34); Mean Corpuscular Hgb Conc 30.9 g/dL (32-36); Mean Corpuscular Volume 95.8 fL (80-100); Mean Platelet Volume 9.7 fL (7.4-10.4); Platelet Count 372 K/uL (130-400); RDW Coefficient of Variation 13.8 % (11.5-14.5); RDW Standard Deviation 48.2 fL (36.4-46.3); Red Blood Count 3.11 M/uL (4.2-5.4); White Blood Count 11.33 K/uL (4.8-10.8)
[2021-01-21 10:57] LABS: Calcium 8.9 mg/dl (8.5-10.1); Creatinine Clr Calc Pharmacy 23.3 ml/min; Est GFR (African American) 29.8 ml/min; Est GFR (Non-African American) 25.7 ml/min; Phosphorus 3.5 mg/dl (2.5-4.9); Potassium 4.9 mmol/L (3.5-5.1)
--- NOTE | 2021-01-21 14:04 | Cardiology Progress Note ---
Date of Service January 21, 2021 Assessment & Plan (1) First degree AV block: (2) Premature atrial complexes: (3) Chronic diastolic CHF (congestive heart failure): Plan: Telemetry stable. Reduce metoprolol to chronic home dose of 12.5 mg daily. Admission and Anticipated Discharge Date Admission Date: January 17, 2021 Subjective Pt feeling well. No complaints. Telemetry reveals SR in the 80s to 90s, with first degree AV block. Physical Exam Physical Exam: Temp Pulse Resp BP Pulse Ox 36.6 C 86 20 122/70 92 01/21/21 11:48 01/21/21 11:48 01/21/21 11:48 01/21/21 11:48 01/21/21 11:48 Respiratory: normal respiratory effort, lungs clear to auscultation Cardiovascular: RRR, no murmur, no edema Neurologic: PERRL, EOMI, accommodation nl, no face palsy, no dysarthria Results & Data ([facility]) Vital Signs (Past 12 Hours) Vital Signs Temp Pulse Pulse Resp BP Pulse Ox 01/21/21 11:48 36.6 C 86 20 122/70 92 01/21/21 07:58 87 01/21/21 07:55 36.8 C 89 20 146/70 H 93 01/21/21 02:40 36.9 C 96 H 14 131/66 94 Laboratory Results CBC 01/21/21 Range/Units 10:22 WBC 11.33 H (4.8-10.8) K/uL RBC 3.11 L (4.2-5.4) M/uL Hgb 9.2 L (12.0-16.0) g/dL Hct 29.8 L (37-47) % Plt Count 372 (130-400) K/uL Comprehensive Metabolic Panel 01/21/21 Range/Units 10:22 Sodium 136 (136-145) mmol/L Potassium 4.9 (3.5-5.1) mmol/L Chloride 103 (98-107) mmol/L Carbon Dioxide 28 (21-32) mmol/L BUN 60 H (7-18) mg/dl Creatinine 1.75 H (0.6-1.2) mg/dl Glucose 141 H (70-99) mg/dl Calcium 8.9 (8.5-10.1) mg/dl Intake and Output 01/20/21 01/21/21 01/21/21 22:59 06:59 14:59 Intake Total 550 / 1342 792 / 1342 Output Total 751 / 1402 651 / 1402 Balance -201 / -60 141 / -60 Intake: IV 110 / 110 Doxycycline Hyclate 100 mg In 110 / 110 Dextrose 5% 100 ml @ 50 mls/hr IV NOW [facility] Rx#:[id number] Oral 250 / 370 120 / 370 Tube Feeding 200 / 450 250 / 450 Tube Irrigant 100 / 200 100 / 200 Other 212 / 212 Output: Urine Amount (Catheter) 750 / 1400 650 / 1400 External 750 / 1400 650 / 1400 # Bowel Movements 1 / 2 1 / 2 Other: Other Intake Source IVPB # Unmeasured Voids 1 Weight 94.6 kg
[2021-01-21] MEDS: ALBUT/IPRATROP 3MG/0.5MG NEB 3 ML VIAL NEB SCH (19:29)
--- NOTE | 2021-01-21 19:42 | Hospitalist Progress Note ---
Date of Service January 21, 2021 Assessment & Plan (1) Sepsis: Plan: Sepsis on admission secondary to presumed aspiration pneumonia. Resuscitated. Cont per plan below. (2) Aspiration pneumonia: Plan: Evidence of atelectasis without radha pneumonia on chest x-ray a and abdominal CT, however in light of fever, leukocytosis and productive sputum, she was placed on Zosyn out of concern for aspiration pneumonia. She was improved after a couple of days and and continue to oxygenate at her baseline. Leukocytosis continues to improve. Doxy added out of concern for surrounding PEG tube irritation. Based on video swallow study speech therapy started dysphagia diet with soft slippery foods. She continues on tube feeds with Nutren and flushes per home regimen. She remains afebrile. Zosyn will be deescalated to Augmentin. Continues on this now and appears to be doing well. Remains febrile overnight. (3) COPD exacerbation: Plan: Some wheezing heard again on exam, scheduled bronchodilators. Cough improved. No increased work of breathing. Possible COPD exacerbation vs fluid overload from IVF. Favoring the former. Prefer to avoid steroids in setting of infection. Cont Breo and Incruse Ellipta inhalers per home regimen. (4) Right inguinal pain: Plan: No fracture present there is a soft tissue contusion seen overlying the right hip which may be the cause of her pain. She is not identifying any pain here today. We will continue to monitor. Supportive care as needed. (5) Chronic diastolic CHF (congestive heart failure): Plan: Euvolemic on exam, restarted torsemide this morning. (6) CKD (chronic kidney disease), stage IV: Plan: creatinine at her baseline. (7) HTN (hypertension): Plan: Resumed Metoprolol succinate on 01/18, currently around goal. (8) GERD (gastroesophageal reflux disease): Plan: - Hx of GI bleed in September 2020, continue PPI and H2 laura (9) Anemia: Plan: - Hx of recieveing IV iron infusions, planned to resume as outpatient next week. - Hgb currently at her baseline - No recent bleeds, no melana or BRBPR s/p gi bleed earlier this year. (10) DVT prophylaxis: Plan: heparin Full Dispo-cont telemetry monitoring while Cardiology monitoring her rhythm Sadia Buck DO [facility] Hospitalist Admission and Anticipated Discharge Date Admission Date: January 17, 2021 Subjective Patient is an 85-year-old female admitted with concerns for aspiration pneumonia. She is concerned about her heart today despite denying any palpitations, chest pain or other issues. Overnight she developed potential transient atrial fibrillation and cardiology was consulted. Per cardiology recommendations this was not convincing for rhythm of atrial fibrillation or atrial flutter. She is doing well on slightly increased dose of metoprolol. She developed some noticed irritation around her PEG site and there is a foul smelling odor there today, however, she declines noticing anything different. Doxy was added to antibiotic regimen. She denies fever, chills, abdominal pain. Reports a resolution her right groin pain. Review of Systems Review of Systems: At least ten systems were reviewed and negative except as indicated in HPI above. Physical Exam Physical Exam: CONSTITUTIONAL: obese, vitals as above, generally well- appearing, NAD EYES: normal conjunctivae, no scleral icterus ENT: external ear and nose normal, MMM RESPIRATORY: mild wheezing at left base today,, no crackles or rales, normal respiratory effort CARDIOVASCULAR: regular rate and rhythm, S1 and 2 heard without murmurs, gallops or rubs, no JVD, no peripheral edema GASTROINTESTINAL: soft, nontender, nondistended. Umbilical hernia present and reducible. GJ tube in place, +foul odor, +clear, sticky appearing drainiage MUSCULOSKELETAL: generalized weakness, head is normocephalic and atraumatic, SKIN: warm and dry NEUROLOGIC: CN 2-12 grossly intact, normal cognition, normal speech, no tremor PSYCHIATRIC: alert cooperative and oriented to person, place and time. Results & Data Results & Data ([facility]) Vital Signs (Past 12 Hours) Vital Signs Temp Pulse Pulse Resp BP Pulse Ox 01/21/21 19:29 83 96 01/21/21 16:00 89 01/21/21 11:48 36.6 C 86 20 122/70 92 01/21/21 07:58 87 01/21/21 07:55 36.8 C 89 20 146/70 H 93 Laboratory Results Short CBC 01/21/21 Range/Units 10:22 WBC 11.33 H (4.8-10.8) K/uL Hgb 9.2 L (12.0-16.0) g/dL Hct 29.8 L (37-47) % Plt Count 372 (130-400) K/uL BMP 01/21/21 10:22 Sodium 136 Potassium 4.9 Chloride 103 Carbon Dioxide 28 BUN 60 H Creatinine 1.75 H Glucose 141 H Calcium 8.9 Medications Administered Current Inpatient Medications Acetaminophen (Acetaminophen 325 Mg Tab) 325 mg PO QID PRN PRN Reason: Pain Stop: 02/16/21 11:06 Last Admin: 01/20/21 06:01 Dose: 325 mg Documented by: Hydrocodone Bitart/Acetaminophen (Hydrocodone/Acetamophen 5/325mg Tab) 1 tab PO QID PRN PRN Reason: Pain Stop: 01/31/21 20:19 Albuterol (Albuterol Hfa 8 Gm Inhaler) 2 puffs INH QIDR PRN PRN Reason: Shortness Of Breath Or Wheezing Stop: 02/16/21 11:06 Albuterol (Albut/Ipratrop 3mg/0.5mg Neb 3 Ml Vial) 3 ml NEB QIDR CARLYLE Stop: 02/20/21 18:59 Last Admin: 01/21/21 19:29 Dose: 3 ml Documented by: Amoxicillin/Clavulanate Potassium (Amoxicillin/Clavulanate 500 Mg Tab) 1 tab PO BID CARLYLE Stop: 01/26/21 20:59 Last Admin: 01/21/21 08:33 Dose: 1 tab Documented by: Artificial Tears (Artificial Tears) 2 drops OPB BID CARLYLE Stop: 02/16/21 20:59 Last Admin: 01/21/21 08:28 Dose: 2 drops Documented by: Ascorbic Acid (Ascorbic Acid 500 Mg Tab) 1,000 mg PO QAM [facility] Stop: 02/17/21 08:59 Last Admin: 01/21/21 08:36 Dose: 1,000 mg Documented by: Aspirin (Aspirin 81 Mg Ectab) 81 mg PO QAM [facility] Stop: 02/17/21 08:59 Last Admin: 01/21/21 08:36 Dose: 81 mg Documented by: Doxycycline Hyclate (Doxycycline Hyclate 100 Mg Cap) 100 mg PO BID [facility] Stop: 01/28/21 20:59 Famotidine (Famotidine 20 Mg Tab) 20 mg PO HS [facility] Stop: 02/16/21 20:59 Last Admin: 01/20/21 21:15 Dose: 20 mg Documented by: Fluticasone Propionate (Fluticasone Propionate Na Spr 16 Gm Btl) 2 sprays NA DAILY CARLYLE Stop: 02/17/21 08:59 Last Admin: 01/21/21 08:28 Dose: 2 sprays Documented by: Fluticasone/Vilanterol (Fluticasone/Vilanterol 200/25mcg 14 Puffs/Inhaler) 1 puffs INH QAM [facility] Stop: 02/17/21 08:59 Last Admin: 01/21/21 08:28 Dose: 1 puffs Documented by: Gabapentin (Gabapentin 100 Mg Cap) 200 mg PO QAM [facility] Stop: 02/17/21 08:59 Last Admin: 01/21/21 08:36 Dose: 200 mg Documented by: Gabapentin (Gabapentin 300 Mg Cap) 300 mg PO HS [facility] Stop: 02/16/21 20:59 Last Admin: 01/20/21 21:15 Dose: 300 mg Documented by: Guaifenesin (Guaifenesin 600 Mg Tabcr) 1,200 mg PO Q12 CAR[facility]LE Stop: 02/16/21 20:59 Last Admin: 01/21/21 08:36 Dose: 1,200 mg Documented by: Heparin Sodium (Porcine) (Heparin Sod 5,000 Unit/0.5 Ml Vial) 5,000 units SQ Q8 CAR[facility]LE Stop: 02/19/21 13:59 Last Admin: 01/21/21 14:39 Dose: 5,000 units Documented by: Lidocaine (Lidocaine 5% 1 Patch) 1 patch TD DAILY [facility] Stop: 02/16/21 11:29 Last Admin: 01/21/21 08:30 Dose: 1 patch Documented by: Melatonin (Melatonin 3 Mg Tab) 3 mg PO HS [facility] Stop: 02/16/21 20:59 Last Admin: 01/20/21 21:15 Dose: 3 mg Documented by: Metoclopramide HCl (Metoclopramide Hcl 5 Mg Tablet) 5 mg PO QID [facility] Stop: 02/16/21 12:59 Last Admin: 01/21/21 17:14 Dose: 5 mg Documented by: Metoprolol Succinate (Metoprolol Succ 25mg Ext Rel Tab) 12.5 mg PO QAM [facility] Stop: 02/21/21 08:59 Miscellaneous (Remove Lidoderm Patch) 1 ea N/A DAILY@2100 [facility] Stop: 02/16/21 20:59 Last Admin: 01/20/21 21:16 Dose: 1 ea Documented by: Miscellaneous (Nutren~Stop Order) 1 ea N/A DAILY [facility] Stop: 02/17/21 08:59 Last Admin: 01/21/21 09:00 Dose: 1 ea Documented by: Non-Formulary Medication (Nutren 65 Ml) 65 ml GT HS [facility] Stop: 02/16/21 22:29 Last Admin: 01/20/21 21:15 Dose: 65 ml Documented by: Nutritional Formula (Prosource No Carb 30 Ml/Pkt) 30 ml GJT [facility] Stop: 02/16/21 20:59 Last Admin: 01/20/21 21:15 Dose: 30 ml Documented by: Ondansetron HCl (Ondansetron Inj 2 Mg/Ml 2 Ml Vial) 4 mg IV Q4H PRN PRN Reason: Nausea And Vomiting Stop: 02/16/21 11:06 Pantoprazole Sodium (Pantoprazole 40 Mg Tab) 40 mg PO DAILY [facility]; Protocol Stop: 02/17/21 08:59 Last Admin: 01/21/21 08:36 Dose: 40 mg Documented by: Polyethylene Glycol (Polyethylene (Miralax) 17 Gm Pack) 17 gm PO DAILY PRN PRN Reason: Constipation Stop: 02/16/21 11:06 Sennosides (Senna 8.6 Mg Tab) 8.6 mg PO DAILY PRN PRN Reason: Constipation Stop: 02/16/21 11:06 Sertraline HCl (Sertraline Hcl 50 Mg Tablet) 25 mg PO DAILY [facility] Stop: 02/16/21 11:29 Last Admin: 01/21/21 08:36 Dose: 25 mg Documented by: Sterile Water (Tube Feeding Water Flush) 100 ml GT Q6H [facility] Stop: 02/16/21 15:44 Last Admin: 01/21/21 15:49 Dose: Not Given Documented by: Tamsulosin HCl (Tamsulosin Hcl 0.4 Mg Cap) 0.4 mg PO HS [facility] Stop: 02/16/21 20:59 Last Admin: 01/20/21 21:15 Dose: 0.4 mg Documented by: Torsemide (Torsemide 10 Mg Tab) 10 mg PO QAM [facility] Stop: 02/19/21 11:14 Last Admin: 01/21/21 08:37 Dose: 10 mg Documented by: Umeclidinium [place] (Umeclidinium [place] 62.5mcg/Blister 7 Puffs/Inhaler) 1 puffs INH HS [facility] Stop: 02/16/21 20:59 Last Admin: 01/20/21 21:10 Dose: 1 puffs Documented by: Vitamin D (Cholecalciferol 1,000 Units 25 Mcg Tab) 1,000 units PO QAM [facility] Stop: 02/17/21 08:59 Last Admin: 01/21/21 08:36 Dose: 1,000 units Documented by: (1) HTN (hypertension) Hypertension type: essential hypertension Qualified Code(s): I10 - Essential (primary) hypertension
[2021-01-21] MEDS: MELATONIN 3 MG TAB PO SCH (21:26)
[2021-01-21] MEDS: UMECLIDINIUM BROMIDE 62.5MCG/BLISTER 7 PUFFS/INHALER INH SCH (21:26)
[2021-01-21] MEDS: DOXYCYCLINE HYCLATE 100 MG CAP PO SCH (21:29)
[2021-01-21] MEDS: PROSOURCE NO CARB 30 ML/PKT GJT SCH (21:29)
[2021-01-21] MEDS: GABAPENTIN 300 MG CAP PO SCH (21:29)
[2021-01-21] MEDS: NUTREN GT SCH (21:29)
[2021-01-21] MEDS: TAMSULOSIN HCL 0.4 MG CAP PO SCH (21:29)
[2021-01-21] MEDS: FAMOTIDINE 20 MG TAB PO SCH (21:29)
[2021-01-22] MEDS: TUBE FEEDING WATER FLUSH GT SCH ×2 (03:33→08:47)
[2021-01-22] MEDS: HEPARIN SOD 5,000 UNIT/0.5 ML VIAL SQ SCH (06:16)
[2021-01-22 07:21] LABS: Hematocrit (blood only) 31.5 % (37-47); Hemoglobin 9.6 g/dL (12.0-16.0); Mean Corpuscular Hemoglobin 29.9 pg (25-34); Mean Corpuscular Hgb Conc 30.5 g/dL (32-36); Mean Corpuscular Volume 98.1 fL (80-100); Mean Platelet Volume 9.2 fL (7.4-10.4); Platelet Count 396 K/uL (130-400); RDW Coefficient of Variation 13.6 % (11.5-14.5); RDW Standard Deviation 48.9 fL (36.4-46.3); Red Blood Count 3.21 M/uL (4.2-5.4); White Blood Count 11.88 K/uL (4.8-10.8)
[2021-01-22] MEDS: ALBUT/IPRATROP 3MG/0.5MG NEB 3 ML VIAL NEB SCH ×2 (07:22→11:03)
[2021-01-22 07:44] LABS: BUN Creatinine Ratio 36.4 (10-20); Creatinine Clr Calc Pharmacy 24.9 ml/min; Est GFR (Non-African American) 27.6 ml/min; Potassium 4.4 mmol/L (3.5-5.1)
[2021-01-22] MEDS: SERTRALINE HCL 50 MG TABLET PO SCH (08:44)
[2021-01-22] MEDS: CHOLECALCIFEROL 1,000 UNITS 25 MCG TAB PO SCH (08:45)
[2021-01-22] MEDS: TORSEMIDE 10 MG TAB PO SCH (08:45)
[2021-01-22] MEDS: GABAPENTIN 100 MG CAP PO SCH (08:45)
[2021-01-22] MEDS: ASCORBIC ACID 500 MG TAB PO SCH (08:45)
[2021-01-22] MEDS: AMOXICILLIN/CLAVULANATE 500 MG TAB PO SCH (08:46)
[2021-01-22] MEDS: METOCLOPRAMIDE HCL 5 MG TABLET PO SCH (08:46)
[2021-01-22] MEDS: DOXYCYCLINE HYCLATE 100 MG CAP PO SCH (08:46)
[2021-01-22] MEDS: guaiFENesin 600 MG TABCR PO SCH (08:46)
[2021-01-22] MEDS: PANTOprazole 40 MG TAB PO SCH (08:46)
[2021-01-22] MEDS: FLUTICASONE PROPIONATE NA SPR 16 GM BTL SCH (08:47)
[2021-01-22] MEDS: FLUTICASONE/VILANTEROL 200/25MCG 14 PUFFS/INHALER INH SCH (08:47)
[2021-01-22] MEDS: [UNRECOGNIZED DRUG - REMARK] SCH (08:47)
[2021-01-22] MEDS: ASPIRIN 81 MG ECTAB PO SCH (08:47)
[2021-01-22] MEDS: ARTIFICIAL TEARS OPB SCH (08:48)
[2021-01-22] MEDS: LIDOCAINE 5% 1 PATCH TD SCH (08:51)
[2021-01-22] MEDS ORDERED: METOPROLOL SUCC 25MG EXT REL TAB PO SCH (09:00)
--- NOTE | 2021-01-22 10:01 | Discharge Summary ---
Date of Service January 22, 2021 Admission HPI Per Admitting Provider This is an 85 yo F with PMHx of chronic diastolic CHF, HTN, HLD, morbid obesity with a BMI of 40.3, CKD stage IV, baseline 1.7-2.1, GERD, GJ tube in place since September 2020 s/p GI bleed and 2 surgeries, PABLO noncompliant with CPAP, major depression disorder who presents to the ER with not feeling well the last day. She reports having fever, abdominal pain, nausea and vomiting and a slight cough which started yesterday. She reports having yellow sputum production. She denies any other acute complaints including chest heaviness, chest pain, shortness of breath, difficulty breathing. She has been doing tube feeds as instructed. Patient is eating p.o., but sticks to a soft/slippery diet. She follows with [facility] at home care, uses Nutren 2.0 oral liquid at 65 ml/hr for 12 hours daily through the feeding tube. ( 3.5 cartons ~ 780 ml per night 7p - 7a) with 20 ml flush before and after. Her daughter is present at bedside and supports the history. Her Covid swab is negative here on admission. She was vaccinated in May 2019. She has been started on IV Zosyn for aspiration pneumonia. Admission Exam Per Admitting Provider General: awake, alert, no apparent distress, morbidly obese with BMI of 40.3 Head: Normocephalic, atraumatic ENT: PERRL, EOMI, no pharyngeal exudate, mucous membranes moist Chest: + Diminished breath sounds R base with crackles, on 2 L via NC with sats in high 90s, no adventitious breath sounds Cardiac: Regular rate and rhythm, no murmur, no JVD, normal peripheral pulses, good capillary refill Abdominal: NABS x 4 quadrants, soft, nondistended, + JG tube in place in LUQ, no surrounding erythema, nontender to palpation except is tender in RLQ near inguinal hernia, no rebound or guarding Extremities: Normal inspection, no peripheral edema or erythema, calfs nontender to palpation Psych: Normal mood and affect Neuro: AAO x 3, strength intact bilaterally and rated 5/5, no motor deficits, speech is clear, no peripheral sensory deficits Principal Diagnosis Aspiration pneumonia Discharge Exam General: A&Ox3, on NC HENT: NCAT, MMM, EOMI Eyes: PERRLA Neck: Supple, normal range of motion CVS: normal rate and rhythm Resp: b/l crackles apprciated Abdomen: Soft, ND/NT Extremities: absence of any edema Neuro: face symmetric, no focal deficit appreciated Skin: warm and dry, no rashes/lesions/errythema MSK: normal ROM, no joint swelling/erythema Discharge Data Allergies Allergy/AdvReac Type Severity Reaction Status Date / Time Macrolide Antibiotics Allergy Unknown Unknown Unverified 01/17/21 09:02 oxycodone Allergy Unknown Unknown Verified 01/17/21 09:02 tramadol Allergy Unknown Unknown Unverified 01/17/21 09:02 Sulfa (Sulfonamide AdvReac Intermediate KIDNEY Verified 01/17/21 09:02 Antibiotics) PROBLEMS codeine AdvReac Unknown Nausea Verified 01/17/21 09:02 Consultations 01/17/21 08:53 ED Decision to Admit Stat 01/20/21 06:09 Consult Cardiology Routine Ordered Studies 01/17/21 06:58 CT abd pelvis wo con Stat 01/17/21 13:45 FL video swallow Routine 01/19/21 16:23 CT hip RT wo con Routine Hospital Course (1) Sepsis: Sepsis on admission secondary to presumed aspiration pneumonia. We did recheck patient was on 2 L of oxygen close to her baseline is awake and alert. Did not have major complaints. (2) Aspiration pneumonia: Evidence of atelectasis without radha pneumonia on chest x-ray a and abdominal CT, however in light of fever, leukocytosis and productive sputum, she was placed on Zosyn out of concern for aspiration pneumonia. She was improved after a couple of days and and continue to oxygenate at her baseline. Leukocytosis continues to improve. Doxy added out of concern for surrounding PEG tube irritation. Based on video swallow study speech therapy started dysphagia diet with soft slippery foods. She continues on tube feeds with Nutren and flushes per home regimen. Zosyn was deescalated to Augmentin. Patient was discharged on a short course of Augmentin doxycycline. On the day of discharge patient was afebrile.. She will need repeat CBC as an outpatient. (3) COPD exacerbation: Cont Breo and Incruse Ellipta inhalers per home regimen. (4) Right inguinal pain: No fracture present there is a soft tissue contusion seen overlying the right hip which may be the cause of her pain. She is not identifying any pain here today. We will continue to monitor. Supportive care as needed. (5) Chronic diastolic CHF (congestive heart failure): Euvolemic on exam, restarted torsemide this morning. (6) CKD (chronic kidney disease), stage IV: creatinine at her baseline. (7) HTN (hypertension): Resumed Metoprolol succinate on 01/18, currently around goal. (8) GERD (gastroesophageal reflux disease): - Hx of GI bleed in September 2020, continue PPI and H2 laura (9) Anemia: - Hx of recieveing IV iron infusions, planned to resume as outpatient next week. - Hgb currently at her baseline - No recent bleeds, no melana or BRBPR s/p gi bleed earlier this year. Total Time Total Time Spent Total Time Spent (In Minutes): 35 Discharge Plan Discharge Items Patient Disposition: Home - Self-Care Reason For Visit: ASPIRATION PNEUMONIA Discharge Diagnosis: Aspiration pneumonia Activity: Resume your previous activity Non-emergency contact: Primary Care Provider Call non-emergency contact if: your symptoms worsen Follow-up/Referrals: Samantha Zendejas DO [Primary Care Provider] - (Date & Time 01/25/2021 5:20 PM Provider Samantha Zendejas DO Department [facility] ) Diet: Heart Healthy Diet Texture: Dental soft (bite-sized) Addtl Attending Provider Instructions: Minced and moist diet. Pending Studies at Discharge: No Stand-Alone Forms: [facility] SecureAuth, Smoking Cessation Medications and DC Order Prescriptions: New doxycycline hyclate 100 mg Capsule 100 mg PO BID Qty: 7 RF: 0 amoxicillin-pot clavulanate 500-125 mg Tablet 1 tab PO BID Qty: 4 RF: 0 Continued ipratropium-albuterol 0.5 mg-3 mg(2.5 mg base)/3 mL solution for nebulization 3 ml NEB QID PRN (Reason: SOB/Wheezing) RF: 0 Incruse Ellipta 62.5 mcg/actuation blister with device 1 inh INHALATION HS RF: 0 torsemide 20 mg tablet 10 mg PO QAM RF: 0 gabapentin 300 mg capsule 300 mg PO HS RF: 0 gabapentin 100 mg capsule 200 mg PO QAM RF: 0 aspirin 81 mg Tablet,Delayed Release (Dr/Ec) 81 mg PO QAM RF: 0 Vitamin C 100 mg Tablet 100 mg PO QAM RF: 0 albuterol sulfate 90 mcg/actuation Hfa Aerosol Inhaler 2 puff INHALATION QID PRN (Reason: Shortness Of Breath Or Wheezing) RF: 0 cholecalciferol (vitamin D3) [Vitamin D3] 1,000 unit Tablet 1,000 unit PO QAM RF: 0 sennosides [senna] 8.6 mg Tablet 8.6 mg PO DAILY PRN (Reason: Constipation) RF: 0 polyethylene glycol 3350 [Miralax] 17 gram Powder In Packet 17 g PO DAILY PRN (Reason: Constipation) RF: 0 ondansetron HCl 4 mg tablet 4 mg PO Q6H PRN (Reason: Nausea) RF: 0 oxycodone 5 mg/5 mL Solution 5 mg PO Q6H PRN (Reason: Pain) RF: 0 melatonin 3 mg Tablet 3 mg PO HS RF: 0 famotidine 20 mg tablet 20 mg PO HS RF: 0 carboxymethylcellulose sodium [Refresh Tears] 0.5 % Drops 2 drp OPB BID RF: 0 lidocaine [Lidoderm] 5 % Adhesive Patch,Medicated 1 patch TOPICAL ONAMOFFPM RF: 0 sertraline 25 mg tablet 25 mg PO DAILY RF: 0 metoprolol succinate 25 mg Tablet Extended Release 24 Hr 12.5 mg PO DAILY RF: 0 fluticasone propionate 50 mcg/actuation [place],Suspension 2 spray INTRANASAL DAILY RF: 0 Breo Ellipta 200-25 mcg/dose blister with device 1 inh INHALATION QAM RF: 0 acetaminophen 325 mg Tablet 325 mg PO QID PRN (Reason: Pain) RF: 0 metoclopramide HCl 5 mg Tablet 5 mg PO QID RF: 0 esomeprazole magnesium 20 mg capsule,delayed release(DR/EC) 20 mg PO DAILY RF: 0 Zostavax (PF) 19,400 unit/0.65 mL Suspension For Reconstitution 0.5 ml SUBCUT DIRECTED RF: 0 ProSource 10-100 gram-kcal/30 mL Liquid 1 ea feeding tube HS RF: 0 ascorbic acid (vitamin C) 500 mg Tablet,Chewable 1,000 mg PO QAM RF: 0 tamsulosin 0.4 mg capsule 0.4 mg PO HS RF: 0 Discharge Orders: Discharge Order (Routine); Ordered 01/22/21 Ordered By: Beto Matamoros Admission Data Admit Date/Time: 01/17/21 09:28 Attending Provider: Beto Matamoros Admit Provider: Beto Matamoros Primary Care Provider: Samantha Zendejas Other Providers: Beto Matamoros ; Chente Cohen ; Cruz Gibbs ; Minh Hamlin ; Darisuz Cross ; Kevyn Martinez ; Alec Vazquez ; Joanne Molina ; Latrice Ledesma ; Jahaira Gant ; Michi Dockery Other Interventions: Discharge Summary Assessment (RN) Last Done: 01/22/21 11:51
== END 2021-01-22 13:43 | disposition home or self-care (01) | DRG 871 ==
LOC: ED 05:19 → SUATTDRO 09:28 → 2N 09:28

== ENCOUNTER 2021-02-02 07:52 | Inpatient (IN) ==
[2021-02-02] MEDS ORDERED: ONDANSETRON INJ 2 MG/ML 2 ML VIAL IV STA (08:13)
[2021-02-02] MEDS ORDERED: FAMOTIDINE 20MG/5ML IV PUSH IV STA (08:13)
[2021-02-02] MEDS ORDERED: SODIUM CHLORIDE 0.9% 1000ML 1,000 ML IV SCH (08:15)
--- NOTE | 2021-02-02 08:16 | Emergency Department Note ---
Impression & Plan Pneumonia, Nausea & vomiting, COPD (chronic obstructive pulmonary disease), Gastrojejunostomy tube status ED Provider Note NAME: ADRIANO LEMOS AGE: 85 SEX: F ARRIVES VIA: Ambulance INFORMANT: Patient, ED PROVIDER(S): Amish Galarza MD CHIEF COMPLAINT: sob, vomiting PLAN: Disposition: Admit MEDICAL DECISION MAKING: The patient is a pleasant 85-year-old woman with a past medical history of COPD, CHF, GERD, s/p GJ tube in September 2020 who presents to the emergency department for acute onset n/v with associated sob this morning. The patient reports she woke up this morning around 5 AM nauseous, since then has had about 8 episodes of NBNB emesis-food colored consistent with her dinner previous night. Bouts of emesis caused her to cough which led to SOB. Did not experience chest pain, abdominal pain, fever or diarrhea. Last BM this morning. Currently feels better, reports slight nausea and denies current dyspnea. Has been wheezing, states she doesn't always wheeze. On arrival patient is acute on chronically ill-appearing but no acute distress, with temperature of 37.6, HR 100s and otherwise vital signs stable. She is on her home 3 L nasal cannula. She appears clinically dry. She has scattered wheezes without increased work of breathing. Her G-J-tube site is clean dry and intact. Abdomen is nontender. EKG without overt acute ischemia. WBC 17.7K increased from prior values. H/H proximal to prior range of values. Platelets 530K, nonspecific and likely reactive. Chemistry without metabolic acidosis. Creatinine 1.6 similar prior values in setting of CKD. Lactic acid 1.3, within normal limits. LFTs without significant abnormality. Troponin negative/undetectable. Lipase is not elevated. Procalcitonin is not significantly elevated at 0.07. UA without convincing evidence of infection. COVID-19 PCR was negative. CXR shows Small left and trace right pleural effusions with left lung base opacities suggestive of atelectasis versus pneumonitis also seen on CT of the abdomen. CT abd pelvis shows mildly distended debris-filled stomach without obstruction. Otherwise no acute intra-abdominal process. Note is made of small to moderate pericardial effusion which has increased in size. Gastrojejunostomy tube is in satisfactory position. Of note, the patient's daughter did report to the RN that she noticed some leakage around her GJ site that has not been there previously. Her CT did show distended stomach with mixed debris and so this may be contributing to increased pressure causing this leakage. I did adjust her tube site slightly to fit more securely. The patient and her daughter at bedside agree with plan for admission for suspected aspiration pneumonia. Zosyn ordered for initial treatment. [facility], with Dr. Quintanilla [facility] hospitalist who will evaluate the patient for admission. This patient was managed with the assistance of resident, Dr. Linn. I discussed the case with the resident, examined the patient, and confirm the findings and plan as documented in this note. Triage Nursing notes reviewed and agree them. Prior medical records reviewed Vital Signs: reviewed and remarkable for tachycardia. Differential diagnosis: Sepsis, UTI, pneumonia, metabolic, electrolyte abnormalities, cardiac sources, intracerebral event, toxicologic, neurologic, as well as other pathologies. ER treatment provided: See below. Diagnostics interpreted by me: ECG: Sinus rhythm with 1st degree A-V block, 95 bpm, Premature atrial complexes, no overt ST elevation or depression. Cardiac Monitoring: An order for continuous cardiac monitoring was placed and demonstrated sinus rhythm with 1st degree A-V block, 95 bpm, Premature atrial complexes. Laboratory studies: See below Imaging studies: See below [facility] hospitalist who will evaluate the patient for admission. HPI: The patient is a pleasant 85-year-old woman with a past medical history of COPD, CHF, GERD, s/p GJ tube in September 2020 who presents to the emergency department for acute onset n/v with associated sob this morning. The patient reports she woke up this morning around 5 AM nauseous, since then has had about 8 episodes of NBNB emesis-food colored consistent with her dinner previous night. Bouts of emesis caused her to cough which led to SOB. Did not experience chest pain, abdominal pain, fever or diarrhea. Last BM this morning. Currently feels better, reports slight nausea and denies current dyspnea. Has been wheezing, states she doesn't always wheeze. ROS: See above HPI for pertinent positives & negatives. A total of 10 systems reviewed and were otherwise negative. PAST MEDICAL HISTORY:See Below PAST SURGICAL HISTORY:See Below FAMILY HISTORY:See Below SOCIAL HISTORY:See Below HOME MEDICATIONS:See Below ALLERGIES:See Below VITALS:See Below PHYSICAL EXAMINATION: GENERAL: Awake, alert, acute on chronically ill-appearing, in no distress, BMI 40.6 HENT: Normocephalic, atraumatic. Oropharynx dry mucous membranes. EYES: Normal conjunctiva. Sclera non-icteric. NECK: Supple. No nuchal rigidity. FROM. No JVD. RESPIRATORY: Scattered wheezes. CARDIAC: Regular rate, normal rhythm. Extremities warm and well perfused. Pulses equal. ABDOMEN: Mildly distended but soft and no tenderness to palpation. No rebound or guarding. No masses. GJ tube site clean dry and intact. RECTAL: Deferred. MUSCULOSKELETAL: Chest examination reveals no tenderness. The back is symmetrical on inspection without obvious abnormality. There is no CVA tenderness to palpation. No joint edema. LOWER EXTREMITIES: Calves are equal size bilaterally and non-tender. No edema. No discoloration. NEURO: Normal sensorium. No sensory or motor deficits noted. SKIN: No rash or jaundice noted. Amish Galaraz MD Past Med/Surg History Medical History Breast cancer Chronic diastolic CHF (congestive heart failure) CKD (chronic kidney disease), stage IV COPD (chronic obstructive pulmonary disease) Dyslipidemia GERD (gastroesophageal reflux disease) History of DVT (deep vein thrombosis) HTN (hypertension) Lumbago Osteoporosis Surgical History H/O bladder repair surgery H/O colonoscopy H/O mastectomy H/O right knee surgery History of right-sided carotid endarterectomy History of total hip replacement S/P tonsillectomy and adenoidectomy S/P total hysterectomy Family History Mother Colonic polyp Hypertension Heart disease Cancer Breast Father Hypertension Heart disease Social History Smoking Status: Never smoker Second Hand Exposure: No; Do You Dip or Chew Tobacco: No; Tobacco Cessation Education Requested by Patient: No Hx Alcohol Use: No Hx Substance Use: No Preferred Language: Estonian Communication Ability: Effective Manager Category Required: No Beliefs That Will Affect Care: None marital status: / Current Living Situation: Family Current Living Situation Comment: lives with daughter Kristen Gibsb current occupational status: retired How many Children do You have: 4 Other Information That Helps Us Care for You: No Feels Safe at Home: Yes Safety Concerns: Feels Safe At This Time Assistive Devices: Oxygen - Continuous Allergies Allergies Allergy/AdvReac Type Severity Reaction Status Date / Time Macrolide Antibiotics Allergy Unknown Unknown Unverified 02/02/21 09:11 oxycodone Allergy Unknown Unknown Verified 02/02/21 09:11 tramadol Allergy Unknown Unknown Unverified 02/02/21 09:11 Sulfa (Sulfonamide AdvReac Intermediate KIDNEY Verified 02/02/21 09:11 Antibiotics) PROBLEMS codeine AdvReac Unknown Nausea Verified 02/02/21 09:11 Home Meds Home Medications Medication Instructions Recorded Confirmed gabapentin 100 mg capsule 100 mg PO 07/31/18 02/02/21 (Neurontin) gabapentin 300 mg capsule 300 mg PO 07/31/18 02/02/21 (Neurontin) albuterol sulfate 90 mcg/actuation 2 puff INHALATION QID PRN 09/26/18 02/02/21 aerosol inhaler (Ventolin HFA) ascorbic acid (vitamin C) 100 mg 300 mg PO QAM 09/26/18 02/02/21 tablet (Vitamin C) aspirin 81 mg tablet,delayed 81 mg PO QA 09/26/18 02/02/21 release (Aspirin Low Dose) cholecalciferol (vitamin D3) 25 1,000 unit PO QAM 09/26/18 02/02/21 mcg (1,000 unit) tablet (Vitamin D3) ipratropium 0.5 mg-albuterol 3 mg 3 ml NEB QID PRN 04/23/19 02/02/21 (2.5 mg base)/3 mL nebulization soln torsemide 20 mg tablet 10 mg PO QAM 04/23/19 02/02/21 umeclidinium 62.5 mcg/actuation 1 inh INHALATION 04/23/19 02/02/21 blister powder for inhalation (Incruse Ellipta) ascorbic acid (vitamin C) 500 mg 1,000 mg PO QAM 09/12/20 02/02/21 chewable tablet (Vitamin C) tamsulosin 0.4 mg capsule (Flomax) 0.4 mg PO 09/12/20 02/02/21 carboxymethylcellulose sodium 0.5 2 drp OPB BID 10/07/20 02/02/21 % eye drops (Refresh Tears) famotidine 20 mg tablet (Pepcid) 20 mg PO HS 10/07/20 02/02/21 fluticasone furoate 200 1 inh INHALATION HS 10/07/20 02/02/21 mcg-vilanterol 25 mcg/dose inhalation powder (Breo Ellipta) fluticasone propionate 50 2 spray INTRANASAL DAILY PRN 10/07/20 02/02/21 mcg/actuation nasal spray,suspension (Flonase Allergy Relief) lidocaine 5 % topical patch 1 patch TOPICAL ONAMOFFPM 10/07/20 02/02/21 (Lidoderm) melatonin 3 mg tablet (Melatin) 3 mg PO HS 10/07/20 02/02/21 metoprolol succinate 25 mg 12.5 mg PO QAM 10/07/20 02/02/21 tablet,extended release 24 hr (Toprol XL) ondansetron HCl 4 mg tablet 4 mg PO Q6H PRN 10/07/20 02/02/21 (Zofran) polyethylene glycol 3350 17 gram 17 g PO DAILY PRN 10/07/20 02/02/21 oral powder packet (Miralax) sennosides 8.6 mg tablet (senna) 8.6 mg PO DAILY PRN 10/07/20 02/02/21 sertraline 25 mg tablet (Zoloft) 25 mg PO HS 10/07/20 02/02/21 amino ac-protein hydro-whey 1 ea FEEDING TUBE HS 01/17/21 02/02/21 protein 10 gram-100 kcal/30 mL oral liquid (ProSource) esomeprazole magnesium 20 mg 20 mg PO DAILYBB 01/17/21 02/02/21 capsule,delayed release (Nexium) metoclopramide HCl 5 mg tablet 5 mg PO TID 01/17/21 02/02/21 (Reglan) zoster vaccine live (PF) 19,400 0.5 ml SUBCUT DIRECTED 01/17/21 02/02/21 unit/0.65 mL subcutaneous suspension (Zostavax (PF)) acetaminophen 500 mg tablet 1,000 mg PO BID 02/02/21 02/02/21 (Acetaminophen Extra Strength) benzonatate 200 mg capsule 200 mg PO TID PRN 02/02/21 02/02/21 camphor-menthol 0.2 %-3.5 % 1 applic TOPICAL DAILY PRN 02/02/21 02/02/21 topical gel (Arctic Relief) ferric derisomaltose 100 mg 100 mg IV UD 02/02/21 02/02/21 iron/mL intravenous solution (Monoferric) prednisone 10 mg tablet 10 mg PO QAM 02/02/21 02/02/21 Results & Data (ED) Vital Signs Vital Signs - 24 hr 02/02/21 07:54 02/02/21 07:56 02/02/21 08:00 Temperature 37.6 C H Temperature Source Oral Pulse Rate 97 H 103 H 109 H Pulse Rate [Finger] Pulse Rate from SpO2 Sensor 98 H 95 H Respiratory Rate 26 H 20 20 Respiratory Effort / Characteristics Blood Pressure 150/76 H Blood Pressure [Left Arm] Blood Pressure Mean 100 Blood Pressure Mean [Left Arm] Pulse Oximetry 98 97 95 Oxygen Delivery Method Nasal Cannula Nasal Cannula Nasal Cannula Oxygen Flow Rate 3 3 3 Sepsis Recent Fever Within 48 Hours No Sepsis New/Unexplained Change in Mental Status N/A Sepsis Action Taken by Nursing No Action Required 02/02/21 08:10 02/02/21 08:20 02/02/21 08:30 Temperature Temperature Source Pulse Rate 92 H 93 H 92 H Pulse Rate [Finger] Pulse Rate from SpO2 Sensor 96 H 96 H 93 H Respiratory Rate 22 26 H 26 H Respiratory Effort / Characteristics Blood Pressure Blood Pressure [Left Arm] Blood Pressure Mean Blood Pressure Mean [Left Arm] Pulse Oximetry 94 97 97 Oxygen Delivery Method Nasal Cannula Nasal Cannula Nasal Cannula Oxygen Flow Rate 3 3 3 Sepsis Recent Fever Within 48 Hours Sepsis New/Unexplained Change in Mental Status Sepsis Action Taken by Nursing 02/02/21 08:40 02/02/21 08:50 02/02/21 08:55 Temperature Temperature Source Pulse Rate 94 H 94 H Pulse Rate [Finger] 97 H Pulse Rate from SpO2 Sensor 97 H 97 H Respiratory Rate 23 29 H 18 Respiratory Effort / Characteristics Blood Pressure Blood Pressure [Left Arm] 142/93 H Blood Pressure Mean Blood Pressure Mean [Left Arm] 109 Pulse Oximetry 97 97 97 Oxygen Delivery Method Nasal Cannula Nasal Cannula Oxygen Flow Rate 3 3 3 Sepsis Recent Fever Within 48 Hours Sepsis New/Unexplained Change in Mental Status Sepsis Action Taken by Nursing 02/02/21 09:17 02/02/21 09:20 02/02/21 10:10 Temperature Temperature Source Pulse Rate 92 H Pulse Rate [Finger] 93 H Pulse Rate from SpO2 Sensor 91 H Respiratory Rate 20 18 Respiratory Effort / Characteristics Spontaneous Blood Pressure Blood Pressure [Left Arm] Blood Pressure Mean Blood Pressure Mean [Left Arm] Pulse Oximetry 96 96 Oxygen Delivery Method Nasal Cannula Oxygen Flow Rate 3 3 3 Sepsis Recent Fever Within 48 Hours Sepsis New/Unexplained Change in Mental Status Sepsis Action Taken by Nursing 02/02/21 10:14 02/02/21 10:20 02/02/21 10:30 Temperature Temperature Source Pulse Rate 96 H 100 H Pulse Rate [Finger] 94 H Pulse Rate from SpO2 Sensor 93 H 99 H Respiratory Rate 24 23 29 H Respiratory Effort / Characteristics Blood Pressure Blood Pressure [Left Arm] 165/86 H Blood Pressure Mean Blood Pressure Mean [Left Arm] 112 Pulse Oximetry 98 99 99 Oxygen Delivery Method Nasal Cannula Oxygen Flow Rate 3 3 3 Sepsis Recent Fever Within 48 Hours Sepsis New/Unexplained Change in Mental Status Sepsis Action Taken by Nursing 02/02/21 10:40 02/02/21 10:50 02/02/21 11:00 Temperature Temperature Source Pulse Rate 92 H 96 H 90 Pulse Rate [Finger] Pulse Rate from SpO2 Sensor 93 H 96 H 93 H Respiratory Rate 29 H 18 22 Respiratory Effort / Characteristics Blood Pressure 145/72 H Blood Pressure [Left Arm] Blood Pressure Mean 96 Blood Pressure Mean [Left Arm] Pulse Oximetry 98 97 96 Oxygen Delivery Method Nasal Cannula Oxygen Flow Rate 3 3 Sepsis Recent Fever Within 48 Hours Sepsis New/Unexplained Change in Mental Status Sepsis Action Taken by Nursing 02/02/21 11:10 02/02/21 11:20 Temperature Temperature Source Pulse Rate 98 H 90 Pulse Rate [Finger] Pulse Rate from SpO2 Sensor 98 H 93 H Respiratory Rate 24 21 Respiratory Effort / Characteristics Blood Pressure Blood Pressure [Left Arm] Blood Pressure Mean Blood Pressure Mean [Left Arm] Pulse Oximetry 95 95 Oxygen Delivery Method Nasal Cannula Nasal Cannula Oxygen Flow Rate 3 3 Sepsis Recent Fever Within 48 Hours Sepsis New/Unexplained Change in Mental Status Sepsis Action Taken by Nursing Laboratory Data Attestation: I reviewed the patient's lab results. Result diagrams: 02/02/21 08:15 02/02/21 08:15 Lab Results 10/08/21 10/08/21 10/08/21 Range/Units 08:15 08:15 08:15 WBC 17.77 H (4.8-10.8) K/uL RBC 3.58 L (4.2-5.4) M/uL Hgb 10.5 L (12.0-16.0) g/dL Hct 33.9 L (37-47) % MCV 94.7 (80-100) fL MCH 29.3 (25-34) pg MCHC 31.0 L (32-36) g/dL RDW Std Deviation 47.7 H (36.4-46.3) fL RDW Coeff of Chanel 13.7 (11.5-14.5) % Plt Count 534 H (130-400) K/uL MPV 9.8 (7.4-10.4) fL Immature Gran % (Auto) 0.4 % Neut % (Auto) 79.4 % Lymph % (Auto) 8.2 % Gaston % (Auto) 11.6 % Eos % (Auto) 0.3 % Baso % (Auto) 0.1 % Neut # (Auto) 14.11 H (1.4-6.5) K/uL Lymph # (Auto) 1.45 (1.2-3.4) K/uL Gaston # (Auto) 2.07 H (0.11-0.59) K/uL Eos # (Auto) 0.05 (0-0.5) K/uL Baso # (Auto) 0.02 (0-0.2) K/uL Immature Gran # (Auto) 0.07 H (0.00-0.02) K/uL APTT 27.6 (21.0-31.0) Seconds PTT Ratio 1.0 Sodium 138 (136-145) mmol/L Potassium 4.5 (3.5-5.1) mmol/L Chloride 101 (98-107) mmol/L Carbon Dioxide 33 H (21-32) mmol/L Anion Gap 4.0 (3-11) BUN 51 H (7-18) mg/dl Creatinine 1.60 H (0.6-1.2) mg/dl Est Cr Clr Drug Dosing 25.5 ml/min Est GFR ( Amer) 33.2 ml/min Est GFR (Non-Af Amer) 28.7 ml/min BUN/Creatinine Ratio 32.1 H (10-20) Glucose 161 H (70-99) mg/dl Lactate (0.4-2.0) mmol/L Calcium 9.7 (8.5-10.1) mg/dl Total Bilirubin 0.2 (0.2-1) mg/dl AST 18 (15-37) U/L ALT 21 (12-78) U/L Alkaline Phosphatase 123 H (45-117) U/L Troponin I < 0.015 (0-0.045) ng/ml Total Protein 8.1 (6.4-8.2) gm/dl Albumin 2.9 L (3.4-5.0) gm/dl Globulin 5.2 H (2.5-4.0) gm/dl Albumin/Globulin Ratio 0.6 L (0.9-2) Lipase (73-393) U/L Procalcitonin (0-0.5) ng/ml Specimen Hemolysis Urine Color Urine Appearance (Clear) Urine pH (4.5-7.5) Ur Specific [place] (1.000-1.030) Urine Protein (Negative) Urine Glucose (UA) (Negative) Urine Ketones (Negative) Urine Blood (Negative) Urine Nitrite (Negative) Urine Bilirubin (Negative) Urine Urobilinogen (Negative) Ur Leukocyte Esterase (Negative) Urine WBC (Auto) (0-5) /hpf Urine RBC (Auto) (0-4) /hpf U Hyaline Cast (Auto) (0-5) /lpf U Epithel Cells (Auto) (0-5) /lpf Urine Bacteria (Auto) (Negative) COVID-19 Eval Order SARS-CoV-2 (PCR) (Negative) 02/02/21 02/02/21 02/02/21 Range/Units 08:15 08:15 08:15 WBC (4.8-10.8) K/uL RBC (4.2-5.4) M/uL Hgb (12.0-16.0) g/dL Hct (37-47) % MCV (80-100) fL MCH (25-34) pg MCHC (32-36) g/dL RDW Std Deviation (36.4-46.3) fL RDW Coeff of Chanel (11.5-14.5) % Plt Count (130-400) K/uL MPV (7.4-10.4) fL Immature Gran % (Auto) % Neut % (Auto) % Lymph % (Auto) % Gaston % (Auto) % Eos % (Auto) % Baso % (Auto) % Neut # (Auto) (1.4-6.5) K/uL Lymph # (Auto) (1.2-3.4) K/uL Gaston # (Auto) (0.11-0.59) K/uL Eos # (Auto) (0-0.5) K/uL Baso # (Auto) (0-0.2) K/uL Immature Gran # (Auto) (0.00-0.02) K/uL APTT (21.0-31.0) Seconds PTT Ratio Sodium (136-145) mmol/L Potassium (3.5-5.1) mmol/L Chloride (98-107) mmol/L Carbon Dioxide (21-32) mmol/L Anion Gap (3-11) BUN (7-18) mg/dl Creatinine (0.6-1.2) mg/dl Est Cr Clr Drug Dosing ml/min Est GFR ( Amer) ml/min Est GFR (Non-Af Amer) ml/min BUN/Creatinine Ratio (10-20) Glucose (70-99) mg/dl Lactate 1.3 (0.4-2.0) mmol/L Calcium (8.5-10.1) mg/dl Total Bilirubin (0.2-1) mg/dl AST (15-37) U/L ALT (12-78) U/L Alkaline Phosphatase (45-117) U/L Troponin I (0-0.045) ng/ml Total Protein (6.4-8.2) gm/dl Albumin (3.4-5.0) gm/dl Globulin (2.5-4.0) gm/dl Albumin/Globulin Ratio (0.9-2) Lipase 76 (73-393) U/L Procalcitonin 0.07 (0-0.5) ng/ml Specimen Hemolysis Urine Color Urine Appearance (Clear) Urine pH (4.5-7.5) Ur Specific [place] (1.000-1.030) Urine Protein (Negative) Urine Glucose (UA) (Negative) Urine Ketones (Negative) Urine Blood (Negative) Urine Nitrite (Negative) Urine Bilirubin (Negative) Urine Urobilinogen (Negative) Ur Leukocyte Esterase (Negative) Urine WBC (Auto) (0-5) /hpf Urine RBC (Auto) (0-4) /hpf U Hyaline Cast (Auto) (0-5) /lpf U Epithel Cells (Auto) (0-5) /lpf Urine Bacteria (Auto) (Negative) COVID-19 Eval Order SARS-CoV-2 (PCR) (Negative) 02/02/21 02/02/21 02/02/21 Range/Units 08:55 08:55 10:30 WBC (4.8-10.8) K/uL RBC (4.2-5.4) M/uL Hgb (12.0-16.0) g/dL Hct (37-47) % MCV (80-100) fL MCH (25-34) pg MCHC (32-36) g/dL RDW Std Deviation (36.4-46.3) fL RDW Coeff of Chanel (11.5-14.5) % Plt Count (130-400) K/uL MPV (7.4-10.4) fL Immature Gran % (Auto) % Neut % (Auto) % Lymph % (Auto) % Gaston % (Auto) % Eos % (Auto) % Baso % (Auto) % Neut # (Auto) (1.4-6.5) K/uL Lymph # (Auto) (1.2-3.4) K/uL Gaston # (Auto) (0.11-0.59) K/uL Eos # (Auto) (0-0.5) K/uL Baso # (Auto) (0-0.2) K/uL Immature Gran # (Auto) (0.00-0.02) K/uL APTT (21.0-31.0) Seconds PTT Ratio Sodium (136-145) mmol/L Potassium (3.5-5.1) mmol/L Chloride (98-107) mmol/L Carbon Dioxide (21-32) mmol/L Anion Gap (3-11) BUN (7-18) mg/dl Creatinine (0.6-1.2) mg/dl Est Cr Clr Drug Dosing ml/min Est GFR ( Amer) ml/min Est GFR (Non-Af Amer) ml/min BUN/Creatinine Ratio (10-20) Glucose (70-99) mg/dl Lactate (0.4-2.0) mmol/L Calcium (8.5-10.1) mg/dl Total Bilirubin (0.2-1) mg/dl AST (15-37) U/L ALT (12-78) U/L Alkaline Phosphatase (45-117) U/L Troponin I (0-0.045) ng/ml Total Protein (6.4-8.2) gm/dl Albumin (3.4-5.0) gm/dl Globulin (2.5-4.0) gm/dl Albumin/Globulin Ratio (0.9-2) Lipase (73-393) U/L Procalcitonin (0-0.5) ng/ml Specimen Hemolysis Urine Color Yellow Urine Appearance Clear (Clear) Urine pH 7.5 (4.5-7.5) Ur Specific [place] 1.015 (1.000-1.030) Urine Protein Trace H (Negative) Urine Glucose (UA) Negative (Negative) Urine Ketones Negative (Negative) Urine Blood Negative (Negative) Urine Nitrite Negative (Negative) Urine Bilirubin Negative (Negative) Urine Urobilinogen Negative (Negative) Ur Leukocyte Esterase Negative (Negative) Urine WBC (Auto) 1-5 (0-5) /hpf Urine RBC (Auto) 0-4 (0-4) /hpf U Hyaline Cast (Auto) 0 (0-5) /lpf U Epithel Cells (Auto) 0-5 (0-5) /lpf Urine Bacteria (Auto) Negative (Negative) COVID-19 Eval Order Covid19 at [facility] SARS-CoV-2 (PCR) NEGATIVE (Negative) Administered Medications Piperacillin Sod/Tazobactam (Sod 3.375 gm/ Dextrose) 115 mls @ 28.75 mls/hr IV Q8H CARLYLE; Protocol Stop: 02/12/21 15:59 Last Admin: 02/02/21 17:20 Dose: 28.8 mls/hr Documented by: [id number] Metoclopramide HCl (Metoclopramide Hcl 10 Mg Tablet) 10 mg PO AC CARLYLE Stop: 03/04/21 16:29 Last Admin: 02/02/21 17:20 Dose: 10 mg Documented by: [id number] Discontinued Medications Albuterol (Albut/Ipratrop 3mg/0.5mg Neb 3 Ml Vial) 3 ml NEB NOW STA Stop: 02/02/21 09:03 Last Admin: 02/02/21 09:20 Dose: 3 ml Documented by: [id number] Famotidine (Famotidine 20mg/5ml Iv Push) 20 mg IV ONE STA Stop: 02/02/21 08:14 Last Admin: 02/02/21 08:47 Dose: 20 mg Documented by: [id number] Sodium Chloride (Nss 1000ml) 1,000 mls @ 999 mls/hr IV .Q1H1M CARLYLE Stop: 02/02/21 09:15 Last Infusion: 02/02/21 11:19 Dose: 0 mls/hr Documented by: [id number] Admin: 02/02/21 08:47 Dose: 999 mls/hr Documented by: [id number] Piperacillin Sod/Tazobactam Sod (Zosyn) 4.5 gm in 120 mls @ 240 mls/hr IV NOW ONE Stop: 02/02/21 11:18 Last Infusion: 02/02/21 11:51 Dose: 0 mls/hr Documented by: [id number] Admin: 02/02/21 11:18 Dose: 240 mls/hr Documented by: [id number] Methylprednisolone (Methylprednisolone 125 Mg/2 Ml Vial) 60 mg IV NOW STA Stop: 02/02/21 08:25 Last Admin: 02/02/21 08:47 Dose: 60 mg Documented by: [id number] Ondansetron HCl (Ondansetron Inj 2 Mg/Ml 2 Ml Vial) 4 mg IV PRN STA Stop: 02/02/21 08:14 Last Admin: 02/02/21 08:46 Dose: 4 mg Documented by: [id number] Imaging Data Radiologist's Impression: Chest X-Ray 02/02/21 08:14 XR chest 1V portable HISTORY: 85 years-old Female Dyspnea acute shortness of breath COMPARISON: Chest radiograph 01/17/2021 TECHNIQUE: Portable AP view of the chest FINDINGS: Cardiac silhouette is enlarged. Trace right and small left pleural effusions. Mild left lung base opacities. Calcified plaque of the thoracic aorta. No pneumothorax or overt pulmonary edema. Degenerative changes of the shoulders and spine. Surgical clips of the right axilla. IMPRESSION: 1. Cardiomegaly without overt pulmonary edema. 2. Small left and trace right pleural effusions with left lung base opacities suggestive of atelectasis versus pneumonitis. ACT 112: Negative or not required by law. The above report was generated using voice recognition software. It may contain grammatical, syntax or spelling errors. Electronically signed by: Ronnie Cartwright M.D. 02/02/2021 8:50 AM Abdomen/Pelvis CT 02/02/21 08:[address] WITHOUT CONTRAST CT DOSE: 1035.98 mGycm HISTORY: Acute generalized abdominal pain with nausea and vomiting Abdominal distension, emesis, SBO? TECHNIQUE: Multiaxial CT images of the abdomen and pelvis were performed without contrast. A dose lowering technique was utilized adhering to the principles of ALARA. COMPARISON STUDY: CT abdomen and pelvis 01/17/2021 FINDINGS: Trace right and small left pleural effusions. Asymmetric consolidative and groundglass opacities of the left lung base. No pneumatosis or pneumoperitoneum. Small to moderate pericardial effusion has increased in size from comparison, now measuring up to 10 mm in transverse dimension. There is associated thickening of the pericardium. Limited evaluation of the solid abdominal organs without the use of IV contrast. There is no evidence of cirrhosis or hepatic mass lesion. Unremarkable spleen, gallbladder and adrenal glands. Mildly atrophic pancreas. The kidneys are again noted to be mildly atrophic. No renal calculi, or hydronephrosis. Limited evaluation of the pelvic structures secondary to streak artifact from right hip total joint arthroplasty. Pelvic floor relaxation with small cystocele suggested. Hysterectomy. No adnexal mass lesion. Atherosclerosis of the aorta without aneurysm. No adenopathy. Nonspecific distal esophageal wall thickening. Mildly distended debris-filled stomach. A gastrojejunostomy tube is noted with distal tip within the proximal duodenum. Duodenal diverticulosis. Severe colonic diverticulosis with chronic sigmoid wall thickening. No definitive evidence of acute diverticulitis. No bowel obstruction. The appendix is not identified. Diastases recti. Degenerative changes of the spine, pelvis and left hip. Surgical clips of the inferior right hemipelvis are redemonstrated. Chronic appearing compression deformities of the T11 and L4 vertebral bodies. IMPRESSION: 1. Small left and trace right pleural effusions with asymmetric left lung base opacities suggestive of atelectasis versus pneumonia. 2. Small to moderate pericardial effusion has increased in size from 01/17/2021. There is mild associated pericardial thickening. Correlate clinically to exclude pericarditis. 3. No bowel obstruction. 4. Colonic diverticulosis without acute diverticulitis. 5. Satisfactory positioning of the gastrojejunostomy tube. 6. Additional findings as above. ACT 112: Negative or not required by law. The above report was generated using voice recognition software. It may contain grammatical, syntax or spelling errors. Electronically signed by: Ronnie Cartwright M.D. 02/02/2021 10:12 AM Discharge Plan Visit Data Chief Complaint: Shortness of Breath/Dyspnea ED Provider: Amish Galarza ED Midlevel Provider: Brenda Linn Discharge Problem: Pneumonia, Nausea & vomiting, COPD (chronic obstructive pulmonary disease), Gastrojejunostomy tube status Discharge Instructions Interventions: ED Discharge Assessment Last Done: 02/02/21 15:13 Discharge Problem: Pneumonia Qualifiers: Pneumonia type: due to unspecified organism Laterality: left Lung location: lower lobe of lung Qualified Code(s): J18.9 - Pneumonia, unspecified organism Nausea & vomiting Qualifiers: Vomiting type: unspecified Vomiting Intractability: non-intractable Qualified Code(s): R11.2 - Nausea with vomiting, unspecified COPD (chronic obstructive pulmonary disease) Qualifiers: COPD type: unspecified COPD Qualified Code(s): J44.9 - Chronic obstructive pulmonary disease, unspecified
[2021-02-02] MEDS ORDERED: methylPREDNISolone 125 MG/2 ML VIAL IV STA (08:24)
[2021-02-02 08:34] LABS: Basophils # (auto) 0.02 K/uL (0-0.2); Basophils % (auto) 0.1 %; Eosinophils # (auto) 0.05 K/uL (0-0.5); Eosinophils % (auto) 0.3 %; Hematocrit (blood only) 33.9 % (37-47); Hemoglobin 10.5 g/dL (12.0-16.0); Immature Granulocytes # (auto) 0.07 K/uL (0.00-0.02); Immature Granulocytes % (auto) 0.4 %; Lymphocytes # (auto) 1.45 K/uL (1.2-3.4); Lymphocytes % (auto) 8.2 %; Mean Corpuscular Hemoglobin 29.3 pg (25-34); Mean Corpuscular Volume 94.7 fL (80-100); Mean Platelet Volume 9.8 fL (7.4-10.4); Monocytes # (auto) 2.07 K/uL (0.11-0.59); Monocytes % (auto) 11.6 %; Neutrophils # (auto) 14.11 K/uL (1.4-6.5); Neutrophils % (auto) 79.4 %; Platelet Count 534 K/uL (130-400); RDW Coefficient of Variation 13.7 % (11.5-14.5); RDW Standard Deviation 47.7 fL (36.4-46.3); Red Blood Count 3.58 M/uL (4.2-5.4); White Blood Count 17.77 K/uL (4.8-10.8)
[2021-02-02 08:51] LABS: Partial Thromboplastin Time 27.6 Seconds (21.0-31.0)
--- NOTE | 2021-02-02 08:51 | XRay Report ---
XR chest 1V portable HISTORY: 85 years-old Female Dyspnea acute shortness of breath COMPARISON: Chest radiograph 01/17/2021 TECHNIQUE: Portable AP view of the chest FINDINGS: Cardiac silhouette is enlarged. Trace right and small left pleural effusions. Mild left lung base opa cities. Calcified plaque of the thoracic aorta. No pneumothorax or overt pulmonary edema. Degenerativ e changes of the shoulders and spine. Surgical clips of the right axilla. IMPRESSION: 1. Cardiomegaly without overt pulmonary edema. 2. Small left and trace right pleural effusions with left lung base opacities suggestive of atelectas is versus pneumonitis. ACT 112: Negative or not required by law. The above report was generated using voice recognition software. It may contain grammatical, syntax o r spelling errors. Electronically signed by: Ronnie Cartwright M.D. 02/02/2021 8:50 AM
[2021-02-02 08:56] LABS: Albumin Level 2.9 gm/dl (3.4-5.0); Aspartate Aminotransferase 18 U/L (15-37); BUN Creatinine Ratio 32.1 (10-20); Blood Urea Nitrogen 51 mg/dl (7-18); Calcium 9.7 mg/dl (8.5-10.1); Carbon Dioxide 33 mmol/L (21-32); Chloride 101 mmol/L (98-107); Creatinine Clr Calc Pharmacy 25.5 ml/min; Est GFR (African American) 33.2 ml/min; Est GFR (Non-African American) 28.7 ml/min; Glucose 161 mg/dl (70-99); Potassium 4.5 mmol/L (3.5-5.1); Sodium 138 mmol/L (136-145)
[2021-02-02 08:59] LABS: Albumin Globulin Ratio 0.6 (0.9-2); Alkaline Phosphatase 123 U/L (45-117); Bilirubin,Total 0.2 mg/dl (0.2-1); Globulin 5.2 gm/dl (2.5-4.0); Total Protein 8.1 gm/dl (6.4-8.2); Troponin I < 0.015 ng/ml (0-0.045)
[2021-02-02] MEDS ORDERED: ALBUT/IPRATROP 3MG/0.5MG NEB 3 ML VIAL NEB STA (09:02)
[2021-02-02 09:24] LABS: Alanine Aminotransferase 21 U/L (12-78)
--- NOTE | 2021-02-02 10:13 | CT Scan Report ---
ABDOMEN AND PELVIS CT WITHOUT CONTRAST CT DOSE: 1035.98 mGycm HISTORY: Acute generalized abdominal pain with nausea and vomiting Abdominal distension, emesis, SBO ? TECHNIQUE: Multiaxial CT images of the abdomen and pelvis were performed without contrast. A dose lo wering technique was utilized adhering to the principles of ALARA. COMPARISON STUDY: CT abdomen and pelvis 01/17/2021 FINDINGS: Trace right and small left pleural effusions. Asymmetric consolidative and groundglass opacities of t he left lung base. No pneumatosis or pneumoperitoneum. Small to moderate pericardial effusion has inc reased in size from comparison, now measuring up to 10 mm in transverse dimension. There is associate d thickening of the pericardium. Limited evaluation of the solid abdominal organs without the use of IV contrast. There is no evidence of cirrhosis or hepatic mass lesion. Unremarkable spleen, gallbladder and adrenal glands. Mildly atr ophic pancreas. The kidneys are again noted to be mildly atrophic. No renal calculi, or hydronephrosi s. Limited evaluation of the pelvic structures secondary to streak artifact from right hip total join t arthroplasty. Pelvic floor relaxation with small cystocele suggested. Hysterectomy. No adnexal mass lesion. Atherosclerosis of the aorta without aneurysm. No adenopathy. Nonspecific distal esophageal wall thickening. Mildly distended debris-filled stomach. A gastrojejuno stomy tube is noted with distal tip within the proximal duodenum. Duodenal diverticulosis. Severe col onic diverticulosis with chronic sigmoid wall thickening. No definitive evidence of acute diverticuli tis. No bowel obstruction. The appendix is not identified. Diastases recti. Degenerative changes of t he spine, pelvis and left hip. Surgical clips of the inferior right hemipelvis are redemonstrated. Ch ronic appearing compression deformities of the T11 and L4 vertebral bodies. IMPRESSION: 1. Small left and trace right pleural effusions with asymmetric left lung base opacities suggestive o f atelectasis versus pneumonia. 2. Small to moderate pericardial effusion has increased in size from 01/17/2021. There is mild associa rosa pericardial thickening. Correlate clinically to exclude pericarditis. 3. No bowel obstruction. 4. Colonic diverticulosis without acute diverticulitis. 5. Satisfactory positioning of the gastrojejunostomy tube. 6. Additional findings as above. ACT 112: Negative or not required by law. The above report was generated using voice recognition software. It may contain grammatical, syntax o r spelling errors. Electronically signed by: Ronnie Cartwright M.D. 02/02/2021 10:12 AM
[2021-02-02 10:49] LABS: Appearance Urine Clear (Clear); Bacteria Urine Automated Negative (Negative); Bilirubin Urine Negative (Negative); Blood Urine Negative (Negative); Cast Urine Automated 0 /lpf (0-5); Color Urine Yellow; Epithelial Cell Urine Auto 0-5 /lpf (0-5); Glucose Urine UA Negative (Negative); Ketones Urine Negative (Negative); Leukocyte Esterase Urine Negative (Negative); Nitrite Urine Negative (Negative); RBC Urine Automated 0-4 /hpf (0-4); Specific Gravity Urine 1.015 (1.000-1.030); Urobilinogen Urine Negative (Negative); pH Urine 7.5 (4.5-7.5)
[2021-02-02] MEDS ORDERED: PIPERACILLIN/TAZOBACTAM 4.5 GM/120 ML BAG IV ONE (10:49)
[2021-02-02] MEDS ORDERED: PIPERACILL/TAZOBAC CONSULT ACTIVE PRN ×2 (10:49→21:04)
[2021-02-02] MEDS ORDERED: ALBUT/IPRATROP 3MG/0.5MG NEB 3 ML VIAL NEB SCH (11:00)
--- NOTE | 2021-02-02 11:16 | History & Physical Report ---
Date of Service February 02, 2021 Assessment & Plan (1) Aspiration pneumonia: Plan: - Admit to med surg with tele - Sputum culture, mucinex, duonebs QID and Q2H prn, tessalon pearls - On 3 L with adequate o2 sats, Wears 3L at all times - COVID-19 swab neg - WBC at time of admission = 17.77, procal neg - BCx x 2, follow - Tmax =37.6 - CXR reviewed as above - Continue antibiotic therapy with zosyn IV for now, finished po augmentin after last hospital stay -NSS at 125 mL/h while n.p.o. -History of aspiration pneumonia, patient is on a soft/slippery diet, speech therapy to evaluate -GI consulted for possible gastroparesis with nausea and non-digested food - concern for needs for EGD with dilation -Continue tube feeds Nutren 2.0 oral liquid at 65 ml/hr for 12 hours daily through the feeding tube. ( 3.5 cartons ~ 780 ml per night 7p - 7a) with 20 ml flush before and after. - Consult nutrition. Hold tube feeds for now. (2) Chronic diastolic CHF (congestive heart failure): Plan: -Appears to be euvolemic, holding torsemide, continue metoprolol, monitor volume status closely -Continue IV fluids at low rate while n.p.o. until speech therapy evaluates (3) COPD (chronic obstructive pulmonary disease): Plan: - Currently on baseline o2 at 3 L - Not in acute exacerbation (4) HTN (hypertension): Plan: - Cont metoprolol, holding torsemide (5) Dyslipidemia: (6) CKD (chronic kidney disease), stage IV: Plan: - Cr. at baseline 1.60, BUN 51, monitor with am labs - IVF as above, will hold torsemide for now (7) GERD (gastroesophageal reflux disease): Plan: - omeprazole and famotidine ordered, continue (8) Anemia: Plan: - Chronic, hgb 10.5 DVT ppx: teds, heparin subq CODE: Full code Dispo: From home, likely to remain in the hospital x 2 days. History of Present Illness Primary Care Provider: Erick De La Cruz, This is an 85 yo F with PMHx of chronic diastolic CHF, HTN, HLD, morbid obesity with a BMI of 40.3, CKD stage IV, baseline 1.7-2.1, GERD, GJ tube in place since September 2020 s/p GI bleed and 2 surgeries, PABLO noncompliant with CPAP, major depression disorder. Pt was previously admitted from 01/17 - 01/22 for sepsis aspiration pneumonia and treated with IV zosyn and then transitioned to Po augmentin. She was discharged home with her baseline of 2L O2. Video swallow was done to evaluate dyphagia and was maintained on Nutren tube feeds with routine flushes and soft/slippery foods. Radhika presents to the ER with concerns of nausea which started around 5 am this morning and progressively got worse. She noticed her dinner last night was not digested, and admits to feeling like food is sticking in her chest when she eats recently. Denies hematemesis. She noted leaking around the GJ tube this morning, ER physician worked to push the tube back in place and now it is not leaking as much. She reports no abdominal pain. Pt last BM was this morning and was normal, soft, no blood, not black/tarry. Nightly she has continuous GJ feedings, and did have it running last night, and was turned off this morning by her daughter. Not reports of resistance with flushing before and after tube feeding per the patient this morning. She denies specific shortness of breath currently and reports is on 3 L O2 at all times. Pt is noncompliant with Cpap HS. Pt denies pain with deep breathing, worsened cough, but does admit to azalea nging up some yellow sputum whenever she uses her puffers. She denies fever, chills or sweats recently. Allergies Allergy/AdvReac Type Severity Reaction Status Date / Time Macrolide Antibiotics Allergy Unknown Unknown Unverified 02/02/21 09:11 oxycodone Allergy Unknown Unknown Verified 02/02/21 09:11 tramadol Allergy Unknown Unknown Unverified 02/02/21 09:11 Sulfa (Sulfonamide AdvReac Intermediate KIDNEY Verified 02/02/21 09:11 Antibiotics) PROBLEMS codeine AdvReac Unknown Nausea Verified 02/02/21 09:11 Home Medications Medication Instructions Recorded Confirmed Type gabapentin 100 mg capsule 100 mg PO UD 07/31/18 02/02/21 History (Neurontin) gabapentin 300 mg capsule 300 mg PO HS 07/31/18 02/02/21 History (Neurontin) albuterol sulfate 90 mcg/actuation 2 puff INHALATION QID PRN 09/26/18 02/02/21 History aerosol inhaler (Ventolin HFA) ascorbic acid (vitamin C) 100 mg 300 mg PO QAM 09/26/18 02/02/21 History tablet (Vitamin C) aspirin 81 mg tablet,delayed 81 mg PO QAM 09/26/18 02/02/21 History release (Aspirin Low Dose) cholecalciferol (vitamin D3) 25 1,000 unit PO QAM 09/26/18 02/02/21 History mcg (1,000 unit) tablet (Vitamin D3) ipratropium 0.5 mg-albuterol 3 mg 3 ml NEB QID PRN 04/23/19 02/02/21 History (2.5 mg base)/3 mL nebulization soln torsemide 20 mg tablet 10 mg PO QAM 04/23/19 02/02/21 History umeclidinium 62.5 mcg/actuation 1 inh INHALATION HS 04/23/19 02/02/21 History blister powder for inhalation (Incruse Ellipta) ascorbic acid (vitamin C) 500 mg 1,000 mg PO QAM 09/12/20 02/02/21 History chewable tablet (Vitamin C) tamsulosin 0.4 mg capsule (Flomax) 0.4 mg PO HS 09/12/20 02/02/21 History carboxymethylcellulose sodium 0.5 2 drp OPB BID 10/07/20 02/02/21 History % eye drops (Refresh Tears) famotidine 20 mg tablet (Pepcid) 20 mg PO HS 10/07/20 02/02/21 History fluticasone furoate 200 1 inh INHALATION HS 10/07/20 02/02/21 History mcg-vilanterol 25 mcg/dose inhalation powder (Breo Ellipta) fluticasone propionate 50 2 spray INTRANASAL DAILY PRN 10/07/20 02/02/21 History mcg/actuation nasal spray,suspension (Flonase Allergy Relief) lidocaine 5 % topical patch 1 patch TOPICAL ONAMOFFPM 10/07/20 02/02/21 History (Lidoderm) melatonin 3 mg tablet (Melatin) 3 mg PO HS 10/07/20 02/02/21 History metoprolol succinate 25 mg 12.5 mg PO QA 10/07/20 02/02/21 History tablet,extended release 24 hr (Toprol XL) ondansetron HCl 4 mg tablet 4 mg PO Q6H PRN 10/07/20 02/02/21 History (Zofran) polyethylene glycol 3350 17 gram 17 g PO DAILY PRN 10/07/20 02/02/21 History oral powder packet (Miralax) sennosides 8.6 mg tablet (senna) 8.6 mg PO DAILY PRN 10/07/20 02/02/21 History sertraline 25 mg tablet (Zoloft) 25 mg PO HS 10/07/20 02/02/21 History amino ac-protein hydro-whey 1 ea FEEDING TUBE HS 01/17/21 02/02/21 History protein 10 gram-100 kcal/30 mL oral liquid (ProSource) esomeprazole magnesium 20 mg 20 mg PO DAILYBB 01/17/21 02/02/21 History capsule,delayed release (Nexium) metoclopramide HCl 5 mg tablet 5 mg PO TID 01/17/21 02/02/21 History (Reglan) zoster vaccine live (PF) 19,400 0.5 ml SUBCUT DIRECTED 01/17/21 02/02/21 History unit/0.65 mL subcutaneous suspension (Zostavax (PF)) acetaminophen 500 mg tablet 1,000 mg PO BID 02/02/21 02/02/21 History (Acetaminophen Extra Strength) benzonatate 200 mg capsule 200 mg PO TID PRN 02/02/21 02/02/21 History camphor-menthol 0.2 %-3.5 % 1 applic TOPICAL DAILY PRN 02/02/21 02/02/21 History topical gel (Arctic Relief) ferric derisomaltose 100 mg 100 mg IV UD 02/02/21 02/02/21 History iron/mL intravenous solution (Monoferric) prednisone 10 mg tablet 10 mg PO QAM 02/02/21 02/02/21 History Past Med/Surg History Medical History (Updated 02/02/21 @ 15:25 by MIGUELANGEL Mccarthy) Breast cancer Chronic diastolic CHF (congestive heart failure) CKD (chronic kidney disease), stage IV COPD (chronic obstructive pulmonary disease) Dyslipidemia GERD (gastroesophageal reflux disease) History of DVT (deep vein thrombosis) HTN (hypertension) Lumbago Osteoporosis Surgical History H/O bladder repair surgery H/O colonoscopy H/O mastectomy H/O right knee surgery History of right-sided carotid endarterectomy History of total hip replacement S/P tonsillectomy and adenoidectomy S/P total hysterectomy Family History Mother Colonic polyp Hypertension Heart disease Cancer Breast Father Hypertension Heart disease Social History Smoking Status: Never smoker 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); Hx Alcohol Use: No Hx Substance Use: No Preferred Language: Portuguese Communication Ability: Effective Rn Picu Required: No Beliefs That Will Affect Care: None marital status: / Current Living Situation: Family Current Living Situation Comment: lives with daughter Kristen Gibbs current occupational status: retired How many Children do You have: 4 Feels Safe at Home: Yes Assistive Devices: Oxygen - Continuous Review of Systems Review of Systems: Constitutional: No fever, sweats or chills Eyes: No diplopia, no worsening or blurred vision ENT: normal hearing, no trouble swallowing Respiratory: No cough, sputum, dyspnea at rest or on exertion, wears 3 L O2 at all times. Cardiovascular: No chest pain, tightness or palpitations Abdomen: As per HPI. No pain, diarrhea or constipation Musculoskeletal: No joint pain, calf pain, swelling Neurologic: No weakness, numbness/tingling, + uses a walker at baseline, requires assistance Psychiatric: No anxiety or depression Skin: No rash or itch Physical Exam Physical Exam: General: awake, alert, no apparent distress, + obese Head: Normocephalic, atraumatic ENT: PERRL, EOMI, no pharyngeal exudate, mucous membranes moist Chest: On 3 L via NC with sats 95%, Rhonchi present bases bilaterally, + coarse breath sounds at right base, faint exp wheeze in left side. Cardiac: slightly tachycardic with HR in 90s, no murmur, no JVD, normal peripheral pulses, good capillary refill Abdominal: GJ tube present in LUQ, minimal surrounding erythema, no pain with palpation around it, no leaking, NABS x 4 quadrants, soft, nondistended, nontender to palpation, no rebound or guarding Extremities: Normal inspection, no peripheral edema or erythema, calfs nontender to palpation Psych: Normal mood and affect Neuro: AAO x 3, strength intact bilaterally and rated 5/5, no motor deficits, speech is clear, no peripheral sensory deficits Results & Data Results & Data ([facility]) Vital Signs (Past 12 Hours) Vital Signs Temp Pulse Pulse Resp BP BP Pulse Ox 02/02/21 10:14 94 H 24 165/86 H 98 02/02/21 09:20 93 H 20 96 02/02/21 08:55 97 H 18 142/93 H 97 02/02/21 07:56 37.6 C H 103 H 20 150/76 H 97 Diagnostic Findings Chest X-Ray 02/02/21 08:14 XR chest 1V portable HISTORY: 85 years-old Female Dyspnea acute shortness of breath COMPARISON: Chest radiograph 01/17/2021 TECHNIQUE: Portable AP view of the chest FINDINGS: Cardiac silhouette is enlarged. Trace right and small left pleural effusions. Mild left lung base opacities. Calcified plaque of the thoracic aorta. No pneumothorax or overt pulmonary edema. Degenerative changes of the shoulders and spine. Surgical clips of the right axilla. IMPRESSION: 1. Cardiomegaly without overt pulmonary edema. 2. Small left and trace right pleural effusions with left lung base opacities suggestive of atelectasis versus pneumonitis. ACT 112: Negative or not required by law. The above report was generated using voice recognition software. It may contain grammatical, syntax or spelling errors. Electronically signed by: Ronnie Cartwright M.D. 02/02/2021 8:50 AM Abdomen/Pelvis CT 02/02/21 08:[address] WITHOUT CONTRAST CT DOSE: 1035.98 mGycm HISTORY: Acute generalized abdominal pain with nausea and vomiting Abdominal distension, emesis, SBO? TECHNIQUE: Multiaxial CT images of the abdomen and pelvis were performed without contrast. A dose lowering technique was utilized adhering to the principles of ALARA. COMPARISON STUDY: CT abdomen and pelvis 01/17/2021 FINDINGS: Trace right and small left pleural effusions. Asymmetric consolidative and groundglass opacities of the left lung base. No pneumatosis or pneumoperitoneum. Small to moderate pericardial effusion has increased in size from comparison, now measuring up to 10 mm in transverse dimension. There is associated thickening of the pericardium. Limited evaluation of the solid abdominal organs without the use of IV contrast. There is no evidence of cirrhosis or hepatic mass lesion. Unremarkable spleen, gallbladder and adrenal glands. Mildly atrophic pancreas. The kidneys are again noted to be mildly atrophic. No renal calculi, or hydronephrosis. Limited evaluation of the pelvic structures secondary to streak artifact from right hip total joint arthroplasty. Pelvic floor relaxation with small cystocele suggested. Hysterectomy. No adnexal mass lesion. Atherosclerosis of the aorta without aneurysm. No adenopathy. Nonspecific distal esophageal wall thickening. Mildly distended debris-filled stomach. A gastrojejunostomy tube is noted with distal tip within the proximal duodenum. Duodenal diverticulosis. Severe colonic diverticulosis with chronic sigmoid wall thickening. No definitive evidence of acute diverticulitis. No bowel obstruction. The appendix is not identified. Diastases recti. Degenerative changes of the spine, pelvis and left hip. Surgical clips of the inferior right hemipelvis are redemonstrated. Chronic appearing compression deformities of the T11 and L4 vertebral bodies. IMPRESSION: 1. Small left and trace right pleural effusions with asymmetric left lung base opacities suggestive of atelectasis versus pneumonia. 2. Small to moderate pericardial effusion has increased in size from 01/17/2021. There is mild associated pericardial thickening. Correlate clinically to exclude pericarditis. 3. No bowel obstruction. 4. Colonic diverticulosis without acute diverticulitis. 5. Satisfactory positioning of the gastrojejunostomy tube. 6. Additional findings as above. ACT 112: Negative or not required by law. The above report was generated using voice recognition software. It may contain grammatical, syntax or spelling errors. Electronically signed by: Ronnie Cartwright M.D. 02/02/2021 10:12 AM ECG Additional Comments: Sinus rhythm with 1st degree A-V block with Premature atrial complexes Low voltage QRS Right bundle branch block Inferior infarct , age undetermined Cannot rule out Anterior infarct (cited on or before 07-OCT-2020) Abnormal ECG When compared with ECG of 20-JAN-2021 08:10, Premature atrial complexes are now Present Questionable change in initial forces of Anterior leads 25mm/s 10mm/mV 150Hz 9.0.9 12SL 241 NICO: 3 Referred by: REFERRED SELF Unconfirmed Vent. rate 95 BPM WI interval 216 ms QRS duration 116 ms QT/QTc 372/467 ms Code Status & VTE Plan Code Status Full code- discussed with pt at bedside Supervising Physician Co-Signing Physician Notes 85-year-old female with PMH of dysphagia and hiatal hernia status post PEG tube placement September 2020 at [facility], chronic diastolic CHF, COPD, GERD, CKD stage IV [baseline creatinine 1.7-2.1], morbid obesity, and PABLO noncompliant with CPAP presented 02/02 to our ED with multiple episodes of vomiting. Patient was recently admitted for sepsis aspiration pneumonia. She uses 3 L home oxygen. She reports multiple vomiting episodes today and choking on her vomitus. There is leaking around her PEG tube insertion site with some erythe ma. Procalcitonin was negative. WBC was elevated. Concern of aspiration pneumonia versus PEG tube site infection, will trend procalcitonin, continue Zosyn for now. GI consulted for PEG tube abnormality. GI suggested transfer to [facility] as this is likely secondary to gastroparesis secondary to complication of the paraesophageal hernia repairlikely vagal nerve damage. At present, the increasing metoclopramide dose with close monitoring for side effects. Hold tube feeds and n.p.o. per GI for now. Upon examination: GENERAL: Alert and oriented x3. NAD, on 3 L. HEENT: No pallor, no icterus. Pupils equal, round and reactive to light. Oral mucosa moist. NECK: No JVD, no neck masses. HEART: S1 and S2 heard. Regular rate and rhythm. No murmur, no gallop. RESPIRATORY SYSTEM: Normal AP diameter. No accessory muscle use. No wheezing, CTA left lung, coarse crackles right lung ABDOMEN: Soft, bowel sounds present, nontender, no distention. Erythema around PEG tube insertion site. Leaking at the site. CENTRAL NERVOUS SYSTEM: Alert and oriented x3. No facial droop. Speech is clear. Obeys simple commands. Moves extremities. EXTREMITIES: No edema, no erythema seen. I have seen and examined the patient and have discussed the case with the provider above. I agree with the assessment and plan as stated. (1) COPD (chronic obstructive pulmonary disease) COPD type: COPD with acute exacerbation Qualified Code(s): J44.1 - Chronic obstructive pulmonary disease with (acute) exacerbation (2) HTN (hypertension) Hypertension type: essential hypertension Qualified Code(s): I10 - Essential (primary) hypertension
[2021-02-02 11:28] LABS: Protein Urine Trace (Negative)
--- NOTE | 2021-02-02 12:17 | Gastrointestinal Consultation ---
Date of Consultation February 02, 2021 Assessment & Plan (1) Gastroparesis: Pt's nausea/vomiting secondary to gastroparesis. Consider transfer to [place] with eval by surgery there - as gastroparesis seems to be a complication of the paraesophageal hernia repair - likely vagal nerve damage. If unable to transfer or if pt not willing, then:. Could try increasing the metoclopramide to 10mg TID before meals on discharge - but warn if any tremors, facial tics then will need to back down dosing or DC. Will discuss with Tessa Reid - to see if she would be comfortable doing an EGD with Botox next week. Sips clear liquids po only this weekend, to allow the esophagus and stomach to e mpty. Would hold tube feeds tonight - possibly restart in about 24 hrs, if no endoscopy planned. Dietary instructions on the gastroparesis diet and slippery diet for dysphagia - mostly liquids, low fiber, foods that can be eaten with a spoon. Supervising Physician Co-Signing Physician Notes I saw and evaluated the patient. She presents with a history of nausea and emesis. The patient underwent a paraesophageal hernia repair complicated by what appears to be gastroparesis. As part of her surgical history she did have placement of a feeding tube by Dr. Chino at [facility] several months ago. During that procedure they performed Botox injection to the pylorus. The patient notes that this seemed to help her symptoms significantly. Over the past few weeks she has had noted having increasing abdominal distention which culminated in nausea and vomiting this morning. Physical examination Elderly appearing female Poor airway sounds with a delayed expiratory phase and wheezing on inspiration Obese abdomen, nontender Impression: Patient presenting for what appears to be symptoms related to gastroparesis as a result of of poor vagal tone likely related to her prior paraesophageal hernia repair. Would recommend that she be n.p.o. for the weekend given the question of fluid within the esophagus. Pending her response to Reglan over the weekend we could certainly consider endoscopic evaluation with perhaps Botox injection early next week. The patient may best be served by a referral to [facility] for these examinations given the complexity of her problem. History of Present Illness Reason for Consultation: Dysphagia Requesting Physician: Dr Lilli Quintanilla Attending Physician: Dr. Lilli Quintanilla History of Present Illness Ms. Garrido is an 85 yr old female pt of Dr. De La Cruz with a hx of chronic diastolic CHF, HTN, HLD, morbid obesity with a BMI of 40.3, CKD stage IV, baseline 1.7-2.1, GERD, PABLO. She underwent paraesophageal hernia repair in [place] in August 2020 with a protracted hospital stay including [place]. She was admitted again there in September when a GJ tube was placed. On arrival here, non contrast CT with nonspecific distal esophageal wall thickening and mildly distended debris-filled stomach. A gastrojejunostomy tube is noted with distal tip within the proximal duodenum. Most recent EGD in September 2020 in [place]: - No gross lesions in esophagus. - Z-line regular, 38 cm from the incisors. - A small amount of food (residue) in the stomach. Pylorus injected with botulinum toxin. - An externally removable PEG placement was successfully completed. Allergies Allergy/AdvReac Type Severity Reaction Status Date / Time Macrolide Antibiotics Allergy Unknown Unknown Unverified 02/02/21 09:11 oxycodone Allergy Unknown Unknown Verified 02/02/21 09:11 tramadol Allergy Unknown Unknown Unverified 02/02/21 09:11 Sulfa (Sulfonamide AdvReac Intermediate KIDNEY Verified 02/02/21 09:11 Antibiotics) PROBLEMS codeine AdvReac Unknown Nausea Verified 02/02/21 09:11 Home Medications Medication Instructions Recorded Confirmed Type gabapentin 100 mg capsule 100 mg PO UD 07/31/18 02/02/21 History (Neurontin) gabapentin 300 mg capsule 300 mg PO HS 07/31/18 02/02/21 History (Neurontin) albuterol sulfate 90 mcg/actuation 2 puff INHALATION QID PRN 09/26/18 02/02/21 History aerosol inhaler (Ventolin HFA) ascorbic acid (vitamin C) 100 mg 300 mg PO QAM 09/26/18 02/02/21 History tablet (Vitamin C) aspirin 81 mg tablet,delayed 81 mg PO QAM 09/26/18 02/02/21 History release (Aspirin Low Dose) cholecalciferol (vitamin D3) 25 1,000 unit PO QAM 09/26/18 02/02/21 History mcg (1,000 unit) tablet (Vitamin D3) ipratropium 0.5 mg-albuterol 3 mg 3 ml NEB QID PRN 04/23/19 02/02/21 History (2.5 mg base)/3 mL nebulization soln torsemide 20 mg tablet 10 mg PO QAM 04/23/19 02/02/21 History umeclidinium 62.5 mcg/actuation 1 inh INHALATION HS 04/23/19 02/02/21 History blister powder for inhalation (Incruse Ellipta) ascorbic acid (vitamin C) 500 mg 1,000 mg PO QAM 09/12/20 02/02/21 History chewable tablet (Vitamin C) tamsulosin 0.4 mg capsule (Flomax) 0.4 mg PO HS 09/12/20 02/02/21 History carboxymethylcellulose sodium 0.5 2 drp OPB BID 10/07/20 02/02/21 History % eye drops (Refresh Tears) famotidine 20 mg tablet (Pepcid) 20 mg PO HS 10/07/20 02/02/21 History fluticasone furoate 200 1 inh INHALATION HS 10/07/20 02/02/21 History mcg-vilanterol 25 mcg/dose inhalation powder (Breo Ellipta) fluticasone propionate 50 2 spray INTRANASAL DAILY PRN 10/07/20 02/02/21 History mcg/actuation nasal spray,suspension (Flonase Allergy Relief) lidocaine 5 % topical patch 1 patch TOPICAL ONAMOFFPM 10/07/20 02/02/21 History (Lidoderm) melatonin 3 mg tablet (Melatin) 3 mg PO HS 10/07/20 02/02/21 History metoprolol succinate 25 mg 12.5 mg PO QA 10/07/20 02/02/21 History tablet,extended release 24 hr (Toprol XL) ondansetron HCl 4 mg tablet 4 mg PO Q6H PRN 10/07/20 02/02/21 History (Zofran) polyethylene glycol 3350 17 gram 17 g PO DAILY PRN 10/07/20 02/02/21 History oral powder packet (Miralax) sennosides 8.6 mg tablet (senna) 8.6 mg PO DAILY PRN 10/07/20 02/02/21 History sertraline 25 mg tablet (Zoloft) 25 mg PO HS 10/07/20 02/02/21 History amino ac-protein hydro-whey 1 ea FEEDING TUBE HS 01/17/21 02/02/21 History protein 10 gram-100 kcal/30 mL oral liquid (ProSource) esomeprazole magnesium 20 mg 20 mg PO DAILYBB 01/17/21 02/02/21 History capsule,delayed release (Nexium) metoclopramide HCl 5 mg tablet 5 mg PO TID 01/17/21 02/02/21 History (Reglan) zoster vaccine live (PF) 19,400 0.5 ml SUBCUT DIRECTED 01/17/21 02/02/21 History unit/0.65 mL subcutaneous suspension (Zostavax (PF)) acetaminophen 500 mg tablet 1,000 mg PO BID 02/02/21 02/02/21 History (Acetaminophen Extra Strength) benzonatate 200 mg capsule 200 mg PO TID PRN 02/02/21 02/02/21 History camphor-menthol 0.2 %-3.5 % 1 applic TOPICAL DAILY PRN 02/02/21 02/02/21 History topical gel (Arctic Relief) ferric derisomaltose 100 mg 100 mg IV UD 02/02/21 02/02/21 History iron/mL intravenous solution (Monoferric) prednisone 10 mg tablet 10 mg PO QAM 02/02/21 02/02/21 History Patient History Medical History (Updated 02/02/21 @ 15:25 by MIGUELANGEL Mccarthy) Breast cancer Chronic diastolic CHF (congestive heart failure) CKD (chronic kidney disease), stage IV COPD (chronic obstructive pulmonary disease) Dyslipidemia GERD (gastroesophageal reflux disease) History of DVT (deep vein thrombosis) HTN (hypertension) Lumbago Osteoporosis Surgical History H/O bladder repair surgery H/O colonoscopy H/O mastectomy H/O right knee surgery History of right-sided carotid endarterectomy History of total hip replacement S/P tonsillectomy and adenoidectomy S/P total hysterectomy Family History Mother Colonic polyp Hypertension Heart disease Cancer Breast Father Hypertension Heart disease Social History Smoking Status: Never smoker 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 No fevers or weight loss Eyes: No eye redness, or pain, no recent vision changes Resp: No SOB, no cough Cardio: No palpitations/irregular beats, no chest pain GI: See HPI - No abdominal pain; PEG tube leaking : Denies pain on urination Skin: No jaundice, itching or new rashes Physical Exam Constitutional: WD/WN, vitals as above well developed, + obese and cooperative Eyes: PERRL, conjunctivae normal, anicteric sclerae Respiratory: normal respiratory effort, lungs clear to auscultation Cardiovascular: RRR, no murmur, no edema Gastrointestinal (Abdomen): Inspection/Auscultation: normal bowel sounds; abdomen not distended Percussion/Palpation: abdomen soft; no abdominal mass and no ascites PEG tube in place, draining bilious fluid and air escaping around the site. Skin: normal turgor Skin around the PEG tube insertion site irritated but not hot, no crisp red color or border - no signs of infection. Neurologic: PERRL, EOMI, accommodation nl, no face palsy, no dysarthria awake; not confused Psychiatric: A+Ox3, euthymic affect Results & Data ([facility]) Vital Signs (Past 12 Hours) Vital Signs Temp Pulse Pulse Resp BP BP Pulse Ox 02/02/21 11:50 100 H 19 95 02/02/21 11:40 93 H 25 H 94 02/02/21 11:30 93 H 23 96 02/02/21 11:20 90 21 95 02/02/21 11:10 98 H 24 95 02/02/21 11:00 90 22 145/72 H 96 02/02/21 10:50 96 H 18 97 02/02/21 10:40 92 H 29 H 98 02/02/21 10:30 100 H 29 H 99 02/02/21 10:20 96 H 23 99 02/02/21 10:14 94 H 24 165/86 H 98 02/02/21 10:10 92 H 18 02/02/21 09:20 93 H 20 96 02/02/21 09:17 96 02/02/21 08:55 97 H 18 142/93 H 97 02/02/21 08:50 94 H 29 H 97 02/02/21 08:40 94 H 23 97 02/02/21 08:30 92 H 26 H 97 02/02/21 08:20 93 H 26 H 97 02/02/21 08:10 92 H 22 94 02/02/21 08:00 109 H 20 95 02/02/21 07:56 37.6 C H 103 H 20 150/76 H 97 02/02/21 07:54 97 H 26 H 98 Laboratory Results WBC 17, Hb 10, HCT 33,platets 534, sodium 138, potassium 4.5, CL 101, CO2 33, BUN 51, creatinine 1.6, glucose 161, T bili 0.2, AST 18, ALT 21, alk phos 123, albumin 2.9, lipase 76 Diagnostic Findings Non contrast CTAP: Nonspecific distal esophageal wall thickening. Mildly distended debris-filled stomach. A gastrojejunostomy tube is noted with distal tip within the proximal duodenum. Duodenal diverticulosis. Severe colonic diverticulosis with chronic sigmoid wall thickening. No definitive evidence of acute diverticulitis. No bowel obstruction. The appendix is not identified. Diastases recti. Degenerative changes of the spine, pelvis and left hip. Surgical clips of the inferior right hemipelvis are redemonstrated. Chronic appearing compression deformities of the T11 and L4 vertebral bodies.
[2021-02-02] MEDS: METOCLOPRAMIDE HCL 10 MG TABLET PO SCH (17:20)
[2021-02-02] MEDS: PIPERACILLIN/TAZOBACTAM 3.375 GM in DEXTROSE 5% 100 ML IV SCH ×2 (17:20→23:39)
[2021-02-02] MEDS ORDERED: INFLUENZA VACCINE HIGH DOSE PF 65+ 0.7 ML SYR IM ONE (18:00)
[2021-02-02] MEDS ORDERED: BENZONATATE 100 MG CAPSULE PO PRN (21:04)
[2021-02-02] MEDS ORDERED: ALBUT/IPRATROP 3MG/0.5MG NEB 3 ML VIAL NEB PRN (21:04)
[2021-02-02] MEDS ORDERED: POLYETHYLENE (MIRALAX) 17 GM PACK PO PRN (21:04)
[2021-02-02] MEDS ORDERED: ACETAMINOPHEN 325 MG TAB PO PRN (21:04)
[2021-02-02] MEDS ORDERED: FLUTICASONE PROPIONATE NA SPR 16 GM BTL PRN (21:04)
[2021-02-02] MEDS ORDERED: SENNA 8.6 MG TAB PO PRN (21:04)
[2021-02-02] MEDS ORDERED: PIPERACILLIN/TAZOBACTAM 4.5 GM in DEXTROSE 5% 100 ML IV SCH (21:04)
[2021-02-02] MEDS ORDERED: ONDANSETRON INJ 2 MG/ML 2 ML VIAL IV PRN (21:04)
[2021-02-02] MEDS: LACTATED RINGER'S 1,000 ML IV SCH (21:57)
[2021-02-02] MEDS: GABAPENTIN 300 MG CAP PO SCH (22:36)
[2021-02-02] MEDS: FAMOTIDINE 20 MG TAB PO SCH (22:36)
[2021-02-02] MEDS: SERTRALINE HCL 50 MG TABLET PO SCH (22:37)
[2021-02-02] MEDS: METOCLOPRAMIDE HCL 5 MG TABLET PO SCH (22:37)
[2021-02-02] MEDS: TAMSULOSIN HCL 0.4 MG CAP PO SCH (22:37)
[2021-02-02] MEDS: guaiFENesin 600 MG TABCR PO SCH (22:37)
[2021-02-02] MEDS: UMECLIDINIUM BROMIDE 62.5MCG/BLISTER 7 PUFFS/INHALER INH SCH (22:38)
[2021-02-02] MEDS: FLUTICASONE/VILANTEROL 200/25MCG 14 PUFFS/INHALER INH SCH (22:39)
[2021-02-02] MEDS: HEPARIN SOD 5,000 UNIT/0.5 ML VIAL SQ SCH (22:39)
[2021-02-02] MEDS ORDERED: METOPROLOL TARTRATE 1 MG/ML VIAL IV STA (22:55)
[2021-02-02] MEDS: MELATONIN 3 MG TAB PO SCH (23:40)
--- NOTE | 2021-02-03 01:23 | Communication Note ---
Date of Service: February 03, 2021 Made aware by RN of DNR directives noted on POLST form. DNR directives verified by patient daughter (Ms. Kristen Gibbs) over the phone.
[2021-02-03] MEDS: LACTATED RINGER'S 1,000 ML IV SCH (04:58)
[2021-02-03] MEDS: METOPROLOL TARTRATE 1 MG/ML VIAL IV SCH ×2 (05:43→13:50)
[2021-02-03] MEDS: PANTOPRAZOLE 40 MG PO SCH (05:44)
[2021-02-03 06:46] LABS: Hematocrit (blood only) 32.1 % (37-47); Hemoglobin 9.6 g/dL (12.0-16.0); Mean Corpuscular Hgb Conc 29.9 g/dL (32-36); Mean Platelet Volume 9.6 fL (7.4-10.4); Platelet Count 439 K/uL (130-400); RDW Coefficient of Variation 13.9 % (11.5-14.5); RDW Standard Deviation 49.2 fL (36.4-46.3); Red Blood Count 3.31 M/uL (4.2-5.4); White Blood Count 17.39 K/uL (4.8-10.8)
--- NOTE | 2021-02-03 06:57 | Electrocardiogram Report ---
Test Reason : Blood Pressure : / mmHG Vent. Rate : 095 BPM Atrial Rate : 095 BPM P-R Int : 216 ms QRS Dur : 116 ms QT Int : 372 ms P-R-T Axes : 077 -28 039 degrees QTc Int : 467 ms Sinus rhythm with 1st degree A-V block with Premature atrial complexes Low voltage QRS Right bundle branch block Abnormal ECG When compared with ECG of 20-JAN-2021 08:10, Premature atrial complexes are now Present Confirmed by Javier Mcdaniel ([id number]) on 02/03/2021 6:57:35 AM Referred By: REFERRED SELF Confirmed By:Teofilo Mcdaniel
[2021-02-03 07:08] LABS: Albumin Level 2.6 gm/dl (3.4-5.0); BUN Creatinine Ratio 28.9 (10-20); Calcium 9.3 mg/dl (8.5-10.1); Creatinine Clr Calc Pharmacy 24.1 ml/min; Est GFR (African American) 31.1 ml/min; Est GFR (Non-African American) 26.8 ml/min; Magnesium 2.4 mg/dl (1.8-2.4); Potassium 4.8 mmol/L (3.5-5.1)
[2021-02-03 07:11] LABS: Albumin Globulin Ratio 0.5 (0.9-2); Bilirubin,Total 0.4 mg/dl (0.2-1); Globulin 4.8 gm/dl (2.5-4.0); Phosphorus 3.9 mg/dl (2.5-4.9); Total Protein 7.4 gm/dl (6.4-8.2)
[2021-02-03] MEDS: ASPIRIN 81 MG ECTAB PO SCH (08:09)
[2021-02-03] MEDS: PIPERACILLIN/TAZOBACTAM 3.375 GM in DEXTROSE 5% 100 ML IV SCH ×3 (08:12→23:55)
[2021-02-03] MEDS: ACETAMINOPHEN 500 MG TAB PO SCH ×2 (08:16→21:01)
[2021-02-03] MEDS: METOCLOPRAMIDE HCL 5 MG TABLET PO SCH ×3 (08:17→21:01)
[2021-02-03] MEDS: GABAPENTIN 100 MG CAP PO SCH ×2 (08:17→12:44)
[2021-02-03] MEDS: guaiFENesin 600 MG TABCR PO SCH ×2 (08:17→21:03)
[2021-02-03] MEDS: ASCORBIC ACID 500 MG TAB PO SCH (08:18)
[2021-02-03] MEDS: LIDOCAINE 5% 1 PATCH TD SCH (08:18)
[2021-02-03] MEDS: HEPARIN SOD 5,000 UNIT/0.5 ML VIAL SQ SCH ×2 (08:18→21:03)
[2021-02-03] MEDS ORDERED: METOPROLOL SUCC 25MG EXT REL TAB PO SCH (09:00)
[2021-02-03] MEDS: METOCLOPRAMIDE HCL 10 MG TABLET PO SCH ×3 (10:54→15:55)
--- NOTE | 2021-02-03 16:36 | Hospitalist Progress Note ---
Date of Service February 03, 2021 Assessment & Plan (1) Gastroparesis: Plan: 85-year-old female with PMH of dysphagia and hiatal hernia status post PEG tube placement September 2020 at [place], chronic diastolic CHF, COPD, GERD, CKD stage IV [baseline creatinine 1.7-2.1], morbid obesity, and PABLO noncompliant with CPAP presented 02/02 to our ED with multiple episodes of vomiting. Patient was recently admitted for sepsis aspiration pneumonia. She uses 3 L home oxygen. She reports multiple vomiting episodes on the day of arrival and choking on her vomitus. There is leaking around her PEG tube insertion site with some erythema at presentation. She is being managed for the following in the hospital: #. Probable aspiration pneumonia: Multiple episodes of vomiting on the day of arrival and patient reporting choking on them. History of aspiration pneumonia, patient is on soft/liquid diet, patient has PEG tube [tube feeding overnight ] and also has p.o. intake. Admitting WBC elevated to 17.77K with coarse crackles over right lung at presentation. Patient not on sepsis at presentation. Covid negative at presentation. Temperature of 37.6 at presentation Admitting CXR: Negative for acute right lung findings. Admitting blood culture: Pending Continue with nebulization, Zosyn 02/02, inhalation medications at home oxygen. #. PEG tube site erythema/leaking #. Aspiration/gastroparesis At presentation, patient also complained of leaking from the site of PEG tube insertion with erythema surrounding the port of entry. At baseline, patient has p.o. intake and her tube feeds is : Nutren 2.0 oral liquid at 65 ml/hr for 12 hours daily through the feeding tube. ( 3.5 cartons ~ 780 ml per night 7p - 7a) with 20 ml flush before and after. Admitting CTAP: No bowel obstruction, satisfactory positioning of the gastrojejunostomy tube. GI consulted: Recommends transfer to [place] for gastroparesis likely secondary to vagal nerve injury during PEG tube placement/paraesophageal hernia repair at [place]. For now increasing metoclopramide dose while inpatient, back to home dose at discharge. Plan for possible Botox injection next week. Patient's daughter and patient updated about possible outpatient follow-up with [place] for her PEG tube problem/gastroparesis complication. Diet orders per GI recommendation. Since currently n.p.o./tube feed hed for possible endoscopy per GI, will c/w IV fluid. Can use her right arm for IV access but avoid multiple punctures for blood draws. #. Chronic diastolic CHF (congestive heart failure): -Appears to be euvolemic, continue metoprolol/torsemide, monitor volume status closely -Continue IV fluids at low rate while n.p.o. until diet change per GI instruct ion. #. COPD (chronic obstructive pulmonary disease): - Currently on baseline o2 at 3 L - Not in acute exacerbation #. HTN (hypertension): - Cont metoprolol, torsemide #. CKD (chronic kidney disease), stage IV: - Cr. at baseline 1.60, BUN 51, monitor with am labs #. GERD (gastroesophageal reflux disease): - omeprazole and famotidine ordered, continue #. Anemia: - Chronic, hgb 10.5 DVT ppx: teds, heparin subq CODE: Full code Dispo: From home, likely to remain in the hospital until next week. Admission and Anticipated Discharge Date Admission Date: February 03, 2021 Subjective Patient was sitting up in chair, on 3 L nasal cannula oxygen, NAD, no acute events overnight. Patient denies any headache/dizziness/increased shortness of breath/other review of symptoms. Patient is n.p.o. with sips and meds. Physical Exam Physical Exam: GENERAL: Alert and oriented x3. NAD, on 3 L. HEENT: No pallor, no icterus. Pupils equal, round and reactive to light. Oral mucosa moist. NECK: No JVD, no neck masses. HEART: S1 and S2 heard. Regular rate and rhythm. No murmur, no gallop. RESPIRATORY SYSTEM: Normal AP diameter. No accessory muscle use. No wheezing, CTA left lung, coarse crackles right lung -improved from yesterday ABDOMEN: Soft, bowel sounds present, nontender, no distention. Erythema around PEG tube insertion site -improved from yesterday CENTRAL NERVOUS SYSTEM: Alert and oriented x3. No facial droop. Speech is clear. Obeys simple commands. Moves extremities. EXTREMITIES: 1+ edema, no erythema seen. Results & Data Results & Data ([facility]) Vital Signs (Past 12 Hours) Vital Signs Temp Pulse Pulse Resp BP Pulse Ox 02/03/21 15:37 36.4 C L 75 17 109/60 99 02/03/21 15:00 73 02/03/21 11:51 36.7 C 74 18 105/60 97 02/03/21 07:27 36.7 C 78 18 117/71 97 02/03/21 07:13 81
[2021-02-03] MEDS ORDERED: ONDANSETRON 4 MG OD TAB PO PRN (17:06)
[2021-02-03] MEDS: D5W AND NSS 1,000 ML IV SCH (17:39)
[2021-02-03] MEDS: MELATONIN 3 MG TAB PO SCH (21:01)
[2021-02-03] MEDS: SERTRALINE HCL 50 MG TABLET PO SCH (21:01)
[2021-02-03] MEDS: GABAPENTIN 300 MG CAP PO SCH (21:01)
[2021-02-03] MEDS: FAMOTIDINE 20 MG TAB PO SCH (21:02)
[2021-02-03] MEDS: UMECLIDINIUM BROMIDE 62.5MCG/BLISTER 7 PUFFS/INHALER INH SCH (21:02)
[2021-02-03] MEDS: TAMSULOSIN HCL 0.4 MG CAP PO SCH (21:02)
[2021-02-03] MEDS: FLUTICASONE/VILANTEROL 200/25MCG 14 PUFFS/INHALER INH SCH (21:02)
[2021-02-04] MEDS: D5W AND NSS 1,000 ML IV SCH (06:09)
[2021-02-04] MEDS: PANTOPRAZOLE 40 MG PO SCH (06:09)
[2021-02-04 06:44] LABS: Hematocrit (blood only) 32.5 % (37-47); Hemoglobin 9.7 g/dL (12.0-16.0); Mean Corpuscular Hgb Conc 29.8 g/dL (32-36); Mean Platelet Volume 9.7 fL (7.4-10.4); Nucleated RBC # (auto) 0.02 K/uL (0-0); Nucleated RBC % (auto) 0.1 %; Platelet Count 430 K/uL (130-400); RDW Coefficient of Variation 14.1 % (11.5-14.5); RDW Standard Deviation 50.4 fL (36.4-46.3); Red Blood Count 3.35 M/uL (4.2-5.4)
[2021-02-04 07:02] LABS: Albumin Level 2.6 gm/dl (3.4-5.0); BUN Creatinine Ratio 27.3 (10-20); Calcium 8.9 mg/dl (8.5-10.1); Creatinine Clr Calc Pharmacy 23.5 ml/min; Est GFR (African American) 30.2 ml/min; Est GFR (Non-African American) 26.1 ml/min; Potassium 4.2 mmol/L (3.5-5.1)
[2021-02-04 07:05] LABS: Albumin Globulin Ratio 0.5 (0.9-2); Bilirubin,Total 0.4 mg/dl (0.2-1); Globulin 4.8 gm/dl (2.5-4.0); Total Protein 7.4 gm/dl (6.4-8.2)
[2021-02-04] MEDS: TORSEMIDE 10 MG TAB PO SCH (08:40)
[2021-02-04] MEDS: METOPROLOL SUCC 25MG EXT REL TAB PO SCH (08:40)
[2021-02-04] MEDS: METOCLOPRAMIDE HCL 5 MG TABLET PO SCH ×3 (08:40→21:38)
[2021-02-04] MEDS: LIDOCAINE 5% 1 PATCH TD SCH (08:40)
[2021-02-04] MEDS: predniSONE 10 MG TABLET PO SCH (08:40)
[2021-02-04] MEDS: GABAPENTIN 100 MG CAP PO SCH ×2 (08:41→11:00)
[2021-02-04] MEDS: ASCORBIC ACID 500 MG TAB PO SCH (08:41)
[2021-02-04] MEDS: ACETAMINOPHEN 500 MG TAB PO SCH ×2 (08:41→21:38)
[2021-02-04] MEDS: METOCLOPRAMIDE HCL 10 MG TABLET PO SCH ×3 (08:41→16:58)
[2021-02-04] MEDS: ASPIRIN 81 MG ECTAB PO SCH (08:41)
[2021-02-04] MEDS: guaiFENesin 600 MG TABCR PO SCH ×2 (08:41→21:38)
[2021-02-04] MEDS: HEPARIN SOD 5,000 UNIT/0.5 ML VIAL SQ SCH ×2 (08:42→21:39)
[2021-02-04] MEDS: PIPERACILLIN/TAZOBACTAM 3.375 GM in DEXTROSE 5% 100 ML IV SCH (08:56)
[2021-02-04] MEDS: ALBUTEROL HFA 8 GM INHALER INH PRN ×2 (11:48→15:27)
--- NOTE | 2021-02-04 14:42 | Hospitalist Progress Note ---
Date of Service February 04, 2021 Assessment & Plan (1) Gastroparesis: Plan: 85-year-old female with PMH of dysphagia and hiatal hernia status post PEG tube placement September 2020 at [place], chronic diastolic CHF, COPD, GERD, CKD stage IV [baseline creatinine 1.7-2.1], morbid obesity, and PABLO noncompliant with CPAP presented 02/02 to our ED with multiple episodes of vomiting. Patient was recently admitted for sepsis aspiration pneumonia. She uses 3 L home oxygen. She reports multiple vomiting episodes on the day of arrival and choking on her vomitus. There is leaking around her PEG tube insertion site with some erythema at presentation. She is being managed for the following in the hospital: #. Probable aspiration pneumonia: Multiple episodes of vomiting on the day of arrival and patient reporting choking on them. History of aspiration pneumonia, patient is on soft/liquid diet, patient has PEG tube [tube feeding overnight ] and also has p.o. intake. Admitting WBC elevated to 17.77K with coarse crackles over right lung at presentation. Patient not on sepsis at presentation. Covid negative at presentation. Temperature of 37.6 at presentation Admitting CXR: Negative for acute right lung findings. Admitting blood culture: No growth after 48 hours, follow-up with final results. Continue with nebulization, Zosyn 02/02, inhalation medications at home oxygen. #. PEG tube site erythema/leaking #. Aspiration/gastroparesis At presentation, patient also complained of leaking from the site of PEG tube insertion with erythema surrounding the port of entry. At baseline, patient has p.o. intake and her tube feeds is : Nutren 2.0 oral liquid at 65 ml/hr for 12 hours daily through the feeding tube. ( 3.5 cartons ~ 780 ml per night 7p - 7a) with 20 ml flush before and after. Admitting CTAP: No bowel obstruction, satisfactory positioning of the gastrojejunostomy tube. GI consulted: Recommends transfer to [place] for gastroparesis likely secondary to vagal nerve injury during PEG tube placement/paraesophageal hernia repair at [place]. For now increasing metoclopramide dose while inpatient, back to home dose at discharge. Plan for possible Botox injection next week. Patient's daughter and patient updated about possible outpatient follow-up with [place] for her PEG tube problem/gastroparesis complication. Diet orders per GI recommendation. Since currently n.p.o./tube feed held for possible endoscopy per GI, will c/w IV fluid. Can use her right arm for IV access but avoid multiple punctures for blood draws. #. Chronic diastolic CHF (congestive heart failure): -Appears to be euvolemic, continue metoprolol/torsemide, monitor volume status closely -Continue IV fluids at low rate while n.p.o. until diet change per GI instruction. #. COPD (chronic obstructive pulmonary disease): - Currently on baseline o2 at 3 L - Not in acute exacerbation #. HTN (hypertension): - Cont metoprolol, torsemide #. CKD (chronic kidney disease), stage IV: - Cr. at baseline 1.60, BUN 51, monitor with am labs #. GERD (gastroesophageal reflux disease): - omeprazole and famotidine ordered, continue #. Anemia: - Chronic, hgb 10.5 DVT ppx: teds, heparin subq CODE: Full code Dispo: From home, likely to remain in the hospital until next week. Admission and Anticipated Discharge Date Admission Date: February 03, 2021 Subjective Patient was lying in bed, on 3 L nasal cannula oxygen, NAD, no acute events overnight. Patient denies any headache/dizziness/increased shortness of breath/other review of symptoms. Patient is n.p.o. with sips and meds. Physical Exam Physical Exam: GENERAL: Alert and oriented x3. NAD, on 3 L. HEENT: No pallor, no icterus. Pupils equal, round and reactive to light. Oral mucosa moist. NECK: No JVD, no neck masses. HEART: S1 and S2 heard. Regular rate and rhythm. No murmur, no gallop. RESPIRATORY SYSTEM: Normal AP diameter. No accessory muscle use. No wheezing, CTA left lung, coarse crackles right lung improved ABDOMEN: Soft, bowel sounds present, nontender, no distention. Erythema around PEG tube insertion site -improved. CENTRAL NERVOUS SYSTEM: Alert and oriented x3. No facial droop. Speech is clear. Obeys simple commands. Moves extremities. EXTREMITIES: 1+ edema, no erythema seen. Results & Data Results & Data ([facility]) Vital Signs (Past 12 Hours) Vital Signs Temp Pulse Pulse Resp BP Pulse Ox 02/04/21 11:49 85 19 94 02/04/21 10:56 37.0 C 100 H 16 140/81 97 02/04/21 07:51 99 H 02/04/21 07:36 36.6 C 91 H 18 120/83 92 02/04/21 04:27 36.4 C L 75 18 115/71 98
[2021-02-04] MEDS: PIPERACILLIN/TAZOBACTAM 4.5 GM in DEXTROSE 5% 100 ML IV SCH (16:58)
[2021-02-04] MEDS: TAMSULOSIN HCL 0.4 MG CAP PO SCH (21:37)
[2021-02-04] MEDS: SERTRALINE HCL 50 MG TABLET PO SCH (21:37)
[2021-02-04] MEDS: GABAPENTIN 300 MG CAP PO SCH (21:38)
[2021-02-04] MEDS: FAMOTIDINE 20 MG TAB PO SCH (21:38)
[2021-02-04] MEDS: MELATONIN 3 MG TAB PO SCH (21:38)
[2021-02-04] MEDS: UMECLIDINIUM BROMIDE 62.5MCG/BLISTER 7 PUFFS/INHALER INH SCH (21:39)
[2021-02-04] MEDS: FLUTICASONE/VILANTEROL 200/25MCG 14 PUFFS/INHALER INH SCH (21:39)
[2021-02-04] MEDS: SODIUM CHLORIDE 0.9% 1000ML 1,000 ML IV SCH (22:23)
[2021-02-05] MEDS: PANTOPRAZOLE 40 MG PO SCH (05:59)
[2021-02-05 07:40] LABS: Hematocrit (blood only) 32.1 % (37-47); Hemoglobin 9.7 g/dL (12.0-16.0); Mean Corpuscular Hgb Conc 30.2 g/dL (32-36); Mean Corpuscular Volume 95.8 fL (80-100); Mean Platelet Volume 9.6 fL (7.4-10.4); Platelet Count 399 K/uL (130-400); RDW Coefficient of Variation 14.2 % (11.5-14.5); RDW Standard Deviation 49.4 fL (36.4-46.3); Red Blood Count 3.35 M/uL (4.2-5.4); White Blood Count 14.07 K/uL (4.8-10.8)
[2021-02-05 08:03] LABS: Albumin Level 2.4 gm/dl (3.4-5.0); BUN Creatinine Ratio 23.7 (10-20); Calcium 9.1 mg/dl (8.5-10.1); Creatinine Clr Calc Pharmacy 21.9 ml/min; Est GFR (African American) 27.7 ml/min; Est GFR (Non-African American) 23.9 ml/min; Potassium 4.3 mmol/L (3.5-5.1)
[2021-02-05 08:05] LABS: Albumin Globulin Ratio 0.5 (0.9-2); Bilirubin,Total 0.4 mg/dl (0.2-1); Total Protein 7.4 gm/dl (6.4-8.2)
[2021-02-05] MEDS ORDERED: KETAMINE 50 MG/5 ML SYRINGE ONE (08:25)
[2021-02-05] MEDS ORDERED: LIDOCAINE 2% 2 ML VIAL/AMP(20MG/ML) INFIL ONE (08:25)
[2021-02-05] MEDS ORDERED: PROPOFOL IV EMULSION 10 MG/ML 20 ML VIAL IV ONE (08:25)
--- NOTE | 2021-02-05 08:35 | Anesthesiology Consultation ---
Date of Service February 05, 2021 Assessment & Plan Chart Review Chart Review: Acceptable Risk for Surgery and Patient NOT seen in Pre Admission Testing Consults Requested none ASA ASA3 Proposed Anesthesia Anesthesia Type: MAC Risk / Benefits Reviewed With: PT / POA / Parent / Guardian, Accepts Plan and Informed Consent Obtained History Surgery Operation Date: 02/05/21 08:30 Proposed Procedures p Esophagogastroduodenoscopy Dr Reid - Tessa Reid, DO Height/Weight Height: 5 ft Weight: 94.4 kg Allergies Allergy/AdvReac Type Severity Reaction Status Date / Time Macrolide Antibiotics Allergy Unknown Unknown Unverified 02/02/21 09:11 oxycodone Allergy Unknown Unknown Verified 02/02/21 09:11 tramadol Allergy Unknown Unknown Unverified 02/02/21 09:11 Sulfa (Sulfonamide AdvReac Intermediate KIDNEY Verified 02/02/21 09:11 Antibiotics) PROBLEMS codeine AdvReac Mild Nausea Verified 02/03/21 13:20 Medications Home Medications Medication Instructions Recorded Confirmed Last Taken gabapentin 100 mg capsule 100 mg PO UD 07/31/18 02/02/21 02/01/21 12:00 (Neurontin) gabapentin 300 mg capsule 300 mg PO HS 07/31/18 02/02/21 02/01/21 (Neurontin) albuterol sulfate 90 mcg/actuation 2 puff INHALATION QID PRN 09/26/18 02/02/21 02/01/21 aerosol inhaler (Ventolin HFA) ascorbic acid (vitamin C) 100 mg 300 mg PO QAM 09/26/18 02/02/21 02/01/21 tablet (Vitamin C) aspirin 81 mg tablet,delayed 81 mg PO QAM 09/26/18 02/02/21 02/01/21 release (Aspirin Low Dose) cholecalciferol (vitamin D3) 25 1,000 unit PO QAM 09/26/18 02/02/21 02/01/21 mcg (1,000 unit) tablet (Vitamin D3) ipratropium 0.5 mg-albuterol 3 mg 3 ml NEB QID PRN 04/23/19 02/02/21 02/01/21 (2.5 mg base)/3 mL nebulization soln torsemide 20 mg tablet 10 mg PO QAM 04/23/19 02/02/21 02/01/21 umeclidinium 62.5 mcg/actuation 1 inh INHALATION HS 04/23/19 02/02/21 02/01/21 blister powder for inhalation (Incruse Ellipta) ascorbic acid (vitamin C) 500 mg 1,000 mg PO QAM 09/12/20 02/02/21 02/01/21 chewable tablet (Vitamin C) tamsulosin 0.4 mg capsule (Flomax) 0.4 mg PO HS 09/12/20 02/02/21 02/01/21 carboxymethylcellulose sodium 0.5 2 drp OPB BID 10/07/20 02/02/21 02/01/21 % eye drops (Refresh Tears) famotidine 20 mg tablet (Pepcid) 20 mg PO HS 10/07/20 02/02/21 02/01/21 fluticasone furoate 200 1 inh INHALATION HS 10/07/20 02/02/21 02/01/21 mcg-vilanterol 25 mcg/dose inhalation powder (Breo Ellipta) fluticasone propionate 50 2 spray INTRANASAL DAILY PRN 10/07/20 02/02/21 02/01/21 mcg/actuation nasal spray,suspension (Flonase Allergy Relief) lidocaine 5 % topical patch 1 patch TOPICAL ONAMOFFPM 10/07/20 02/02/21 Unknown (Lidoderm) melatonin 3 mg tablet (Melatin) 3 mg PO HS 10/07/20 02/02/21 02/01/21 metoprolol succinate 25 mg 12.5 mg PO QA 10/07/20 02/02/21 02/01/21 tablet,extended release 24 hr (Toprol XL) ondansetron HCl 4 mg tablet 4 mg PO Q6H PRN 10/07/20 02/02/21 02/01/21 (Zofran) polyethylene glycol 3350 17 gram 17 g PO DAILY PRN 10/07/20 02/02/21 Unknown oral powder packet (Miralax) sennosides 8.6 mg tablet (senna) 8.6 mg PO DAILY PRN 10/07/20 02/02/21 01/16/21 sertraline 25 mg tablet (Zoloft) 25 mg PO HS 10/07/20 02/02/21 02/01/21 amino ac-protein hydro-whey 1 ea FEEDING TUBE HS 01/17/21 02/02/21 02/01/21 protein 10 gram-100 kcal/30 mL oral liquid (ProSource) esomeprazole magnesium 20 mg 20 mg PO DAILYBB 01/17/21 02/02/21 02/01/21 capsule,delayed release (Nexium) metoclopramide HCl 5 mg tablet 5 mg PO TID 01/17/21 02/02/21 02/01/21 (Reglan) zoster vaccine live (PF) 19,400 0.5 ml SUBCUT DIRECTED 01/17/21 02/02/21 Unknown unit/0.65 mL subcutaneous suspension (Zostavax (PF)) acetaminophen 500 mg tablet 1,000 mg PO BID 02/02/21 02/02/21 02/01/21 (Acetaminophen Extra Strength) benzonatate 200 mg capsule 200 mg PO TID PRN 02/02/21 02/02/21 02/01/21 camphor-menthol 0.2 %-3.5 % 1 applic TOPICAL DAILY PRN 02/02/21 02/02/21 02/02/21 topical gel (Arctic Relief) ferric derisomaltose 100 mg 100 mg IV UD 02/02/21 02/02/21 02/01/21 iron/mL intravenous solution (Monoferric) prednisone 10 mg tablet 10 mg PO QAM 02/02/21 02/02/21 02/01/21 Active Medications Generic Name Dose Route Start Last Admin Trade Name Freq PRN Reason Stop Dose Admin Acetaminophen 1,000 mg 02/03/21 09:00 02/04/21 21:38 Acetaminophen 500 Mg Tab PO 03/05/21 08:59 1,000 mg BID CARLYLE Administration Acetaminophen 650 mg 02/02/21 21:04 02/04/21 15:14 Acetaminophen 325 Mg Tab PO 03/04/21 21:03 650 mg Q4H PRN Administration Moderate Pain Albuterol 2 puffs 02/02/21 21:04 02/04/21 15:27 Albuterol Hfa 8 Gm Inhaler INH 03/04/21 21:03 2 puffs QID PRN Administration Shortness Of Breath Or Wheezing Ascorbic Acid 500 mg 02/03/21 09:00 02/04/21 08:41 Ascorbic Acid 500 Mg Tab PO 03/05/21 08:59 500 mg QAM CARLYLE Administration Aspirin 81 mg 02/03/21 09:00 02/04/21 08:41 Aspirin 81 Mg Ectab PO 03/05/21 08:59 81 mg QAM CARLYLE Administration Famotidine 20 mg 02/02/21 21:04 02/04/21 21:38 Famotidine 20 Mg Tab PO 03/04/21 21:03 20 mg HS CARLYLE Administration Fluticasone/Vilanterol 1 puffs 02/02/21 21:04 02/04/21 21:39 Fluticasone/Vilanterol 200/25mcg 14 Puffs/Inhaler INH 03/04/21 21:03 1 puffs HS CARLYLE Administration Gabapentin 300 mg 02/02/21 21:04 02/04/21 21:38 Gabapentin 300 Mg Cap PO 03/04/21 21:03 300 mg HS CARLYLE Administration Gabapentin 100 mg 02/03/21 09:00 02/04/21 11:00 Gabapentin 100 Mg Cap PO 03/05/21 08:59 100 mg BID@0900,1200 CARLYLE Administration Guaifenesin 1,200 mg 02/02/21 21:04 02/04/21 21:38 Guaifenesin 600 Mg Tabcr PO 03/04/21 21:03 1,200 mg Q12 CARLYLE Administration Heparin Sodium (Porcine) 5,000 units 02/02/21 21:45 02/04/21 21:39 Heparin Sod 5,000 Unit/0.5 Ml Vial SQ 03/04/21 21:44 5,000 units Q12 CARLYLE Administration Piperacillin Sod/Tazobactam 120 mls @ 30 mls/hr 02/04/21 16:00 02/05/21 04:40 Sod 4.5 gm/ Dextrose IV 02/12/21 15:59 Infused Q8H CARLYLE Infusion Protocol Sodium Chloride 1,000 mls @ 75 mls/hr 02/04/21 22:15 02/05/21 08:22 Nss 1000ml IV 03/06/21 22:14 0 mls/hr .[id number] CARLYLE Infusion Lidocaine 1 patch 02/03/21 09:00 02/04/21 08:40 Lidocaine 5% 1 Patch TD 03/05/21 08:59 1 patch QAM CARLYLE Administration Melatonin 3 mg 02/02/21 21:04 02/04/21 21:38 Melatonin 3 Mg Tab PO 03/04/21 21:03 3 mg HS CARLYLE Administration Metoclopramide HCl 10 mg 02/02/21 16:30 02/04/21 16:58 Metoclopramide Hcl 10 Mg Tablet PO 03/04/21 16:29 10 mg AC CARLYLE Administration Metoclopramide HCl 5 mg 02/02/21 21:04 02/04/21 21:38 Metoclopramide Hcl 5 Mg Tablet PO 03/04/21 21:03 5 mg TID CARLYLE Administration Metoprolol Succinate 12.5 mg 02/04/21 09:00 02/04/21 08:40 Metoprolol Succ 25mg Ext Rel Tab PO 03/06/21 08:59 12.5 mg QAM CARLYLE Administration Miscellaneous 1 ea 02/03/21 00:00 02/05/21 01:03 Amino Ac-Protein Hydr-Whey Pro [Prosource] 10-100 Gram-Kcal/30 Morder Awaiting Action N/A 03/05/21 00:00 Not Given QS CARLYLE Miscellaneous 1 ea 02/02/21 21:04 02/04/21 21:39 Remove Lidoderm Patch N/A 03/04/21 21:03 1 ea DAILY@2100 CARLYLE Administration Pantoprazole Sodium 40 mg 02/03/21 06:30 02/05/21 05:59 Pantoprazole 40 Mg PO 03/05/21 06:29 Not Given DAILYBB CARLYLE Prednisone 10 mg 02/04/21 09:00 02/04/21 08:40 Prednisone 10 Mg Tablet PO 02/14/21 08:59 10 mg QAM CARLYLE Administration Sertraline HCl 25 mg 02/02/21 21:04 02/04/21 21:37 Sertraline Hcl 50 Mg Tablet PO 03/04/21 21:03 25 mg HS CARLYLE Administration Tamsulosin HCl 0.4 mg 02/02/21 21:04 02/04/21 21:37 Tamsulosin Hcl 0.4 Mg Cap PO 03/04/21 21:03 0.4 mg HS CARLYLE Administration Torsemide 10 mg 02/04/21 09:00 02/04/21 08:40 Torsemide 10 Mg Tab PO 03/06/21 08:59 10 mg QAM CARLYLE Administration Umeclidinium [place] 1 puffs 02/02/21 21:04 02/04/21 21:39 Umeclidinium [place] 62.5mcg/Blister 7 Puffs/Inhaler INH 03/04/21 21:03 1 puffs HS CARLYLE Administration Past Medical History Medical History Breast cancer Chronic diastolic CHF (congestive heart failure) CKD (chronic kidney disease), stage IV COPD (chronic obstructive pulmonary disease) Dyslipidemia GERD (gastroesophageal reflux disease) History of DVT (deep vein thrombosis) HTN (hypertension) Lumbago Osteoporosis Exercise / Class Metabolic Activity II 4-5 Yardwork/Stairs/Walk up hill Past Family History Family History Mother Colonic polyp Hypertension Heart disease Cancer Breast Father Hypertension Heart disease Past Surgical History Surgical History H/O bladder repair surgery H/O colonoscopy H/O mastectomy H/O right knee surgery History of right-sided carotid endarterectomy History of total hip replacement S/P tonsillectomy and adenoidectomy S/P total hysterectomy Past Anesthesia History No Hx of Anesthesia Complications and No Family Hx of Anesthesia Complications History of PONV No Hx of PONV and No Hx of Motion Sickness Social History Smoking Status: Never smoker Do You Dip or Chew Tobacco: No Hx Alcohol Use: No Hx Substance Use: No substance use type: does not use Physical Exam Vital Signs Last Vital Signs Temp 36.8 C 02/05/21 07:10 Pulse 95 H 02/05/21 07:41 Resp 19 02/05/21 07:10 BP 117/74 02/05/21 07:10 Pulse Ox 96 02/05/21 07:10 Constitutional + obese ENMT Mouth: no dentition abnormality Thyromental Distance: > or= 3.5 Finger Breadths Mallampati Class: II Neck normal visual inspection Respiratory normal respiratory effort Auscultation: lungs clear to auscultation bilaterally Cardiovascular Rate/Rhythm: regular rate and regular rhythm Psychiatric Orientation: alert Testing Laboratory Results 02/05/21 07:10 02/05/21 07:10 APTT 27.6 Seconds (21.0-31.0) 02/02/21 08:15 Urine Color Yellow 02/02/21 10:30 Urine Appearance Clear (Clear) 02/02/21 10:30 Urine pH 7.5 (4.5-7.5) 02/02/21 10:30 Ur Specific [place] 1.015 (1.000-1.030) 02/02/21 10:30 Urine Protein Trace (Negative) H 02/02/21 10:30 Urine Glucose (UA) Negative (Negative) 02/02/21 10:30 Urine Ketones Negative (Negative) 02/02/21 10:30 Urine Nitrite Negative (Negative) 02/02/21 10:30 Ur Leukocyte Esterase Negative (Negative) 02/02/21 10:30 Urine WBC (Auto) 1-5 /hpf (0-5) 02/02/21 10:30 Urine RBC (Auto) 0-4 /hpf (0-4) 02/02/21 10:30 U Hyaline Cast (Auto) 0 /lpf (0-5) 02/02/21 10:30 U Epithel Cells (Auto) 0-5 /lpf (0-5) 02/02/21 10:30 Urine Bacteria (Auto) Negative (Negative) 02/02/21 10:30 02/02/21 09:49 Aerobic Blood Culture - Preliminary Blood No growth in Aerobic bottle after 48 hours. Anaerobic Blood Culture - Preliminary No growth in Anaerobic bottle after 48 hours. 02/02/21 08:15 Aerobic Blood Culture - Preliminary Blood No growth in Aerobic bottle after 48 hours. Anaerobic Blood Culture - Preliminary No growth in Anaerobic bottle after 48 hours.
--- NOTE | 2021-02-05 08:43 | History & Physical Report ---
Date of Service February 05, 2021 Assessment & Plan (1) Nausea & vomiting: (2) Gastroparesis: Plan: EGD with botox today Admission and Anticipated Discharge Date Admission Date: February 03, 2021 History of Present Illness Chief Complaint: severe gastroparesis Primary Care Provider: Erick De La Cruz DO severe gastroparesis following paraesophageal hernia repair Allergies Allergy/AdvReac Type Severity Reaction Status Date / Time Macrolide Antibiotics Allergy Unknown Unknown Unverified 02/02/21 09:11 oxycodone Allergy Unknown Unknown Verified 02/02/21 09:11 tramadol Allergy Unknown Unknown Unverified 02/02/21 09:11 Sulfa (Sulfonamide AdvReac Intermediate KIDNEY Verified 02/02/21 09:11 Antibiotics) PROBLEMS codeine AdvReac Mild Nausea Verified 02/03/21 13:20 Home Medications Medication Instructions Recorded Confirmed Type gabapentin 100 mg capsule 100 mg PO UD 07/31/18 02/02/21 History (Neurontin) gabapentin 300 mg capsule 300 mg PO HS 07/31/18 02/02/21 History (Neurontin) albuterol sulfate 90 mcg/actuation 2 puff INHALATION QID PRN 09/26/18 02/02/21 History aerosol inhaler (Ventolin HFA) ascorbic acid (vitamin C) 100 mg 300 mg PO QAM 09/26/18 02/02/21 History tablet (Vitamin C) aspirin 81 mg tablet,delayed 81 mg PO QAM 09/26/18 02/02/21 History release (Aspirin Low Dose) cholecalciferol (vitamin D3) 25 1,000 unit PO QAM 09/26/18 02/02/21 History mcg (1,000 unit) tablet (Vitamin D3) ipratropium 0.5 mg-albuterol 3 mg 3 ml NEB QID PRN 04/23/19 02/02/21 History (2.5 mg base)/3 mL nebulization soln torsemide 20 mg tablet 10 mg PO QAM 04/23/19 02/02/21 History umeclidinium 62.5 mcg/actuation 1 inh INHALATION HS 04/23/19 02/02/21 History blister powder for inhalation (Incruse Ellipta) ascorbic acid (vitamin C) 500 mg 1,000 mg PO QAM 09/12/20 02/02/21 History chewable tablet (Vitamin C) tamsulosin 0.4 mg capsule (Flomax) 0.4 mg PO HS 09/12/20 02/02/21 History carboxymethylcellulose sodium 0.5 2 drp OPB BID 10/07/20 02/02/21 History % eye drops (Refresh Tears) famotidine 20 mg tablet (Pepcid) 20 mg PO HS 10/07/20 02/02/21 History fluticasone furoate 200 1 inh INHALATION HS 10/07/20 02/02/21 History mcg-vilanterol 25 mcg/dose inhalation powder (Breo Ellipta) fluticasone propionate 50 2 spray INTRANASAL DAILY PRN 10/07/20 02/02/21 History mcg/actuation nasal spray,suspension (Flonase Allergy Relief) lidocaine 5 % topical patch 1 patch TOPICAL ONAMOFFPM 10/07/20 02/02/21 History (Lidoderm) melatonin 3 mg tablet (Melatin) 3 mg PO HS 10/07/20 02/02/21 History metoprolol succinate 25 mg 12.5 mg PO QAM 10/07/20 02/02/21 History tablet,extended release 24 hr (Toprol XL) ondansetron HCl 4 mg tablet 4 mg PO Q6H PRN 10/07/20 02/02/21 History (Zofran) polyethylene glycol 3350 17 gram 17 g PO DAILY PRN 10/07/20 02/02/21 History oral powder packet (Miralax) sennosides 8.6 mg tablet (senna) 8.6 mg PO DAILY PRN 10/07/20 02/02/21 History sertraline 25 mg tablet (Zoloft) 25 mg PO HS 10/07/20 02/02/21 History amino ac-protein hydro-whey 1 ea FEEDING TUBE HS 01/17/21 02/02/21 History protein 10 gram-100 kcal/30 mL oral liquid (ProSource) esomeprazole magnesium 20 mg 20 mg PO DAILYBB 01/17/21 02/02/21 History capsule,delayed release (Nexium) metoclopramide HCl 5 mg tablet 5 mg PO TID 01/17/21 02/02/21 History (Reglan) zoster vaccine live (PF) 19,400 0.5 ml SUBCUT DIRECTED 01/17/21 02/02/21 History unit/0.65 mL subcutaneous suspension (Zostavax (PF)) acetaminophen 500 mg tablet 1,000 mg PO BID 02/02/21 02/02/21 History (Acetaminophen Extra Strength) benzonatate 200 mg capsule 200 mg PO TID PRN 02/02/21 02/02/21 History camphor-menthol 0.2 %-3.5 % 1 applic TOPICAL DAILY PRN 02/02/21 02/02/21 History topical gel (Arctic Relief) ferric derisomaltose 100 mg 100 mg IV UD 02/02/21 02/02/21 History iron/mL intravenous solution (Monoferric) prednisone 10 mg tablet 10 mg PO QAM 02/02/21 02/02/21 History Past Med/Surg History Medical History Breast cancer Chronic diastolic CHF (congestive heart failure) CKD (chronic kidney disease), stage IV COPD (chronic obstructive pulmonary disease) Dyslipidemia GERD (gastroesophageal reflux disease) History of DVT (deep vein thrombosis) HTN (hypertension) Lumbago Osteoporosis Surgical History H/O bladder repair surgery H/O colonoscopy H/O mastectomy H/O right knee surgery History of right-sided carotid endarterectomy History of total hip replacement S/P tonsillectomy and adenoidectomy S/P total hysterectomy Family History Mother Colonic polyp Hypertension Heart disease Cancer Breast Father Hypertension Heart disease Social History Smoking Status: Never smoker Second Hand Exposure: No; Do You Dip or Chew Tobacco: No; Tobacco Cessation Education Requested by Patient: No Hx Alcohol Use: No Hx Substance Use: No Preferred Language: Zambian Communication Ability: Effective Fretted Instruments Inspector Required: No Beliefs That Will Affect Care: None marital status: / Current Living Situation: Family Current Living Situation Comment: lives with daughter Kristen Gibbs current occupational status: retired How many Children do You have: 4 Other Information That Helps Us Care for You: No Feels Safe at Home: Yes Safety Concerns: Feels Safe At This Time Assistive Devices: Oxygen - Continuous Results & Data ([facility]) Vital Signs (Past 12 Hours) Vital Signs Temp Pulse Pulse Resp BP Pulse Ox 02/05/21 08:32 36.6 C 89 16 131/77 99 02/05/21 07:41 95 H 02/05/21 07:10 36.8 C 86 19 117/74 96 02/05/21 04:00 36.3 C L 81 20 118/81 96 02/04/21 23:13 36.6 C 92 H 18 116/74 97 Code Status & VTE Plan VTE Prophylaxis Plan VTE Prophylaxis will be ordered: Yes (1) Nausea & vomiting Vomiting Intractability: non-intractable Vomiting type: unspecified Qualified Code(s): R11.2 - Nausea with vomiting, unspecified
[2021-02-05] MEDS ORDERED: BOTULINUM TOXIN TYPE A 100 UNIT VIAL IM ONE (09:00)
--- NOTE | 2021-02-05 09:33 | GI REPORT ---
Patient Name: Radhika Arroyo Procedure Date: 02/05/2021 8:53 AM Date of : 1935 Admit Type: Inpatient Age: 85 Gender: Female Attending MD: Tessa Reid DO Procedure: Upper GI endoscopy Providers: Tessa Reid DO Referring MD: Shanda Quintanilla Md Indications: For therapy of gastroparesis, Nausea with vomiting Medicines: Propofol per Anesthesia Complications: No immediate complications. Estimated blood loss: None. Estimated Blood Loss: Estimated blood loss: none. Procedure: Pre-Anesthesia Assessment: - Prior to the procedure, a History and Physical was performed, and patient medications, allergies and sensitivities were reviewed. The patient's tolerance of previous anesthesia was reviewed. - The risks and benefits of the procedure and the sedation options and risks were discussed with the patient. All questions were answered and informed consent was obtained. - Patient identification and proposed procedure were verified prior to the procedure by the physician and the nurse. The procedure was verified in the pre-procedure area in the procedure room. - Mental Status Examination: alert and oriented. Airway Examination: normal oropharyngeal airway and neck mobility. Respiratory Examination: clear to auscultation. CV Examination: normal. Abdominal Examination: bowel sounds present, abdomen soft and non-tender, no masses or organomegaly noted. - ASA Grade Assessment: III - A patient with severe systemic disease. After obtaining informed consent, the endoscope was passed under direct vision. Throughout the procedure, the patient's blood pressure, pulse, and oxygen saturations were monitored continuously. The Endoscope was introduced through the mouth, and advanced to the prepyloric region, stomach. The upper GI endoscopy was accomplished without difficulty. The patient tolerated the procedure well. Findings: The esophagus was normal. A large amount of food (residue) was found in the entire examined stomach. Impression: - Normal esophagus. - A large amount of food (residue) in the stomach. - No specimens collected. Recommendation: - Return [facility] to [facility] for ongoing care. Arabella Garcia DO 02/05/2021 9:33:21 AM This report has been signed electronically. Note Initiated On: 02/05/2021 8:53 AM Number of Addenda: 0 I attest to the content of the Intraoperative Record and orders documented therein, exceptions below {[id number]}
--- NOTE | 2021-02-05 09:37 | Communication Note ---
Date of Service: February 05, 2021 Attempted EGD with Botox injection of the pylorus for gastroparesis. Despite 48 hours of NPO, patient's entire stomach is full of solid food. Scope advanced to the area of pylorus. No obvious GOO but amount of food precludes intervention. Would consider transfer to tertiary care center where her original surgery was done as they are intimately involved in her management.
--- NOTE | 2021-02-05 09:55 | Anesthesiology Progress Note ---
Date of Service February 05, 2021 Anesthesia Post Procedure Vital Signs Vital Signs: Temp Pulse Pulse Resp BP Pulse Ox 02/05/21 09:40 80 18 154/73 H 99 02/05/21 09:24 85 16 148/76 H 97 02/05/21 08:32 36.6 C 89 16 131/77 99 02/05/21 07:41 95 H 02/05/21 07:10 36.8 C 86 19 117/74 96 02/05/21 04:00 36.3 C L 81 20 118/81 96 02/04/21 23:13 36.6 C 92 H 18 116/74 97 02/04/21 19:51 36.9 C 92 H 18 134/72 95 02/04/21 15:59 91 H 02/04/21 14:58 37.0 C 88 15 122/79 96 02/04/21 11:49 85 19 94 02/04/21 10:56 37.0 C 100 H 16 140/81 97 Pain Intensity Shoulder: Pain Intensity: 5 Transfer of Care Handoff Completed per policy Notes Mental Status: alert / awake / arousable Patient Amnestic to Procedure: Yes Nausea / Vomiting: adequately controlled Pain: adequately controlled Airway Patency, RR, SpO2: stable & adequate BP & HR: stable & adequate Hydration State: stable & adequate Anesthetic Complications: no major complications apparent
[2021-02-05] MEDS: PIPERACILLIN/TAZOBACTAM 4.5 GM in DEXTROSE 5% 100 ML IV SCH ×3 (10:28→16:37)
[2021-02-05] MEDS: LIDOCAINE 5% 1 PATCH TD SCH (10:29)
[2021-02-05] MEDS: HEPARIN SOD 5,000 UNIT/0.5 ML VIAL SQ SCH ×2 (10:29→21:22)
[2021-02-05] MEDS: METOCLOPRAMIDE HCL 10 MG TABLET PO SCH ×3 (11:53→16:38)
[2021-02-05] MEDS: guaiFENesin 600 MG TABCR PO SCH ×2 (11:54→21:21)
[2021-02-05] MEDS: ASPIRIN 81 MG ECTAB PO SCH (11:54)
[2021-02-05] MEDS: ASCORBIC ACID 500 MG TAB PO SCH (11:54)
[2021-02-05] MEDS: GABAPENTIN 100 MG CAP PO SCH ×2 (11:54→15:58)
[2021-02-05] MEDS: ACETAMINOPHEN 500 MG TAB PO SCH ×2 (11:54→21:22)
[2021-02-05] MEDS: SODIUM CHLORIDE 0.9% 1000ML 1,000 ML IV SCH (11:55)
[2021-02-05] MEDS: predniSONE 10 MG TABLET PO SCH (11:55)
[2021-02-05] MEDS: METOPROLOL SUCC 25MG EXT REL TAB PO SCH (11:55)
[2021-02-05] MEDS: TORSEMIDE 10 MG TAB PO SCH (12:35)
--- NOTE | 2021-02-05 15:28 | Fluoroscopy Report ---
[place] GI series CLINICAL HISTORY: Evaluate for gastric outlet obstruction. COMPARISON STUDY: CT of the abdomen and pelvis February 02, 2021. FLUOROSCOPY TIME: 1.5 minutes. FLUOROSCOPIC IMAGES: 10. TECHNIQUE: A single contrast upper GI series was performed utilizing Optiray. FINDINGS: Tip of gastrojejunostomy tube is within the proximal jejunum. There is no significant abnor mality of the esophagus. No hiatal hernia was identified. No reflux was elicited. Gastric mucosal det ail was significantly diminished on this single contrast examination. However, contrast passed into t he jejunum. Caliber of the opacified jejunum was normal. There was no evidence for a high-grade gastr ic outlet obstruction. IMPRESSION: Decreased mucosal detail on this single contrast examination however no evidence for a hi gh-grade gastric outlet obstruction, as described above. ACT 112: Negative or not required by law. Electronically signed by: Syd John M.D. 02/05/2021 3:27 PM
--- NOTE | 2021-02-05 15:39 | Hospitalist Progress Note ---
Date of Service February 05, 2021 Assessment & Plan (1) Gastroparesis: Plan: 85-year-old female with PMH of dysphagia and hiatal hernia status post PEG tube placement September 2020 at [place], chronic diastolic CHF, COPD, GERD, CKD stage IV [baseline creatinine 1.7-2.1], morbid obesity, and PABLO noncompliant with CPAP presented 02/02 to our ED with multiple episodes of vomiting. Patient was recently admitted for sepsis aspiration pneumonia. She uses 3 L home oxygen. She reports multiple vomiting episodes on the day of arrival and choking on her vomitus. There is leaking around her PEG tube insertion site with some erythema at presentation. She is being managed for the following in the hospital: #. Probable aspiration pneumonia: Multiple episodes of vomiting on the day of arrival and patient reporting choking on them. History of aspiration pneumonia, patient is on soft/liquid diet, patient has PEG tube [tube feeding overnight ] and also has p.o. intake. Admitting WBC elevated to 17.77K with coarse crackles over right lung at presentation. Patient not on sepsis at presentation. Covid negative at presentation. Temperature of 37.6 at presentation Admitting CXR: Negative for acute right lung findings. Admitting blood culture: No growth after 48 hours, follow-up with final results. Continue with nebulization, Zosyn 02/02, inhalation medications at home oxygen. Will DC Zosyn tomorrow if patient continues to remain afebrile. #. PEG tube site erythema/leaking #. Aspiration/gastroparesis At presentation, patient also complained of leaking from the site of PEG tube insertion with erythema surrounding the port of entry. At baseline, patient has p.o. intake and her tube feeds is : Nutren 2.0 oral liquid at 65 ml/hr for 12 hours daily through the feeding tube. ( 3.5 cartons ~ 780 ml per night 7p - 7a) with 20 ml flush before and after. Admitting CTAP: No bowel obstruction, satisfactory positioning of the gastrojejunostomy tube. 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 For now increasing metoclopramide dose while inpatient, back to home dose at discharge. 02/05 underwent upper scope, stomach full of solid food, could not get Botox injection. Recommended transfer. 02/05: Patient's daughter TYLER updated with current status/plan of care and communicated for possible transfer, she was agreeable. Discussed with GI doctor in the morning who recommended transfer to [place]. Called [place] and talked with Dr. Lopez's surgical team, they recommended endoscopic wash out of her stomach and trying Botox injection in 2 to 3 days. Only clear liquid until t hen. They cannot take the patient now because they believe that they will be doing the same at [place] as well. They stated that she needs Botox injection every 4 to 6 months. Diet orders per GI recommendation. We will continue with clear liquid for now, hold tube feed. DC IV fluid, will communicate with GI about new development. #. Chronic diastolic CHF (congestive heart failure): -Appears to be euvolemic, continue metoprolol/torsemide, monitor volume status closely -Continue with home meds #. COPD (chronic obstructive pulmonary disease): - Currently on baseline o2 at 3 L - Not in acute exacerbation #. HTN (hypertension): - Cont metoprolol, torsemide #. CKD (chronic kidney disease), stage IV: - Cr. at baseline 1.60, BUN 51, monitor with am labs #. GERD (gastroesophageal reflux disease): - omeprazole and famotidine ordered, continue #. Anemia: - Chronic, hgb 10.5 DVT ppx: teds, heparin subq CODE: Full code Dispo: From home, likely to remain in the hospital until next week. Admission and Anticipated Discharge Date Admission Date: February 03, 2021 Subjective Patient was lying in bed, on 3 L nasal cannula oxygen, NAD, no acute events overnight. Patient denies any headache/dizziness/increased shortness of breath/other review of symptoms. Patient had her scope and evaluation for possible Botox injection but could not get it due to stomach full of food contents. Patient will be started on clear liquid. Hold tube feed. Physical Exam Physical Exam: GENERAL: Alert and oriented x3. NAD, on 3 L. HEENT: No pallor, no icterus. Pupils equal, round and reactive to light. Oral mucosa moist. NECK: No JVD, no neck masses. HEART: S1 and S2 heard. Regular rate and rhythm. No murmur, no gallop. RESPIRATORY SYSTEM: Normal AP diameter. No accessory muscle use. No wheezing, no crackles. ABDOMEN: Soft, bowel sounds present, nontender, no distention. Erythema around PEG tube insertion site -improved. CENTRAL NERVOUS SYSTEM: Alert and oriented x3. No facial droop. Speech is clear. Obeys simple commands. Moves extremities. EXTREMITIES: Trace edema, no erythema seen. Results & Data Results & Data ([facility]) Vital Signs (Past 12 Hours) Vital Signs Temp Pulse Pulse Resp BP Pulse Ox 02/05/21 10:55 36.8 C 78 20 123/74 98 02/05/21 09:56 82 20 152/81 H 97 02/05/21 09:40 80 18 154/73 H 99 02/05/21 09:24 85 16 148/76 H 97 02/05/21 08:32 36.6 C 89 16 131/77 99 02/05/21 07:41 95 H 02/05/21 07:10 36.8 C 86 19 117/74 96 02/05/21 04:00 36.3 C L 81 20 118/81 96
[2021-02-05] MEDS: TAMSULOSIN HCL 0.4 MG CAP PO SCH (21:21)
[2021-02-05] MEDS: MELATONIN 3 MG TAB PO SCH (21:21)
[2021-02-05] MEDS: SERTRALINE HCL 50 MG TABLET PO SCH (21:21)
[2021-02-05] MEDS: GABAPENTIN 300 MG CAP PO SCH (21:22)
[2021-02-05] MEDS: FLUTICASONE/VILANTEROL 200/25MCG 14 PUFFS/INHALER INH SCH (21:22)
[2021-02-05] MEDS: FAMOTIDINE 20 MG TAB PO SCH (21:22)
[2021-02-05] MEDS: UMECLIDINIUM BROMIDE 62.5MCG/BLISTER 7 PUFFS/INHALER INH SCH (21:22)
[2021-02-06] MEDS: PIPERACILLIN/TAZOBACTAM 4.5 GM in DEXTROSE 5% 100 ML IV SCH ×2 (02:22→08:18)
[2021-02-06] MEDS: PANTOPRAZOLE 40 MG PO SCH (05:54)
[2021-02-06 07:01] LABS: BUN Creatinine Ratio 23.5 (10-20); Calcium 8.9 mg/dl (8.5-10.1); Creatinine Clr Calc Pharmacy 24.7 ml/min; Est GFR (African American) 31.3 ml/min; Potassium 3.8 mmol/L (3.5-5.1)
[2021-02-06] MEDS: predniSONE 10 MG TABLET PO SCH (08:11)
[2021-02-06] MEDS: ASCORBIC ACID 500 MG TAB PO SCH (08:11)
[2021-02-06] MEDS: METOPROLOL SUCC 25MG EXT REL TAB PO SCH (08:11)
[2021-02-06] MEDS: ACETAMINOPHEN 500 MG TAB PO SCH ×2 (08:12→20:43)
[2021-02-06] MEDS: TORSEMIDE 10 MG TAB PO SCH (08:12)
[2021-02-06] MEDS: ASPIRIN 81 MG ECTAB PO SCH (08:13)
[2021-02-06] MEDS: GABAPENTIN 100 MG CAP PO SCH ×2 (08:13→12:21)
[2021-02-06] MEDS: METOCLOPRAMIDE HCL 10 MG TABLET PO SCH ×3 (08:14→16:25)
[2021-02-06] MEDS: guaiFENesin 600 MG TABCR PO SCH ×2 (08:14→20:45)
[2021-02-06] MEDS: LIDOCAINE 5% 1 PATCH TD SCH (08:15)
[2021-02-06] MEDS: HEPARIN SOD 5,000 UNIT/0.5 ML VIAL SQ SCH ×2 (08:16→20:45)
--- NOTE | 2021-02-06 09:22 | Gastroenterology Progress Note ---
Date of Service February 06, 2021 Assessment & Plan (1) Nausea & vomiting: Plan: 85 year old female with history of paraesophageal hernia repair, vagal nerve damage w/ gastroparesis for EGD w/ botox. Clear liquid today and tomorrow Continue PO Reglan today and tomorrow IV Reglan twice daily EGD for Admission and Anticipated Discharge Date Admission Date: February 03, 2021 Supervising Physician Co-Signing Physician Notes Late entry: Patient was seen and examined with MIGUELANGEL Lane on 02/06 whose note reflects our findings and plan. Subjective Pt was seen and evaluated, chart reviewed. EGD yesterday aborted due to retained gastric contents. On clear liquids. Review of Systems Review of Systems: All systems reviewed & are unremarkable except as noted in HPI & below Physical Exam Constitutional: WD/WN, vitals as above Neck: trachea midline, no thyromegaly Respiratory: normal respiratory effort, lungs clear to auscultation Cardiovascular: RRR, no murmur, no edema Gastrointestinal (Abdomen): normal bowel sounds, soft, nontender, no hepatosplenomegaly Skin: no rashes, warm and dry Results & Data ([facility]) Vital Signs (Past 12 Hours) Vital Signs Temp Pulse Resp BP Pulse Ox 02/06/21 07:39 36.4 C L 82 18 132/77 99 02/06/21 04:23 36.8 C 86 18 110/64 97 02/05/21 23:28 36.4 C L 75 20 109/67 97 Laboratory Results 02/06/21 02/05/21 Range/Units 05:58 23:00 Sodium 139 (136-145) mmol/L Potassium 3.8 (3.5-5.1) mmol/L Chloride 106 (98-107) mmol/L Carbon Dioxide 27 (21-32) mmol/L Anion Gap 7.0 (3-11) BUN 40 H (7-18) mg/dl Creatinine 1.68 H (0.6-1.2) mg/dl Est Cr Clr Drug Dosing 24.7 ml/min Est GFR ( Amer) 31.3 ml/min Est GFR (Non-Af Amer) 27.0 ml/min BUN/Creatinine Ratio 23.5 H (10-20) Glucose 118 H (70-99) mg/dl Calcium 8.9 (8.5-10.1) mg/dl Stl C. diff Tox B Gene Negative Cdiff Gene (Neg) (1) Nausea & vomiting Vomiting Intractability: non-intractable Vomiting type: unspecified Qualified Code(s): R11.2 - Nausea with vomiting, unspecified
--- NOTE | 2021-02-06 10:22 | Palliative Care Consultation ---
Date of Consultation February 06, 2021 Assessment & Plan (1) Palliative care encounter: Ms. Radhika Arroyo is an 85 year old female who presented to the [facility] from home with emesis related to chronic gastroparesis. She was to have an EGD with Botox injection for management of her gastroparesis, but unfortunately, had retained gastric contents presented. She has long-standing dysphagia and a hiatal hernia s/p PEG tube placement in October 2020 at [facility]. Additional PMH includes: breast CA s/p mastectomy, CKD IV (baseline 1.7-2.1), COPD, HLD, GERD, HTN, carotid stenosis s/p endarterectomy, obesity, CHF and PABLO non compliant with CPAP at home. She had a recent inpatient stay from 01/17-01/22 with sepsis and aspiration PNA. Palliative Medicine was consulted to discuss overall goals of care. I met with Radhika in room 233 who was resting but woke easily to verbal stimuli. She was able to have a meaningful interaction and conversation with me. She indicated that she lives at home with her daughter, Kristen, and has caregivers that also come to care for her. She said that she will be pursuing the EGD with Botox tomorrow () and hopefully will have a successful procedure. She said that at home she is able to wash her own body, eat independently and uses a scooter and walker for mobilizing. She confirmed that she would not want resuscitative efforts taken in the event of cardiac arrest, nor would she want intubation in the event of respiratory distress. She is followed by [facility] and I reviewed her chart via [facility] EMR and has had a few phone visits regarding her emesis. She had a POLST form completed on 04/2019 indicating DNR/DNI, limited interventions, prolonged abx and trial artificial nutrition/hydration. I reached out to her daughter Kristen, however was unable to reach her. Palliative will reach out to the patients daughter tomorrow. (2) POLST (Physician Orders for Life-Sustaining Treatment): She had a POLST form completed on 04/2019 through [facility] indicating DNR/DNI, limited interventions, prolonged abx and trial artificial nutrition/hydration. (3) Nausea & vomiting: Vomiting Intractability: non-intractable Vomiting type: unspecified Qualified Code(s): R11.2 - Nausea with vomiting, unspecified (4) Gastroparesis: History of Present Illness Reason for Consultation: Goals of care Requesting Physician: Dr. Quintanilla Attending Physician: Shanda Quintanilla MD History of Present Illness Ms. Radhika Arroyo is an 85 year old female who presented to the [facility] from home with emesis related to chronic gastroparesis. She was to have an EGD with Botox injection for management of her gastroparesis, but unfortunately, had retained gastric contents presented. She has long-standing dysphagia and a hiatal hernia s/p PEG tube placement in October 2020 at [facility]. Additional PMH includes: breast CA s/p mastectomy, CKD IV (baseline 1.7-2.1), COPD, HLD, GERD, HTN, carotid stenosis s/p endarterectomy, obesity, CHF and PABLO non compliant with CPAP at home. She had a recent inpatient stay from 01/17-01/22 with sepsis and aspiration PNA. Palliative Medicine was consulted to discuss overall goals of care. Please see A/P for further details. Thanks for involving palliative medicine with this individual. Allergies Allergy/AdvReac Type Severity Reaction Status Date / Time Macrolide Antibiotics Allergy Unknown Unknown Unverified 02/02/21 09:11 oxycodone Allergy Unknown Unknown Verified 02/02/21 09:11 tramadol Allergy Unknown Unknown Unverified 02/02/21 09:11 Sulfa (Sulfonamide AdvReac Intermediate KIDNEY Verified 02/02/21 09:11 Antibiotics) PROBLEMS codeine AdvReac Mild Nausea Verified 02/03/21 13:20 Home Medications Medication Instructions Recorded Confirmed Type gabapentin 100 mg capsule 100 mg PO UD 07/31/18 02/02/21 History (Neurontin) gabapentin 300 mg capsule 300 mg PO HS 07/31/18 02/02/21 History (Neurontin) albuterol sulfate 90 mcg/actuation 2 puff INHALATION QID PRN 09/26/18 02/02/21 History aerosol inhaler (Ventolin HFA) ascorbic acid (vitamin C) 100 mg 300 mg PO QAM 09/26/18 02/02/21 History tablet (Vitamin C) aspirin 81 mg tablet,delayed 81 mg PO QAM 09/26/18 02/02/21 History release (Aspirin Low Dose) cholecalciferol (vitamin D3) 25 1,000 unit PO QAM 09/26/18 02/02/21 History mcg (1,000 unit) tablet (Vitamin D3) ipratropium 0.5 mg-albuterol 3 mg 3 ml NEB QID PRN 04/23/19 02/02/21 History (2.5 mg base)/3 mL nebulization soln torsemide 20 mg tablet 10 mg PO QAM 04/23/19 02/02/21 History umeclidinium 62.5 mcg/actuation 1 inh INHALATION HS 04/23/19 02/02/21 History blister powder for inhalation (Incruse Ellipta) ascorbic acid (vitamin C) 500 mg 1,000 mg PO QAM 09/12/20 02/02/21 History chewable tablet (Vitamin C) tamsulosin 0.4 mg capsule (Flomax) 0.4 mg PO HS 09/12/20 02/02/21 History carboxymethylcellulose sodium 0.5 2 drp OPB BID 10/07/20 02/02/21 History % eye drops (Refresh Tears) famotidine 20 mg tablet (Pepcid) 20 mg PO HS 10/07/20 02/02/21 History fluticasone furoate 200 1 inh INHALATION HS 10/07/20 02/02/21 History mcg-vilanterol 25 mcg/dose inhalation powder (Breo Ellipta) fluticasone propionate 50 2 spray INTRANASAL DAILY PRN 10/07/20 02/02/21 History mcg/actuation nasal spray,suspension (Flonase Allergy Relief) lidocaine 5 % topical patch 1 patch TOPICAL ONAMOFFPM 10/07/20 02/02/21 History (Lidoderm) melatonin 3 mg tablet (Melatin) 3 mg PO HS 10/07/20 02/02/21 History metoprolol succinate 25 mg 12.5 mg PO QAM 10/07/20 02/02/21 History tablet,extended release 24 hr (Toprol XL) ondansetron HCl 4 mg tablet 4 mg PO Q6H PRN 10/07/20 02/02/21 History (Zofran) polyethylene glycol 3350 17 gram 17 g PO DAILY PRN 10/07/20 02/02/21 History oral powder packet (Miralax) sennosides 8.6 mg tablet (senna) 8.6 mg PO DAILY PRN 10/07/20 02/02/21 History sertraline 25 mg tablet (Zoloft) 25 mg PO HS 10/07/20 02/02/21 History amino ac-protein hydro-whey 1 ea FEEDING TUBE HS 01/17/21 02/02/21 History protein 10 gram-100 kcal/30 mL oral liquid (ProSource) esomeprazole magnesium 20 mg 20 mg PO DAILYBB 01/17/21 02/02/21 History capsule,delayed release (Nexium) metoclopramide HCl 5 mg tablet 5 mg PO TID 01/17/21 02/02/21 History (Reglan) zoster vaccine live (PF) 19,400 0.5 ml SUBCUT DIRECTED 01/17/21 02/02/21 History unit/0.65 mL subcutaneous suspension (Zostavax (PF)) acetaminophen 500 mg tablet 1,000 mg PO BID 02/02/21 02/02/21 History (Acetaminophen Extra Strength) benzonatate 200 mg capsule 200 mg PO TID PRN 02/02/21 02/02/21 History camphor-menthol 0.2 %-3.5 % 1 applic TOPICAL DAILY PRN 02/02/21 02/02/21 History topical gel (Arctic Relief) ferric derisomaltose 100 mg 100 mg IV UD 02/02/21 02/02/21 History iron/mL intravenous solution (Monoferric) prednisone 10 mg tablet 10 mg PO QAM 02/02/21 02/02/21 History Patient History Medical History (Updated 02/06/21 @ 14:03 by MIGUELANGEL Aiken) Breast cancer Chronic diastolic CHF (congestive heart failure) CKD (chronic kidney disease), stage IV COPD (chronic obstructive pulmonary disease) Dyslipidemia GERD (gastroesophageal reflux disease) History of DVT (deep vein thrombosis) HTN (hypertension) Lumbago Osteoporosis Palliative care encounter POLST (Physician Orders for Life-Sustaining Treatment) Surgical History H/O bladder repair surgery H/O colonoscopy H/O mastectomy H/O right knee surgery History of right-sided carotid endarterectomy History of total hip replacement S/P tonsillectomy and adenoidectomy S/P total hysterectomy Family History Mother Colonic polyp Hypertension Heart disease Cancer Breast Father Hypertension Heart disease Social History Smoking Status: Never smoker Second Hand Exposure: No; Do You Dip or Chew Tobacco: No; Tobacco Cessation Education Requested by Patient: No Hx Alcohol Use: No Hx Substance Use: No Preferred Language: Singaporean Communication Ability: Effective [employer] Required: No Beliefs That Will Affect Care: None marital status: Unknown Current Living Situation: Family Current Living Situation Comment: lives with daughter Kristen Gibbs current occupational status: retired How many Children do You have: 4 Other Information That Helps Us Care for You: No Feels Safe at Home: Yes Safety Concerns: Feels Safe At This Time Assistive Devices: None Review of Systems Review of Systems: Stevenson System Assessment Scale: Pain: 1/3 Nausea: 1/3 Anxiety: 0/3 Tiredness: 1/3 Palliative Performance Scale: 30% Physical Exam Constitutional: + frail appearing, cooperative and comfortable ENMT: Mouth: + dry oral mucous membranes Respiratory: normal respiratory effort Auscultation: + diminished lung sounds Cardiovascular: Rate/Rhythm: regular rate Heart Sounds: normal S1 and normal S2 Extremities: normal capillary refill; no edema Gastrointestinal (Abdomen): Inspection/Auscultation: abdomen normal to inspection and normal bowel sounds Skin: + pallor Psychiatric: A+Ox3, euthymic affect Insight: + limited insight Judgement: + limited judgement Results & Data ([facility]) Vital Signs (Past 12 Hours) Vital Signs Temp Pulse Resp BP Pulse Ox 02/06/21 07:39 36.4 C L 82 18 132/77 99 02/06/21 04:23 36.8 C 86 18 110/64 97 02/05/21 23:28 36.4 C L 75 20 109/67 97 PG Care Time/CCT Total # of Minutes Spent Total Time Spent with Patient: Total time spent is greater than 50% in coordination of care (as documented) at patient's floor/unit and/or counseling patient: 70 mintues with > 50% of that time spent assessing the patient, discussing goals of care, and collaborating with IDT Coding Level of Care Code 11584 Initial Inpt Care Lvl 3 Diagnoses Palliative care encounter Z51.5 Nausea & vomiting R11.2 Vomiting Intractability: non-intractable Vomiting type: unspecified Gastroparesis K31.84 POLST (Physician Orders for Life-Sustaining Treatment) Z78.9 Time Spent (min) 70
[2021-02-06] MEDS ORDERED: METOCLOPRAMIDE HCL INJ 5 MG/ML 2 ML VIAL IV ONE (15:00)
--- NOTE | 2021-02-06 17:22 | Hospitalist Progress Note ---
Date of Service February 06, 2021 Assessment & Plan (1) Gastroparesis: Plan: 85-year-old female with PMH of dysphagia and hiatal hernia status post PEG tube placement September 2020 at [place], chronic diastolic CHF, COPD, GERD, CKD stage IV [baseline creatinine 1.7-2.1], morbid obesity, and PABLO noncompliant with CPAP presented 02/02 to our ED with multiple episodes of vomiting. Patient was recently admitted for sepsis aspiration pneumonia. She uses 3 L home oxygen. She reports multiple vomiting episodes on the day of arrival and choking on her vomitus. There is leaking around her PEG tube insertion site with some erythema at presentation. She is being managed for the following in the hospital: #. Probable aspiration pneumonia: Multiple episodes of vomiting on the day of arrival and patient reporting choking on them. History of aspiration pneumonia, patient is on soft/liquid diet, patient has PEG tube [tube feeding overnight ] and also has p.o. intake. Admitting WBC elevated to 17.77K with coarse crackles over right lung at presentation. Patient not on sepsis at presentation. Covid negative at presentation. Temperature of 37.6 at presentation Admitting CXR: Negative for acute right lung findings. Admitting blood culture: No growth after 48 hours, follow-up with final results. Continue with nebulization, Zosyn 02/02 empirically for 3 days, DC'd as patient remained afebrile and asymptomatic. Continue to monitor clinically. #. PEG tube site erythema/leaking #. Aspiration/gastroparesis At presentation, patient also complained of leaking from the site of PEG tube insertion with erythema surrounding the port of entry. At baseline, patient has p.o. intake and her tube feeds is : Nutren 2.0 oral liquid at 65 ml/hr for 12 hours daily through the feeding tube. ( 3.5 cartons ~ 780 ml per night 7p - 7a) with 20 ml flush before and after. Admitting CTAP: No bowel obstruction, satisfactory positioning of the gastrojejunostomy tube. 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 For now increasing metoclopramide dose while inpatient, back to home dose at discharge. 02/05 underwent upper scope, stomach full of solid food, could not get Botox injection. Recommended transfer. 02/06 recommending clear liquids and scope on . 02/05: Patient's daughter TYLER updated with current status/plan of care and communicated for possible transfer, she was agreeable. Discussed with GI doctor in the morning who recommended transfer to [place]. Called [place] and talked with Dr. Lopez's surgical team, they recommended endoscopic wash out of her stomach and trying Botox injection in 2 to 3 days. Only clear liquid until then. They cannot take the patient now because they believe that they will be doing the same at [place] as well. They stated that she needs Botox injection every 4 to 6 months. Diet orders per GI recommendation. We will continue with clear liquid for now, hold tube feed. For scope on . #. Chronic diastolic CHF (congestive heart failure): -Appears to be euvolemic, continue metoprolol/torsemide, monitor volume status closely -Continue with home meds #. COPD (chronic obstructive pulmonary disease): - Currently on baseline o2 at 3 L - Not in acute exacerbation #. HTN (hypertension): - Cont metoprolol, torsemide #. CKD (chronic kidney disease), stage IV: - Cr. at baseline 1.60, BUN 51, monitor with am labs #. GERD (gastroesophageal reflux disease): - omeprazole and famotidine ordered, continue #. Anemia: - Chronic, hgb 10.5 DVT ppx: teds, heparin subq CODE: Full code Dispo: From home, likely to remain in the hospital until . Admission and Anticipated Discharge Date Admission Date: February 03, 2021 Subjective Patient was lying in bed, on 3 L nasal cannula oxygen, NAD, no issues overnight. Patient reports feeling tired. Patient denies any fever/chills/headache/increased shortness of breath/other review of symptoms. Patient is on clear liquid diet. Physical Exam Physical Exam: GENERAL: Alert and oriented x3. NAD, on 3 L. HEENT: No pallor, no icterus. Pupils equal, round and reactive to light. Oral mucosa moist. NECK: No JVD, no neck masses. HEART: S1 and S2 heard. Regular rate and rhythm. No murmur, no gallop. RESPIRATORY SYSTEM: Normal AP diameter. No accessory muscle use. No wheezing, no crackles. ABDOMEN: Soft, bowel sounds present, nontender, no distention. Erythema around PEG tube insertion site -improved. CENTRAL NERVOUS SYSTEM: Alert and oriented x3. No facial droop. Speech is clear. Obeys simple commands. Moves extremities. EXTREMITIES: Trace edema, no erythema seen. Results & Data Results & Data ([facility]) Vital Signs (Past 12 Hours) Vital Signs Temp Pulse Resp BP Pulse Ox 02/06/21 15:11 36.5 C 81 17 152/80 H 98 02/06/21 10:44 36.9 C 76 17 119/69 97 02/06/21 07:39 36.4 C L 82 18 132/77 99
[2021-02-06] MEDS: MELATONIN 3 MG TAB PO SCH (20:43)
[2021-02-06] MEDS: SERTRALINE HCL 50 MG TABLET PO SCH (20:44)
[2021-02-06] MEDS: TAMSULOSIN HCL 0.4 MG CAP PO SCH (20:46)
[2021-02-06] MEDS: FAMOTIDINE 20 MG TAB PO SCH (20:47)
[2021-02-06] MEDS: GABAPENTIN 300 MG CAP PO SCH (20:47)
[2021-02-06] MEDS: FLUTICASONE/VILANTEROL 200/25MCG 14 PUFFS/INHALER INH SCH (20:48)
[2021-02-06] MEDS: UMECLIDINIUM BROMIDE 62.5MCG/BLISTER 7 PUFFS/INHALER INH SCH (20:49)
[2021-02-07] MEDS: PANTOPRAZOLE 40 MG PO SCH (07:01)
[2021-02-07] MEDS: METOCLOPRAMIDE HCL 10 MG TABLET PO SCH ×3 (08:00→17:04)
[2021-02-07] MEDS: ASPIRIN 81 MG ECTAB PO SCH (08:33)
[2021-02-07] MEDS: LIDOCAINE 5% 1 PATCH TD SCH (08:33)
[2021-02-07] MEDS: ACETAMINOPHEN 500 MG TAB PO SCH ×2 (08:33→20:11)
[2021-02-07] MEDS: METOCLOPRAMIDE HCL INJ 5 MG/ML 2 ML VIAL IV SCH (08:34)
[2021-02-07] MEDS: GABAPENTIN 100 MG CAP PO SCH ×2 (08:34→11:44)
[2021-02-07] MEDS: TORSEMIDE 10 MG TAB PO SCH (08:34)
[2021-02-07] MEDS: ASCORBIC ACID 500 MG TAB PO SCH (08:34)
[2021-02-07] MEDS: predniSONE 10 MG TABLET PO SCH (08:34)
[2021-02-07] MEDS: HEPARIN SOD 5,000 UNIT/0.5 ML VIAL SQ SCH ×2 (08:34→20:15)
[2021-02-07] MEDS: METOPROLOL SUCC 25MG EXT REL TAB PO SCH (08:34)
[2021-02-07] MEDS: guaiFENesin 600 MG TABCR PO SCH ×2 (08:35→20:15)
--- NOTE | 2021-02-07 10:35 | Communication Note ---
Date of Service: February 07, 2021 Feeling well today. No IG concerns. Clear liquids today, NPO midnight for repeat EGD in the AM.
--- NOTE | 2021-02-07 11:39 | Palliative Care Progress Note ---
Date of Service February 07, 2021 Assessment & Plan (1) Palliative care encounter: Plan: I was able to talk with with the patients daughter, Kristen at [phone]. We discussed how things have been going at home. She said that things have become more challenging at home with her care needs. She uses a wheeled walker and a scooter, but when she leaves her chair to walk to her bed which is about 20-30 steps and becomes really short of breath. From a bathing standpoint she is set up and has help with ronald-area, back and legs. She is able to clean her face, arms, chest and brushes her hair. She is able to eat independently but once her food is cut up. She can only eat with a spoon. She wears 3LNC, but has become noncompliant with her CPAP due to anxiety. She does have caregivers at home 18/11 nursing care/[facility] to assist Kristen. They can not help with hooking up or disconnecting her tube feedings which has been occurring since September 2020. She has been in and out of SNF ([facility]) but things did not go well. She said [facility] was doing telemedicine appointments. She was just transitioned to Dr. De La Cruz who is the [facility] provider. Kristen indicated that she would not want her in a chcf if transitioning to Hospice. She has thought for a long time about whether it was time to transition to Hospice. She has questioned whether to continue artificial nutrition as it is not necessarily allowing her to continue doing things that bring her a lot of livia. We talked about what brings her mother livia. Her family including grandchildren. Most days, throughout the summer the goal was to get her outside and enjoy fresh air. Patient has been reluctant to Hospice, but when we discussed the benefits and referred to it as chronic disease management, it was more well received. She, Kristen, confirmed what her mother said that she would not want resuscitative efforts taken in the event of cardiac arrest, nor would she want intubation in the event of respiratory distress. POA is shared between Kristen and her sister Yodit. There are 4 siblings. 3/4 are on board with hospice. She would like to talk with a hospice liason to discuss further options. After speaking with Jakob in case management a referral has been placed to [facility]/Palliative. Suggested that she reaches out to [facility] for them to have a discussion regarding their services both palliative and hospice. Confirmed patient is already followed from a palliative standpoint by [facility]. She is followed by [facility] and I [facility] and has had a few phone visits regarding her emesis. She had a POLST form completed on 04/2019 indicating DNR/DNI, limited interventions, prolonged abx and trial artificial nutrition/hydration. For now, plan for EGD with Botox injection tomorrow and case management to work on disposition. (2) POLST (Physician Orders for Life-Sustaining Treatment): Plan: She had a POLST form completed on 04/2019 through [facility] indicating DNR/DNI, limited interventions, prolonged abx and trial artificial nutrition/hydration. (3) Nausea & vomiting: (4) Gastroparesis: Admission and Anticipated Discharge Date Admission Date: February 03, 2021 Subjective Patient lying on her left side, in no apparent distress. EGD with botox scheduled for tomorrow. Review of Systems Review of Systems: [place] System Assessment Scale: Pain: 1/3 Nausea: 1/3 Anxiety: 0/3 Tiredness: 1/3 Palliative Performance Scale: 30% Physical Exam Constitutional: + frail appearing, cooperative and comfortable ENMT: Mouth: + dry oral mucous membranes Respiratory: normal respiratory effort Auscultation: + diminished lung sounds Cardiovascular: Rate/Rhythm: regular rate Heart Sounds: normal S1 and normal S2 Extremities: normal capillary refill; no edema Gastrointestinal (Abdomen): Inspection/Auscultation: abdomen normal to inspection and normal bowel sounds Skin: + pallor Psychiatric: A+Ox3, euthymic affect Insight: + limited insight Judgement: + limited judgement Results & Data ([facility]) Vital Signs (Past 12 Hours) Vital Signs Temp Pulse Pulse Resp BP Pulse Ox 02/07/21 07:29 36.5 C 73 77 17 122/66 97 02/07/21 03:43 36.5 C 65 18 125/70 99 02/07/21 03:12 67 02/06/21 23:43 36.5 C 67 18 114/64 97 PG Care Time/CCT Total # of Minutes Spent Total Time Spent with Patient: Total time spent is greater than 50% in coordination of care (as documented) at patient's floor/unit and/or counseling patient: 35 minutes with > 50% of that time spent assessing the patient, discussing goals of care with the patients daughter, and colaborating with IDT Coding Level of Care Code 77688 Subseq Hosp Care Lvl 3 Diagnoses Palliative care encounter Z51.5 POLST (Physician Orders for Life-Sustaining Treatment) Z78.9 Nausea & vomiting R11.2 Vomiting Intractability: non-intractable Vomiting type: unspecified Gastroparesis K31.84 Time Spent (min) 35 (1) Nausea & vomiting Vomiting Intractability: non-intractable Vomiting type: unspecified Qualified Code(s): R11.2 - Nausea with vomiting, unspecified
--- NOTE | 2021-02-07 12:32 | Electrocardiogram Report ---
Test Reason : Blood Pressure : / mmHG Vent. Rate : 072 BPM Atrial Rate : 072 BPM P-R Int : 222 ms QRS Dur : 122 ms QT Int : 396 ms P-R-T Axes : 042 -06 012 degrees QTc Int : 433 ms Sinus rhythm with 1st degree A-V block Right bundle branch block Abnormal ECG When compared with ECG of 07-FEB-2021 04:33, (unconfirmed) No significant change was found Confirmed by Steven Reno ([id number]) on 02/07/2021 12:31:55 PM Referred By: REFERRED SELF Confirmed By:Steven Reno
--- NOTE | 2021-02-07 12:32 | Electrocardiogram Report ---
Test Reason : Blood Pressure : / mmHG Vent. Rate : 073 BPM Atrial Rate : 073 BPM P-R Int : 224 ms QRS Dur : 122 ms QT Int : 416 ms P-R-T Axes : 045 006 019 degrees QTc Int : 458 ms Sinus rhythm with 1st degree A-V block Right bundle branch block Abnormal ECG When compared with ECG of 02-FEB-2021 07:59, Premature atrial complexes are no longer Present Minimal criteria for Anterior infarct are no longer Present Criteria for Inferior infarct are no longer Present Confirmed by Steven Reno ([id number]) on 02/07/2021 12:31:46 PM Referred By: REFERRED SELF Confirmed By:Steven Reno
--- NOTE | 2021-02-07 15:36 | Hospitalist Progress Note ---
Date of Service February 07, 2021 Assessment & Plan (1) Gastroparesis: Plan: per Dr. Quintanilla's notes: 85-year-old female with PMH of dysphagia and hiatal hernia status post PEG tube placement September 2020 at [facility], chronic diastolic CHF, COPD, GERD, CKD stage IV [baseline creatinine 1.7-2.1], morbid obesity, and PABLO noncompliant with CPAP presented 02/02 to our ED with multiple episodes of vomiting. Patient was recently admitted for sepsis aspiration pneumonia. She uses 3 L home oxygen. She reports multiple vomiting episodes on the day of arrival and choking on her vomitus. There is leaking around her PEG tube insertion site with some erythema at presentation. She is being managed for the following in the hospital: #. Probable aspiration pneumonia: Multiple episodes of vomiting on the day of arrival and patient reporting choking on them. History of aspiration pneumonia, patient is on soft/liquid diet, patient has PEG tube [tube feeding overnight ] and also has p.o. intake. Admitting WBC elevated to 17.77K with coarse crackles over right lung at presentation. Patient not on sepsis at presentation. Covid negative at presentation. Temperature of 37.6 at presentation Admitting CXR: Negative for acute right lung findings. Admitting blood culture: No growth after 48 hours, follow-up with final results. Continue with nebulization, Zosyn 02/02 empirically for 3 days, DC'd as patient remained afebrile and asymptomatic. Continue to monitor clinically. -- remains on 3 L nasal cannula- her baseline stable respiratory status #. PEG tube site erythema/leaking #. Aspiration/gastroparesis At presentation, patient also complained of leaking from the site of PEG tube insertion with erythema surrounding the port of entry. At baseline, patient has p.o. intake and her tube feeds is : Nutren 2.0 oral liquid at 65 ml/hr for 12 hours daily through the feeding tube. ( 3.5 cartons ~ 780 ml per night 7p - 7a) with 20 ml flush before and after. Admitting CTAP: No bowel obstruction, satisfactory positioning of the gastrojejunostomy tube. 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 For now increasing metoclopramide dose while inpatient, back to home dose at discharge. 02/05 underwent upper scope, stomach full of solid food, could not get Botox injection. Recommended transfer. 02/06 recommending clear liquids and scope on . 02/05: Patient's daughter TYLER updated with current status/plan of care and communicated for possible transfer, she was agreeable. Discussed with GI doctor in the morning who recommended transfer to [facility]. Called [facility] and talked with Dr. Lopez's surgical team, they recommended endoscopic wash out of her stomach and trying Botox injection in 2 to 3 days. Only clear liquid until then. They cannot take the patient now because they believe that they will be doing the same at [facility] as well. They stated that she needs Botox injection every 4 to 6 months. 02/07: tolerating clears for EGD tomorrow, with possible Botox injection #. Chronic diastolic CHF (congestive heart failure): -Appears to be euvolemic, continue metoprolol/torsemide, monitor volume status closely -Continue with home meds #. COPD (chronic obstructive pulmonary disease): - Currently on baseline o2 at 3 L - Not in acute exacerbation #. HTN (hypertension): - Cont metoprolol, torsemide #. CKD (chronic kidney disease), stage IV: - Cr. at baseline 1.60, BUN 51 #. GERD (gastroesophageal reflux disease): - omeprazole and famotidine ordered, continue #. Anemia: - Chronic, hgb 10.5 DVT ppx: teds, heparin subq CODE: Full code Dispo: From home, likely to remain in the hospital until . Admission and Anticipated Discharge Date Admission Date: February 03, 2021 Subjective ff up for gastroparesis, etc seen resting in bed, comfortable not in distress, in good spirits states she feels fine overall no nausea, abdominal pain tolerating clears, had BM yesterday no other symptoms Review of Systems Constitutional: all noted and negative except for above Physical Exam Physical Exam: General- oriented x 2, not in distress, speaks in sentences with no effort or accessory muscle use Head- atraumatic Eyes- PERRL, EOMI, anicteric ENT- oropharynx clear Neck- supple, no JVD, no adenopathy, no thyromegaly; carotids +2/2, no bruits appreciated Lungs- clear to auscultation bilaterally, no rales/wheezes Heart- normal rate, regular rhythm; no murmur, no gallop, no rub appreciated Abdomen- PEG tube in place, normal bowel sounds, nondistended, soft, nontender Extremities- no pretibial edema, no calf tenderness; peripheral pulses intact Neuro- alert, oriented x2; CN 2-12 grossly intact; motor 5/5 bilaterally;sensation 100% on all extremities; no other gross focal neurologic deficits Skin- warm & dry Results & Data Results & Data [facility]) Vital Signs (Past 12 Hours) Vital Signs Temp Pulse Pulse Resp BP Pulse Ox 02/07/21 11:53 37.0 C 127 H 20 128/68 99 02/07/21 07:29 36.5 C 73 77 17 122/66 97 02/07/21 03:43 36.5 C 65 18 125/70 99 all noted and reviewed including below
[2021-02-07] MEDS: MELATONIN 3 MG TAB PO SCH (20:11)
[2021-02-07] MEDS: FAMOTIDINE 20 MG TAB PO SCH (20:14)
[2021-02-07] MEDS: TAMSULOSIN HCL 0.4 MG CAP PO SCH (20:15)
[2021-02-07] MEDS: GABAPENTIN 300 MG CAP PO SCH (20:16)
[2021-02-07] MEDS: SERTRALINE HCL 50 MG TABLET PO SCH (20:16)
[2021-02-07] MEDS: FLUTICASONE/VILANTEROL 200/25MCG 14 PUFFS/INHALER INH SCH (20:17)
[2021-02-07] MEDS: UMECLIDINIUM BROMIDE 62.5MCG/BLISTER 7 PUFFS/INHALER INH SCH (20:17)
[2021-02-08] MEDS: PANTOPRAZOLE 40 MG PO SCH (06:32)
[2021-02-08] MEDS: METOCLOPRAMIDE HCL 10 MG TABLET PO SCH ×3 (07:49→16:41)
--- NOTE | 2021-02-08 08:20 | Anesthesiology Consultation ---
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 History Surgery Operation Date: 02/05/21 08:30 Proposed Procedures p Esophagogastroduodenoscopy Dr Jeanette Reid, Operation Date: 02/08/21 16:30 Proposed Procedures p Esophagogastroduodenoscopy Dr Jeanette Reid, DO Height/Weight Height: 5 ft Weight: 96 kg Allergies Allergy/AdvReac Type Severity Reaction Status Date / Time Macrolide Antibiotics Allergy Unknown Unknown Unverified 02/02/21 09:11 oxycodone Allergy Unknown Unknown Verified 02/02/21 09:11 tramadol Allergy Unknown Unknown Unverified 02/02/21 09:11 Sulfa (Sulfonamide AdvReac Intermediate KIDNEY Verified 02/02/21 09:11 Antibiotics) PROBLEMS codeine AdvReac Mild Nausea Verified 02/03/21 13:20 Medications Home Medications Medication Instructions Recorded Confirmed Last Taken gabapentin 100 mg capsule 100 mg PO UD 07/31/18 02/02/21 02/01/21 12:00 (Neurontin) gabapentin 300 mg capsule 300 mg PO HS 07/31/18 02/02/21 02/01/21 (Neurontin) albuterol sulfate 90 mcg/actuation 2 puff INHALATION QID PRN 09/26/18 02/02/21 02/01/21 aerosol inhaler (Ventolin HFA) ascorbic acid (vitamin C) 100 mg 300 mg PO QAM 09/26/18 02/02/21 02/01/21 tablet (Vitamin C) aspirin 81 mg tablet,delayed 81 mg PO QAM 09/26/18 02/02/21 02/01/21 release (Aspirin Low Dose) cholecalciferol (vitamin D3) 25 1,000 unit PO QAM 09/26/18 02/02/21 02/01/21 mcg (1,000 unit) tablet (Vitamin D3) ipratropium 0.5 mg-albuterol 3 mg 3 ml NEB QID PRN 04/23/19 02/02/21 02/01/21 (2.5 mg base)/3 mL nebulization soln torsemide 20 mg tablet 10 mg PO QAM 04/23/19 02/02/21 02/01/21 umeclidinium 62.5 mcg/actuation 1 inh INHALATION HS 04/23/19 02/02/21 02/01/21 blister powder for inhalation (Incruse Ellipta) ascorbic acid (vitamin C) 500 mg 1,000 mg PO QAM 09/12/20 02/02/21 02/01/21 chewable tablet (Vitamin C) tamsulosin 0.4 mg capsule (Flomax) 0.4 mg PO HS 09/12/20 02/02/21 02/01/21 carboxymethylcellulose sodium 0.5 2 drp OPB BID 10/07/20 02/02/21 02/01/21 % eye drops (Refresh Tears) famotidine 20 mg tablet (Pepcid) 20 mg PO HS 10/07/20 02/02/21 02/01/21 fluticasone furoate 200 1 inh INHALATION HS 10/07/20 02/02/21 02/01/21 mcg-vilanterol 25 mcg/dose inhalation powder (Breo Ellipta) fluticasone propionate 50 2 spray INTRANASAL DAILY PRN 10/07/20 02/02/21 02/01/21 mcg/actuation nasal spray,suspension (Flonase Allergy Relief) lidocaine 5 % topical patch 1 patch TOPICAL ONAMOFFPM 10/07/20 02/02/21 Unknown (Lidoderm) melatonin 3 mg tablet (Melatin) 3 mg PO HS 10/07/20 02/02/21 02/01/21 metoprolol succinate 25 mg 12.5 mg PO QA 10/07/20 02/02/21 02/01/21 tablet,extended release 24 hr (Toprol XL) ondansetron HCl 4 mg tablet 4 mg PO Q6H PRN 10/07/20 02/02/21 02/01/21 (Zofran) polyethylene glycol 3350 17 gram 17 g PO DAILY PRN 10/07/20 02/02/21 Unknown oral powder packet (Miralax) sennosides 8.6 mg tablet (senna) 8.6 mg PO DAILY PRN 10/07/20 02/02/21 01/16/21 sertraline 25 mg tablet (Zoloft) 25 mg PO HS 10/07/20 02/02/21 02/01/21 amino ac-protein hydro-whey 1 ea FEEDING TUBE HS 01/17/21 02/02/21 02/01/21 protein 10 gram-100 kcal/30 mL oral liquid (ProSource) esomeprazole magnesium 20 mg 20 mg PO DAILYBB 01/17/21 02/02/21 02/01/21 capsule,delayed release (Nexium) metoclopramide HCl 5 mg tablet 5 mg PO TID 01/17/21 02/02/21 02/01/21 (Reglan) zoster vaccine live (PF) 19,400 0.5 ml SUBCUT DIRECTED 01/17/21 02/02/21 U nknown unit/0.65 mL subcutaneous suspension (Zostavax (PF)) acetaminophen 500 mg tablet 1,000 mg PO BID 02/02/21 02/02/21 02/01/21 (Acetaminophen Extra Strength) benzonatate 200 mg capsule 200 mg PO TID PRN 02/02/21 02/02/21 02/01/21 camphor-menthol 0.2 %-3.5 % 1 applic TOPICAL DAILY PRN 02/02/21 02/02/21 02/02/21 topical gel (Arctic Relief) ferric derisomaltose 100 mg 100 mg IV UD 02/02/21 02/02/21 02/01/21 iron/mL intravenous solution (Monoferric) prednisone 10 mg tablet 10 mg PO QAM 02/02/21 02/02/21 02/01/21 Active Medications Generic Name Dose Route Start Last Admin Trade Name Freq PRN Reason Stop Dose Admin Acetaminophen 1,000 mg 02/03/21 09:00 02/07/21 20:11 Acetaminophen 500 Mg Tab PO 03/05/21 08:59 1,000 mg BID CARLYLE Administration Acetaminophen 650 mg 02/02/21 21:04 02/04/21 15:14 Acetaminophen 325 Mg Tab PO 03/04/21 21:03 650 mg Q4H PRN Administration Moderate Pain Albuterol 2 puffs 02/02/21 21:04 02/04/21 15:27 Albuterol Hfa 8 Gm Inhaler INH 03/04/21 21:03 2 puffs QID PRN Administration Shortness Of Breath Or Wheezing Ascorbic Acid 500 mg 02/03/21 09:00 02/07/21 08:34 Ascorbic Acid 500 Mg Tab PO 03/05/21 08:59 500 mg QAM CARLYLE Administration Aspirin 81 mg 02/03/21 09:00 02/07/21 08:33 Aspirin 81 Mg Ectab PO 03/05/21 08:59 81 mg QAM CARLYLE Administration Famotidine 20 mg 02/02/21 21:04 02/07/21 20:14 Famotidine 20 Mg Tab PO 03/04/21 21:03 20 mg HS CARLYLE Administration Fluticasone/Vilanterol 1 puffs 02/02/21 21:04 02/07/21 20:17 Fluticasone/Vilanterol 200/25mcg 14 Puffs/Inhaler INH 03/04/21 21:03 1 puffs HS CARLYLE Administration Gabapentin 300 mg 02/02/21 21:04 02/07/21 20:16 Gabapentin 300 Mg Cap PO 03/04/21 21:03 300 mg HS CARLYLE Administration Gabapentin 100 mg 02/03/21 09:00 02/07/21 11:44 Gabapentin 100 Mg Cap PO 03/05/21 08:59 100 mg BID@0900,1200 CARLYLE Administration Guaifenesin 1,200 mg 02/02/21 21:04 02/07/21 20:15 Guaifenesin 600 Mg Tabcr PO 03/04/21 21:03 1,200 mg Q12 CARLYLE Administration Heparin Sodium (Porcine) 5,000 units 02/02/21 21:45 02/07/21 20:15 Heparin Sod 5,000 Unit/0.5 Ml Vial SQ 03/04/21 21:44 5,000 units Q12 CARLYLE Administration Lidocaine 1 patch 02/03/21 09:00 02/07/21 08:33 Lidocaine 5% 1 Patch TD 03/05/21 08:59 1 patch QAM CARLYLE Administration Melatonin 3 mg 02/02/21 21:04 02/07/21 20:11 Melatonin 3 Mg Tab PO 03/04/21 21:03 3 mg HS CARLYLE Administration Metoclopramide HCl 10 mg 02/02/21 16:30 02/08/21 07:49 Metoclopramide Hcl 10 Mg Tablet PO 03/04/21 16:29 10 mg AC CARLYLE Administration Metoclopramide HCl 10 mg 02/07/21 09:00 02/07/21 08:34 Metoclopramide Hcl Inj 5 Mg/Ml 2 Ml Vial IV 02/09/21 08:59 10 mg DAILY CARLYLE Administration Metoprolol Succinate 12.5 mg 02/04/21 09:00 02/07/21 08:34 Metoprolol Succ 25mg Ext Rel Tab PO 03/06/21 08:59 12.5 mg QAM CARLYLE Administration Miscellaneous 1 ea 02/02/21 21:04 02/07/21 20:17 Remove Lidoderm Patch N/A 03/04/21 21:03 1 ea DAILY@2100 CARLYLE Administration Pantoprazole Sodium 40 mg 02/03/21 06:30 02/08/21 06:32 Pantoprazole 40 Mg PO 03/05/21 06:29 40 mg DAILYBB CARLYLE Administration Prednisone 10 mg 02/04/21 09:00 02/07/21 08:34 Prednisone 10 Mg Tablet PO 02/14/21 08:59 10 mg QAM CARLYLE Administration Sennosides 8.6 mg 02/02/21 21:04 02/07/21 08:35 Senna 8.6 Mg Tab PO 03/04/21 21:03 8.6 mg DAILY PRN Administration Constipation Sertraline HCl 25 mg 02/02/21 21:04 02/07/21 20:16 Sertraline Hcl 50 Mg Tablet PO 03/04/21 21:03 25 mg HS CARLYLE Administration Tamsulosin HCl 0.4 mg 02/02/21 21:04 02/07/21 20:15 Tamsulosin Hcl 0.4 Mg Cap PO 03/04/21 21:03 0.4 mg HS CARLYLE Administration Torsemide 10 mg 02/04/21 09:00 02/07/21 08:34 Torsemide 10 Mg Tab PO 03/06/21 08:59 10 mg QAM CARLYLE Administration Umeclidinium [place] 1 puffs 02/02/21 21:04 02/07/21 20:17 Umeclidinium [place] 62.5mcg/Blister 7 Puffs/Inhaler INH 03/04/21 21:03 1 puffs HS CARLYLE Administration NPO Date Last Intake of Fluids: 02/05/21 Time Last Intake of Fluids: 06:00 Last Intake of Fluids Comment: sip with meds Date Last Intake of Solids: 02/02/21 Last Intake of Solids Comment: pt reports more than 3 days ago Past Medical History Medical History Breast cancer Chronic diastolic CHF (congestive heart failure) CKD (chronic kidney disease), stage IV COPD (chronic obstructive pulmonary disease) Dyslipidemia GERD (gastroesophageal reflux disease) History of DVT (deep vein thrombosis) HTN (hypertension) Lumbago Osteoporosis Palliative care encounter POLST (Physician Orders for Life-Sustaining Treatment) Past Family History Family History Mother Colonic polyp Hypertension Heart disease Cancer Breast Father Hypertension Heart disease Past Surgical History Surgical History H/O bladder repair surgery H/O colonoscopy H/O mastectomy H/O right knee surgery History of right-sided carotid endarterectomy History of total hip replacement S/P tonsillectomy and adenoidectomy S/P total hysterectomy Social History Smoking Status: Never smoker Do You Dip or Chew Tobacco: No Hx Alcohol Use: No Hx Substance Use: No substance use type: does not use Physical Exam Vital Signs Last Vital Signs Temp 97.5 F L 02/08/21 07:47 Pulse 69 02/08/21 07:47 Resp 16 02/08/21 07:47 BP 136/74 02/08/21 07:47 Pulse Ox 99 02/08/21 07:47 Testing Laboratory Results 02/05/21 07:10 02/06/21 05:58 APTT 27.6 Seconds (21.0-31.0) 02/02/21 08:15 Urine Color Yellow 02/02/21 10:30 Urine Appearance Clear (Clear) 02/02/21 10:30 Urine pH 7.5 (4.5-7.5) 02/02/21 10:30 Ur Specific [place] 1.015 (1.000-1.030) 02/02/21 10:30 Urine Protein Trace (Negative) H 02/02/21 10:30 Urine Glucose (UA) Negative (Negative) 02/02/21 10:30 Urine Ketones Negative (Negative) 02/02/21 10:30 Urine Nitrite Negative (Negative) 02/02/21 10:30 Ur Leukocyte Esterase Negative (Negative) 02/02/21 10:30 Urine WBC (Auto) 1-5 /hpf (0-5) 02/02/21 10:30 Urine RBC (Auto) 0-4 /hpf (0-4) 02/02/21 10:30 U Hyaline Cast (Auto) 0 /lpf (0-5) 02/02/21 10:30 U Epithel Cells (Auto) 0-5 /lpf (0-5) 02/02/21 10:30 Urine Bacteria (Auto) Negative (Negative) 02/02/21 10:30 02/05/21 18:00 Gram Stain - Final Sputum, Expectorated Sputum Culture - Final Moderate normal nj. 02/02/21 09:49 Aerobic Blood Culture - Final Blood No growth in Aerobic bottle after 5 days. Anaerobic Blood Culture - Final No growth in Anaerobic bottle after 5 days. 02/02/21 08:15 Aerobic Blood Culture - Final Blood No growth in Aerobic bottle after 5 days. Anaerobic Blood Culture - Final No growth in Anaerobic bottle after 5 days. Laboratory Tests 02/02/21 08:55 SARS-CoV-2 (PCR) NEGATIVE Electrocardiogram Date: 02/07/21 Sinus rhythm with 1st degree A-V block, rate 73 bpm Right bundle branch block Abnormal ECG When compared with ECG of 02-FEB-2021 07:59, Premature atrial complexes are no longer Present Minimal criteria for Anterior infarct are no longer Present Criteria for Inferior infarct are no longer Present Confirmed by Steven Reno ([id number]) on 02/07/2021 12:31:46 PM Chest X-Ray Date: 02/02/21 IMPRESSION: 1. Cardiomegaly without overt pulmonary edema. 2. Small left and trace right pleural effusions with left lung base opacities suggestive of atelectasis versus pneumonitis. Echocardiogram Date: 01/20/21 No regional wall motion abnormalities noted LV is hyperdynamic EF 70% RV is normal in size and function Grade 1 diastolic dysfunction There is a small circumferential pericardial effusion, with fibrinous strands suggesting some degree of chronicity. There is no evidence of tamponade physiology.
[2021-02-08] MEDS: predniSONE 10 MG TABLET PO SCH (08:33)
[2021-02-08] MEDS: METOPROLOL SUCC 25MG EXT REL TAB PO SCH (08:33)
[2021-02-08] MEDS: ACETAMINOPHEN 500 MG TAB PO SCH ×2 (08:33→20:02)
[2021-02-08] MEDS: ASPIRIN 81 MG ECTAB PO SCH (08:33)
[2021-02-08] MEDS: TORSEMIDE 10 MG TAB PO SCH (08:34)
[2021-02-08] MEDS: GABAPENTIN 100 MG CAP PO SCH ×2 (08:34→12:23)
[2021-02-08] MEDS: ASCORBIC ACID 500 MG TAB PO SCH (08:35)
[2021-02-08] MEDS: HEPARIN SOD 5,000 UNIT/0.5 ML VIAL SQ SCH ×2 (08:35→20:05)
[2021-02-08] MEDS: LIDOCAINE 5% 1 PATCH TD SCH (08:35)
[2021-02-08] MEDS: guaiFENesin 600 MG TABCR PO SCH ×2 (08:35→20:03)
[2021-02-08] MEDS: METOCLOPRAMIDE HCL INJ 5 MG/ML 2 ML VIAL IV SCH (08:59)
[2021-02-08 09:31] LABS: Basophils # (auto) 0.03 K/uL (0-0.2); Basophils % (auto) 0.3 %; Eosinophils # (auto) 0.18 K/uL (0-0.5); Eosinophils % (auto) 1.7 %; Hemoglobin 9.8 g/dL (12.0-16.0); Immature Granulocytes # (auto) 0.06 K/uL (0.00-0.02); Immature Granulocytes % (auto) 0.6 %; Lymphocytes # (auto) 1.75 K/uL (1.2-3.4); Mean Corpuscular Hemoglobin 29.5 pg (25-34); Mean Corpuscular Hgb Conc 30.6 g/dL (32-36); Mean Corpuscular Volume 96.4 fL (80-100); Mean Platelet Volume 9.3 fL (7.4-10.4); Monocytes # (auto) 0.88 K/uL (0.11-0.59); Monocytes % (auto) 8.5 %; Neutrophils # (auto) 7.42 K/uL (1.4-6.5); Neutrophils % (auto) 71.9 %; Platelet Count 350 K/uL (130-400); RDW Coefficient of Variation 14.3 % (11.5-14.5); Red Blood Count 3.32 M/uL (4.2-5.4); White Blood Count 10.32 K/uL (4.8-10.8)
[2021-02-08 09:47] LABS: BUN Creatinine Ratio 23.4 (10-20); Calcium 9.1 mg/dl (8.5-10.1); Creatinine Clr Calc Pharmacy 29.2 ml/min; Est GFR (African American) 38.7 ml/min; Est GFR (Non-African American) 33.4 ml/min
--- NOTE | 2021-02-08 09:51 | Gastroenterology Progress Note ---
Date of Service February 08, 2021 Assessment & Plan (1) Nausea & vomiting: Plan: 85 year old female with history of paraesophageal hernia repair, vagal nerve damage w/ gastroparesis for EGD w/ botox. NPO EGD today Can stop IV reglan after EGD Admission and Anticipated Discharge Date Admission Date: February 03, 2021 Supervising Physician Co-Signing Physician Notes I have seen and examined the patient with MIGUELANGEL Lane whose note reflects our findings and plan. EGD today with plan for botox if food has cleared. Subjective Feeling well No abd pain No nausea, vomiting NPO for EGD today Review of Systems Review of Systems: All systems reviewed & are unremarkable except as noted in HPI & below Physical Exam Constitutional: WD/WN, vitals as above Neck: trachea midline, no thyromegaly Respiratory: normal respiratory effort, lungs clear to auscultation Cardiovascular: RRR, no murmur, no edema Gastrointestinal (Abdomen): normal bowel sounds, soft, nontender, no hepatosplenomegaly Skin: no rashes, warm and dry Results & Data ([facility]) Vital Signs (Past 12 Hours) Vital Signs Temp Pulse Pulse Resp BP Pulse Ox 02/08/21 07:47 36.4 C L 69 16 136/74 99 02/08/21 07:05 65 02/08/21 04:29 36.4 C L 67 18 121/71 99 02/07/21 23:59 69 02/07/21 23:25 36.5 C 70 17 143/72 H 93 (1) Nausea & vomiting Vomiting Intractability: non-intractable Vomiting type: unspecified Qualified Code(s): R11.2 - Nausea with vomiting, unspecified
[2021-02-08] MEDS ORDERED: LIDOCAINE 2% 2 ML VIAL/AMP(20MG/ML) INFIL ONE (10:13)
[2021-02-08] MEDS ORDERED: PROPOFOL IV EMULSION 10 MG/ML 20 ML VIAL IV ONE (10:13)
[2021-02-08] MEDS ORDERED: ePHEDrine sulfate 50 MG/ML AMP IV PRN (10:28)
[2021-02-08] MEDS ORDERED: ATROPINE SULFATE 0.1 MG/ML 10ML SYR IV PRN (10:28)
[2021-02-08] MEDS ORDERED: ONDANSETRON INJ 2 MG/ML 2 ML VIAL IV PRN (10:28)
[2021-02-08] MEDS ORDERED: BOTULINUM TOXIN TYPE A 100 UNIT VIAL IM ONE (10:29)
--- NOTE | 2021-02-08 11:44 | GI REPORT ---
Patient Name: Radhika Arroyo Procedure Date: 02/08/2021 10:36 AM Date of : 1935 Admit Type: Inpatient Age: 85 Gender: Female Attending MD: Tessa Reid DO Procedure: Upper GI endoscopy Providers: Tessa Reid DO Referring MD: Tna Love Indications: For therapy of gastroparesis, Nausea with vomiting Medicines: Propofol per Anesthesia Complications: No immediate complications. Estimated blood loss: None. Estimated Blood Loss: Estimated blood loss: none. Procedure: Pre-Anesthesia Assessment: - Prior to the procedure, a History and Physical was performed, and patient medications, allergies and sensitivities were reviewed. The patient's tolerance of previous anesthesia was reviewed. - The risks and benefits of the procedure and the sedation options and risks were discussed with the patient. All questions were answered and informed consent was obtained. - Patient identification and proposed procedure were verified prior to the procedure by the physician and the nurse. The procedure was verified in the pre-procedure area in the procedure room. - Mental Status Examination: alert and oriented. Airway Examination: normal oropharyngeal airway and neck mobility. Respiratory Examination: clear to auscultation. CV Examination: normal. Abdominal Examination: bowel sounds present, abdomen soft and non-tender, no masses or organomegaly noted. - ASA Grade Assessment: IV - A patient with severe systemic disease that is a constant threat to life. After obtaining informed consent, the endoscope was passed under direct vision. Throughout the procedure, the patient's blood pressure, pulse, and oxygen saturations were monitored continuously. The Endoscope was introduced through the mouth, and advanced to the body of the stomach. The upper GI endoscopy was accomplished without difficulty. The patient tolerated the procedure well. Findings: The esophagus was normal. A large amount of food (residue) was found in the entire examined stomach. Impression: - Normal esophagus. - A large amount of food (residue) in the stomach. (see below) - No specimens collected. Recommendation: - Despite over 5 days of NPO patient still has large volume of particulate chunks of food which are not amenable to endoscopic removal in the endo unit. Unable to inject botox at the pylorus given the volume of food and concern for aspiration. - Spoke with surgeon who did her surgery. Will plan to discharge her on liquid diet with tube feeds (jejunal) and repeat EGD in 4 weeks with hopes of doing Botox at that time. The upper Gi did not show any evidence of GOO so she should tolerate liquid diet. - [facility] for possible discharge same day. Tessa Reid D.O. Tessa Reid, 02/08/2021 11:44:18 AM This report has been signed electronically. Note Initiated On: 02/08/2021 10:36 AM Number of Addenda: 0 I attest to the content of the Intraoperative Record and orders documented therein, exceptions below {[id number]}
--- NOTE | 2021-02-08 12:32 | Anesthesiology Progress Note ---
Date of Service February 08, 2021 Anesthesia Post Procedure Vital Signs Vital Signs: Temp Pulse Pulse Resp BP Pulse Ox 02/08/21 12:21 97.9 F 66 18 124/63 94 02/08/21 12:01 67 16 136/73 97 02/08/21 11:46 70 16 123/91 96 02/08/21 11:31 67 18 109/57 L 96 02/08/21 10:25 97.2 F L 74 18 149/72 H 99 02/08/21 07:47 97.5 F L 69 16 136/74 99 02/08/21 07:05 65 02/08/21 04:29 97.5 F L 67 18 121/71 99 02/07/21 23:59 69 02/07/21 23:25 97.7 F 70 17 143/72 H 93 02/07/21 20:07 98.1 F 87 18 119/64 98 02/07/21 15:58 98.6 F 77 20 120/73 97 Pain Intensity Shoulder: Pain Intensity: 5 Transfer of Care Handoff Completed per policy Notes Mental Status: alert / awake / arousable and participated in evaluation Patient Amnestic to Procedure: Yes Nausea / Vomiting: adequately controlled Pain: adequately controlled Airway Patency, RR, SpO2: stable & adequate BP & HR: stable & adequate Hydration State: stable & adequate Anesthetic Complications: no major complications apparent and Pt Satisfied with anesthetic care Notes: IV infiltrated in left upper arm and removed, new IV placed in left hand, procedure completed without issue.
--- NOTE | 2021-02-08 17:28 | Hospitalist Progress Note ---
Date of Service February 08, 2021 delayed entry date of service noted above Assessment & Plan (1) Gastroparesis: Plan: per Dr. Quintanilla's notes: 85-year-old female with PMH of dysphagia and hiatal hernia status post PEG tube placement September 2020 at [place], chronic diastolic CHF, COPD, GERD, CKD stage IV [baseline creatinine 1.7-2.1], morbid obesity, and PABLO noncompliant with CPAP presented 02/02 to our ED with multiple episodes of vomiting. Patient was recently admitted for sepsis aspiration pneumonia. She uses 3 L home oxygen. She reports multiple vomiting episodes on the day of arrival and choking on her vomitus. There is leaking around her PEG tube insertion site with some erythema at presentation. She is being managed for the following in the hospital: #. Probable aspiration pneumonia: Multiple episodes of vomiting on the day of arrival and patient reporting choking on them. History of aspiration pneumonia, patient is on soft/liquid diet, patient has PEG tube [tube feeding overnight ] and also has p.o. intake. Admitting WBC elevated to 17.77K with coarse crackles over right lung at presentation. Patient not on sepsis at presentation. Covid negative at presentation. Temperature of 37.6 at presentation Admitting CXR: Negative for acute right lung findings. Admitting blood culture: No growth after 48 hours, follow-up with final results. Continue with nebulization, Zosyn 02/02 empirically for 3 days, DC'd as patient remained afebrile and asymptomatic. Continue to monitor clinically. -- remains on 3 L nasal cannula- her baseline stable respiratory status -- no respiratory symptoms #. PEG tube site erythema/leaking #. Aspiration/gastroparesis At presentation, patient also complained of leaking from the site of PEG tube insertion with erythema surrounding the port of entry. At baseline, patient has p.o. intake and her tube feeds is : Nutren 2.0 oral liquid at 65 ml/hr for 12 hours daily through the feeding tube. ( 3.5 cartons ~ 780 ml per night 7p - 7a) with 20 ml flush before and after. Admitting CTAP: No bowel obstruction, satisfactory positioning of the gastrojejunostomy tube. 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 For now increasing metoclopramide dose while inpatient, back to home dose at discharge. 02/05 underwent upper scope, stomach full of solid food, could not get Botox injection. Recommended transfer. 02/06 recommending clear liquids and scope on . 02/05: Patient's daughter TYLER updated with current status/plan of care and communicated for possible transfer, she was agreeable. Discussed with GI doctor in the morning who recommended transfer to [place]. Called [place] and talked with Dr. Lopez's surgical team, they recommended endoscopic wash out of her stomach and trying Botox injection in 2 to 3 days. Only clear liquid until then. They cannot take the patient now because they believe that they will be doing the same at [place] as well. They stated that she needs Botox injection every 4 to 6 months. 02/08 s/p EGD by Dr. Reid: - Normal esophagus. - A large amount of food (residue) in the stomach. (see below) - No specimens collected. Recommendation: - Despite over 5 days of NPO patient still has large volume of particulate chunks of food which are not amenable to endoscopic removal in the endo unit. Unable to inject botox at the pylorus given the volume of food and concern for aspiration. - Spoke with surgeon who did her surgery. Will plan to discharge her on liquid diet with tube feeds (jejunal) and repeat EGD in 4 weeks with hopes of doing Botox at that time. The upper Gi did not show any evidence of GOO so she should tolerate liquid diet. tolerating clears #. Chronic diastolic CHF (congestive heart failure): -Appears to be euvolemic, continue metoprolol/torsemide, monitor volume status closely -Continue with home meds #. COPD (chronic obstructive pulmonary disease): - Currently on baseline o2 at 3 L - Not in acute exacerbation #. HTN (hypertension): - Cont metoprolol, torsemide #. CKD (chronic kidney disease), stage IV: - Cr. at baseline 1.60, BUN 51 #. GERD (gastroesophageal reflux disease): - omeprazole and famotidine ordered, continue #. Anemia: - Chronic, hgb 10.5 DVT ppx: teds, heparin subq CODE: Full code Dispo: From home, likely to remain in the hospital until . Admission and Anticipated Discharge Date Admission Date: February 03, 2021 Subjective ff up for gastroparesis, etc seen resting in bed, comfortable in good spirits states she feels fine overall no cough, shortness of breath, chest pain, chills no abdominal pain tolerating clears no other symptoms Review of Systems Review of Systems: all noted and negative except for above Physical Exam Physical Exam: General- oriented x 3, not in distress, speaks in sentences with no effort or accessory muscle use Eyes- anicteric Neck- no JVD Lungs- clear BS BL no crackles/wheezing Heart- normal rate, regular rhythm; no murmurs Abdomen- normal bowel sounds, nondistended, soft, nontender Extremities- no pretibial edema, no calf tenderness Neuro- alert, oriented x 3; no gross focal neurologic deficits Skin- warm & dry Results & Data Results & Data ([facility]) Vital Signs (Past 12 Hours) Vital Signs Temp Pulse Pulse Resp BP Pulse Ox 02/08/21 15:05 36.6 C 68 18 134/72 96 02/08/21 12:21 36.6 C 66 18 124/63 94 02/08/21 12:01 67 16 136/73 97 02/08/21 11:46 70 16 123/91 96 02/08/21 11:31 67 18 109/57 L 96 02/08/21 10:25 36.2 C L 74 18 149/72 H 99 02/08/21 07:47 36.4 C L 69 16 136/74 99 02/08/21 07:05 65 all noted and reviewed including below
[2021-02-08] MEDS ORDERED: [UNRECOGNIZED DRUG - OTHER] SCH (19:00)
[2021-02-08] MEDS: FLUTICASONE/VILANTEROL 200/25MCG 14 PUFFS/INHALER INH SCH (20:04)
[2021-02-08] MEDS: MELATONIN 3 MG TAB PO SCH (20:10)
[2021-02-08] MEDS: TAMSULOSIN HCL 0.4 MG CAP PO SCH (21:00)
[2021-02-08] MEDS: GABAPENTIN 300 MG CAP PO SCH (21:00)
[2021-02-08] MEDS: FAMOTIDINE 20 MG TAB PO SCH (21:00)
[2021-02-08] MEDS: SERTRALINE HCL 50 MG TABLET PO SCH (21:00)
[2021-02-08] MEDS: UMECLIDINIUM BROMIDE 62.5MCG/BLISTER 7 PUFFS/INHALER INH SCH (21:02)
[2021-02-09] MEDS: PANTOPRAZOLE 40 MG PO SCH (05:41)
[2021-02-09] MEDS: METOCLOPRAMIDE HCL 10 MG TABLET PO SCH ×2 (08:18→11:38)
[2021-02-09] MEDS: guaiFENesin 600 MG TABCR PO SCH (08:19)
[2021-02-09] MEDS: predniSONE 10 MG TABLET PO SCH (08:19)
[2021-02-09] MEDS: GABAPENTIN 100 MG CAP PO SCH (08:20)
[2021-02-09] MEDS: ASCORBIC ACID 500 MG TAB PO SCH (08:21)
[2021-02-09] MEDS: TORSEMIDE 10 MG TAB PO SCH (08:22)
[2021-02-09] MEDS: ASPIRIN 81 MG ECTAB PO SCH (08:22)
[2021-02-09] MEDS: LIDOCAINE 5% 1 PATCH TD SCH (08:24)
[2021-02-09] MEDS: METOPROLOL SUCC 25MG EXT REL TAB PO SCH (08:24)
[2021-02-09] MEDS: HEPARIN SOD 5,000 UNIT/0.5 ML VIAL SQ SCH (08:24)
[2021-02-09] MEDS: ACETAMINOPHEN 500 MG TAB PO SCH (09:38)
--- NOTE | 2021-02-09 12:03 | Hospitalist Progress Note ---
Date of Service February 09, 2021 Assessment & Plan (1) Gastroparesis: Plan: per Dr. Quintanilla's notes: 85-year-old female with PMH of dysphagia and hiatal hernia status post PEG tube placement September 2020 at [place], chronic diastolic CHF, COPD, GERD, CKD stage IV [baseline creatinine 1.7-2.1], morbid obesity, and PABLO noncompliant with CPAP presented 02/02 to our ED with multiple episodes of vomiting. Patient was recently admitted for sepsis aspiration pneumonia. She uses 3 L home oxygen. She reports multiple vomiting episodes on the day of arrival and choking on her vomitus. There is leaking around her PEG tube insertion site with some erythema at presentation. She is being managed for the following in the hospital: #. Probable aspiration pneumonia: Multiple episodes of vomiting on the day of arrival and patient reporting choking on them. History of aspiration pneumonia, patient is on soft/liquid diet, patient has PEG tube [tube feeding overnight ] and also has p.o. intake. Admitting WBC elevated to 17.77K with coarse crackles over right lung at presentation. Patient not on sepsis at presentation. Covid negative at presentation. Temperature of 37.6 at presentation Admitting CXR: Negative for acute right lung findings. Admitting blood culture: No growth after 48 hours, follow-up with final results. Continue with nebulization, Zosyn 02/02 empirically for 3 days, DC'd as patient remained afebrile and asymptomatic. Continue to monitor clinically. -- remains on 3 L nasal cannula- her baseline -- no respiratory symptoms #. PEG tube site erythema/leaking #. Aspiration/gastroparesis At presentation, patient also complained of leaking from the site of PEG tube insertion with erythema surrounding the port of entry. At baseline, patient has p.o. intake and her tube feeds is : Nutren 2.0 oral liquid at 65 ml/hr for 12 hours daily through the feeding tube. ( 3.5 cartons ~ 780 ml per night 7p - 7a) with 20 ml flush before and after. Admitting CTAP: No bowel obstruction, satisfactory positioning of the gastrojejunostomy tube. 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 For now increasing metoclopramide dose while inpatient, back to home dose at discharge. 02/05 underwent upper scope, stomach full of solid food, could not get Botox injection. Recommended transfer. 02/06 recommending clear liquids and scope on . 02/05: Patient's daughter TYLER updated with current status/plan of care and communicated for possible transfer, she was agreeable. Discussed with GI doctor in the morning who recommended transfer to [place]. Called [place] and talked with Dr. Lopez's surgical team, they recommended endoscopic wash out of her stomach and trying Botox injection in 2 to 3 days. Only clear liquid until then. They cannot take the patient now because they believe that they will be doing the same at [place] as well. They stated that she needs Botox injection every 4 to 6 months. 02/08 s/p EGD by Dr. Reid: - Normal esophagus. - A large amount of food (residue) in the stomach. (see below) - No specimens collected. Recommendation: - Despite over 5 days of NPO patient still has large volume of particulate chunks of food which are not amenable to endoscopic removal in the endo unit. Unable to inject botox at the pylorus given the volume of food and concern for aspiration. - Spoke with surgeon who did her surgery. Will plan to discharge her on liquid diet with tube feeds (jejunal) and repeat EGD in 4 weeks with hopes of doing Botox at that time. The upper Gi did not show any evidence of GOO so she should tolerate liquid diet. tolerating clears GI recommends to discharge on liquid diet with tube feeds repeat EGD in 4 weeks for possible Botox injection #. Chronic diastolic CHF (congestive heart failure): -euvolemic continue metoprolol/torsemide #. COPD (chronic obstructive pulmonary disease): - Currently on baseline o2 at 3 L - Not in acute exacerbation #. HTN (hypertension): - Cont metoprolol, torsemide #. CKD (chronic kidney disease), stage IV: - Cr. at baseline 1.60, BUN 51 #. GERD (gastroesophageal reflux disease): - omeprazole and famotidine #. Anemia: - Chronic, hgb 10.5 DVT ppx: teds, heparin subq CODE: Full code Dispo: d/c home ff up with PCP in 1 week ff up with GI in 2 weeks repeat EGD in 4 weeks for possible Botox injection Admission and Anticipated Discharge Date Admission Date: February 03, 2021 Subjective ff up for gastroparesis, etc seen resting in bed, comfortable in good spirits states she feels fine overall no abdominal pain, nausea tolerating clears well no cough, dyspnea, chest pain no palpitations, dizziness no other symptoms states she is ready and would like to be discharged today Review of Systems Review of Systems: all noted and negative except for above Physical Exam Physical Exam: General- oriented x 3, not in distress, speaks in sentences with no effort or accessory muscle use Eyes- anicteric Neck- no JVD Lungs- clear BS BL no crackles no wheezing Heart- normal rate, regular rhythm; no murmurs Abdomen- normal bowel sounds, nondistended, soft, nontender Extremities- no pretibial edema, no calf tenderness Neuro- alert, oriented x 3; no gross focal neurologic deficits Skin- warm & dry Results & Data Results & Data ([facility]) Vital Signs (Past 12 Hours) Vital Signs Temp Pulse Pulse Resp BP Pulse Ox 02/09/21 11:56 36.9 C 81 20 147/78 H 96 02/09/21 09:00 68 02/09/21 08:00 36.6 C 63 20 125/76 99 02/09/21 03:46 36.4 C L 62 18 125/73 98 02/09/21 00:28 61 all noted and reviewed including below
--- NOTE | 2021-02-09 12:19 | Discharge Summary ---
Date of Service February 09, 2021 Admission HPI Per Admitting Provider severe gastroparesis following paraesophageal hernia repair Admission Exam (Per Admitting) Constitutional General: awake, alert, no apparent distress, + obese Head: Normocephalic, atraumatic ENT: PERRL, EOMI, no pharyngeal exudate, mucous membranes moist Chest: On 3 L via NC with sats 95%, Rhonchi present bases bilaterally, + coarse breath sounds at right base, faint exp wheeze in left side. Cardiac: slightly tachycardic with HR in 90s, no murmur, no JVD, normal peripheral pulses, good capillary refill Abdominal: GJ tube present in LUQ, minimal surrounding erythema, no pain with palpation around it, no leaking, NABS x 4 quadrants, soft, nondistended, nontender to palpation, no rebound or guarding Extremities: Normal inspection, no peripheral edema or erythema, calfs nontender to palpation Psych: Normal mood and affect Neuro: AAO x 3, strength intact bilaterally and rated 5/5, no motor deficits, speech is clear, no peripheral sensory deficits Discharge Data Consultations 02/02/21 10:49 ED Decision to Admit Stat 02/02/21 11:24 Consult Gastroenterology Routine 02/05/21 11:41 Consult Palliative Care Routine Procedures Performed Operation Date: 02/05/21 08:30 Actual Procedures p Esophagogastroduodenoscopy - Tessa Reid DO Operation Date: 02/08/21 16:30 Actual Procedures p Esophagogastroduodenoscopy - Tessa Reid DO Hospital Course (1) Gastroparesis: per Dr. Quintanilla's notes: 85-year-old female with PMH of dysphagia and hiatal hernia status post PEG tube placement September 2020 at [place], chronic diastolic CHF, COPD, GERD, CKD stage IV [baseline creatinine 1.7-2.1], morbid obesity, and PABLO noncompliant with CPAP presented 02/02 to our ED with multiple episodes of vomiting. Patient was recently admitted for sepsis aspiration pneumonia. She uses 3 L home oxygen. She reports multiple vomiting episodes on the day of arrival and choking on her vomitus. There is leaking around her PEG tube insertion site with some erythema at presentation. She is being managed for the following in the hospital: #. Probable aspiration pneumonia: Multiple episodes of vomiting on the day of arrival and patient reporting choking on them. History of aspiration pneumonia, patient is on soft/liquid diet, patient has PEG tube [tube feeding overnight ] and also has p.o. intake. Admitting WBC elevated to 17.77K with coarse crackles over right lung at presentation. Patient not on sepsis at presentation. Covid negative at presentation. Temperature of 37.6 at presentation Admitting CXR: Negative for acute right lung findings. Admitting blood culture: No growth after 48 hours, follow-up with final results. Continue with nebulization, Zosyn 02/02 empirically for 3 days, DC'd as patient remained afebrile and asymptomatic. Continue to monitor clinically. -- remains on 3 L nasal cannula- her baseline -- no respiratory symptoms #. PEG tube site erythema/leaking #. Aspiration/gastroparesis At presentation, patient also complained of leaking from the site of PEG tube insertion with erythema surrounding the port of entry. At baseline, patient has p.o. intake and her tube feeds is : Nutren 2.0 oral liquid at 65 ml/hr for 12 hours daily through the feeding tube. ( 3.5 cartons ~ 780 ml per night 7p - 7a) with 20 ml flush before and after. Admitting CTAP: No bowel obstruction, satisfactory positioning of the gastrojejunostomy tube. 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 For now increasing metoclopramide dose while inpatient, back to home dose at discharge. 02/05 underwent upper scope, stomach full of solid food, could not get Botox injection. Recommended transfer. 02/06 recommending clear liquids and scope on . 02/05: Patient's daughter TYLER updated with current status/plan of care and communicated for possible transfer, she was agreeable. Discussed with GI doctor in the morning who recommended transfer to [place]. Called [place] and talked with Dr. Lopez's surgical team, they recommended endoscopic wash out of her stomach and trying Botox injection in 2 to 3 days. Only clear liquid until then. They cannot take the patient now because they believe that they will be doing the same at [place] as well. They stated that she needs Botox injection every 4 to 6 months. 02/08 s/p EGD by Dr. Reid: - Normal esophagus. - A large amount of food (residue) in the stomach. (see below) - No specimens collected. Recommendation: - Despite over 5 days of NPO patient still has large volume of particulate chunks of food which are not amenable to endoscopic removal in the endo unit. Unable to inject botox at the pylorus given the volume of food and concern for aspiration. - Spoke with surgeon who did her surgery. Will plan to discharge her on liquid diet with tube feeds (jejunal) and repeat EGD in 4 weeks with hopes of doing Botox at that time. The upper Gi did not show any evidence of GOO so she should tolerate liquid diet. tolerating clears GI recommends to discharge on liquid diet with tube feeds repeat EGD in 4 weeks for possible Botox injection #. Chronic diastolic CHF (congestive heart failure): -euvolemic continue metoprolol/torsemide #. COPD (chronic obstructive pulmonary disease): - Currently on baseline o2 at 3 L - Not in acute exacerbation #. HTN (hypertension): - Cont metoprolol, torsemide #. CKD (chronic kidney disease), stage IV: - Cr. at baseline 1.60, BUN 51 #. GERD (gastroesophageal reflux disease): - omeprazole and famotidine #. Anemia: - Chronic, hgb 10.5 DVT ppx: teds, heparin subq CODE: Full code Dispo: d/c home ff up with PCP in 1 week ff up with GI in 2 weeks repeat EGD in 4 weeks for possible Botox injection
== END 2021-02-09 14:20 | disposition home health service (06) | DRG 391 ==
LOC: EDINP 07:52 → ED 07:52 → 2S 15:13 → SUATTDRO 02-03 14:19